=== PATIENT | female | born 1965 | race Caucasian/White ===

== ENCOUNTER → 2017-10-19 07:52 | Outpatient (CLI) | payer MEDICAID, SELFPAY ==
--- NOTE | 2017-10-19 08:14 | CT_ITS ---
STUDY: CT CHEST WITH CONTRAST REASON FOR EXAM: Female, 52 years old. The patient has a history of lung cancer. Prior chemotherapy and radiation therapy. RADIATION DOSAGE (If Supplied By Facility): CTDIvol = ( 8.24 ) mGy, DLP = ( 337.60 ) mGycm TECHNIQUE: Transaxial imaging was performed following intravenous administration of 100mL ml of Isovue 300 contrast material. Multiplanar coronal and sagittal images were reformatted. Individualized dose optimization techniques were used for this CT. COMPARISON: Comparison is made with prior study dated July 31, 2017. FINDINGS: There now is evidence of increased markings along the medial aspect of the left upper lobe as well as the superior segment of the right lower lobe with evidence of bronchiectasis and cystic changes. 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 The superior vena cava is patent. The previously seen multiple collaterals in the right anterior chest wall are not seen at this time. The left brachiocephalic vein is patent. The previously seen right pleural effusion as resolved. Stable appearance of the spiculated nodule in the right lung apex posteriorly. There is a 5 mm noncalcified nodule in the peripheral posterior aspect of the right upper lobe abutting the right minor fissure as seen on axial image #56 and coronal image #150. This was not well-seen on prior study. Small pericardial effusion. There are multiple small lymph nodes within the mediastinum, which are normal in size and morphology most compatible with reactive lymph hyperplasia. Normal hilar regions. Normal enhanced pulmonary arteries. Normal aorta arch and descending thoracic aorta. There are multi-level degenerative changes of the thoracic spine. There is a 3.1 cm x 2.4 cm well-defined hypodense nodule in the right adrenal gland. This is essentially unchanged. 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 The left brachiocephalic vein is patent. The previously seen venous collaterals in the anterior right chest are not seen at this time. Small pericardial effusion. Stable hypodense mass in the right adrenal gland. Electronically Signed: Stanley Zapata MD at 15:00 EST Tel [phone], Service support ,
[2017-10-19 08:33] LABS: Absolute Lymphocyte Count 1.67 X10^3/ul (0.83-4.51); Absolute Neutrophil Count 3.3 X10^3/uL (2.0-7.7); Basophil# 0.03 X10^3/uL; Basophil% 0.5 % (0-1); Eosinophil# 0.24 X10^3/uL; Eosinophils% 4.2 % (0-5); Hematocrit 42.4 % (37-47); Lymphocyte # 1.67 X10^3/ul (4.0); Lymphocyte % 29.2 % (19-41); Mean Corpuscular Hgb 31.9 pg (27.0-32.0); Mean Corpuscular Volume 96.6 fL (81-99); Mean Platelet Vol. 8.8 fl (6.2-12.0); Monocyte# 0.51 X10^3/uL; Monocyte% 8.9 % (0-10); Neutrophil # 3.25 X10^3/uL (2.7-7.7); Platelet Count 295 K/mm3 (150-450); RBC Distribution Width CV 14.3 % (11.6-14.6); RBC Distribution Width SD 49.3 fl (35.1-43.9); Red Blood Count 4.39 M/mm3 (4.2-5.4); White Blood Count 5.7 K/mm3 (4.4-11.0)
[2017-10-19 08:35] LABS: POSITIVE COUNT NO; POSITIVE DIFFERENTIAL NO; POSITIVE MORPHOLOGY NO
[2017-10-19 08:49] LABS: ALB/GLOB Ratio 0.8 RATIO (0.9-2.4); AST(SGOT) 31 U/L (15-37); Alanine Aminotransfer ALT/SGPT 46 U/L (13-56); Alkaline Phosphatase 68 U/L (45-117); Anion Gap 7 (5-15); BUN 12 mg/dL (7-18); BUN/Creat Ratio 20.5 RATIO (10-20); Calcium,Total 8.9 mg/dL (8.5-10.1); Chloride 109 mmol/L (98-107); Creatinine, Serum 0.58 mg/dL (0.55-1.02); EST Glomerular Filtration Rate 114 mL/min (>60); Est Glom Filt Rate - Afr Amer 138 mL/min (>60); Glucose 108 mg/dL (74-106); LDH 173 U/L (84-246); Potassium 3.9 mmol/L (3.5-5.1); Sodium Level 142 mmol/L (136-145)
== END ==
PROVIDERS: Family Provider Family Medicine Geriatric Medicine; PCP Family Medicine Geriatric Medicine; Visit Provider Internal Medicine Medical Oncology
DX: C34.11 Malignant neoplasm of upper lobe, right bronchus or lung (principal)
CPT/HCPCS: 36415; 71260; 80053; 83615; 85025; Q9967

== ENCOUNTER → 2017-12-16 11:21 | Outpatient (CLI) | payer MEDICAID, OTHER, SELFPAY ==
[2017-12-16 13:10] LABS: Absolute Lymphocyte Count 1.56 X10^3/ul (0.83-4.51); Basophil# 0.03 X10^3/uL; Basophil% 0.5 % (0-1); Eosinophil# 0.14 X10^3/uL; Eosinophils% 2.2 % (0-5); Hematocrit 43.4 % (37-47); Hemoglobin 14.5 g/dl (12.0-15.0); Lymphocyte # 1.56 X10^3/ul (4.0); Lymphocyte % 24.1 % (19-41); Mean Corp Hgb Conc 33.4 g/gl (32-36); Mean Corpuscular Hgb 32.4 pg (27.0-32.0); Mean Corpuscular Volume 96.9 fL (81-99); Mean Platelet Vol. 9.9 fl (6.2-12.0); Monocyte# 0.69 X10^3/uL; Monocyte% 10.7 % (0-10); Neutrophil # 4.04 X10^3/uL (2.7-7.7); Neutrophil % 62.3 % (47-70); Platelet Count 322 K/mm3 (150-450); RBC Distribution Width CV 13.8 % (11.6-14.6); RBC Distribution Width SD 47.6 fl (35.1-43.9); Red Blood Count 4.48 M/mm3 (4.2-5.4); White Blood Count 6.5 K/mm3 (4.4-11.0)
[2017-12-16 13:12] LABS: POSITIVE COUNT NO; POSITIVE DIFFERENTIAL NO; POSITIVE MORPHOLOGY NO
[2017-12-16 13:32] LABS: ALB/GLOB Ratio 0.9 RATIO (0.9-2.4); AST(SGOT) 24 U/L (15-37); Alanine Aminotransfer ALT/SGPT 34 U/L (13-56); Albumin, Serum 3.6 g/dL (3.2-5.0); Alkaline Phosphatase 68 U/L (45-117); Anion Gap 9 (5-15); BUN 16 mg/dL (7-18); BUN/Creat Ratio 23.2 RATIO (10-20); Calcium,Total 9.3 mg/dL (8.5-10.1); Chloride 107 mmol/L (98-107); Creatinine, Serum 0.69 mg/dL (0.55-1.02); EST Glomerular Filtration Rate 94 mL/min (>60); Est Glom Filt Rate - Afr Amer 114 mL/min (>60); Glucose 110 mg/dL (74-106); Potassium 3.9 mmol/L (3.5-5.1); Protein, Total 7.6 g/dL (6.4-8.2); Sodium Level 140 mmol/L (136-145); Thyroid Stim Hormone (TSH) 3.58 uIU/mL (0.358-3.74)
== END ==
PROVIDERS: Visit Provider Family Medicine Geriatric Medicine
DX: R53.83 Other fatigue (principal)
CPT/HCPCS: 36415; 80053; 84443; 85025

== ENCOUNTER → 2018-03-05 10:57 | Outpatient (CLI) | payer MEDICAID, OTHER, SELFPAY ==
[2018-03-05 12:25] LABS: Absolute Lymphocyte Count 0.89 X10^3/ul (0.83-4.51); Absolute Neutrophil Count 4.8 X10^3/uL (2.0-7.7); Basophil# 0.02 X10^3/uL; Basophil% 0.3 % (0-1); Eosinophil# 0.16 X10^3/uL; Eosinophils% 2.5 % (0-5); Hemoglobin 14.6 g/dl (12.0-15.0); Lymphocyte # 0.89 X10^3/ul (4.0); Mean Corpuscular Hgb 32.3 pg (27.0-32.0); Mean Corpuscular Volume 95.1 fL (81-99); Mean Platelet Vol. 9.7 fl (6.2-12.0); Monocyte# 0.51 X10^3/uL; Neutrophil # 4.75 X10^3/uL (2.7-7.7); Platelet Count 239 K/mm3 (150-450); RBC Distribution Width CV 13.1 % (11.6-14.6); RBC Distribution Width SD 44.3 fl (35.1-43.9); Red Blood Count 4.52 M/mm3 (4.2-5.4); White Blood Count 6.3 K/mm3 (4.4-11.0)
[2018-03-05 12:39] LABS: POSITIVE COUNT NO; POSITIVE DIFFERENTIAL NO; POSITIVE MORPHOLOGY NO
[2018-03-05 13:01] LABS: ALB/GLOB Ratio 0.8 RATIO (0.9-2.4); AST(SGOT) 20 U/L (15-37); Alanine Aminotransfer ALT/SGPT 28 U/L (13-56); Albumin, Serum 3.4 g/dL (3.2-5.0); Alkaline Phosphatase 61 U/L (45-117); Anion Gap 8 (5-15); BUN 14 mg/dL (7-18); BUN/Creat Ratio 20.6 RATIO (10-20); Calcium,Total 8.8 mg/dL (8.5-10.1); Chloride 108 mmol/L (98-107); Creatinine, Serum 0.68 mg/dL (0.55-1.02); EST Glomerular Filtration Rate 95 mL/min (>60); Est Glom Filt Rate - Afr Amer 115 mL/min (>60); Globulin 4.3 g/dL (2.2-4.2); Glucose 99 mg/dL (74-106); Potassium 3.9 mmol/L (3.5-5.1); Protein, Total 7.7 g/dL (6.4-8.2); Sodium Level 140 mmol/L (136-145)
[2018-03-07 10:16] LABS: Hep C Antibodies <0.1 s/co ratio (0.0-0.9)
== END ==
PROVIDERS: Visit Provider Family Medicine Geriatric Medicine
DX: R53.83 Other fatigue (principal); Z13.89 Encounter for screening for other disorder
CPT/HCPCS: 36415; 80053; 84443; 85025; 86803

== ENCOUNTER → 2018-03-20 09:32 | Outpatient (CLI) | payer MEDICAID, OTHER, SELFPAY ==
--- NOTE | 2018-03-20 09:37 | BI_ITS ---
MAMMOGRAPHY - BILATERAL SCREENING REASON FOR EXAM: Female, 53 years old. Routine annual screening examination. PERTINENT HISTORY: Non-contributory. TECHNIQUE: Digital bilateral breast mignon (3D mammographic acquisition) in the CC and MLO projections. 2-D mediolateral oblique (MLO) and craniocaudad (CC) views of both breasts were obtained. CAD: Full Field Digital Mammography with Computer Added Detection was performed. COMPARISON: Comparison is made with prior examination March 24, 2016. FINDINGS: Breast Composition: There are scattered areas of fibroglandular density. There are no dominant masses or suspicious calcifications. No other significant abnormalities are identified. There has been no significant change since the prior study. BI/SCREENING MAMM (CAD), BILAT IMPRESSION: Stable bilateral screening mammogram. Yearly follow-up mammogram recommended. (A) ASSESSMENT CATEGORY: BIRADS Category 1: Negative. A letter regarding these results will be sent to the patient by the facility within 30 days. Approximately 10% of breast cancers are not detected by mammography. A normal mammogram should not delay biopsy of a clinically suspicious abnormality. [id number] Electronically Signed: Stanley Zapata MD at 10:10 EDT Tel [phone], Service support ,
== END ==
PROVIDERS: Family Provider Family Medicine Geriatric Medicine; PCP Family Medicine Geriatric Medicine; Visit Provider Family Medicine Geriatric Medicine
DX: Z12.31 Encounter for screening mammogram for malignant neoplasm of breast (principal)
CPT/HCPCS: 77063; 77067

== ENCOUNTER → 2018-04-19 07:42 | Outpatient (CLI) | payer MEDICAID, OTHER, SELFPAY ==
[2018-04-17 12:12] LABS: Absolute Lymphocyte Count 1.08 X10^3/ul (0.83-4.51); Absolute Neutrophil Count 3.4 X10^3/uL (2.0-7.7); Basophil# 0.02 X10^3/uL; Basophil% 0.4 % (0-1); Eosinophil# 0.15 X10^3/uL; Eosinophils% 2.9 % (0-5); Hemoglobin 14.4 g/dl (12.0-15.0); Lymphocyte # 1.08 X10^3/ul (4.0); Mean Corp Hgb Conc 33.5 g/gl (32-36); Mean Corpuscular Hgb 31.8 pg (27.0-32.0); Mean Corpuscular Volume 94.9 fL (81-99); Mean Platelet Vol. 9.6 fl (6.2-12.0); Monocyte# 0.52 X10^3/uL; Monocyte% 10.1 % (0-10); Neutrophil # 3.36 X10^3/uL (2.7-7.7); Neutrophil % 65.4 % (47-70); Platelet Count 240 K/mm3 (150-450); RBC Distribution Width CV 13.3 % (11.6-14.6); RBC Distribution Width SD 44.9 fl (35.1-43.9); Red Blood Count 4.53 M/mm3 (4.2-5.4); White Blood Count 5.1 K/mm3 (4.4-11.0)
[2018-04-17 12:21] LABS: POSITIVE COUNT NO; POSITIVE DIFFERENTIAL NO; POSITIVE MORPHOLOGY NO
[2018-04-17 12:43] LABS: ALB/GLOB Ratio 0.8 RATIO (0.9-2.4); AST(SGOT) 23 U/L (15-37); Alanine Aminotransfer ALT/SGPT 31 U/L (13-56); Albumin, Serum 3.3 g/dL (3.2-5.0); Alkaline Phosphatase 58 U/L (45-117); Anion Gap 8 (5-15); BUN 16 mg/dL (7-18); BUN/Creat Ratio 24.5 RATIO (10-20); Calcium,Total 8.8 mg/dL (8.5-10.1); Chloride 107 mmol/L (98-107); Creatinine, Serum 0.65 mg/dL (0.55-1.02); EST Glomerular Filtration Rate 100 mL/min (>60); Est Glom Filt Rate - Afr Amer 121 mL/min (>60); Glucose 102 mg/dL (74-106); LDH 181 U/L (84-246); Protein, Total 7.3 g/dL (6.4-8.2); Sodium Level 142 mmol/L (136-145)
[2018-04-17 18:41] LABS: Xtra Tube EP Lab EXTRA TUBE
== END ==
PROVIDERS: Family Provider Family Medicine Geriatric Medicine; PCP Family Medicine Geriatric Medicine; Visit Provider Internal Medicine Medical Oncology
DX: Z85.118 Personal history of other malignant neoplasm of bronchus and lung (principal); Z92.3 Personal history of irradiation
CPT/HCPCS: 36415; 71260; 80053; 83615; 85025; Q9967

== ENCOUNTER → 2018-05-26 10:34 | Outpatient (CLI) | payer MEDICAID, OTHER, SELFPAY ==
[2018-05-26 12:37] LABS: Protein, Urine (Random) 47.5 mg/dL (<11.9); Protein:Creat Ratio 239 mg/g CRE (0-200)
[2018-05-26 12:38] LABS: Albumin, Serum 3.1 g/dL (3.2-5.0); BUN 13 mg/dL (7-18); BUN/Creat Ratio 19.6 RATIO (10-20); Calcium,Total 8.7 mg/dL (8.5-10.1); Chloride 107 mmol/L (98-107); Creatinine, Serum 0.66 mg/dL (0.55-1.02); EST Glomerular Filtration Rate 98 mL/min (>60); Est Glom Filt Rate - Afr Amer 119 mL/min (>60); Glucose 95 mg/dL (74-106); Phosphorus 2.9 mg/dL (2.5-4.9); Potassium 4.1 mmol/L (3.5-5.1); Sodium Level 141 mmol/L (136-145)
== END ==
PROVIDERS: Family Provider Family Medicine Geriatric Medicine; PCP Family Medicine Geriatric Medicine; Visit Provider Internal Medicine Nephrology
DX: R80.8 Other proteinuria (principal)
CPT/HCPCS: 36415; 80069; 82570; 84156

== ENCOUNTER → 2018-09-10 10:09 | Outpatient (CLI) | payer MEDICAID, OTHER, SELFPAY ==
[2018-09-10 13:12] LABS: Absolute Lymphocyte Count 1.11 X10^3/ul (0.83-4.51); Absolute Neutrophil Count 3.4 X10^3/uL (2.0-7.7); Basophil# 0.03 X10^3/uL; Basophil% 0.6 % (0-1); Eosinophils% 5.7 % (0-5); Hematocrit 41.8 % (37-47); Hemoglobin 13.8 g/dl (12.0-15.0); Lymphocyte # 1.11 X10^3/ul (4.0); Mean Corpuscular Hgb 31.4 pg (27.0-32.0); Mean Corpuscular Volume 95.2 fL (81-99); Mean Platelet Vol. 9.8 fl (6.2-12.0); Monocyte# 0.45 X10^3/uL; Monocyte% 8.5 % (0-10); Neutrophil # 3.38 X10^3/uL (2.7-7.7); Platelet Count 231 K/mm3 (150-450); RBC Distribution Width CV 13.1 % (11.6-14.6); RBC Distribution Width SD 45.5 fl (35.1-43.9); Red Blood Count 4.39 M/mm3 (4.2-5.4); White Blood Count 5.3 K/mm3 (4.4-11.0)
[2018-09-10 13:13] LABS: POSITIVE COUNT NO; POSITIVE DIFFERENTIAL NO; POSITIVE MORPHOLOGY NO
[2018-09-10 13:23] LABS: Albumin, Serum 3.4 g/dL (3.2-5.0); BUN 17 mg/dL (7-18); BUN/Creat Ratio 25.1 RATIO (10-20); Creatinine, Serum 0.68 mg/dL (0.55-1.02); EST Glomerular Filtration Rate 96 mL/min (>60); Est Glom Filt Rate - Afr Amer 116 mL/min (>60); Glucose 115 mg/dL (74-106); Protein, Total 7.4 g/dL (6.4-8.2)
[2018-09-10 13:24] LABS: ALB/GLOB Ratio 0.8 RATIO (0.9-2.4); AST(SGOT) 18 U/L (15-37); Alanine Aminotransfer ALT/SGPT 24 U/L (13-56); Alkaline Phosphatase 57 U/L (45-117); Anion Gap 9 (5-15); Calcium,Total 8.7 mg/dL (8.5-10.1); Chloride 108 mmol/L (98-107); Potassium 3.9 mmol/L (3.5-5.1); Sodium Level 140 mmol/L (136-145); Thyroid Stim Hormone (TSH) 3.68 uIU/mL (0.358-3.74); Vitamin D,25 Hydroxy 27.3 ng/mL (29.95-100.01)
--- OUTSIDE RECORDS SUMMARY | 2018-11-14 17:38 | XMS RPT_ITS ---
:1965 Author Organization OHIP Support Name Relationship Address Phone TODD, SHAYY Unavailable [address] + [place] [address] UE Unavailable Unavailable Unavailable TODD, SHAYY Unavailable [address] + [place] [address] UE Unavailable Unavailable Unavailable TODD, SHAYY Unavailable [address] + [place] [address] UE Unavailable Unavailable Unavailable TODD, SHAYY Unavailable [address] + [place] [address] UE Unavailable Unavailable Unavailable TODD, SAHYY Unavailable [address] + [place] [address] UE Unavailable Unavailable Unavailable TODD, SHAYY Unavailable [address] + [place] [address] UE Unavailable Unavailable Unavailable TODD, SHAYY Unavailable [address] + [place] [address] UE Unavailable Unavailable Unavailable TODD, SHAYY Unavailable [address] + [place] [address] UE Unavailable Unavailable Unavailable TODD, SHAYY Unavailable [address] + [place] [address] UE Unavailable Unavailable Unavailable TODD, SHAYY Unavailable [address] + [place] [address] UE Unavailable Unavailable Unavailable TODD, SHAYY Unavailable [address] + [place] [address] UE Unavailable Unavailable Unavailable Care Team Providers Name Role Phone Cesar Arevalo Chi Attending Unavailable Mickey, Cesar Chi Primary Care Unavailable Jared Mata Attending Unavailable Primay Care Physicia, No Primary Care Unavailable Primay Care Physicia, No Referring Unavailable Jared Mata Attending Unavailable Jared Mata Referring Unavailable Mickey, Cesar Chi Primary Care Unavailable Roseann Muhammad Attending Unavailable Mickey, Cesar Chi Primary Care Unavailable Esperanza, Jared Attending Unavailable Primay Care Physicia, No Primary Care Unavailable Jared Mata Consulting Unavailable Mickey, Cesar Chi Attending Unavailable Primay Care Physicia, No Primary Care Unavailable Mickey, Cesar Chi Attending Unavailable Primay Care Physicia, No Primary Care Unavailable Mickey, Cesar Chi Attending Unavailable Mickey, Cesar Chi Primary Care Unavailable Jared Mata Attending Unavailable Jared Mata Referring Unavailable Mickey, Cesar Chi Primary Care Unavailable Jared Mata Attending Unavailable Primay Care Physicia, No Primary Care Unavailable Jared Mata Consulting Unavailable Esperanza, Jared Referring Unavailable Roseann Muhammad Attending Unavailable Mickey, Cesar Chi Primary Care Unavailable PROBLEMS PROBLEMS DATE TYPE CONDITION / CODE ATTENDING STATUS SOURCE 04/21/2018 Unknown Z85.118 - Jared Mata Active [place] Personal history Community of other [facility] malignant Repository neoplasm of bronchus and lung / Z85.118(ICD-10) 10/19/2017 Unknown C34.11 - Jared Mata Malignant Community neoplasm of Hospital upper lobe, Repository right bronchus or lung / C34.11(ICD-10) PROCEDURES PROCEDURES No Procedure Records FoundRESULTS RESULTS CBC W/DIFF, AUTOMATED Collected: 09/10/2018 Status: F Source: [place] 10:15 AM [facility] REPOSITORY TYPE CODE TESTS RESULT OUT OF RANGE REFERENCE UNITS LAB L100.1000 4.4-11.0 K/mm3 Normal WBC 5.3 LAB L100.1200 4.2-5.4 M/mm3 Normal RBC 4.39 LAB L100.1300 12.0-15.0 g/dl Normal HGB 13.8 LAB L100.1400 37-47 % Normal HCT 41.8 LAB L100.1500 81-99 fL Normal MCV 95.2 LAB L100.1600 27.0-32.0 pg Normal MCH 31.4 LAB L100.1700 32-36 g/gl Normal MCHC 33.0 LAB L100.1810 11.6-14.6 % Normal RDW CV 13.1 LAB L100.1820 35.1-43.9 fl High RDW SD 45.5 LAB L100.1900 150-450 K/mm3 Normal PLT 231 LAB L100.2000 6.2-12.0 fl Normal MPV 9.8 LAB L100.2100 47-70 % Normal NEUT% 64.0 LAB L100.2200 19-41 % Normal LY% 21.0 LAB L100.2300 0-10 % Normal MONO% 8.5 LAB L100.2400 0-5 % High EO% 5.7 LAB L100.2500 0-1 % Normal BASO% 0.6 LAB L100.2550 0.0-0.9 % Normal IM GRAN % 0.200 Result Comment: IG% - Immature Granulocytes (promyelocytes, myelocytes and metamyelocytes) > 1% indicates that a LEFT SHIFT is Present. LAB L100.2620 2.0-7.7 X10 3/uL Normal Absolute Neut 3.4 LAB L100.2720 0.83-4.51 X10 3/ul Normal Absolute Lymph 1.11 Performed By: #### L100.0100 #### [facility] [address] [place], [address] COMPREHENSIVE METABOLIC Collected: 09/10/2018 Status: F Source: [facility] 10:15 AM [facility] REPOSITORY TYPE CODE TESTS RESULT OUT OF RANGE REFERENCE UNITS LAB L501.0100 74-106 mg/dL High GLU 115 Result Comment: Fasting Glucose result from 100 to 125 mg/dL suggests IMPAIRED HOMEOSTASIS per A.D.A. criteria. Please note revised GLUCOSE reference range effective 2017. LAB L501.1000 7-18 mg/dL Normal BUN 17 LAB L501.1100 0.55-1.02 mg/dL Normal CREAT,SERUM 0.68 Result Comment: The validity of the calculated GFR AND GFRAA in patients over 70 years has not been determined. Clinical correlation is essential. LAB L501.1110 >60 mL/min Normal EST GFR 96 Result Comment: Non- GFR Calc LAB L501.1115 >60 mL/min Normal EST GFR - AA 116 Result Comment: GFR Calc LAB L501.1300 10-20 RATIO High BUN/CRE 25.1 LAB L501.1500 6.4-8.2 g/dL T Normal PROT 7.4 LAB L501.1800 3.2-5.0 g/dL Normal ALB 3.4 LAB L501.1950 2.2-4.2 g/dL Normal GLOB 4.0 LAB L501.2000 0.9-2.4 RATIO Low A/G 0.8 LAB L501.2200 8.5-10.1 mg/dL CA Normal 8.7 LAB L501.4100 15-37 U/L Normal AST 18 Result Comment: Slight Hemolysis, Result may be falsely increased. LAB L501.4305 45-117 U/L Normal ALK P 57 LAB L501.4405 13-56 U/L Normal ALT 24 LAB L501.4600 0.20-1.00 mg/dL Normal T BILI 0.30 LAB L501.5300 136-145 mmol/L Normal NA 140 LAB L501.5600 3.5-5.1 mmol/L Normal K 3.9 Result Comment: Slight Hemolysis, Result may be falsely increased. LAB L501.5900 98-107 mmol/L High CL 108 LAB L501.6100 21.0-32.0 mmol/L Normal CO2 23.0 LAB L501.6200 5-15 Normal 9 GAP Performed By: #### L500.4050, L501.9520 #### [facility] [address] [facility] [place], [place], [address] THYROID STIM HORMONE Collected: 09/10/2018 Status: F Source: [place] ([facility]) 10:15 AM [facility] REPOSITORY TYPE CODE TESTS RESULT OUT OF RANGE REFERENCE UNITS LAB L501.9520 0.358-3.74 uIU/mL Normal TSH 3.68 Performed By: #### L500.4050, L501.9520 #### [facility] [address] [place], [address] VITAMIN D,25 HYDROXY Collected: 09/10/2018 Status: F Source: [place] 10:15 AM [facility] REPOSITORY TYPE CODE TESTS RESULT OUT OF REFERENCE UNITS RANGE LAB L506.1000 29.95-100.01 ng/mL Low Vitamin D 27.3 25-OH Result Comment: Vitamin D 25(OH) Status Range Deficiency <20 ng/mL (50nmol/L) Insuffciency 20 - 30 ng/mL (50 - 75 nmol/L) Sufficiency 30 - 100 ng/mL (75 - 250 nmol/L) Toxicity >100 ng/mL (>250 nmol/L) Performed By: #### L506.1000 #### [facility] [facility] [address] [place], [address] PROTEIN+CREATININE Collected: Status: F Source: [place] RATIO,URINE 05/26/2018 11:11 AM [facility] REPOSITORY TYPE CODE TESTS RESULT OUT OF RANGE REFERENCE UNITS LAB L501.1200 NO RANGE EST. mg/dL Normal UR CREAT 199.00 LAB L501.1930 <11.9 mg/dL High 47.5 PROTEIN,UR.R AN. LAB L501.1940 0-200 mg/g CRE High PROT:CRE 239 RATIO Performed By: #### L501.0900 #### [facility] [address] [place], [address] RENAL PROFILE Collected: 05/26/2018 Status: F Source: [place] 11:11 AM [facility] REPOSITORY TYPE CODE TESTS RESULT OUT OF RANGE REFERENCE UNITS LAB L501.0100 74-106 mg/dL Normal GLU 95 Result Comment: Please note revised GLUCOSE reference range effective 2017. LAB L501.1000 7-18 mg/dL Normal BUN 13 LAB L501.1100 0.55-1.02 mg/dL Normal CREAT,SERUM 0.66 Result Comment: The validity of the calculated GFR AND GFRAA in patients over 70 years has not been determined. Clinical correlation is essential. LAB L501.1110 >60 mL/min Normal EST GFR 98 Result Comment: Non- GFR Calc LAB L501.1115 >60 mL/min Normal EST GFR - AA 119 Result Comment: GFR Calc LAB L501.1300 10-20 RATIO Normal BUN/CRE 19.6 LAB L501.1800 3.2-5.0 g/dL Low ALB 3.1 LAB L501.2200 8.5-10.1 mg/dL CA Normal 8.7 LAB L501.2300 2.5-4.9 mg/dL Normal PHOS 2.9 LAB L501.5300 136-145 mmol/L NA Normal 141 LAB L501.5600 3.5-5.1 mmol/L K Normal 4.1 LAB L501.5900 98-107 mmol/L CL Normal 107 LAB L501.6100 21.0-32.0 mmol/L Normal CO2 28.0 Performed By: #### L500.3600 #### [facility] [address] [place], [address] ONCOLOGY VISIT REPORT Observed: 04/22/2018 Status: F Source: [place] 1:50 PM [facility] REPOSITORY [facility] [address] [place] [address] OFFICE VISIT Date of Service: 04/22/18 1342 MR#: [id number] Acct: [id number] Name: HAYDEE BROOKS Rep #: [id number] : 1965 From: Jared Mata MD Age/Sex: 53/F Location: OMD Status: Signed Subjective - Date of Service Date of Service:: 04/22/18 - Chief Complaint F/u for NSCLC. - History of Present Illness 53y.o.woman was diagnosed with R lung Non-small cell lung cancer, adenocarcinoma type, stage IIIB(T2 N3 M0) on 06/03/2016. She received combined chemotherapy and radiation therapy from 07/31/2016 to 09/22/2016. She received weekly Taxol/carboplatin during Radiation therapy. She then received 2 cycles of consolidation chemotherapy with Taxol/carboplatin every 21 days from 10/15/2016 to 11/05/2016. She was found to have nephrotic syndrome. CT chest on 12/10/2016 showed decrease in R mass from 2.4cm to 1.8cm. She had a PET/CT done 01/26/2017 showed decreased in SUV R lung nodule, mediastinal nodes and a R lower lobe activity below malignant potential. She is on observation, had a CT chest, comes in for follow up. - Past Medical/Social History Past Medical History Past Medical History: Anxiety,Clotting disorder,Hyperlipidemia Cancer: Lung cancer Other Cancer History: METASTATIC TO NECK LYMPH NODES Past Surgical History Other Surgical History: LUNG BX Family History Paternal Past Medical History: Unknown Maternal Past Medical History: Hypertension Social History Social History: No changes Smoking Status Current every day smoker Review of Systems Constitutional:: Denies: Fever, Sweats, Weight loss, Appetite change, Chills Cardiovascular:: Denies: Chest pain, Palpitations, Dyspnea on exertion, Orthopnea, PND, Shortness of breath Respiratory: Denies: Cough, Hemoptysis, Shortness of Breath, Wheezing Gastrointestinal:: Denies: Abdominal pain, Nausea, Vomiting, Diarrhea, Constipation, Hematochezia Genitourinary: Denies: Dysuria, Hematuria, 15, Flank pain Musculoskeletal:: Denies: Back pain, Myalgia, Arthralgia Skin: Denies: Rash, Skin Changes, Wounds Neurological:: Denies: Headache, Dizziness, Visual changes, Tinnitus, Hearing loss Psychiatric: Denies: Anxiety, Depression, Homicidal Ideations, Suicidal Ideations Vital Signs Height 5 ft 1 in Weight: 78.471 kg Weight in Pounds 173.0 lbs Pulse Ox 98 - Physical Exam General: Alert, Oriented x3, No apparent distress HEENT: Atraumatic, PERRLA, EOMI, Normocephalic Oropharynx:: Dry mucosa Neck:: Supple, Trachea midline. Negative for: JVD, bilateral Cardiac:: Regular rate, Regular rhythm, Normal S1, Normal S2. Negative for: Murmur Lungs: Clear to auscultation, Excusion symmetrical. Negative for: Rhonchi, Wheezes Abdomen:: Bowel sounds x 4, Soft, Non-tender, Non-distended. Negative for: Hepatosplenomegaly Extremities:: Negative for: Cyanosis, Edema Neurological: Neuro grossly intact Skin:: Negative for: Lesions, Rash, Petechiae, Ecchymosis Psychiatric:: Appropriate affect, Euthymic Lymphatics:: Negative for: Cervical lymphadenopathy, Supraclavicular lymphadenopathy, Axillary lymphadenopathy Laboratory Data: 04/17/2018 reviewed, Laboratory Tests WBC 5.1 Hgb 14.4 Hct 43.0 Plt Count 240 Creatinine 0.65 Total Bilirubin 0.40 AST 23 ALT 31 Alkaline Phosphatase 58 Diagnostic Data: 04/19/[address]/Chest WITH Contrast IMPRESSION: Essentially no change in findings when compared to October 19, 2017. Electronically Signed: Royce Ward DO at 16:53 EDT Assessment and Plan Non-Small Cell Lung Cancer, adenocarcinoma type stage IIIB(T2 N3 M0) S/P chemoradiation therapy and consolidation chemotherapy. No evidence of progressive disease. Residual fibrotic changes Right Lung-Radiation induced. Plan is to continue observation. RTC 6 months with cbc, cmp AND CT chest. Medications: Prescriptions This Visit Medication Instructions Recorded Lisinopril [Zestril] 2.5 mg PO DAILY 04/23/17 Paroxetine HCl [Paxil] 20 mg PO DAILY 04/23/17 Vitamin D2 PO QMONTH 04/23/17 Primary Care Provider: No Primary Care Phys Referring Provider: - Problem List (1) Non-small cell lung cancer (NSCLC) Status: Resolved (2) Radiation-induced pulmonary fibrosis Status: Chronic (3) History of lung cancer Status: Chronic Code Visit Office Visits / Consults: 23404 OV L4 Est 04/22/18 1350 <Electronically signed by Jared Mata MD> Date Jared Mata MD Cosigner Signature: Date (if applicable) CC: CHEST WITH CONTRAST Observed: 04/19/2018 Status: F Source: [place] 7:43 AM [facility] REPOSITORY [facility] Imaging Services [address] [place] [id number] Chest WITH Contrast MR#: [id number] Acct: [id number] Name: HAYDEE BROOKS Rep #: [id number] : 1965 F 53 From: Royce Ward DO PCP: Mickey CONRAD,Cesar [facility] Status: REG CLI Study: Chest WITH Contrast Date of Exam: 04/19/18 Exam# [id number] Ordering Dr: Jared Mata MD STUDY: CT CHEST WITHOUT CONTRAST REASON FOR EXAM: Female, 53 years old. Follow-up lung cancer. History of radiation and chemotherapy. RADIATION DOSAGE (If Supplied By Facility): CTDIvol = ( 8.69 ) mGy, DLP = ( 341.18 ) mGycm TECHNIQUE: Transaxial imaging was performed without the administration of intravenous contrast material. Multiplanar coronal and sagittal images were reformatted. Individualized dose optimization techniques were used for this CT. COMPARISON: CT of the chest, October 21, 2017. FINDINGS: The lungs are well expanded. There is stable linear scarring in the left upper lobe. There is a stable spiculated nodule in the posterior right upper lobe as well as increasing density about the upper hilum and right mediastinal margin thought to be secondary to prior radiation. This also extends along the medial aspect of the right lower lobe and just below the level of the hilum. This is unchanged. There is minimal pleural thickening in the posterior right lung apex. There is no new mass or infiltrate. There is a stable pleural-based density in the right lower lobe best seen on image 48. The heart is normal size. There is minimal pericardial thickening. There are calcifications of the coronary arteries. Normal mediastinum. There is soft tissue density in the hilum thought to be secondary to radiation therapy. This appears stable. Normal unenhanced pulmonary arteries. Normal aorta arch and descending thoracic aorta. There are multi-level degenerative changes of the thoracic spine. Again seen is a low-attenuation mass in the right adrenal gland consistent with adenoma. CT/Chest WITH Contrast IMPRESSION: Essentially no change in findings when compared to October 19, 2017. Electronically Signed: Royce Ward DO at 16:53 EDT Tel [phone], Service support , CC: Jared Mata MD; Cesar Arevalo MD Detector Car Operator: Signed CBC W/DIFF, AUTOMATED Collected: 04/17/2018 Status: F Source: [place] 10:41 AM [facility] REPOSITORY Order Comment: Reason for Laboratory Test . TYPE CODE TESTS RESULT OUT OF RANGE REFERENCE UNITS LAB L100.1000 4.4-11.0 K/mm3 Normal WBC 5.1 LAB L100.1200 4.2-5.4 M/mm3 Normal RBC 4.53 LAB L100.1300 12.0-15.0 g/dl Normal HGB 14.4 LAB L100.1400 37-47 % Normal HCT 43.0 LAB L100.1500 81-99 fL Normal MCV 94.9 LAB L100.1600 27.0-32.0 pg Normal MCH 31.8 LAB L100.1700 32-36 g/gl Normal MCHC 33.5 LAB L100.1810 11.6-14.6 % Normal RDW CV 13.3 LAB L100.1820 35.1-43.9 fl High RDW SD 44.9 LAB L100.1900 150-450 K/mm3 Normal PLT 240 LAB L100.2000 6.2-12.0 fl Normal MPV 9.6 LAB L100.2100 47-70 % Normal NEUT% 65.4 LAB L100.2200 19-41 % Normal LY% 21.0 LAB L100.2300 0-10 % High MONO% 10.1 LAB L100.2400 0-5 % Normal EO% 2.9 LAB L100.2500 0-1 % Normal BASO% 0.4 LAB L100.2550 0.0-0.9 % Normal IM GRAN % 0.200 Result Comment: IG% - Immature Granulocytes (promyelocytes, myelocytes and metamyelocytes) > 1% indicates that a LEFT SHIFT is Present. LAB L100.2620 2.0-7.7 X10 3/uL Normal Absolute Neut 3.4 LAB L100.2720 0.83-4.51 X10 3/ul Normal Absolute Lymph 1.08 Performed By: #### L100.0100, L500.4050, L504.2610 #### [facility] [address], [address] COMPREHENSIVE METABOLIC Collected: 04/17/2018 Status: F Source: [facility] 10:41 AM [facility] REPOSITORY Order Comment: Reason for Laboratory Test . Serial Specimen #1, #2 or #3? 1 TYPE CODE TESTS RESULT OUT OF RANGE REFERENCE UNITS LAB L501.0100 74-106 mg/dL Normal GLU 102 Result Comment: Fasting Glucose result from 100 to 125 mg/dL suggests IMPAIRED HOMEOSTASIS per A.D.A. criteria. Please note revised GLUCOSE reference range effective 2017. LAB L501.1000 7-18 mg/dL Normal BUN 16 LAB L501.1100 0.55-1.02 mg/dL Normal CREAT,SERUM 0.65 Result Comment: The validity of the calculated GFR AND GFRAA in patients over 70 years has not been determined. Clinical correlation is essential. LAB L501.1110 >60 mL/min Normal EST GFR 100 Result Comment: Non- GFR Calc LAB L501.1115 >60 mL/min Normal EST GFR - AA 121 Result Comment: GFR Calc LAB L501.1300 10-20 RATIO High BUN/CRE 24.5 LAB L501.1500 6.4-8.2 g/dL T Normal PROT 7.3 LAB L501.1800 3.2-5.0 g/dL Normal ALB 3.3 LAB L501.1950 2.2-4.2 g/dL Normal GLOB 4.0 LAB L501.2000 0.9-2.4 RATIO Low A/G 0.8 LAB L501.2200 8.5-10.1 mg/dL CA Normal 8.8 LAB L501.4100 15-37 U/L Normal AST 23 LAB L501.4305 45-117 U/L Normal ALK P 58 LAB L501.4405 13-56 U/L Normal ALT 31 LAB L501.4600 0.20-1.00 mg/dL T Normal BILI 0.40 LAB L501.5300 136-145 mmol/L NA Normal 142 LAB L501.5600 3.5-5.1 mmol/L K Normal 4.0 LAB L501.5900 98-107 mmol/L CL Normal 107 LAB L501.6100 21.0-32.0 mmol/L Normal CO2 27.0 LAB L501.6200 5-15 Normal GAP 8 Performed By: #### L100.0100, L500.4050, L504.2610 #### [facility] [address] [place], [place], [id number] LDH Collected: 04/17/2018 Status: F Source: [place] 10:41 AM [facility] REPOSITORY Order Comment: Reason for Laboratory Test . Serial Specimen #1, #2 or #3? 1 TYPE CODE TESTS RESULT OUT OF RANGE REFERENCE UNITS LAB L504.2610 84-246 U/L Normal LDH 181 Performed By: #### L100.0100, L500.4050, L504.2610 #### [facility] [address] [place], [address] SCREENING MAMM (CAD), Observed: 03/20/2018 Status: F Source: [place] [facility] 9:37 AM [facility] Imaging Services [address] [place] [address] SCREENING MAMM (CAD), BILAT MR#: [id number] Acct: [id number] Name: HAYDEE BROOKS Rep #: [id number] : 1965 F 53 From: Stanley Zapata MD PCP: Cesar Arevalo MD, Chi Status: REG CLI Study: SCREENING MAMM (CAD), BILAT Date of Exam: 03/20/18 Exam# [id number] Ordering Dr: Cesar Arevalo MD MAMMOGRAPHY - BILATERAL SCREENING REASON FOR EXAM: Female, 53 years old. Routine annual screening examination. PERTINENT HISTORY: Non-contributory. TECHNIQUE: Digital bilateral breast mignon (3D mammographic acquisition) in the CC and MLO projections. 2-D mediolateral oblique (MLO) and craniocaudad (CC) views of both breasts were obtained. CAD: Full Field Digital Mammography with Computer Added Detection was performed. COMPARISON: Comparison is made with prior examination March 24, 2016. FINDINGS: Breast Composition: There are scattered areas of fibroglandular density. There are no dominant masses or suspicious calcifications. No other significant abnormalities are identified. There has been no significant change since the prior study. BI/SCREENING MAMM (CAD), BILAT IMPRESSION: Stable bilateral screening mammogram. Yearly follow-up mammogram recommended. (A) ASSESSMENT CATEGORY: BIRADS Category 1: Negative. A letter regarding these results will be sent to the patient by the facility within 30 days. Approximately 10% of breast cancers are not detected by mammography. A normal mammogram should not delay biopsy of a clinically suspicious abnormality. [id number] Electronically Signed: Stanley Zapata MD at 10:10 EDT Tel [phone], Service support , CC: Cesar Arevalo MD Detector Car Operator: Signed CBC W/DIFF, AUTOMATED Collected: 03/05/2018 Status: F Source: [place] 10:58 AM [facility] REPOSITORY TYPE CODE TESTS RESULT OUT OF RANGE REFERENCE UNITS LAB L100.1000 4.4-11.0 K/mm3 Normal WBC 6.3 LAB L100.1200 4.2-5.4 M/mm3 Normal RBC 4.52 LAB L100.1300 12.0-15.0 g/dl Normal HGB 14.6 LAB L100.1400 37-47 % Normal HCT 43.0 LAB L100.1500 81-99 fL Normal MCV 95.1 LAB L100.1600 27.0-32.0 pg High MCH 32.3 LAB L100.1700 32-36 g/gl Normal MCHC 34.0 LAB L100.1810 11.6-14.6 % Normal RDW CV 13.1 LAB L100.1820 35.1-43.9 fl High RDW SD 44.3 LAB L100.1900 150-450 K/mm3 Normal PLT 239 LAB L100.2000 6.2-12.0 fl Normal MPV 9.7 LAB L100.2100 47-70 % High NEUT% 75.0 LAB L100.2200 19-41 % Low LY% 14.0 LAB L100.2300 0-10 % Normal MONO% 8.0 LAB L100.2400 0-5 % Normal EO% 2.5 LAB L100.2500 0-1 % Normal BASO% 0.3 LAB L100.2550 0.0-0.9 % Normal IM GRAN % 0.200 Result Comment: IG% - Immature Granulocytes (promyelocytes, myelocytes and metamyelocytes) > 1% indicates that a LEFT SHIFT is Present. LAB L100.2620 2.0-7.7 X10 3/uL Normal Absolute Neut 4.8 LAB L100.2720 0.83-4.51 X10 3/ul Normal Absolute Lymph 0.89 Performed By: #### L100.0100 #### [place] [facility] [address] [place], [address] COMPREHENSIVE METABOLIC Collected: 03/05/2018 Status: F Source: [place] 10:58 AM [facility] REPOSITORY TYPE CODE TESTS RESULT OUT OF RANGE REFERENCE UNITS LAB L501.0100 74-106 mg/dL Normal GLU 99 Result Comment: Please note revised GLUCOSE reference range effective 2017. LAB L501.1000 7-18 mg/dL Normal BUN 14 LAB L501.1100 0.55-1.02 mg/dL Normal CREAT,SERUM 0.68 Result Comment: The validity of the calculated GFR AND GFRAA in patients over 70 years has not been determined. Clinical correlation is essential. LAB L501.1110 >60 mL/min Normal EST GFR 95 Result Comment: Non- GFR Calc LAB L501.1115 >60 mL/min Normal EST GFR - AA 115 Result Comment: GFR Calc LAB L501.1300 10-20 RATIO High BUN/CRE 20.6 LAB L501.1500 6.4-8.2 g/dL T Normal PROT 7.7 LAB L501.1800 3.2-5.0 g/dL Normal ALB 3.4 LAB L501.1950 2.2-4.2 g/dL High GLOB 4.3 LAB L501.2000 0.9-2.4 RATIO Low A/G 0.8 LAB L501.2200 8.5-10.1 mg/dL CA Normal 8.8 LAB L501.4100 15-37 U/L Normal AST 20 Result Comment: Slight Hemolysis, Result may be falsely increased. LAB L501.4305 45-117 U/L Normal ALK P 61 LAB L501.4405 13-56 U/L Normal ALT 28 LAB L501.4600 0.20-1.00 mg/dL Normal T BILI 0.30 LAB L501.5300 136-145 mmol/L Normal NA 140 LAB L501.5600 3.5-5.1 mmol/L Normal K 3.9 Result Comment: Slight Hemolysis, Result may be falsely increased. LAB L501.5900 98-107 mmol/L High CL 108 LAB L501.6100 21.0-32.0 mmol/L Normal CO2 24.0 LAB L501.6200 5-15 Normal 8 GAP Performed By: #### L500.4050, L501.9520 #### [facility] [address] [place], [address] THYROID STIM HORMONE Collected: 03/05/2018 Status: F Source: [place] ([facility]) 10:58 AM [facility] REPOSITORY TYPE CODE TESTS RESULT OUT OF RANGE REFERENCE UNITS LAB L501.9520 0.358-3.74 uIU/mL Normal TSH 2.40 Performed By: #### L500.4050, L501.9520 #### [place] [facility] [address] [place], [address] HEPATITIS C ANTIBODIES Collected: 03/05/2018 Status: F Source: [place] 10:58 AM [facility] REPOSITORY TYPE CODE TESTS RESULT OUT OF RANGE REFERENCE UNITS LAB L3100.0650 0.0-0.9 s/co ratio Normal HEP C AB <0.1 Result Comment: Negative: < 0.8 Indeterminate: 0.8 - 0.9 Positive: > 0.9 The CDC recommends that a positive HCV antibody result be followed up with a HCV Nucleic Acid Amplification test ([id number]). Performed at: [address] [id number] Hat Liner: Tad Adam PhD, Phone: [phone] Performed By: #### L3100.0625 #### [facility] specific [facility] refer to report for address and phone number CBC W/DIFF, AUTOMATED Collected: 12/16/2017 Status: F Source: [place] 11:23 AM [facility] REPOSITORY TYPE CODE TESTS RESULT OUT OF RANGE REFERENCE UNITS LAB L100.1000 4.4-11.0 K/mm3 Normal WBC 6.5 LAB L100.1200 4.2-5.4 M/mm3 Normal RBC 4.48 LAB L100.1300 12.0-15.0 g/dl Normal HGB 14.5 LAB L100.1400 37-47 % Normal HCT 43.4 LAB L100.1500 81-99 fL Normal MCV 96.9 LAB L100.1600 27.0-32.0 pg High MCH 32.4 LAB L100.1700 32-36 g/gl Normal MCHC 33.4 LAB L100.1810 11.6-14.6 % Normal RDW CV 13.8 LAB L100.1820 35.1-43.9 fl High RDW SD 47.6 LAB L100.1900 150-450 K/mm3 Normal PLT 322 LAB L100.2000 6.2-12.0 fl Normal MPV 9.9 LAB L100.2100 47-70 % Normal NEUT% 62.3 LAB L100.2200 19-41 % Normal LY% 24.1 LAB L100.2300 0-10 % High MONO% 10.7 LAB L100.2400 0-5 % Normal EO% 2.2 LAB L100.2500 0-1 % Normal BASO% 0.5 LAB L100.2550 0.0-0.9 % Normal IM GRAN % 0.200 Result Comment: IG% - Immature Granulocytes (promyelocytes, myelocytes and metamyelocytes) > 1% indicates that a LEFT SHIFT is Present. LAB L100.2620 2.0-7.7 X10 3/uL Normal Absolute Neut 4.0 LAB L100.2720 0.83-4.51 X10 3/ul Normal Absolute Lymph 1.56 Performed By: #### L100.0100 #### [facility] [address] [place], [address] COMPREHENSIVE METABOLIC Collected: 12/16/2017 Status: F Source: [facility] 11:23 AM [facility] REPOSITORY TYPE CODE TESTS RESULT OUT OF RANGE REFERENCE UNITS LAB L501.0100 74-106 mg/dL High GLU 110 Result Comment: Fasting Glucose result from 100 to 125 mg/dL suggests IMPAIRED HOMEOSTASIS per A.D.A. criteria. Please note revised GLUCOSE reference range effective 2017. LAB L501.1000 7-18 mg/dL Normal BUN 16 LAB L501.1100 0.55-1.02 mg/dL Normal CREAT,SERUM 0.69 Result Comment: The validity of the calculated GFR AND GFRAA in patients over 70 years has not been determined. Clinical correlation is essential. LAB L501.1110 >60 mL/min Normal EST GFR 94 Result Comment: Non- GFR Calc LAB L501.1115 >60 mL/min Normal EST GFR - AA 114 Result Comment: GFR Calc LAB L501.1300 10-20 RATIO High BUN/CRE 23.2 LAB L501.1500 6.4-8.2 g/dL T Normal PROT 7.6 LAB L501.1800 3.2-5.0 g/dL Normal ALB 3.6 LAB L501.1950 2.2-4.2 g/dL Normal GLOB 4.0 LAB L501.2000 0.9-2.4 RATIO Normal A/G 0.9 LAB L501.2200 8.5-10.1 mg/dL CA Normal 9.3 LAB L501.4100 15-37 U/L Normal AST 24 LAB L501.4305 45-117 U/L Normal ALK P 68 LAB L501.4405 13-56 U/L Normal ALT 34 LAB L501.4600 0.20-1.00 mg/dL T Normal BILI 0.30 LAB L501.5300 136-145 mmol/L NA Normal 140 LAB L501.5600 3.5-5.1 mmol/L K Normal 3.9 LAB L501.5900 98-107 mmol/L CL Normal 107 LAB L501.6100 21.0-32.0 mmol/L Normal CO2 24.0 LAB L501.6200 5-15 Normal GAP 9 Performed By: #### L500.4050, L501.9520 #### [facility] [address] [place], [address] THYROID STIM HORMONE Collected: 12/16/2017 Status: F Source: [place] (TSH) 11:23 AM [facility] REPOSITORY TYPE CODE TESTS RESULT OUT OF RANGE REFERENCE UNITS LAB L501.9520 0.358-3.74 uIU/mL Normal TSH 3.58 Performed By: #### L500.4050, L501.9520 #### [facility] [address] [place], [address] CHEST WITH CONTRAST Observed: 10/19/2017 Status: F Source: [place] 8:14 AM [facility] REPOSITORY [facility] Imaging Services [address] [place] [address] Chest WITH Contrast MR#: [id number] Acct: [id number] Name: HAYDEE BROOKS Rep #: [id number] : 1965 F 52 From: Stanley Zapata MD PCP: Mickey CONRAD,Cesar Chi Status: REG CLI Study: Chest WITH Contrast Date of Exam: 10/19/17 Exam# [id number] Ordering Dr: Jared Mata MD STUDY: CT CHEST WITH CONTRAST REASON FOR EXAM: Female, 52 years old. The patient has a history of lung cancer. Prior chemotherapy and radiation therapy. RADIATION DOSAGE (If Supplied By Facility): CTDIvol = ( 8.24 ) mGy, DLP = ( 337.60 ) mGycm TECHNIQUE: Transaxial imaging was performed following intravenous administration of 100mL ml of Isovue 300 contrast material. Multiplanar coronal and sagittal images were reformatted. Individualized dose optimization techniques were used for this CT. COMPARISON: Comparison is made with prior study dated July 31, 2017. FINDINGS: There now is evidence of increased markings along the medial aspect of the left upper lobe as well as the superior segment of the right lower lobe with evidence of bronchiectasis and cystic changes. 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 The superior vena cava is patent. The previously seen multiple collaterals in the right anterior chest wall are not seen at this time. The left brachiocephalic vein is patent. The previously seen right pleural effusion as resolved. Stable appearance of the spiculated nodule in the right lung apex posteriorly. There is a 5 mm noncalcified nodule in the peripheral posterior aspect of the right upper lobe abutting the right minor fissure as seen on axial image #56 and coronal image #150. This was not well-seen on prior study. Small pericardial effusion. There are multiple small lymph nodes within the mediastinum, which are normal in size and morphology most compatible with reactive lymph hyperplasia. Normal hilar regions. Normal enhanced pulmonary arteries. Normal aorta arch and descending thoracic aorta. There are multi-level degenerative changes of the thoracic spine. There is a 3.1 cm x 2.4 cm well-defined hypodense nodule in the right adrenal gland. This is essentially unchanged. 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 The left brachiocephalic vein is patent. The previously seen venous collaterals in the anterior right chest are not seen at this time. Small pericardial effusion. Stable hypodense mass in the right adrenal gland. Electronically Signed: Stanley Zapata MD at 15:00 EST Tel [phone], Service support , CC: Jared Mata MD; Cesar Arevalo MD Detector Car Operator: Signed CBC W/DIFF, AUTOMATED Collected: 10/19/2017 Status: F Source: [place] 8:05 AM [facility] REPOSITORY TYPE CODE TESTS RESULT OUT OF RANGE REFERENCE UNITS LAB L100.1000 4.4-11.0 K/mm3 Normal WBC 5.7 LAB L100.1200 4.2-5.4 M/mm3 Normal RBC 4.39 LAB L100.1300 12.0-15.0 g/dl Normal HGB 14.0 LAB L100.1400 37-47 % Normal HCT 42.4 LAB L100.1500 81-99 fL Normal MCV 96.6 LAB L100.1600 27.0-32.0 pg Normal MCH 31.9 LAB L100.1700 32-36 g/gl Normal MCHC 33.0 LAB L100.1810 11.6-14.6 % Normal RDW CV 14.3 LAB L100.1820 35.1-43.9 fl High RDW SD 49.3 LAB L100.1900 150-450 K/mm3 Normal PLT 295 LAB L100.2000 6.2-12.0 fl Normal MPV 8.8 LAB L100.2100 47-70 % Normal NEUT% 57.0 LAB L100.2200 19-41 % Normal LY% 29.2 LAB L100.2300 0-10 % Normal MONO% 8.9 LAB L100.2400 0-5 % Normal EO% 4.2 LAB L100.2500 0-1 % Normal BASO% 0.5 LAB L100.2550 0.0-0.9 % Normal IM GRAN % 0.200 Result Comment: IG% - Immature Granulocytes (promyelocytes, myelocytes and metamyelocytes) > 1% indicates that a LEFT SHIFT is Present. LAB L100.2620 2.0-7.7 X10 3/uL Normal Absolute Neut 3.3 LAB L100.2720 0.83-4.51 X10 3/ul Normal Absolute Lymph 1.67 Performed By: #### L100.0100 #### [facility] [address] [place], [address] COMPREHENSIVE METABOLIC Collected: 10/19/2017 Status: F Source: [place] 8:02 AM [facility] REPOSITORY Order Comment: Reason for Laboratory Test OV Serial Specimen #1, #2 or #3? 1 TYPE CODE TESTS RESULT OUT OF RANGE REFERENCE UNITS LAB L501.0100 74-106 mg/dL High GLU 108 Result Comment: Fasting Glucose result from 100 to 125 mg/dL suggests IMPAIRED HOMEOSTASIS per A.D.A. criteria. Please note revised GLUCOSE reference range effective 2017. LAB L501.1000 7-18 mg/dL Normal BUN 12 LAB L501.1100 0.55-1.02 mg/dL Normal CREAT,SERUM 0.58 Result Comment: The validity of the calculated GFR AND GFRAA in patients over 70 years has not been determined. Clinical correlation is essential. LAB L501.1110 >60 mL/min Normal EST GFR 114 Result Comment: Non- GFR Calc LAB L501.1115 >60 mL/min Normal EST GFR - AA 138 Result Comment: GFR Calc LAB L501.1300 10-20 RATIO High BUN/CRE 20.5 LAB L501.1500 6.4-8.2 g/dL T Normal PROT 7.0 LAB L501.1800 3.2-5.0 g/dL Low ALB 3.0 LAB L501.1950 2.2-4.2 g/dL Normal GLOB 4.0 LAB L501.2000 0.9-2.4 RATIO Low A/G 0.8 LAB L501.2200 8.5-10.1 mg/dL CA Normal 8.9 LAB L501.4100 15-37 U/L Normal AST 31 LAB L501.4305 45-117 U/L Normal ALK P 68 LAB L501.4405 13-56 U/L Normal ALT 46 Result Comment: Please note revised ALT reference range effective 2017. LAB L501.4600 0.20-1.00 mg/dL Normal T BILI 0.30 LAB L501.5300 136-145 mmol/L Normal NA 142 LAB L501.5600 3.5-5.1 mmol/L Normal K 3.9 LAB L501.5900 98-107 mmol/L High CL 109 LAB L501.6100 21.0-32.0 mmol/L Normal CO2 26.0 LAB L501.6200 5-15 Normal GAP 7 Performed By: #### L500.4050, L504.2610 #### [facility] [address] [place], [address] LDH Collected: 10/19/2017 Status: F Source: [place] 8:02 AM [facility] REPOSITORY Order Comment: Reason for Laboratory Test OV Serial Specimen #1, #2 or #3? 1 TYPE CODE TESTS RESULT OUT OF RANGE REFERENCE UNITS LAB L504.2610 84-246 U/L Normal LDH 173 Performed By: #### L500.4050, L504.2610 #### [facility] [address] [place], [address] ALLERGIES ALLERGIES DATE TYPE / CODE NAME / CODE REACTION SEVERITY SOURCE 04/22/2018 Drug No Known Unknown [facility] Allergy/4160 Allergies/F00 Hospital 51189(SNOMED 5623435(RXNOR Repository CT) M) ENCOUNTERS ENCOUNTERS ADMIT/DISCHARGE ACCOUNT ADMITTING ENCOUNTER LOCATION SOURCE NUMBER CLASS 09/10/2018 [id number] Ambulatory [place] [address] [facility] ing:POLAB3 Repository 08/30/2018 [id number] Ambulatory [place] [facility] [facility] ing:LAB.FUTUR Repository E 05/26/2018 [id number] Ambulatory [place] [facility] [address] [facility] ing:POLAB3 Repository 04/22/2018 [id number] Ambulatory [place] [address] [facility] ing:OMD Repository 04/22/2018 [id number] Ambulatory BMSBuilding:B [place] 5 MS.CF.[facility] Repository 04/19/2018 [id number] Ambulatory [place] [facility] [address] [facility] ing:CT Repository 03/20/2018 [id number] Ambulatory [place] [address] [facility] ing:OPBI Repository 03/05/2018 [id number] Ambulatory [place] [facility] [address] [facility] ing:POLAB3 Repository 12/16/2017 [id number] Ambulatory [place] [facility] [address] [facility] ing:POLAB3 Repository 10/22/2017 [id number] Ambulatory BMSBuilding:B [place] 7 MS.WMO [facility] Repository 10/19/2017 [id number] Ambulatory [place] [facility] [address] [facility] ing:CT Repository PAYERS PAYERS ENCOUNTER GUARANTOR PAYER SUBSCRIBER SOURCE 09/10/2018 Haydee R Primary Haydee R [place] [id number] Insurance:CARESOURCEPo BrodeurDOB: [place] l[place] Number: [id number] [place] [id number] Repository [address]Kjc: (330) Date:2018-09-10[phone] () [phone]: [place] [address]SD: 09/10/2018 Secondary Haydee R [place] Insurance:CHEMO BrodeurDOB[facility] [id number] Hospital Number: Repository [id number] Date:2018-09-10 09/10/2018 Tertiary NOT GIVENUNK [place] Insurance:SELF PAY [facility] Number: Effective Repository Date:2018-09-10 08/30/2018 Haydee R Primary Haydee R [place] [id number] Insurance:CARESOURCEPo BrodeurDOB: [facility] [place] licy Number: [id number] [place], [place] [id number] Repository [address]Ydd: (330) Date:2018-06-03[phone] () [phone]: [place] [address]TJ: 08/30/2018 Secondary Haydee R [place] Insurance:CHEMO BrodeurDOB: [facility] [id number] Hospital Number: Repository [id number] Date:2018-06-03 08/30/2018 Tertiary NOT GIVENUNK [place] Insurance:SELF PAY [facility] Number: Effective Repository Date:2018-06-03 05/26/2018 Haydee R Primary Haydee R [place] [id number] Insurance:CARESOURCEPo BrodeurDOB: [facility] [place] licy Number: [id number] Orchard, [place] [id number] Repository [address]Fwo: (330) Date:2017-10-16[phone] () 97[address]Attn: [place] [address]UE: 05/26/2018 Secondary Haydee R [place] Insurance:CHEMO BrodeurDOB: Community ASSISTANCEPolicy [id number] Hospital Number: Repository [id number] Date:2017-10-16 05/26/2018 Tertiary NOT GIVENUNK [place] Insurance:SELF PAY [facility] Number: Effective Repository Date:2017-10-16 04/22/2018 Haydee R Primary Haydee R [place] [id number] Insurance:CARESOURCEPo BrodeurDOB: [facility] [place] l[place] Number: [id number] [place]chard, [place] [id number] Repository [address]Wyj: (330) Date:2016-11-11[phone] () [phone]: [place] [address]ZO: 04/22/2018 Secondary Haydee R [place] Insurance:CHEMO BrodeurDOB: Community ASSISTANCEPolicy [id number] Hospital Number: Repository [id number] Date:2016-11-11 04/22/2018 Tertiary NOT GIVENUNK [place] Insurance:SELF PAY [facility] Number: Effective Repository Date:2016-11-11 04/22/2018 Haydee R Primary Haydee R [place] [id number] Insurance:CARESOURCEPo BrodeurDOB: [facility] [place] Number: [id number] [place], [place] [id number] Repository [address]Txu: (330) Date:2016-11-11[phone] (HP) [phone]: [place] [address]OI: 04/22/2018 Secondary Haydee R [place] Insurance:CHEMO BrodeurDOB: [facility] [id number] Hospital Number: Repository [id number] Date:2016-11-11 04/22/2018 Tertiary NOT GIVENUNK [place] Insurance:SELF PAY [facility] Number: Effective Repository Date:2018-04-22 04/19/2018 Haydee R Primary Haydee R [place] [id number] Insurance:CARESOURCEPo BrodeurDOB: [facility] [place] Number: [id number] [place], [place] [id number] Repository [address]Rkx: (330) Date:2018-02-18[phone] () [phone]: [place] [address]HD: 04/19/2018 Secondary Haydee R [place] Insurance:CHEMO BrodeurDOB: [facility] [id number] Hospital Number: Repository [id number] Date:2018-02-18 04/19/2018 Tertiary NOT GIVENUNK [place] Insurance:SELF PAY [facility] Number: Effective Repository Date:2018-02-18 03/20/2018 Haydee R Primary Haydee R [place] [id number] Insurance:CARESOURCEPo BrodeurDOB: [facility] [place] Number: [id number] [place]chard, [place] [id number] Repository [address]Auv: (330) Date:2018-03-09[phone] (HP) [phone]: [place] [address]UZ: 03/20/2018 Secondary Haydee R [place] Insurance:CHEMO BrodeurDOB: [facility] [id number] Hospital Number: Repository [id number] Date:2018-03-09 03/20/2018 Tertiary NOT GIVENUNK [place] Insurance:SELF PAY [facility] Number: Effective Repository Date:2018-03-09 03/05/2018 Haydee R Primary Haydee R [place] [id number] Insurance:CARESOURCEPo BrodeurDOB: [facility] [place] Number: [id number] [place]chard, [place] [id number] Repository [address]Lnt: (330) Date:2018-03-05[phone] () [phone]: [place] [address]OD: 03/05/2018 Secondary Haydee R [place] Insurance:CHEMO BrodeurDOB: Community ASSISTANCEPolicy [id number] Hospital Number: Repository [id number] Date:2018-03-05 03/05/2018 Tertiary NOT GIVENUNK [place] Insurance:SELF PAY [facility] Number: Effective Repository Date:2018-03-05 12/16/2017 Haydee R Primary Haydee R [place] [id number] Insurance:CARESOURCEPo BrodeurDOB: [place] Number: [id number] Orchard, [place] [id number] Repository [address]Asq: (330) Date:2017-12-16[phone] () [phone]: [place] [address]VX: 12/16/2017 Secondary Haydee R [place] Insurance:CHEMO BrodeurDOB: Community ASSISTANCEPolicy [id number] Hospital Number: Repository [id number] Date:2017-12-16 12/16/2017 Tertiary NOT GIVENUNK [place] Insurance:SELF PAY [facility] Number: Effective Repository Date:2017-12-16 10/22/2017 Haydee R Primary Haydee R [place] [id number] Insurance:CARESOURCEPo BrodeurDOB: [facility] [place] Number: [id number] [place]chard, [place] [id number] Repository [address]Usa: (330) Date:2016-11-11 [phone] () [phone]: [place] [address]RX: 10/22/2017 Secondary NOT GIVENUNK [place] Insurance:SELF PA[facility] Effective Repository Date:2017-10-22 10/19/2017 Haydee R Primary Haydee R [place] [id number] Insurance:Shaye GrandaB: [facility] [place] Number: [id number] [place], [place] [id number] Repository [address]Ses: (330) Date:2017-04-23 [phone] () 359[address]ATTN: [place] [address]LF: 10/19/2017 Secondary NOT GIVENUNK [place] Insurance:SELF PAY [facility] Number: Effective Repository Date:2017-04-23
== END ==
PROVIDERS: Family Provider Family Medicine Geriatric Medicine; PCP Family Medicine Geriatric Medicine; Visit Provider Family Medicine Geriatric Medicine
DX: R53.83 Other fatigue (principal); E55.9 Vitamin D deficiency, unspecified
CPT/HCPCS: 36415; 80053; 82306; 84443; 85025

== ENCOUNTER → 2018-10-18 10:39 | Outpatient (CLI) | payer MEDICAID, SELFPAY ==
[2018-04-22 13:27] VITALS: BMI 32.6
[2018-10-18 11:39] LABS: Absolute Lymphocyte Count 1.34 X10^3/ul (0.83-4.51); Absolute Neutrophil Count 5.1 X10^3/uL (2.0-7.7); Basophil# 0.02 X10^3/uL; Basophil% 0.3 % (0-1); Eosinophil# 0.16 X10^3/uL; Eosinophils% 2.2 % (0-5); Hematocrit 42.9 % (37-47); Hemoglobin 14.4 g/dl (12.0-15.0); Lymphocyte # 1.34 X10^3/ul (4.0); Lymphocyte % 18.7 % (19-41); Mean Corp Hgb Conc 33.6 g/gl (32-36); Mean Corpuscular Volume 95.3 fL (81-99); Mean Platelet Vol. 9.4 fl (6.2-12.0); Monocyte# 0.54 X10^3/uL; Monocyte% 7.5 % (0-10); Neutrophil # 5.11 X10^3/uL (2.7-7.7); Neutrophil % 71.2 % (47-70); Platelet Count 260 K/mm3 (150-450); RBC Distribution Width SD 44.2 fl (35.1-43.9); White Blood Count 7.2 K/mm3 (4.4-11.0)
[2018-10-18 11:41] LABS: POSITIVE COUNT NO; POSITIVE DIFFERENTIAL NO; POSITIVE MORPHOLOGY NO
[2018-10-18 12:03] LABS: Albumin, Serum 3.4 g/dL (3.2-5.0); BUN 16 mg/dL (7-18); BUN/Creat Ratio 21.1 RATIO (10-20); Creatinine, Serum 0.76 mg/dL (0.55-1.02); EST Glomerular Filtration Rate 84 mL/min (>60); Est Glom Filt Rate - Afr Amer 102 mL/min (>60); Glucose 109 mg/dL (74-106); Protein, Total 7.4 g/dL (6.4-8.2)
[2018-10-18 12:04] LABS: ALB/GLOB Ratio 0.8 RATIO (0.9-2.4); AST(SGOT) 24 U/L (15-37); Alanine Aminotransfer ALT/SGPT 28 U/L (13-56); Alkaline Phosphatase 67 U/L (45-117); Anion Gap 9 (5-15); Calcium,Total 8.8 mg/dL (8.5-10.1); Chloride 108 mmol/L (98-107); Sodium Level 142 mmol/L (136-145)
== END ==
PROVIDERS: Family Provider Family Medicine Geriatric Medicine; PCP Family Medicine Geriatric Medicine; Referring Provider Internal Medicine Medical Oncology; Visit Provider Internal Medicine Medical Oncology
DX: C34.11 Malignant neoplasm of upper lobe, right bronchus or lung (principal); C77.0 Secondary and unspecified malignant neoplasm of lymph nodes of head, face and neck
CPT/HCPCS: 36415; 80053; 85025

== ENCOUNTER → 2018-10-20 07:53 | Outpatient (CLI) | payer MEDICAID, OTHER, SELFPAY ==
[2018-04-22 13:27] VITALS: BMI 32.6
--- NOTE | 2018-10-20 07:55 | CT_ITS ---
STUDY: CT ABDOMEN WITH CONTRAST REASON FOR EXAM: Female, 53 years old. Lung cancer follow-up. RADIATION DOSAGE (If Supplied By Facility): CTDIvol = ( 20.57 ) mGy, DLP = ( 660.11 ) mGycm TECHNIQUE: Transaxial images were obtained post I.V. administration of Barium 2 bottles Oral, and oral contrast. Sagittal and coronal images were reconstructed. Individualized dose optimization techniques were used for this CT. COMPARISON: None. FINDINGS: Chest findings are reported separately. Evaluation of the liver is limited as intravenous contrast was not administered. The noncontrast liver appears within normal limits. Normal gallbladder and extrahepatic biliary system. Normal spleen. Normal pancreas. There is a low-attenuation right adrenal mass measuring 3.1 x 2.4 cm. This most likely represents an adenoma is stable in size from prior CT thorax of 04/19/2018. The left adrenal is normal. Normal right kidney. Normal left kidney. Normal visualized stomach. Normal small intestine. Normal colon. The appendix is visualized and appears normal. There are calcified plaques of the abdominal aorta. Normal inferior vena cava. Normal retroperitoneum. There is a small fat-containing umbilical hernia. There are degenerative changes at the L5-S1 level. CT/Abdomen WITH ORAL Cont Only IMPRESSION: Noncontrast liver appears within normal limits. Low-attenuation right adrenal mass measuring 3.1 x 2.4 cm, stable from prior CT chest of 04/19/2018. This mostly represents a benign adenoma. Small fat-containing umbilical hernia. Degenerative changes of the spine at the L5-S1 level. Electronically Signed: Rasta Mayer MD at 19:19 EST , Service support ,
--- NOTE | 2018-10-20 07:55 | CT_ITS ---
STUDY: CT CHEST WITHOUT CONTRAST REASON FOR EXAM: Female, 53 years old. Lung cancer follow-up, status post radiation and chemotherapy. RADIATION DOSAGE (If Supplied By Facility): CTDIvol = ( 14.92 ) mGy, DLP = ( 469.47 ) mGycm TECHNIQUE: Transaxial imaging was performed without the administration of intravenous contrast material. Individualized dose optimization techniques were used for this CT. COMPARISON: Prior study of 04/19/2018 FINDINGS: There is minimal linear parenchymal scarring of the medial left upper lobe. There is scarring of the medial right upper lobe, right middle lobe, and right lower lobe compatible with radiation portal. This is stable in the interval. There is a spiculated nodule of the posterior right upper lobe apex measuring approximately 2.2 x 1.4 cm, also stable in the interval. There is a 6 mm pleural-based right lower lobe density. The heart size is within normal limits. There is no pericardial effusion. There is minimal pericardial thickening. Coronary arterial calcifications are present. There is a calcification of the superior anterior mediastinum. Increased soft tissue density is noted in the right hilus compatible with postradiation change. This is similar to the previous study. Normal unenhanced pulmonary arteries. There are calcified plaques of the aortic arch. There is diffuse endplate spondylosis of the visualized thoracolumbar spine. There is no evidence of osseous metastatic disease. Abdominal findings are reported separately. CT/Chest without Contrast IMPRESSION: 1. There is linear scarring of the medial left upper lobe, and scarring of the medial right upper lobe, right middle lobe, and right lower lobe compatible with radiation portal. 2. There is a spiculated nodule of the posterior right upper lobe apex measuring approximately 2.2 x 1.4 cm. 3. There is increased soft tissue density of the right hilus compatible with post radiation change. 4. There is a 6 mm pleural-based right lower lobe density. 5. There is no evidence of new or recurrent malignancy. Findings are stable in the interval. Electronically Signed: Rasta Mayer MD at 18:59 EST , Service support ,
== END ==
PROVIDERS: Family Provider Family Medicine Geriatric Medicine; PCP Family Medicine Geriatric Medicine; Referring Provider Internal Medicine Medical Oncology; Visit Provider Internal Medicine Medical Oncology
DX: C34.11 Malignant neoplasm of upper lobe, right bronchus or lung (principal); C77.0 Secondary and unspecified malignant neoplasm of lymph nodes of head, face and neck
CPT/HCPCS: 71250; 74150

== ENCOUNTER → 2019-03-14 11:07 | Outpatient (CLI) | payer MEDICARE, OTHER, SELFPAY ==
[2018-10-25 13:20] VITALS: BMI 36.1
[2019-03-14 12:29] LABS: Absolute Lymphocyte Count 1.14 X10^3/uL (0.83-4.51); Absolute Neutrophil Count 3.1 X10^3/uL (2.0-7.7); Basophil# 0.02 X10^3/uL; Basophil% 0.4 % (0-1); Eosinophil# 0.22 X10^3/uL; Eosinophils% 4.5 % (0-5); Hematocrit 41.5 % (37-47); Hemoglobin 13.7 g/dL (12.0-15.0); Lymphocyte # 1.14 X10^3/ul (4.0); Lymphocyte % 23.2 % (19-41); Mean Corpuscular Hgb 30.8 pg (27.0-32.0); Mean Corpuscular Volume 93.3 fL (81-99); Mean Platelet Vol. 9.4 fl (6.2-12.0); Monocyte# 0.43 X10^3/uL; Monocyte% 8.7 % (0-10); NRBC Flagged by Analyzer 0 % (0-5); Platelet Count 212 K/mm3 (150-450); RBC Distribution Width CV 12.6 % (11.6-14.6); RBC Distribution Width SD 43.2 fl (35.1-43.9); Red Blood Count 4.45 M/mm3 (4.2-5.4); White Blood Count 4.9 K/mm3 (4.4-11.0)
[2019-03-14 12:52] LABS: Vitamin D,25 Hydroxy 26.4 ng/mL (29.95-100.01)
[2019-03-14 13:24] LABS: ALB/GLOB Ratio 0.9 RATIO (0.9-2.4); AST(SGOT) 22 U/L (15-37); Alanine Aminotransfer ALT/SGPT 25 U/L (13-56); Albumin, Serum 3.5 g/dL (3.2-5.0); Alkaline Phosphatase 60 U/L (45-117); Anion Gap 10 (5-15); BUN 16 mg/dL (7-18); BUN/Creat Ratio 21.8 RATIO (10-20); Calcium,Total 8.8 mg/dL (8.5-10.1); Chloride 109 mmol/L (98-107); Creatinine, Serum 0.73 mg/dL (0.55-1.02); EST Glomerular Filtration Rate 87 mL/min (>60); Est Glom Filt Rate - Afr Amer 105 mL/min (>60); Globulin 3.9 g/dL (2.2-4.2); Glucose 108 mg/dL (74-106); Potassium 3.9 mmol/L (3.5-5.1); Protein, Total 7.4 g/dL (6.4-8.2); Sodium Level 141 mmol/L (136-145); Thyroid Stim Hormone (TSH) 3.41 uIU/mL (0.358-3.74)
== END ==
PROVIDERS: Family Provider Family Medicine Geriatric Medicine; PCP Family Medicine Geriatric Medicine; Visit Provider Family Medicine Geriatric Medicine
DX: R53.83 Other fatigue (principal); E55.9 Vitamin D deficiency, unspecified
CPT/HCPCS: 36415; 80053; 82306; 84443; 85025

== ENCOUNTER → 2019-04-26 10:59 | Outpatient (CLI) | payer MEDICARE, OTHER, SELFPAY ==
[2018-10-25 13:20] VITALS: BMI 36.1
[2019-04-26 11:48] LABS: Absolute Lymphocyte Count 1.17 X10^3/uL (0.83-4.51); Absolute Neutrophil Count 3.4 X10^3/uL (2.0-7.7); Basophil# 0.02 X10^3/uL; Basophil% 0.4 % (0-1); Eosinophil# 0.16 X10^3/uL; Eosinophils% 3.1 % (0-5); Hematocrit 39.7 % (37-47); Hemoglobin 13.1 g/dL (12.0-15.0); Lymphocyte # 1.17 X10^3/ul (4.0); Lymphocyte % 22.5 % (19-41); Mean Corpuscular Hgb 30.8 pg (27.0-32.0); Mean Corpuscular Volume 93.2 fL (81-99); Mean Platelet Vol. 9.1 fl (6.2-12.0); Monocyte# 0.48 X10^3/uL; Monocyte% 9.2 % (0-10); NRBC Flagged by Analyzer 0 % (0-5); Neutrophil # 3.35 X10^3/uL (2.7-7.7); Neutrophil % 64.6 % (47-70); Platelet Count 224 K/mm3 (150-450); RBC Distribution Width CV 13.2 % (11.6-14.6); RBC Distribution Width SD 44.9 fl (35.1-43.9); Red Blood Count 4.26 M/mm3 (4.2-5.4); White Blood Count 5.2 K/mm3 (4.4-11.0)
[2019-04-26 12:06] LABS: ALB/GLOB Ratio 0.8 RATIO (0.9-2.4); AST(SGOT) 17 U/L (15-37); Alanine Aminotransfer ALT/SGPT 18 U/L (13-56); Albumin, Serum 3.4 g/dL (3.2-5.0); Alkaline Phosphatase 61 U/L (45-117); Anion Gap 5 (5-15); BUN 16 mg/dL (7-18); BUN/Creat Ratio 21.3 RATIO (10-20); Calcium,Total 8.8 mg/dL (8.5-10.1); Chloride 111 mmol/L (98-107); Creatinine, Serum 0.75 mg/dL (0.55-1.02); EST Glomerular Filtration Rate 85 mL/min (>60); Est Glom Filt Rate - Afr Amer 102 mL/min (>60); Globulin 4.1 g/dL (2.2-4.2); Glucose 96 mg/dL (74-106); LDH 193 U/L (84-246); Potassium 3.8 mmol/L (3.5-5.1); Protein, Total 7.5 g/dL (6.4-8.2); Sodium Level 141 mmol/L (136-145)
== END ==
PROVIDERS: Family Provider Family Medicine Geriatric Medicine; PCP Family Medicine Geriatric Medicine; Referring Provider Internal Medicine Medical Oncology; Visit Provider Internal Medicine Medical Oncology
DX: Z85.118 Personal history of other malignant neoplasm of bronchus and lung (principal)
CPT/HCPCS: 36415; 80053; 83615; 85025

== ENCOUNTER → 2019-04-28 07:20 | Outpatient (CLI) | payer MEDICARE, SELFPAY ==
[2018-10-25 13:20] VITALS: BMI 36.1
--- NOTE | 2019-04-28 07:22 | CT_ITS ---
STUDY: CT CHEST WITH CONTRAST REASON FOR EXAM: Female, 54 years old. Lung cancer RADIATION DOSAGE (If Supplied By Facility): CTDIvol = ( 20.15 ) mGy, DLP = ( 1698.21 ) mGycm TECHNIQUE: Transaxial imaging was performed following intravenous administration of 100CC IV Isovue 300. Individualized dose optimization techniques were used for this CT. COMPARISON: 10/20/2018 FINDINGS: Stable stellate density in the right upper lobe measuring 1.4 x 1.3 cm on image 23 of series 6. This could represent scarring. Stable 8 mm pleural-based density in the right lower lobe on image 43 of series 6. Stable 3 mm nodule in the right lower lobe on image 50 of series 6. Stable pleural-based density in the right middle lobe measuring 5 mm on image 52 of series 6. Stable fibrotic changes in the right upper lung likely related to previous radiation therapy. There is no demonstrated pleural abnormality. Normal heart and pericardium. Normal mediastinum. Normal hilar regions. Normal enhanced pulmonary arteries. Normal aorta arch and descending thoracic aorta. Normal osseous structures. Stable 3.3 x 2.9 cm right adrenal adenoma. CT/Chest WITH Contrast IMPRESSION: Multiple stable nodules and densities in the right lung as described above. No new pulmonary nodules or masses are seen. No new mediastinal masses or adenopathy. Electronically Signed: Javier Amador MD at 17:07 EDT Tel , Service support ,
--- NOTE | 2019-04-28 07:22 | CT_ITS ---
STUDY: CT ABDOMEN AND PELVIS WITH CONTRAST REASON FOR EXAM: Female, 54 years old. Lung cancer RADIATION DOSAGE (If Supplied By Facility): CTDIvol = ( 20.15 ) mGy, DLP = ( 1698.21 ) mGycm TECHNIQUE: Transaxial images were obtained from the dome of the diaphragm to the symphysis pubis with oral contrast. 100CC IV/Oral Isovue 300 was administered. Sagittal and coronal images were reconstructed. Individualized dose optimization techniques were used for this CT. COMPARISON: 10/20/2018, 04/12/2017 FINDINGS: The visualized lung bases are unremarkable. The visualized portions of the heart are within normal limits. Normal liver. Normal gallbladder and extrahepatic biliary system. Normal spleen. Stable 4 mm cystic focus in the pancreatic tail on image 21 of series 3. Stable 3.4 x 2.8 cm right adrenal adenoma. Normal right kidney. Normal left kidney. Normal visualized stomach. Normal small intestine. Normal colon. The appendix is visualized and appears normal. Normal abdominal aorta. Normal inferior vena cava. Normal retroperitoneum. Normal urinary bladder. Umbilical fat hernia. Normal osseous structures. CT/Abdomen/Pelvis WITH Contrast IMPRESSION: No metastatic lesions are identified. Stable right adrenal adenoma. Stable 4 mm cystic focus in the pancreatic tail. Electronically Signed: Javier Amador MD at 17:15 EDT Tel , Service support ,
== END ==
PROVIDERS: Family Provider Family Medicine Geriatric Medicine; PCP Family Medicine Geriatric Medicine; Referring Provider Internal Medicine Medical Oncology; Visit Provider Internal Medicine Medical Oncology
DX: Z85.118 Personal history of other malignant neoplasm of bronchus and lung (principal)
CPT/HCPCS: 71260; 74177; Q9967

== ENCOUNTER → 2019-09-12 12:19 | Outpatient (CLI) | payer MEDICARE, SELFPAY ==
[2019-05-03 14:43] VITALS: BMI 37.8
[2019-09-12 14:08] LABS: Absolute Lymphocyte Count 1.85 X10^3/uL (0.83-4.51); Absolute Neutrophil Count 4.1 X10^3/uL (2.0-7.7); Basophil# 0.06 X10^3/uL; Basophil% 0.9 % (0-1); Eosinophil# 0.37 X10^3/uL; Eosinophils% 5.4 % (0-5); Hematocrit 44.9 % (37-47); Hemoglobin 14.2 g/dL (12.0-15.0); Lymphocyte # 1.85 X10^3/ul (4.0); Lymphocyte % 26.8 % (19-41); Mean Corp Hgb Conc 31.6 g/dL (32-36); Mean Corpuscular Hgb 29.5 pg (27.0-32.0); Mean Corpuscular Volume 93.3 fL (81-99); Mean Platelet Vol. 10.3 fl (6.2-12.0); Monocyte# 0.55 X10^3/uL; NRBC Flagged by Analyzer 0 % (0-5); Neutrophil # 4.07 X10^3/uL (2.7-7.7); Neutrophil % 58.8 % (47-70); Platelet Count 281 K/mm3 (150-450); RBC Distribution Width CV 13.3 % (11.6-14.6); RBC Distribution Width SD 45.6 fl (35.1-43.9); Red Blood Count 4.81 M/mm3 (4.2-5.4); White Blood Count 6.9 K/mm3 (4.4-11.0)
[2019-09-12 14:37] LABS: ALB/GLOB Ratio 0.9 RATIO (0.9-2.4); AST(SGOT) 17 U/L (15-37); Alanine Aminotransfer ALT/SGPT 26 U/L (13-56); Albumin, Serum 3.8 g/dL (3.2-5.0); Alkaline Phosphatase 59 U/L (45-117); Anion Gap 6 (5-15); BUN 17 mg/dL (7-18); BUN/Creat Ratio 20.5 RATIO (10-20); Calcium,Total 9.5 mg/dL (8.5-10.1); Chloride 108 mmol/L (98-107); Creatinine, Serum 0.83 mg/dL (0.55-1.02); EST Glomerular Filtration Rate 75 mL/min (>60); Est Glom Filt Rate - Afr Amer 91 mL/min (>60); Globulin 4.2 g/dL (2.2-4.2); Glucose 108 mg/dL (74-106); Potassium 4.2 mmol/L (3.5-5.1); Sodium Level 139 mmol/L (136-145); Thyroid Stim Hormone (TSH) 3.68 uIU/mL (0.358-3.74)
== END ==
PROVIDERS: Visit Provider Family Medicine Geriatric Medicine
DX: R53.83 Other fatigue (principal); E55.9 Vitamin D deficiency, unspecified
CPT/HCPCS: 36415; 80053; 82306; 84443; 85025

== ENCOUNTER → 2020-03-15 11:15 | Outpatient (CLI) | payer MEDICARE, SELFPAY ==
[2019-05-03 14:43] VITALS: BMI 37.8
[2020-03-15 12:33] LABS: Absolute Lymphocyte Count 1.44 X10^3/uL (0.83-4.51); Absolute Neutrophil Count 4.1 X10^3/uL (2.0-7.7); Basophil# 0.02 X10^3/uL; Basophil% 0.3 % (0-1); Eosinophil# 0.19 X10^3/uL; Hematocrit 41.4 % (37-47); Hemoglobin 13.4 g/dL (12.0-15.0); Lymphocyte # 1.44 X10^3/ul (4.0); Mean Corp Hgb Conc 32.4 g/dL (32-36); Mean Corpuscular Hgb 30.7 pg (27.0-32.0); Mean Corpuscular Volume 94.7 fL (81-99); Mean Platelet Vol. 10.2 fl (6.2-12.0); Monocyte# 0.51 X10^3/uL; Monocyte% 8.2 % (0-10); NRBC Flagged by Analyzer 0 % (0-5); Neutrophil # 4.08 X10^3/uL (2.7-7.7); Neutrophil % 65.3 % (47-70); Platelet Count 236 K/mm3 (150-450); RBC Distribution Width CV 13.1 % (11.6-14.6); RBC Distribution Width SD 45.6 fl (35.1-43.9); Red Blood Count 4.37 M/mm3 (4.2-5.4); White Blood Count 6.3 K/mm3 (4.4-11.0)
[2020-03-15 12:48] LABS: Vitamin D,25 Hydroxy 36.2 ng/mL
[2020-03-15 12:57] LABS: AST(SGOT) 23 U/L (15-37); Alanine Aminotransfer ALT/SGPT 28 U/L (13-56); Albumin, Serum 3.8 g/dL (3.2-5.0); Alkaline Phosphatase 62 U/L (45-117); Anion Gap 3 (5-15); BUN 17 mg/dL (7-18); BUN/Creat Ratio 21.4 RATIO (10-20); Chloride 108 mmol/L (98-107); EST Glomerular Filtration Rate 79 mL/min (>60); Est Glom Filt Rate - Afr Amer 96 mL/min (>60); Globulin 3.9 g/dL (2.2-4.2); Glucose 114 mg/dL (74-106); Potassium 4.1 mmol/L (3.5-5.1); Protein, Total 7.7 g/dL (6.4-8.2); Sodium Level 139 mmol/L (136-145)
== END ==
PROVIDERS: Visit Provider Family Medicine Geriatric Medicine
DX: R53.83 Other fatigue (principal); E55.9 Vitamin D deficiency, unspecified
CPT/HCPCS: 36415; 80053; 82306; 84443; 85025

== ENCOUNTER → 2020-05-01 07:41 | Outpatient (CLI) | payer MEDICARE, SELFPAY ==
[2019-05-03 14:43] VITALS: BMI 37.8
--- NOTE | 2020-05-01 07:43 | CT_ITS ---
STUDY: CT ABDOMEN AND PELVIS WITH CONTRAST REASON FOR EXAM: Female, 55 years old. 3 YR, LUNG CANCER FOLLOW UP RADIATION DOSAGE (If Supplied By Facility): CTDIvol = ( 18.34 ) mGy, DLP = ( 1719.82 ) mGycm TECHNIQUE: Transaxial images were obtained from the dome of the diaphragm to the symphysis pubis with oral contrast. Oral and amp;amp; IV Readi-CAT and amp;amp; 100mL Isovue-300 was administered. Sagittal and coronal images were reconstructed. Individualized dose optimization techniques were used for this CT. COMPARISON: Comparison is made with prior examination dated 04/28/2019. FINDINGS: The visualized lung bases are unremarkable. Minimal degree of pericardial thickening posteriorly. This is essentially unchanged. Normal liver. Normal gallbladder and extrahepatic biliary system. Normal spleen. Stable 4 mm cyst in the tail portion of the pancreas. Stable punctate calcification in the uncinate process of the pancreas. Stable 2.8 cm x 2.1 cm fat-containing nodule in the right adrenal gland. This most likely represents an adrenal adenoma. Normal right kidney. Normal left kidney. There is a small hiatal hernia. Normal small intestine. There are scattered colonic diverticula consistent with diverticulosis. The appendix is visualized and appears normal. There is scattered atherosclerotic calcification of the abdominal aorta, without a demonstrated aneurysm. Normal inferior vena cava. Normal retroperitoneum. Normal urinary bladder. Normal abdominal wall. Mild degree of disc space narrowing at the L5-S1 level. CT/Abdomen/Pelvis WITH Contrast IMPRESSION: Stable 2.8 cm x 2.1 cm fat-containing nodule in the right adrenal gland suggestive of a adrenal adenoma. Stable 4 mm cyst in the tail portion the pancreas as well as punctate calcification in the uncinate process of the pancreas. Electronically Signed: Stanley Zapata, at 8:55 EDT , Service support ,
--- NOTE | 2020-05-01 07:43 | CT_ITS ---
STUDY: CT CHEST WITH CONTRAST REASON FOR EXAM: Female, 55 years old. MONITORING LUNG CA-3YR FOLLOW UP RADIATION DOSAGE (If Supplied By Facility): CTDIvol = ( 18.34 ) mGy, DLP = ( 1719.82 ) mGycm TECHNIQUE: Transaxial imaging was performed following intravenous administration of Oral and amp; IV Readi-CAT and amp; 100mL Isovue-300. Multiplanar coronal and sagittal images were reformatted. Individualized dose optimization techniques were used for this CT. COMPARISON: Comparison is made with prior study dated 04/28/2019. FINDINGS: Stable small benign-appearing axillary lymph nodes. There is evidence of bronchiectasis and scarring in the medial aspect of the right upper lobe. 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 There is a 2.4 cm x 0.8 cm pleural-based soft tissue density in the posteromedial aspect of the right upper lobe. This as increased in size as compared to prior study. There is also evidence of a 6.7 mm total based nodule in the lateral posterior aspect of the right upper lobe as seen on axial image #40. Stable scarring and bronchiectasis in the superior segment of the right lower lobe just inferior to the adrian. Stable 3 mm noncalcified nodule in the lateral aspect of the right middle lobe as seen on axial image #47. The previously seen nodule in the anterior aspect of the right middle lobe has increased slightly in size. It presently measures 5.5 mm. This is at the slice #54. There is no demonstrated pleural abnormality. There are calcifications of the coronary arteries. Minimal thickening of the posterior aspect of the artery. Normal mediastinum. Normal hilar regions. Normal enhanced pulmonary arteries. Normal aorta arch and descending thoracic aorta. There are multi-level degenerative changes of the thoracic spine. There is no demonstrated abnormality of the visualized upper abdomen. CT/Chest WITH Contrast IMPRESSION: Stable post radiation fibrosis in the right upper lobe as well as in the comparison of the right lower lobe. Increase in size of the pleural-based nodule seen on axial image #40 as well as in the lateral aspect of the right middle lobe. Electronically Signed: Stanley Zapata, at 9:00 EDT , Service support ,
[2020-05-01 08:06] LABS: CREATININE FINGERSTICK 0.8 mg/dL (0.55-1.02)
== END ==
PROVIDERS: PCP Family Medicine Geriatric Medicine; Referring Provider Internal Medicine Medical Oncology; Visit Provider Internal Medicine Medical Oncology
DX: C34.91 Malignant neoplasm of unspecified part of right bronchus or lung (principal); C77.0 Secondary and unspecified malignant neoplasm of lymph nodes of head, face and neck; Z85.118 Personal history of other malignant neoplasm of bronchus and lung
CPT/HCPCS: 71260; 74177; Q9967

== ENCOUNTER → 2020-09-13 09:50 | Outpatient (CLI) | payer MEDICARE, SELFPAY ==
[2019-05-03 14:43] VITALS: BMI 37.8
[2020-09-13 12:12] LABS: Absolute Lymphocyte Count 1.59 X10^3/uL (0.83-4.51); Absolute Neutrophil Count 3.7 X10^3/uL (2.0-7.7); Basophil# 0.04 X10^3/uL; Basophil% 0.7 % (0-1); Eosinophil# 0.21 X10^3/uL; Eosinophils% 3.5 % (0-5); Hematocrit 41.1 % (37-47); Hemoglobin 13.3 g/dL (12.0-15.0); Lymphocyte # 1.59 X10^3/ul (4.0); Lymphocyte % 26.2 % (19-41); Mean Corp Hgb Conc 32.4 g/dL (32-36); Mean Corpuscular Hgb 30.1 pg (27.0-32.0); Mean Platelet Vol. 9.9 fl (6.2-12.0); Monocyte# 0.55 X10^3/uL; Monocyte% 9.1 % (0-10); NRBC Flagged by Analyzer 0 % (0-5); Neutrophil # 3.67 X10^3/uL (2.7-7.7); Neutrophil % 60.3 % (47-70); Platelet Count 227 K/mm3 (150-450); RBC Distribution Width CV 12.9 % (11.6-14.6); RBC Distribution Width SD 44.2 fl (35.1-43.9); Red Blood Count 4.42 M/mm3 (4.2-5.4); White Blood Count 6.1 K/mm3 (4.4-11.0)
[2020-09-13 12:26] LABS: Vitamin D,25 Hydroxy 14.1 ng/mL
[2020-09-13 12:35] LABS: ALB/GLOB Ratio 0.9 RATIO (0.9-2.4); AST(SGOT) 20 U/L (15-37); Alanine Aminotransfer ALT/SGPT 25 U/L (13-56); Albumin, Serum 3.5 g/dL (3.2-5.0); Alkaline Phosphatase 66 U/L (45-117); Anion Gap 6 (5-15); BUN 17 mg/dL (7-18); BUN/Creat Ratio 21.5 RATIO (10-20); Calcium,Total 8.8 mg/dL (8.5-10.1); Chloride 109 mmol/L (98-107); Creatinine, Serum 0.79 mg/dL (0.55-1.02); EST Glomerular Filtration Rate 79 mL/min (>60); Est Glom Filt Rate - Afr Amer 96 mL/min (>60); Glucose 93 mg/dL (74-106); Protein, Total 7.5 g/dL (6.4-8.2); Sodium Level 139 mmol/L (136-145); Thyroid Stim Hormone (TSH) 4.79 uIU/mL (0.358-3.74)
== END ==
PROVIDERS: PCP Family Medicine Geriatric Medicine; Visit Provider Family Medicine Geriatric Medicine
DX: E55.9 Vitamin D deficiency, unspecified (principal); R53.83 Other fatigue
CPT/HCPCS: 36415; 80053; 82306; 84443; 85025

== ENCOUNTER → 2020-10-29 07:58 | Outpatient (CLI) | payer MEDICARE, SELFPAY ==
[2019-05-03 14:43] VITALS: BMI 37.8
--- NOTE | 2020-10-29 08:12 | CT_ITS ---
HISTORY: MONITORING LUNG CANCER TECHNIQUE: Helically acquired images were obtained of the chest following the intravenous administration of 100 ML of Isovue 300 Iodinated contrast. as per pulmonary angiogram protocol with 2D MIP reconstructions. A radiation dose optimization technique was used for this scan. COMPARISON: [address] scans of the chest since October 19, 2017. The 2 most recent studies are May 01, 2020, and April 28, 2019. FINDINGS: # of images incl. paperwork: 463 Fibrotic airspace disease within the medial aspect of the right upper lobe as well as the medial aspect of the apical portions of the right lower lobe. There is minimal fibrosis along the medial most aspect of the left upper lobe abutting the hilum. Right hilar airspace disease is present surrounding the right main bronchus, the bronchus intermedius, and the bronchus to the right upper lobe as well as some bronchiole dilatation and evidence for chronic bronchitis to the right hilar bronchi and bronchioles. The degree of consolidation and bronchial dilatation and airspace disease within the right paratracheal region and atypically medially within the apical portions of the right lower lobe are very similar to those from April 2020. Some wall pleural parenchymal thickening peripherally within the right lower lobe, series 1004, image 43 is the same and so series 2 image 40 of May 01, 2020,, series 2 image 43 April 28 2019, and series 2 image 56 on June 18, 2018 study. The severity of the disease within the right paratracheal region and the apical portions of the medial aspect of the right lower lobe, series 1004, image 31, is very similar to that of series 2 image 27 and May 01, 2020, but more severe than April 28, 2019 study, series 2 image 48, and more severe than on October 19, 2017, series 2 image 58. Some interlobular septal thickening is mild at both lung bases. No effusions. Within the thoracic spinebony alignment is normal. Vertebral body height is normal. Facets are well aligned. No rib lesions are perceived. Heart is not enlarged. Thoracic aorta is normal. No aneurysms, stenoses, dissections, nor occlusions. Additional mediastinal, subcarinal adenopathy is present as addition to the hilar lymphoid tissue. This tissue is similar to that of May 01, 2020 study, and more defined but perhaps smaller than the May 19, 2018 study. No pulmonary emboli. Within the right adrenal gland there is a 3.0 x 2.4 cm nodule. This nodule has a density of 66 Hounsfield units. Adenopathy is present at the diaphragmatic hiatus. Just anterior to the esophagus there are 3 lymph nodes. The largest measures 19 mm. There is some heterogeneity to the liver. Within the lateral segment of the left hepatic lobe, series 1002, image 82, there are 2 hypodense lesions. The more posterior and lateral of these measures 3 mm. The right adrenal nodule was present on the prior study of October 19, 2017. I measure it on the October 19, 2017 study 3 x 2.2 cm, not a significant change accounting for differences in slice acquisition and curser positioning. The tiny areas within the lateral segment left hepatic lobe are more prominent than on the previous studies. The lymph nodes at the diaphragmatic hiatus are smaller on today's study than May 01, 2020. CT/Chest WITH Contrast IMPRESSION: No pulmonary embolism, aortic aneurysm, or aortic dissection. Fibrotic lung disease within the right perihilar region involving the right upper lobe in the apical medial portions of the right lower lobe with minimal extension into the right middle lobe. Right hilar adenopathy, subcarinal adenopathy, diaphragmatic hiatus adenopathy, and a right adrenal nodule. Disc disease all consistent with malignancy. The severity of the lung disease is similar to that of May 01, 2020, but greater than that of October 19, 2017 and may represent pulmonary fibrosis related to radiation therapy of lung malignancy. The mediastinal and diaphragmatic hiatus lymphadenopathy I believe on today's study is smaller than May 01, 2020. The right adrenal nodule, likely representing metastatic disease, is similar on the previous studies dating back to October 19, 2017 without increase in size. More peripheral pleural parenchymal nodule within the right lower lobe is the same as the appearance on previous studies. Within the lateral segment of the left hepatic lobe, series 1002 image 82 there are 2 hypodense areas abutting one another within the lateral segment left hepatic lobe. These are more prominent than on any of the previous studies, and may represent growing metastatic disease. Continued follow-up is warranted. Individualized dose optimization techniques were used for this CT. at 2120 Reported and signed by: Jeramie Rosario MD Electronically Signed: Jeramie Rosario MD at 21:19 EST Tel , Service support ,
[2020-10-29 08:14] LABS: Absolute Lymphocyte Count 1.57 X10^3/uL (0.83-4.51); Absolute Neutrophil Count 4.1 X10^3/uL (2.0-7.7); Basophil# 0.05 X10^3/uL; Basophil% 0.8 % (0-1); Eosinophils% 4.6 % (0-5); Hematocrit 42.2 % (37-47); Hemoglobin 13.8 g/dL (12.0-15.0); Lymphocyte # 1.57 X10^3/ul (4.0); Lymphocyte % 23.8 % (19-41); Mean Corp Hgb Conc 32.7 g/dL (32-36); Mean Corpuscular Hgb 30.6 pg (27.0-32.0); Mean Corpuscular Volume 93.6 fL (81-99); Mean Platelet Vol. 8.8 fl (6.2-12.0); Monocyte# 0.53 X10^3/uL; NRBC Flagged by Analyzer 0 % (0-5); Neutrophil # 4.13 X10^3/uL (2.7-7.7); Neutrophil % 62.6 % (47-70); Platelet Count 208 K/mm3 (150-450); RBC Distribution Width CV 13.3 % (11.6-14.6); RBC Distribution Width SD 45.5 fl (35.1-43.9); Red Blood Count 4.51 M/mm3 (4.2-5.4); White Blood Count 6.6 K/mm3 (4.4-11.0)
[2020-10-29 08:47] LABS: ALB/GLOB Ratio 0.9 RATIO (0.9-2.4); AST(SGOT) 18 U/L (15-37); Alanine Aminotransfer ALT/SGPT 28 U/L (13-56); Albumin, Serum 3.7 g/dL (3.2-5.0); Alkaline Phosphatase 65 U/L (45-117); Anion Gap 6 (5-15); BUN 13 mg/dL (7-18); BUN/Creat Ratio 16.6 RATIO (10-20); Calcium,Total 9.1 mg/dL (8.5-10.1); Chloride 110 mmol/L (98-107); Creatinine, Serum 0.78 mg/dL (0.55-1.02); EST Glomerular Filtration Rate 80 mL/min (>60); Est Glom Filt Rate - Afr Amer 97 mL/min (>60); Globulin 3.9 g/dL (2.2-4.2); Glucose 120 mg/dL (74-106); LDH 232 U/L (84-246); Potassium 3.9 mmol/L (3.5-5.1); Protein, Total 7.6 g/dL (6.4-8.2); Sodium Level 141 mmol/L (136-145); Thyroid Stim Hormone (TSH) 3.52 uIU/mL (0.358-3.74)
== END ==
PROVIDERS: PCP Family Medicine Geriatric Medicine; Referring Provider Internal Medicine Medical Oncology; Visit Provider Internal Medicine Medical Oncology
DX: C34.91 Malignant neoplasm of unspecified part of right bronchus or lung (principal); C77.0 Secondary and unspecified malignant neoplasm of lymph nodes of head, face and neck; E03.9 Hypothyroidism, unspecified
CPT/HCPCS: 36415; 71260; 80053; 83615; 84443; 85025; Q9967; A4216

== ENCOUNTER → 2021-03-18 09:22 | Outpatient (CLI) | payer MEDICARE, SELFPAY ==
[2020-11-22 14:08] VITALS: BMI 39.7
[2021-03-18 12:42] LABS: Absolute Lymphocyte Count 1.32 X10^3/uL (0.83-4.51); Absolute Neutrophil Count 4.1 X10^3/uL (2.0-7.7); Basophil# 0.04 X10^3/uL; Basophil% 0.6 % (0-1); Eosinophil# 0.18 X10^3/uL; Eosinophils% 2.9 % (0-5); Hemoglobin 13.4 g/dL (12.0-15.0); Lymphocyte # 1.32 X10^3/ul (0.83-4.51); Lymphocyte % 21.3 % (19-41); Mean Corp Hgb Conc 32.7 g/dL (32-36); Mean Corpuscular Hgb 30.4 pg (27.0-32.0); Mean Platelet Vol. 10.2 fl (6.2-12.0); Monocyte# 0.52 X10^3/uL; Monocyte% 8.4 % (0-10); NRBC Flagged by Analyzer 0 % (0-5); Neutrophil # 4.12 X10^3/uL (2.7-7.7); Neutrophil % 66.5 % (47-70); Platelet Count 239 K/mm3 (150-450); RBC Distribution Width CV 13.2 % (11.6-14.6); RBC Distribution Width SD 45.2 fl (35.1-43.9); Red Blood Count 4.41 M/mm3 (4.2-5.4); White Blood Count 6.2 K/mm3 (4.4-11.0)
[2021-03-18 12:49] LABS: Vitamin D,25 Hydroxy 22.5 ng/mL
[2021-03-18 13:14] LABS: ALB/GLOB Ratio 0.9 RATIO (0.9-2.4); AST(SGOT) 25 U/L (15-37); Alanine Aminotransfer ALT/SGPT 33 U/L (13-56); Albumin, Serum 3.6 g/dL (3.2-5.0); Alkaline Phosphatase 65 U/L (45-117); Anion Gap 8 (5-15); BUN 13 mg/dL (7-18); BUN/Creat Ratio 18.6 RATIO (10-20); Calcium,Total 8.7 mg/dL (8.5-10.1); Chloride 109 mmol/L (98-107); EST Glomerular Filtration Rate 92 mL/min (>60); Est Glom Filt Rate - Afr Amer 111 mL/min (>60); Globulin 3.9 g/dL (2.2-4.2); Glucose 112 mg/dL (74-106); Potassium 3.7 mmol/L (3.5-5.1); Protein, Total 7.5 g/dL (6.4-8.2); Sodium Level 139 mmol/L (136-145); Thyroid Stim Hormone (TSH) 2.65 uIU/mL (0.358-3.74)
== END ==
PROVIDERS: PCP Family Medicine Geriatric Medicine; Visit Provider Family Medicine Geriatric Medicine
DX: R53.83 Other fatigue (principal); E55.9 Vitamin D deficiency, unspecified
CPT/HCPCS: 36415; 80053; 82306; 84443; 85025

== ENCOUNTER → 2021-04-18 10:43 | Outpatient (CLI) | payer MEDICARE, SELFPAY ==
[2020-11-22 14:08] VITALS: BMI 39.7
--- NOTE | 2021-04-18 10:45 | BI_ITS ---
MAMMOGRAPHY - BILATERAL SCREENING REASON FOR EXAM: Female, 56 years old. Routine annual screening examination. PERTINENT HISTORY: Non-contributory. TECHNIQUE: Digital bilateral breast ruapl (3D mammographic acquisition) in the CC and MLO projections. 2-D mediolateral oblique (MLO) and craniocaudad (CC) views of both breasts were obtained. CAD: Full Field Digital Mammography with Computer Added Detection was performed. COMPARISON: Comparison is made with prior study of 03/20/2018. FINDINGS: Breast Composition: There are scattered areas of fibroglandular density. There are no dominant masses or suspicious calcifications. No other significant abnormalities are identified. There has been no significant change since the prior study. BI/SCRN MAMM (CAD)W/RUPAL BILAT IMPRESSION: Stable bilateral screening mammogram. Yearly follow-up mammogram recommended. (A) ASSESSMENT CATEGORY: BIRADS Category 1: Negative. A letter regarding these results will be sent to the patient by the facility within 30 days. Approximately 10% of breast cancers are not detected by mammography. A normal mammogram should not delay biopsy of a clinically suspicious abnormality. [id number] Electronically Signed: Stanley Zapata MD at 11:57 EDT , Service support ,
== END ==
PROVIDERS: PCP Family Medicine Geriatric Medicine; Referring Provider Family Medicine Geriatric Medicine; Visit Provider Family Medicine Geriatric Medicine
DX: Z12.31 Encounter for screening mammogram for malignant neoplasm of breast (principal)
CPT/HCPCS: 77063; 77067

== ENCOUNTER → 2021-05-24 11:25 | Outpatient (CLI) | payer MEDICARE, SELFPAY ==
--- NOTE | 2021-05-24 12:31 | CT_ITS ---
STUDY: CT ABDOMEN AND PELVIS WITH CONTRAST REASON FOR EXAM: Female, 56 years old. ABD PAIN RADIATION DOSAGE (If Supplied By Facility): CTDIvol = ( 12.02 ) mGy, DLP = ( 1048.18 ) mGycm TECHNIQUE: Transaxial images were obtained from the dome of the diaphragm to the symphysis pubis with oral contrast. Oral and amp; IV REDICAT and amp; 100ML ISOVUE 370 was administered. Sagittal and coronal images were reconstructed. Individualized dose optimization techniques were used for this CT. COMPARISON: Comparison is made with prior study dated 05/01/2020. FINDINGS: Small left pleural effusion. Minimal anterior pericardial thickening. Normal liver. Normal gallbladder and extrahepatic biliary system. Normal spleen. Normal pancreas. There is a 2.6 cm right 2.2 cm solid nodule in the right adrenal gland. Normal right kidney. Normal left kidney. Normal visualized stomach. Normal small intestine. There are scattered colonic diverticula consistent with diverticulosis. The appendix is visualized and appears normal. There is diffuse atherosclerotic calcification of the abdominal aorta, without a demonstrated aneurysm. Normal inferior vena cava. Normal retroperitoneum. Normal urinary bladder. Normal abdominal wall. There are degenerative changes of the visualized lumbar spine. CT/Abdomen/Pelvis WITH Contrast IMPRESSION: 2.6 cm x 2.2 cm nodule in the right adrenal gland. This is unchanged. Electronically Signed: Stanley Zapata MD at 15:27 EDT , Service support ,
--- NOTE | 2021-05-24 12:31 | CT_ITS ---
STUDY: CTA CHEST REASON FOR EXAM: Female, 56 years old. PULMONARY EMBOLISM. History of lung cancer treated with radiation and chemotherapy. Shortness of breath. RADIATION DOSAGE (If Supplied By Facility): CTDIvol = ( 12.02 ) mGy, DLP = ( 1048.18 ) mGycm TECHNIQUE: The examination was performed with the intravenous administration of Oral and amp; IV REDICAT and amp; 100ML ISOVUE 370. Post-processing of the angiographic images was performed, with multiplanar reformation and 3D reconstruction. Individualized dose optimization techniques were used for this CT. COMPARISON: Comparison is made with prior examination dated 10/29/2020. FINDINGS: Normal enhancement of the main pulmonary artery and right and left pulmonary arteries. Normal enhancement of the bilateral peripheral pulmonary arteries. There is no demonstrated pulmonary embolism. Normal thoracic aorta and visualized great vessels. There is no demonstrated aortic dissection. There are calcifications of the coronary arteries. Minimal pericardial thickening. Normal visualized trachea and bronchi. Mild loss in the left upper lobe. There now is evidence of a left hilar mass surrounding the left pulmonary artery measuring 3.5 cm x 2.3 cm. There is evidence of consolidation in the medial aspect of the left upper lobe suggestive of a left hilar mass with postobstructive pneumonitis. There is evidence of enlargement of the mediastinal lymph nodes as compared to prior study. 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 There is also evidence of a wedge-shaped density in the anterior aspect of the left lower lobe measuring 2.4 cm. This abuts the pleural surface. This is new as compared to prior study. There is a 1.1 cm peripheral based nodule in the posterior aspect of the right upper lobe as seen on axial image #107. Small left pleural effusion. Normal pleura. Normal chest wall structures. There are degenerative changes of thoracic spine. There is a 3.4 cm x 2.4 cm hypodense solid nodule in the right adrenal gland. CT/CTA Chest W/WO Contrast IMPRESSION: New left hilar mass with the findings suggestive of postobstructive pneumonitis and volume loss in the left upper lobe. Prominence enlargement of the mediastinal lymph nodes. 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 Noncalcified nodule in the peripheral lateral aspect of the right upper lobe. Electronically Signed: Stanley Zapata MD at 15:25 EDT , Service support ,
[2021-05-24 12:47] LABS: Hematocrit 39.2 % (37-47); Hemoglobin 13.2 g/dL (12.0-15.0); Mean Corp Hgb Conc 33.7 g/dL (32-36); Mean Corpuscular Hgb 29.8 pg (27.0-32.0); Mean Corpuscular Volume 88.5 fL (81-99); Mean Platelet Vol. 10.9 fl (6.2-12.0); POSITIVE COUNT YES; POSITIVE MORPHOLOGY YES; Platelet Count 128 K/mm3 (150-450); RBC Distribution Width SD 42.1 fl (35.1-43.9); Red Blood Count 4.43 M/mm3 (4.2-5.4); White Blood Count 10.6 K/mm3 (4.4-11.0)
[2021-05-24 12:56] LABS: Differential Indicated MANUAL DIFF
[2021-05-24 13:01] LABS: ALB/GLOB Ratio 0.6 RATIO (0.9-2.4); AST(SGOT) 93 U/L (15-37); Alanine Aminotransfer ALT/SGPT 44 U/L (13-56); Albumin, Serum 2.9 g/dL (3.2-5.0); Alkaline Phosphatase 123 U/L (45-117); Anion Gap 9 (5-15); BUN 16 mg/dL (7-18); BUN/Creat Ratio 21.2 RATIO (10-20); Calcium,Total 9.8 mg/dL (8.5-10.1); Chloride 99 mmol/L (98-107); Creatinine, Serum 0.75 mg/dL (0.55-1.02); EST Glomerular Filtration Rate 84 mL/min (>60); Est Glom Filt Rate - Afr Amer 101 mL/min (>60); Globulin 4.7 g/dL (2.2-4.2); Glucose 118 mg/dL (74-106); Potassium 3.7 mmol/L (3.5-5.1); Protein, Total 7.6 g/dL (6.4-8.2); Sodium Level 134 mmol/L (136-145)
[2021-05-24 13:17] LABS: Eosinophil 1 % (0-5); Lymphocyte 16 % (19-41); Metamyelocyte 1 % (0-1); Monocyte 5 % (0-10); Neutrophil-Band 3 % (0-5); Neutrophil-Segmented 74 % (47-70); Total Cells Counted 100 (MANUAL DIFF)
[2021-05-24 13:18] LABS: Platelet Estimate ADEQUATE (ADEQ); Red Cell Morphology NORM C+C NORMAL (NORM C&C)
[2021-05-24 13:19] LABS: Absolute Lymphocyte Count 1.69 X10^3/uL (0.83-4.51); Absolute Neutrophil Count 8.2 X10^3/uL (2.0-7.7); Lymphocyte # 1.69 X10^3/ul (0.83-4.51); Neutrophil # 8.16 X10^3/uL (2.7-7.7)
[2021-05-27 14:42] LABS: Pathologist Review Reviewed
== END ==
PROVIDERS: PCP Family Medicine Geriatric Medicine; Referring Provider Family Medicine Geriatric Medicine; Visit Provider Family Medicine Geriatric Medicine
DX: R10.9 Unspecified abdominal pain (principal); N39.0 Urinary tract infection, site not specified
CPT/HCPCS: 36415; 71275; 74177; 80053; 85025; 87086; 87088; Q9967

== ENCOUNTER 2021-06-05 09:46 | Inpatient (IN) | payer MEDICARE, SELFPAY ==
[2021-06-05] VITALS (17 sets, daily range): BP systolic 118–183; BP diastolic 62–95; PULSE 111–125; RESP 17–28; TEMP 36.4–36.8; O2SAT 86–93; BMI 39.4; BMI 38.2
--- NOTE | 2021-06-05 10:10 | EKG12_ITS ---
Test Reason : SOB Blood Pressure : / mmHG Vent. Rate : 121 BPM Atrial Rate : 121 BPM P-R Int : 130 ms QRS Dur : 084 ms QT Int : 328 ms P-R-T Axes : 040 -02 033 degrees QTc Int : 465 ms Sinus tachycardia Left atrial enlargement Borderline ECG When compared with ECG of 26-FEB-2017 11:56, No significant change was found Confirmed by KAYLAN CONRAD, KAMERON ([id number]), development editor TONI HARRISON ([id number]) on 06/12/2021 10:03:27 AM Referred By: Confirmed By:KAMERON KIMBROUGH MD
--- NOTE | 2021-06-05 10:12 | EX.ED.VIS.UR ---
HPI HPI - URI History of Present Illness Chief Complaint: Shortness of Breath Informant: patient and family Onset/Context/Timing Onset: Days Context: Gradual Onset Timing: Continuous Current Severity: Mild Maximum Severity: Mild Associated Symptoms Associated Symptoms: Positive for Nasal Congestion, Myalgias, Shortness of Breath and Nonproductive cough Narrative Narrative: 56-year-old female smoker history of a lung CA treated with radiation chemotherapy no resection. For the last week plus she had URI symptoms. Her primary care physician Dr. Arevalo is been treating her with Augmentin for last 7 days. She is already on Eliquis for prior PE and DVT. She denies any fevers. She denies any nausea, vomiting or diarrhea. States that she is not getting any better. She is feeling more short of breath. Her pulse ox today was 86% on room air. Prior similar symptoms: Yes Recent Illness/Hospitalization: No ROS ROS ED ROS Narrative Cough. Body aches. Shortness of breath. Review of Systems ROS Unobtainable: Denies due to encephalopathy Constitutional Constitutional ED: Denies fever(s) Eyes Eyes: Denies change in vision ENT ENT ED: Denies ear pain or sore throat Cardiovascular Cardiovascular: Denies chest pain Respiratory/Chest Respiratory/Chest: Reports cough and dyspnea Gastrointestinal Gastrointestinal: Denies abdominal pain, nausea or vomiting Genitourinary Genitourinary ED: Denies dysuria Musculoskeletal Musculoskeletal: Reports myalgias Integumentary Denies rash Neurologic Neurologic: Denies headache(s) Psychiatric Psychiatric: Denies depression Endocrine Endocrinology: Denies polyuria Hematologic/Lymphatic Hematologic/Lymphatic: Denies easy bruising Allergic/Immunologic Allergic/Immunologic ED: Denies urticaria PFSH PFS Medical History Anxiety Clotting disorder Hyperlipidemia 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 Thyroid disease Home Medications paroxetine HCl 40 mg PO DAILY 04/23/17 [History Last Taken Unknown] apixaban [Eliquis] 5 mg PO BID #74 tab 07/31/17 [Rx Last Taken Unknown] atorvastatin 40 mg PO DAILY 05/03/20 [History Last Taken Unknown] levothyroxine 25 mcg PO DAILY 10/31/20 [History Last Taken Unknown] Allergy/AdvReac Type Severity Reaction Status Date / Time No Known Allergies Allergy Verified 06/05/21 09:52 Family History Mother Hypertension Surgical History History of lung biopsy Social History Smoking Status: Current every day smoker tobacco type: cigarettes EXAM Physical Exam Narrative Exam Narrative: Middle-aged female vital signs stable except her pulse is 86% on room air she is always hypoxic. Her pulse is 125. She does not look septic or toxic. HEENT exam unremarkable. Moist extremities. Neck nontender no JVD. Lungs inspiratory and expiratory wheezing throughout both sides. Heart tachycardic no murmur. Abdomen soft nontender. Moving all 4 extremities. Calves are nontender without edema or cords. Neurologically she is awake alert with no focal motor deficits. Const Vital Signs: 06/05/21 09:47 06/05/21 09:49 06/05/21 09:50 Temperature 97.6 F L 97.6 F L Temperature Source Oral Oral Pulse Rate 125 H 125 H Respiratory Rate 20 H 20 H Respiratory Effort Short of Breath Respiratory Depth Deep Respiratory Pattern Hyperpnea Blood Pressure 164/78 H 164/78 H Blood Pressure Mean 106 106 Pulse Ox 86 93 Oxygen Delivery Method Room Air Nasal Cannula Nasal Cannula Oxygen Flow Rate (L/min) 4 4 06/05/21 10:45 06/05/21 12:17 06/05/21 12:18 Temperature 97.7 F L Temperature Source Temporal Pulse Rate 122 H 121 H 121 H Respiratory Rate 24 H 17 17 Respiratory Effort Respiratory Depth Respiratory Pattern Blood Pressure 174/70 H 174/70 H Blood Pressure Mean 104 104 Pulse Ox 93 93 Oxygen Delivery Method Nasal Cannula Nasal Cannula Oxygen Flow Rate (L/min) 4 4 06/05/21 13:27 06/05/21 14:29 06/05/21 15:17 Temperature 97.7 F L 98.1 F 98.2 F Temperature Source Temporal Temporal Temporal Pulse Rate 120 H 118 H 112 H Respiratory Rate 19 H 25 H 18 Respiratory Effort Respiratory Depth Respiratory Pattern Blood Pressure 183/83 H 161/79 H 127/76 H Blood Pressure Mean 116 106 93 Pulse Ox 93 93 93 Oxygen Delivery Method Nasal Cannula Nasal Cannula Nasal Cannula Oxygen Flow Rate (L/min) 4 4 3 Positive well nourished and well developed; Negative for cachectic or contractures General Appearance ED: well developed; Negative for cachectic, contractures, cyanotic or diaphoretic Nutritional Appearance: Negative for cachectic HEENT Reports moist mucous membranes normocephalic and atraumatic; Negative for scalp tenderness Face and Sinus: Negative for sinus tenderness Eyes PERRL and EOMs intact bilaterally Neck no lymphadenopathy, supple, no meningeal signs and No no JVD Resp normal respiratory effort and No clear to auscultation bilaterally Auscultation: wheezes; Negative for rales or rhonchi Cardio S1 normal heart sound, S2 normal heart sound and no murmurs Rate: tachycardic Rhythm: regular rhythm GI non-tender, non-distended and no masses Inspection: Negative for abdominal distention Auscultation: normoactive bowel sounds Palpation: soft; Negative for tender or guarding Back/Spine no CVA tenderness Extremity normal to inspection Neuro oriented x3 Sensorium / Orientation: alert, oriented to person, oriented to place and oriented to time; Negative for orientation impaired, lethargic or stuporous Motor Exam: strength 5/5 throughout Psych mental status grossly normal Skin Lesions: no lesions Rashes: no rashes MDM MDM MDM Narrative Medical decision making narrative: 56-year-old female hypoxic work-up as possible pneumonia versus Covid versus other etiologies. She is already on Eliquis for prior blood clots. Repeat exam is unchanged. She is hypoxic without oxygen her sat is 86% on room air. She will be admitted. I am starting her on IV Rocephin and Zithromax. I am also sending a PCR Covid test because the first rapid was negative. She had a CTA of the chest done last week. Lab Data Attestation: I reviewed the patient's lab results. Lab results narrative: CBC shows a white count 9. Hemoglobin 11.2. Platelet count is low at 61. Electrolytes show potassium 3.3. Gap of 8. Normal creatinine. Glucose 111. Rapid Covid antigen is negative I did send a PCR. Labs: Laboratory Results - last 24 hr 06/05/21 06/05/21 10:23 10:23 WBC 9.0 RBC 3.84 L Hgb 11.2 L Hct 33.2 L MCV 86.5 MCH 29.2 MCHC 33.7 RDW Std Deviation 41.2 RDW Coeff of Heladio 13.2 Plt Count 61 L MPV 10.3 Neut % (Auto) Not Reportable Absolute Neuts (auto) 6.2 Absolute Lymphs (auto) 1.62 Total Counted 100 Neutrophils % (Manual) 63 Band Neutrophils % 6 H Lymphocytes % (Manual) 18 L Monocytes % (Manual) 4 Metamyelocytes % 5 H Myelocytes % 4 H Nucleated RBCs/100 WBC 2 Diff Path Review May foll Platelet Estimate MKD DEC RBC Morphology NORM C+C Sodium 138 Potassium 3.3 L Chloride 103 Carbon Dioxide 27.0 Anion Gap 8 BUN 19 H Creatinine 0.66 Estim Creat Clear Calc 70.11 Est GFR (MDRD) Af Amer 119 Est GFR (MDRD) Non-Af 98 BUN/Creatinine Ratio 28.9 H Glucose 111 H Calcium 9.6 Radiography Diagnostic Testing: Clinical Impression(s) from Imaging Studies Chest X-Ray 06/05/21 12:07 IMPRESSION: Multi lobar pneumonia which is more pronounced on the left. Electronically Signed: Tyler Polanco MD at 12:55 EDT Tel , Service support , Chest x-ray portable one view interpreted by myself the radiologist. It is very hazy in both bases consistent with possible bilateral lower lobe pneumonia. She had a CTA done last week which appeared to have possibly a postobstructive pneumonia in the left and chronic changes on the right. I do not think that needs to be repeated at this time.. Rhythm Strip Rhythm Strip: Sinus Tach Discharge Plan Triage Chief Complaint: Shortness of Breath ED Provider: Nolan Breaux Dx/Rx/DC Orders Clinical Impression: Pneumonia, History of lung cancer, Hypoxia Prescriptions: No Action paroxetine HCl 20 MG tablet 40 mg PO DAILY RF: 0 atorvastatin 40 MG tablet 40 mg PO DAILY RF: 0 levothyroxine 25 MCG tablet 25 mcg PO DAILY RF: 0 Eliquis 5 MG tablet 5 mg PO BID Qty: 74 RF: 0 Primary Care Provider: Cesar Arevalo Chi Referrals: Cesar Arevalo Chi, MD [Primary Care Provider] - Disposition Disposition: Acute Care [facility]
[2021-06-05] MEDS: MethylPREDNISolone 125 MG/2 ML Vial IV (10:35)
[2021-06-05 10:37] LABS: Hematocrit 33.2 % (37-47); Hemoglobin 11.2 g/dL (12.0-15.0); Mean Corp Hgb Conc 33.7 g/dL (32-36); Mean Corpuscular Hgb 29.2 pg (27.0-32.0); Mean Corpuscular Volume 86.5 fL (81-99); Mean Platelet Vol. 10.3 fl (6.2-12.0); POSITIVE COUNT YES; POSITIVE MORPHOLOGY YES; Platelet Count 61 K/mm3 (150-450); RBC Distribution Width CV 13.2 % (11.6-14.6); RBC Distribution Width SD 41.2 fl (35.1-43.9); Red Blood Count 3.84 M/mm3 (4.2-5.4)
[2021-06-05 10:41] LABS: Differential Indicated MANUAL DIFF
[2021-06-05] MEDS: Ipratropium/Albuterol Sulfate 3 ML AMPUL.NEB INHALATION (10:43)
[2021-06-05 10:52] LABS: Anion Gap 8 (5-15); BUN 19 mg/dL (7-18); BUN/Creat Ratio 28.9 RATIO (10-20); Calcium,Total 9.6 mg/dL (8.5-10.1); Chloride 103 mmol/L (98-107); Creatinine, Serum 0.66 mg/dL (0.55-1.02); EST Glomerular Filtration Rate 98 mL/min (>60); Est Glom Filt Rate - Afr Amer 119 mL/min (>60); Estimated Creatinine Clearance 70.11 ml/min; Glucose 111 mg/dL (74-106); Potassium 3.3 mmol/L (3.5-5.1); Sodium Level 138 mmol/L (136-145)
[2021-06-05 11:58] LABS: Lymphocyte 18 % (19-41); Metamyelocyte 5 % (0-1); Monocyte 4 % (0-10); Myelocyte 4 % (0-0); Neutrophil-Band 6 % (0-5); Neutrophil-Segmented 63 % (47-70); Nucleated Red Bld Cells,Manual 2 % (0-5); Total Cells Counted 100 (MANUAL DIFF)
[2021-06-05 11:59] LABS: Platelet Estimate MKD DEC (ADEQ); Red Cell Morphology NORM C+C NORMAL (NORM C&C)
[2021-06-05 12:00] LABS: Absolute Lymphocyte Count 1.62 X10^3/uL (0.83-4.51); Absolute Neutrophil Count 6.2 X10^3/uL (2.0-7.7)
--- NOTE | 2021-06-05 12:07 | RAD_ITS ---
STUDY: X-RAY CHEST REASON FOR EXAM: Female, 56 years old. Cough TECHNIQUE: Frontal view of the chest COMPARISON: CT chest dated 05/24/22 FINDINGS: There are multifocal airspace opacities in both lungs, left greater than right. This is consistent with multilobar pneumonia. There are no pleural effusions. There is no pneumothorax. The heart is normal in size. The visualized osseous structures are within normal limits. RAD/Chest 1 View (Portable) IMPRESSION: Multi lobar pneumonia which is more pronounced on the left. Electronically Signed: Tyler Polanco MD at 12:55 EDT Tel , Service support ,
--- NOTE | 2021-06-05 16:09 | NURSING ---
MED SURG JOCRYSTALERI PNEUMONIA, HYPOXIA, LUNG CA, FAILED OUTPATIENT [place]
[2021-06-05] MEDS: Ceftriaxone 1 GM/50 ML BAG IV (16:17)
--- NOTE | 2021-06-05 16:23 | CT_ITS ---
EXAM: CT ANGIOGRAPHY CHEST WITHOUT AND WITH INTRAVENOUS CONTRAST CLINICAL INDICATION: dyspnea SOB, LUNG CANCER W/METS, PLEURAL EFFUSION TECHNIQUE: Helically acquired angiography images were obtained of the chest without and with intravenous contrast. This CT exam was performed using one or more of the following dose reduction techniques: automated exposure control, adjustment of the mA and/or kV according to patient size, and/or use of iterative reconstruction technique. This report was created using [employer] report generation technology. MIP reconstructed images were created and reviewed. CONTRAST: IV 100mL [id number]-370 COMPARISON: 05.24.21 FINDINGS: PULMONARY ARTERIES: No demonstrated pulmonary embolism or arterial dissection. AORTA: Unremarkable. Normal in caliber. No evidence of dissection. GREAT VESSELS OF AORTIC ARCH: Unremarkable. Normal in caliber. No evidence of dissection. LUNGS AND PLEURAL SPACES: There is bilateral pneumonia. This is worse. There are bilateral pleural effusions. This is worse. There is a 7.5 mm right lower lobe nodule. SE:2 IM: 145. This is stable since the prior study. HEART: Unremarkable. Heart size is normal. No pericardial effusion. No signs of right heart strain, ratio of right ventricle to left ventricle measures less than 1. MEDIASTINUM: Mediastinal adenopathy. Esophagus is unremarkable. No hiatal hernia. THYROID: Unremarkable. No thyroid lesions. BONES/JOINTS: Diffuse lytic lesions throughout the right and left scapula. There are destructive changes of the inferior right left scapula concerning for metastatic foci. There are degenerative findings of the thoracic spine. ADRENALS: Stable right adrenal mass. CT/CTA Chest W/WO Contrast IMPRESSION: 1. No demonstrated pulmonary embolism or arterial dissection. 2. There is bilateral pneumonia. This is worse. This may relate to worsening of the patient''s known pulmonary malignancy. 3. There are bilateral pleural effusions. This is worse. 4. Diffuse lytic lesions throughout the right and left scapula. There are destructive changes of the inferior right left scapula concerning for metastatic foci. Electronically Signed: Zhen Fields MD at 17:12 EDT , Service support ,
--- NOTE | 2021-06-05 16:23 | HP.PCM.HOS_ITS ---
[facility] - General General Date of Admission: 06/05/21 Date of Service: 06/05/21 Chief Complaint: shortness of breath HPI Narrative UNA BROOKS, is a 56 F who presents with an illness that began roughly around the or 22 May. She underwent a CAT scan of her chest shows some hazy infiltrates and patient was treated empirically with Augmentin. Patient has continued to get worse and has been more short of breath over the past couple days. She presented to the emergency room had chest x-ray showed bilateral infiltrates. Her rapid Covid PCR was negative. Patient received methylprednisolone, ceftriaxone and azithromycin in the emergency room. Patient was hypoxic at 86% on room air and was placed on oxygen at 4 L and she has been staying around 93%. Patient is not home O2 dependent. Patient has been vaccinated for COVID-19 back in February. She denies any close contacts with COVID- 19. FOR[facility]LY [facility] Medical History (Updated 06/05/21 @ 16:[address] 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 Judson Bueno DO) Mother Hypertension Surgical History History of lung biopsy Social History (Updated 06/05/21 @ 16:[address] Judson Bueno DO) Smoking Status: Former smoker ISRA Hdez Is coughing. She feels like she is coughing up phlegm but nothing is been productive as of yet. Denies chest pain or palpitations. Denies any new change to her weight nor any lower extremity edema. No change to smell or taste. All review of systems were negative except as mentioned above in the history of present illness and the other review of systems. Vital Signs Vital Signs Vital Signs: 06/05/21 09:47 06/05/21 09:49 06/05/21 09:50 Temperature 36.4 C L 36.4 C L Temperature Source Oral Oral Pulse Rate 125 H 125 H Respiratory Rate 20 H 20 H Respiratory Effort Short of Breath Respiratory Depth Deep Respiratory Pattern Hyperpnea Blood Pressure 164/78 H 164/78 H Blood Pressure Mean 106 106 Pulse Ox 86 93 Oxygen Delivery Method Room Air Nasal Cannula Nasal Cannula Oxygen Flow Rate (L/min) 4 4 06/05/21 10:45 06/05/21 12:17 06/05/21 12:18 Temperature 36.5 C L Temperature Source Temporal Pulse Rate 122 H 121 H 121 H Respiratory Rate 24 H 17 17 Respiratory Effort Respiratory Depth Respiratory Pattern Blood Pressure 174/70 H 174/70 H Blood Pressure Mean 104 104 Pulse Ox 93 93 Oxygen Delivery Method Nasal Cannula Nasal Cannula Oxygen Flow Rate (L/min) 4 4 06/05/21 13:27 06/05/21 14:29 06/05/21 15:17 Temperature 36.5 C L 36.7 C 36.8 C Temperature Source Temporal Temporal Temporal Pulse Rate 120 H 118 H 112 H Respiratory Rate 19 H 25 H 18 Respiratory Effort Respiratory Depth Respiratory Pattern Blood Pressure 183/83 H 161/79 H 127/76 H Blood Pressure Mean 116 106 93 Pulse Ox 93 93 93 Oxygen Delivery Method Nasal Cannula Nasal Cannula Nasal Cannula Oxygen Flow Rate (L/min) 4 4 3 06/05/21 16:17 Temperature 36.7 C Temperature Source Temporal Pulse Rate 115 H Respiratory Rate 27 H Respiratory Effort Respiratory Depth Respiratory Pattern Blood Pressure 118/95 H Blood Pressure Mean 102 Pulse Ox 93 Oxygen Delivery Method Nasal Cannula Oxygen Flow Rate (L/min) 4 Weight Weight: 94.7 kg Body Mass Index (BMI) 39.4 Physical Exam Const alert, no apparent distress and average body habitus General Appearance: cooperative HEENT normocephalic and head/scalp atraumatic Eyes PERRL Neck no lymphadenopathy and no JVD Resp Resp Narrative: Fine crackles in the bases bilaterally. Cardio regular rate, regular rhythm, S1 normal heart sound and S2 normal heart sound GI normal to inspection, nondistended, normoactive bowel sounds, soft to palpation, non-tender and non-distended Extremity Extremity Narrative: Trace lower extremity edema Skin no rashes or lesions noted and no wounds Neuro Sensorium / Orientation: awake and alert Psych affect normal Results Lab / Micro Data Attestation: I reviewed the patient's lab results. Result Diagrams: 06/05/21 10:23 06/05/21 10:23 Labs: Laboratory Results - last 24 hr 06/05/21 10:23: WBC 9.0, RBC 3.84 L, Hgb 11.2 L, Hct 33.2 L, MCV 86.5, MCH 29.2, MCHC 33.7, RDW Std Deviation 41.2, RDW Coeff of Heladio 13.2, Plt Count 61 L, MPV 10.3, Neut % (Auto) Not Reportable, Absolute Neuts (auto) 6.2, Absolute Lymphs (auto) 1.62, Total Counted 100, Neutrophils % (Manual) 63, Band Neutrophils % 6 H, Lymphocytes % (Manual) 18 L, Monocytes % (Manual) 4, Metamyelocytes % 5 H, Myelocytes % 4 H, Nucleated RBCs/100 WBC 2, Diff Path Review December, Platelet Estimate MKD DEC, RBC Morphology NORM C+C 06/05/21 10:23: Sodium 138, Potassium 3.3 L, Chloride 103, Carbon Dioxide 27.0, Anion Gap 8, BUN 19 H, Creatinine 0.66, Estim Creat Clear Calc 70.11, Est GFR (MDRD) Af Amer 119, Est GFR (MDRD) Non-Af 98, BUN/Creatinine Ratio 28.9 H, Glucose 111 H, Calcium 9.6 Micro: Microbiology 06/05/21 10:36 Nasal Secretion SARS-CoV-2 Antigen (Rapid) - Final Rhythm Strip Rhythm Strip: Sinus Tach EKG Initial EKG: Attestation: I personally reviewed and interpreted this EKG as follows: Prior EKG tracings: available for review EKG Rhythm Intrepretation: Sinus Rhythm and Sinus Tachycardia Radiology Impression Chest X-Ray 06/05/21 12:07 IMPRESSION: Multi lobar pneumonia which is more pronounced on the left. Electronically Signed: Tyler Polanco MD at 12:55 EDT Tel , Service support , Assessment & Plan Assessment/Plan (1) Acute respiratory failure with hypoxia: (2) Pneumonia: QUALIFIERS: Pneumonia type: due to Pneumococcus Laterality: bilateral Lung location: lower lobe of lung Qualified Code(s): J13 - Pneumonia due to Streptococcus pneumoniae PLAN: 1. Acute hypoxic respiratory failure * Secondary to pneumonia but also, by the patient's history of lung cancer and possible some underlying radiation pneumonitis * Currently doing well on 4 L * Wean as able * Patient may need amatory pulse ox prior to discharge * Pulmonary toilet 2. Suspected pneumococcal pneumonia * Check sputum culture, blood cultures, urinary antigens for strep and Legionella * Continue with antibiotics with ceftriaxone and azithromycin * Other possibilities could include COVID-19 pneumonia. Patient has been previously vaccinated but she did not have any improvement with the Augmentin that she was on previously. The rapid was negative in the emergency room. The PCR has been ordered and is currently pending. * I am going to check a CTA of her chest. 3. Lung cancer * History of non-small cell lung cancer. It was in the right part of her lung. * She has undergone chemotherapy as well as radiation therapy * She follows with Dr. Mata and is currently being observed for recurrence. 4. History of VTE * Patient already on apixaban and will continue 5. VTE prophylaxis: Not indicated as patient is already anticoagulated 6. CODE STATUS: Addressed with patient. Patient wished to be full code. Charges/Coding Visit Charges Inpatient E&M: 95450 Init Hosp L3
[2021-06-05] MEDS: Albuterol 2.5 MG/3 ML VIAL.NEB. INHALATION ×2 (20:20→23:58)
[2021-06-05] MEDS: APIXABAN 5 MG TABLET PO (21:43)
[2021-06-05] MEDS: Atorvastatin Calcium 40 MG Tablet PO (21:43)
[2021-06-05] MEDS: Ipratropium 0.5 MG/2.5 ML SOLUTION INHALATION (23:58)
[2021-06-06] VITALS (17 sets, daily range): BP systolic 120–166; BP diastolic 59–89; PULSE 94–123; RESP 20–29; TEMP 36.5–37.3; O2SAT 90–94
[2021-06-06] MEDS: Albuterol 2.5 MG/3 ML VIAL.NEB. INHALATION ×5 (01:10→14:15)
--- NOTE | 2021-06-06 02:59 | PCS.PANDOC ---
PANDEMIC DOCUMENTATION INITIATED: Date: 04/08/2021 Time: 190 Emergency documentation initiated 06/05/21 @ 1900
[2021-06-06] MEDS: Ipratropium 0.5 MG/2.5 ML SOLUTION INHALATION ×4 (03:55→18:37)
[2021-06-06] MEDS: Levothyroxine 25 MCG TABLET PO (06:03)
[2021-06-06 07:48] LABS: Hematocrit 31.7 % (37-47); Hemoglobin 10.2 g/dL (12.0-15.0); Mean Corp Hgb Conc 32.2 g/dL (32-36); Mean Corpuscular Hgb 29.1 pg (27.0-32.0); Mean Corpuscular Volume 90.3 fL (81-99); Mean Platelet Vol. 10.6 fl (6.2-12.0); POSITIVE COUNT YES; POSITIVE MORPHOLOGY YES; Platelet Count 54 K/mm3 (150-450); RBC Distribution Width CV 13.5 % (11.6-14.6); RBC Distribution Width SD 43.9 fl (35.1-43.9); Red Blood Count 3.51 M/mm3 (4.2-5.4); White Blood Count 8.9 K/mm3 (4.4-11.0)
[2021-06-06 07:51] LABS: Differential Indicated MANUAL DIFF
[2021-06-06 08:22] LABS: Hypochromasia 1+; Lymphocyte 18 % (19-41); Metamyelocyte 2 % (0-1); Monocyte 1 % (0-10); Neutrophil-Band 5 % (0-5); Neutrophil-Segmented 74 % (47-70); Nucleated Red Bld Cells,Manual 2 % (0-5); Platelet Estimate MKD DEC (ADEQ); Polychromasia RARE; Total Cells Counted 100 (MANUAL DIFF)
[2021-06-06 08:30] LABS: Neutrophil # 7.03 X10^3/uL (2.7-7.7)
--- NOTE | 2021-06-06 08:41 | PCS.PANDOC ---
PANDEMIC DOCUMENTATION INITIATED: Date: 04/08/2021 Time: 190
[2021-06-06] MEDS: APIXABAN 5 MG TABLET PO ×2 (09:23→20:13)
[2021-06-06] MEDS: Paroxetine 20 MG Tablet 40 MG PO (09:23)
[2021-06-06] MEDS: guaiFENesin 10 ML UDC (200MG/10ML) 20 ML PO (09:33)
[2021-06-06 09:56] LABS: BNP,B-Type NATRIURETIC PEPTIDE 71.5 pg/mL (0-100)
--- NOTE | 2021-06-06 12:05 | CASEMGMT ---
JULIA NIEVES Assessment: Face to Face with pt for initial transition planning/care coordination assessment. RN LIZBETH introduced self and role at [facility], pt voices understanding and consents to assessment. Pt is A/O x4 and answers all questions appropriately at this time. Pt sitting up in bed with O2 on in no distress. Care providers, pharmacy, and demographics verified/updated. Admitting Dx: PNA PCP:Mickey Specialists:[facility] Preferred Pharmacy: [facility] [place] Insurance: [facility] Prescription Benefit: yes LW/HPOA: Pt denies having a LW/DPOA and denies need for info regarding AD. LNOK: Jaye Spaulding, mother Living Arrangements: Pt lives with mother and son in a two story house with 3-4 steps to enter, then a sidewalk and another 3-4 steps. Pt reports being I in ADL's and denies concerns at home. Transportation: Pt drives self and denies concerns with transportation. DME/HHC/SNF: Pt denies having any DME in the home, hx of HHC or SNF stays. Pt states no concerns with going home at time of dc. Pt states no further concerns/needs. CM to follow. Advised pt to ask CM if any further question/concerns/needs arise, voices understanding. Pt Goal: Home Plan: Home, will follow for O2 needs.
--- NOTE | 2021-06-06 12:46 | PN.HOSP_ITS ---
Subjective Subjective Patient seen and examined at bedside. She reports mild shortness of breath that persists. Minimal cough. No fevers, chills, sweats. Discussed care plan with patient, patient agreeable. Objective Data Objective Data Vital Signs: Vital Signs Temp Pulse Resp BP Pulse Ox 98.5 F 112 H 26 H 120/59 L 93 06/06/21 09:27 06/06/21 11:07 06/06/21 11:07 06/06/21 09:27 06/06/21 09:27 Oxygen Flow Rate (L/min) 11 Oxygen Delivery Method Nasal Cannula Weight: 91.7 kg Body Mass Index (BMI) 38.2 Intake & Output: Intake and Output for Last 24 Hours 06/04/21 06/05/21 06/06/21 23:59 23:59 23:59 Intake Total 305 / 455 555 / 555 Output Total 350 / 350 Balance 305 / 455 205 / 205 Lab / Micro Data Result Diagrams: 06/06/21 06:55 06/05/21 10:23 Labs: Laboratory Results - last 24 hr 06/05/21 16:02: COVID-19 (SAROJ) Not Detected 06/06/21 06:55: WBC 8.9, RBC 3.51 L, Hgb 10.2 L, Hct 31.7 L, MCV 90.3, MCH 29.1, MCHC 32.2, RDW Std Deviation 43.9, RDW Coeff of Heladio 13.5, Plt Count 54 L, MPV 10.6, Neut % (Auto) Not Reportable, Absolute Neuts (auto) 7.0, Absolute Lymphs (auto) 1.60, Total Counted 100, Neutrophils % (Manual) 74 H, Band Neutrophils % 5, Lymphocytes % (Manual) 18 L, Monocytes % (Manual) 1, Metamyelocytes % 2 H, Nucleated RBCs/100 WBC 2, Diff Path Review May foll, Platelet Estimate MKD DEC, Polychromasia RARE, Hypochromasia 1+ 06/06/21 06:55: B-Natriuretic Peptide 71.5 Micro: Microbiology 06/06/21 03:15 Urine Catheter - Catheter Legionella Antigen - Final 06/06/21 03:15 Urine Catheter - Catheter Streptococcus pneumoniae Antigen (M - Final 06/05/21 16:02 Mucosa - Nasopharyngeal Respiratory Panel (PCR) - Final 06/05/21 10:36 Nasal Secretion SARS-CoV-2 Antigen (Rapid) - Final Radiography Diagnostic Testing: Radiology Impression Chest X-Ray 06/05/21 12:07 IMPRESSION: Multi lobar pneumonia which is more pronounced on the left. Electronically Signed: Tyler Polanco MD at 12:55 EDT Tel , Service support , Chest CTA 06/05/21 16:23 IMPRESSION: 1. No demonstrated pulmonary embolism or arterial dissection. 2. There is bilateral pneumonia. This is worse. This may relate to worsening of the patient''s known pulmonary malignancy. 3. There are bilateral pleural effusions. This is worse. 4. Diffuse lytic lesions throughout the right and left scapula. There are destructive changes of the inferior right left scapula concerning for metastatic foci. Electronically Signed: Zhen Fields MD at 17:12 EDT , Service support , Rhythm Strip Rhythm Strip: Sinus Tach Physical Exam Const alert and average body habitus Neck no lymphadenopathy and no JVD Resp Effort and Inspection: tachypneic Auscultation: crackles, rales, rhonchi and diminished lung sounds GI soft to palpation, non-tender and non-distended Skin no wounds Neuro Sensorium / Orientation: awake and alert Psych affect normal Assessment & Plan Assessment/Plan (1) Acute respiratory failure with hypoxia: (2) Pneumonia: QUALIFIERS: Pneumonia type: due to Pneumococcus Laterality: bilateral Lung location: lower lobe of lung Qualified Code(s): J13 - Pneumonia due to Streptococcus pneumoniae PLAN: 1. Acute hypoxic respiratory failure * Secondary to pneumonia but also, by the patient's history of lung cancer and possible some underlying radiation pneumonitis * Currently doing well on 4 L, has since increased to 11 L * BNP negative, patient does not appear volume overloaded we will hold off on Lasix at this time * Wean as able * Pulmonary toilet 2. Suspected pneumococcal pneumonia * Check sputum culture, blood cultures, urinary antigens for strep and Legionella * Continue with antibiotics with ceftriaxone and azithromycin * Will start Solu-Medrol IV 40 every 8 hour * Consult pulmonology for further evaluation and recommendations * Other possibilities could include COVID-19 pneumonia. Patient has been previously vaccinated but she did not have any improvement with the Augmentin that she was on previously. The rapid was negative in the emergency room. The PCR has been ordered and is currently pending. * CTA negative for PE. Shows findings consistent of diffuse pneumonia. With worsening pleural effusions compared to prior studies 3. Lung cancer * History of non-small cell lung cancer. It was in the right part of her lung. * She has undergone chemotherapy as well as radiation therapy * CTA shows lytic lesions in scapula bilaterally. Patient was to follow-up with oncology soon. Will place on consult. 4. History of VTE * Patient already on apixaban and will continue 5. VTE prophylaxis: Not indicated as patient is already anticoagulated 6. CODE STATUS: Addressed with patient. Patient wished to be full code. Charges/Coding Visit Charges Inpatient E&M: 69056 Subs Hosp L3
--- NOTE | 2021-06-06 14:47 | CON.PCM.CC_ITS ---
Assessment & Plan Assessment/Plan (1) Non-small cell lung cancer (NSCLC): QUALIFIERS: Laterality: right Qualified Code(s): C34.91 - Malignant neoplasm of unspecified part of right bronchus or lung (2) Pneumonia: QUALIFIERS: Pneumonia type: due to Pneumococcus Laterality: bilateral Lung location: lower lobe of lung Qualified Code(s): J13 - Pneumonia due to Streptococcus pneumoniae (3) Acute respiratory failure with hypoxia: PLAN: RECOMMENDATIONS: 1. Await results of sputum culture 2. Initiate vest therapy 3. Chest x-ray in a.m. 4. Discontinue Covid precautions 5. Potential bronchoscopy if not responsive to conservative measures IMPRESSIONS: 1. Acute hypoxic respiratory failure secondary to suspected postobstructive pneumonia Agree with the use of bronchodilators and Solu-Medrol. However, patient likely has an element of endobronchial obstruction leading to left upper lobe. Serial CT scans show progressive collapse of the left upper lobe. Will initiate patient on vest therapy in addition to Acapella and incentive spirometer. If patient fails to respond, bronchoscopy may be necessary for evaluation. COVID- 19 is unlikely given negative PCR, previous immunization and lack of other prodromal symptoms. Doubt pulmonary embolism given chronic anticoagulation. Ideally, bronchoscopy would be completed as an outpatient if patient responds to conservative measures. 2. History of radiation pneumonitis/history of nephrotic syndrome/obesity/hypercholesterolemia/hypothyroidism Complicates care, management, recovery and prognosis. Okay to continue with baseline medications from my perspective. Continue to monitor renal function. HPI Consult Data Date of Consult: 06/06/21 HPI Narrative HPI Narrative: UNA BROOKS is a 56 F, with past medical history listed below, who presents to [facility] 06[facility]05[facility]2021 secondary to nasal congestion, myalgias, cough and shortness of breath. Patient was treated with Augmentin for 7 days prior to presentation. Patient is on Eliquis secondary to a prior PE and DVT and reports compliance. Patient had not reported any fevers, nausea, vomiting or diarrhea. Patient felt that she was not improving and her pulse ox was noted to be 86% on room air. In the ER, patient was afebrile, but tachycardic at 125 bpm, tachypneic at 24 breaths/min and hypertensive. Patient required 4 L nasal cannula to maintain saturations. Laboratory work-up showed a white blood cell count of 9, hemoglobin of 11.2 and platelet count of 61. Patient did have a low potassium of 3.3, but kidney function was within normal limits. A chest x-ray showed multilobar pneumonia that was more pronounced on the left. Patient did have a recent CTA showing a postobstructive pneumonia on the left. Given patient's symptomatology, she was initiated on antibiotics and admitted to the floor for further evaluation. Patient has had significant increase in oxygen demands, so she was admitted to the floor and Covid precautions pending PCR. Patient states that she has not seen a client services associate previously. Patient states that she was diagnosed by a CT-guided biopsy. Patient is unaware of any previous bronchoscopy. Patient states that she has not received any chemo recently, but has had chemo/radiation in the past. Patient denies any chest pain and states that her cough has been relatively mild. Patient has not had any hemoptysis. Review of systems otherwise negative from a constitutional, HEENT, respiratory, cardiovascular, GI, genitourinary, musculoskeletal, skin, neurologic, psychiatric and hematologic system unless stated above. 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 Judson Bueno DO) Mother Hypertension Surgical History History of lung biopsy Social History (Updated 06/05/21 @ 16:[address] Judson Bueno DO) Smoking Status: Former smoker ROS ROS Narrative See HPI Physical Exam Const alert, no apparent distress and average body habitus General Appearance: cooperative HEENT normocephalic and head/scalp atraumatic Eyes PERRL Neck no lymphadenopathy and no JVD Resp Auscultation: rales bilateral Percussion: dullness Upper: left Cardio regular rate, regular rhythm, S1 normal heart sound and S2 normal heart sound GI normal to inspection, nondistended, normoactive bowel sounds, soft to palpation, non-tender and non-distended Extremity Extremity Narrative: Trace lower extremity edema Skin no rashes or lesions noted and no wounds Neuro Sensorium / Orientation: awake and alert Psych affect normal Lab / Micro Data Result Diagrams: 06/06/21 06:55 06/05/21 10:23 Labs: Laboratory Results - last 24 hr 06/05/21 16:02: COVID-19 (SAROJ) Not Detected 06/06/21 06:55: WBC 8.9, RBC 3.51 L, Hgb 10.2 L, Hct 31.7 L, MCV 90.3, MCH 29.1, MCHC 32.2, RDW Std Deviation 43.9, RDW Coeff of Heladio 13.5, Plt Count 54 L, MPV 10.6, Neut % (Auto) Not Reportable, Absolute Neuts (auto) 7.0, Absolute Lymphs (auto) 1.60, Total Counted 100, Neutrophils % (Manual) 74 H, Band Neutrophils % 5, Lymphocytes % (Manual) 18 L, Monocytes % (Manual) 1, Metamyelocytes % 2 H, Nucleated RBCs/100 WBC 2, Diff Path Review May foll, Platelet Estimate MKD DEC, Polychromasia RARE, Hypochromasia 1+ 06/06/21 06:55: B-Natriuretic Peptide 71.5 Micro: Microbiology 06/06/21 03:15 Urine Catheter - Catheter Legionella Antigen - Final 06/06/21 03:15 Urine Catheter - Catheter Streptococcus pneumoniae Antigen (M - Final 06/05/21 16:02 Mucosa - Nasopharyngeal Respiratory Panel (PCR) - Final 06/05/21 10:36 Nasal Secretion SARS-CoV-2 Antigen (Rapid) - Final Rhythm Strip Rhythm Strip: Sinus Tach Radiology Impression Chest CTA 06/05/21 16:23 IMPRESSION: 1. No demonstrated pulmonary embolism or arterial dissection. 2. There is bilateral pneumonia. This is worse. This may relate to worsening of the patient''s known pulmonary malignancy. 3. There are bilateral pleural effusions. This is worse. 4. Diffuse lytic lesions throughout the right and left scapula. There are destructive changes of the inferior right left scapula concerning for metastatic foci. Electronically Signed: Zhen Fields MD at 17:12 EDT , Service support , Charges/Coding Visit Charges Inpatient E&M: 98789 Init Hosp L3
--- NOTE | 2021-06-06 15:29 | ONC.CONSULT ---
Assessment & Plan Assessment/Plan (1) Non-small cell lung cancer (NSCLC): Status: Chronic Code(s): C34.90 - Malignant neoplasm of unspecified part of unspecified bronchus or lung Qualifiers: Laterality: right Qualified Code(s): C34.91 - Malignant neoplasm of unspecified part of right bronchus or lung Plan: 56-year-old female smoker status post combined modality therapy (chemoradiation) for non-small cell lung cancer of the right lung stage IIIB July 2016 through October 2016. Following treatment she was in complete remission and went on surveillance. Her last imaging was in October 2020 with PET/CT and her last outpatient follow-up was in November [address] Mata she was still in remission. Patient hospitalized May 2021 with dyspnea, working diagnosis bilateral pneumonia with pleural effusions. Incidental finding of lytic lesions on both scapulae metastatic disease likely from her lung cancer. Discharge (2) Lytic bone lesions on xray: Status: Acute Code(s): M89.9 - Disorder of bone, unspecified Plan: Recommend restaging of her lung cancer with concern for recurrent metastatic disease with PET/CT. This can be scheduled as an outpatient following recovery from what appears to be pneumonia and discharge. Guided by PET/CT findings pathologic confirmation of recurrent cancer by biopsy. Impression and recommendations as above outlined discussed with patient. Follow-up with Dr. Mata as outpatient. Main Tao MD [employer], [facility] [place] Divisions of Medical Oncology & Hematology Department of Internal Medicine [place] [id number] This note was generated using a voice recognition system software. Although it was reviewed by the author prior to finalization, it may still contain incorrect words, spelling, and punctuation that were not noted when reviewing prior to saving. If a clinically significant typo or inaccurately typed phrase is noted, please notify the author. HPI Consult Data Date of Service:: 06/07/21 PCP / Referring Provider: Dr. Cesar Arevalo MD Attending: Dr. Alcides Stovall DO Chief Complaint Chief Complaint: Dyspnea History of Present Illness History of Present Illness: 56-year-old female smoker admitted with dyspnea, bilateral pneumonia and pleural effusions. Incidentally noted to have lytic bone lesions on chest CT. Her past medical history is notable for right non-small cell lung cancer, adenocarcinoma stage IIIB (T2, N3, M0) status post combined modality therapy (concomitant chemoradiation therapy with weekly carboplatin Taxol) followed by consolidation chemotherapy with carboplatin Taxol. Treatment dates were July 2016 through October 2016. Following treatment she was in complete remission and went on surveillance. Her last outpatient follow-up was in November [address] Mata. Stable right adrenal nodule was noted on serial CT felt to be an adenoma. Advanced Directives Power of Wall Scraper: No Living Will: No PFSH Medical History (Updated 06/07/21 @ 10:[address] 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 Judson Bueno DO) Mother Hypertension Surgical History History of lung biopsy Social History (Updated 06/05/21 @ 16:[address] Judson Bueno DO) Smoking Status: Former smoker ROS Constitutional Constitutional: Reports fatigue; Denies fever(s), night sweats or weight loss ENT HEENT: Denies dysphagia, hoarseness, neck mass or sore throat Cardiovascular Cardiovascular: Reports dyspnea; Denies chest pain, edema or palpitations Respiratory/Chest Respiratory/Chest: Reports cough, dyspnea and wheezing; Denies hemoptysis, pain on inspiration or breast mass Gastrointestinal Gastrointestinal: Denies abdominal pain, change in bowel habits, hematochezia, melena, nausea or vomiting Genitourinary Genitourinary: Denies dysuria or hematuria Musculoskeletal Musculoskeletal: Reports joint pain and other Details: Shoulders pain ; Denies back pain Integumentary Integumentary: Denies changing lesions or rash Neurologic Neurologic: Denies abnormal speech, focal weakness or tingling Psychiatric Psychiatric: Denies anxiety or depression Endocrine Endocrinology: Denies cold intolerance or heat intolerance Hematologic/Lymphatic Hematologic/Lymphatic: Denies easy bleeding, easy bruising or lymphadenopathy Physical Exam Narrative ECOG 2, on oxygen Const alert, oriented x3 and no apparent distress General Appearance: cooperative HEENT normocephalic and moist oral mucous membranes Eyes no scleral icterus Neck no lymphadenopathy and no JVD General: Negative for lymphadenopathy Lymph Lymphatic: no lymphadenopathy noted Resp Effort and Inspection: symmetric chest movement and tachypneic Auscultation: wheezes throughout and diminished lung sounds bilateral and diffuse Cardio regular rate, regular rhythm and no murmurs GI soft to palpation, non-tender and no masses Palpation: Negative for hepatomegaly or splenomegaly Bladder / Kidney Exam: no CVA tenderness Extremity no clubbing, cyanosis or edema Skin no rashes or lesions noted Neuro CN's II-XII intact bilaterally, moves all extremities and no focal motor deficits Psych mental status grossly normal Vital Signs Temperature 98.5 F 06/06/21 09:27 Temperature Source Oral 06/06/21 09:27 Pulse Rate 118 H 06/06/21 15:04 Respiratory Rate 29 H 06/06/21 15:04 Respiratory Effort Labored 06/06/21 08:00 Respiratory Depth Shallow 06/06/21 08:00 Respiratory Pattern Tachypnea 06/06/21 15:04 Blood Pressure 120/59 L 06/06/21 09:27 Blood Pressure Mean 79 06/06/21 09:27 Blood Pressure Source Monitor 06/06/21 09:27 Blood Pressure Position Semi-Fowlers 06/06/21 09:27 Blood Pressure Location Right Arm 06/06/21 09:27 Pulse Ox 93 06/06/21 09:27 Oxygen Delivery Method Nasal Cannula 06/06/21 09:27 Oxygen Flow Rate (L/min) 11 06/06/21 09:27 Laboratory Results - last 24 hr 06/05/21 16:02: COVID-19 (SAROJ) Not Detected 06/06/21 06:55: WBC 8.9, RBC 3.51 L, Hgb 10.2 L, Hct 31.7 L, MCV 90.3, MCH 29.1, MCHC 32.2, RDW Std Deviation 43.9, RDW Coeff of Heladio 13.5, Plt Count 54 L, MPV 10.6, Neut % (Auto) Not Reportable, Absolute Neuts (auto) 7.0, Absolute Lymphs (auto) 1.60, Total Counted 100, Neutrophils % (Manual) 74 H, Band Neutrophils % 5, Lymphocytes % (Manual) 18 L, Monocytes % (Manual) 1, Metamyelocytes % 2 H, Nucleated RBCs/100 WBC 2, Diff Path Review May foll, Platelet Estimate MKD DEC, Polychromasia RARE, Hypochromasia 1+ 06/06/21 06:55: B-Natriuretic Peptide 71.5 Microbiology 06/06/21 03:15 Urine Catheter - Catheter Legionella Antigen - Final 06/06/21 03:15 Urine Catheter - Catheter Streptococcus pneumoniae Antigen (M - Final 06/05/21 16:02 Mucosa - Nasopharyngeal Respiratory Panel (PCR) - Final Diagnostic Data Chest X-Ray 06/05/21 12:07 IMPRESSION: Multi lobar pneumonia which is more pronounced on the left. Electronically Signed: Tyler Polanco MD at 12:55 EDT Tel , Service support , Chest CTA 06/05/21 16:23 IMPRESSION: 1. No demonstrated pulmonary embolism or arterial dissection. 2. There is bilateral pneumonia. This is worse. This may relate to worsening of the patient''s known pulmonary malignancy. 3. There are bilateral pleural effusions. This is worse. 4. Diffuse lytic lesions throughout the right and left scapula. There are destructive changes of the inferior right left scapula concerning for metastatic foci. Electronically Signed: Zhen Fields MD at 17:12 EDT , Service support , I personally reviewed patient's CTA images and concur with the report findings
--- NOTE | 2021-06-06 16:18 | CHAPLAIN ---
Type of Pastoral Visit ___ Initial Visit ___ Follow-up Visit ___ On-call Visit ___ General Patient Visit ___ Spiritual Assessment ___ Family Conference ___ Bereavement ___ Rapid Response ___ Code Blue _x__ Other (describe below) Pastoral Care Referral From ___ Patient ___ Family ___ Nurse ___ Physician ___ Bisque Placer ___ Mail Order Sorter ___ Other (describe below) Sacrament/Intervention ___ Active listening ___ Anointing ___ Buddhism ___ Bereavement ___ Communion ___ Mita exploration ___ ___ Life review ___ Prayer ___ Reconciliation ___ Sacrament of Sick ___ Supportive presence ___ Wedding ___ Other (describe below) Pastoral Comments phone call made into isolation room; phone not answered
[2021-06-06] MEDS: Atorvastatin Calcium 40 MG Tablet PO (20:13)
[2021-06-06] MEDS: guaiFENesin 1,200 MG Tablet 1200 MG PO (20:13)
[2021-06-07] VITALS (20 sets, daily range): BP systolic 119–171; BP diastolic 53–75; PULSE 114–123; RESP 20–28; TEMP 36.6–37.3; O2SAT 90–95
[2021-06-07] MEDS: Albuterol 2.5 MG/3 ML VIAL.NEB. INHALATION (00:35)
[2021-06-07] MEDS: Levothyroxine 25 MCG TABLET PO (05:04)
--- NOTE | 2021-06-07 05:55 | RAD_ITS ---
STUDY: X-RAY CHEST REASON FOR EXAM: Female, 56 years old. Left upper lobe collapse TECHNIQUE: AP and lateral views of the chest. COMPARISON: Comparison is made with prior study dated 06/05/2021. FINDINGS: EKG electrodes are seen. Stable bilateral pulmonary infiltrates worse in the left hemithorax. Prominent soft tissue density seen in the medial aspect of the left upper lobe suggestive of partial left upper lobe collapse. Normal size heart. Normal mediastinum and adrian. Normal visualized pulmonary arteries. Normal visualized aortic arch and descending thoracic aorta. Normal visualized thoracic spine. Normal visualized ribs, clavicles, and shoulders. There is no demonstrated abnormality of the visualized soft tissue structures of the upper abdomen. RAD/Chest PA and Lateral IMPRESSION: Stable bilateral pulmonary infiltrates. Worse in the left hemithorax. Findings suggestive of a partial left upper lobe collapse. Electronically Signed: Stanley Zapata MD at 12:28 EDT , Service support ,
[2021-06-07 06:36] LABS: Hematocrit 30.7 % (37-47); Hemoglobin 10.2 g/dL (12.0-15.0); Mean Corp Hgb Conc 33.2 g/dL (32-36); Mean Corpuscular Hgb 29.4 pg (27.0-32.0); Mean Corpuscular Volume 88.5 fL (81-99); Mean Platelet Vol. 11.1 fl (6.2-12.0); POSITIVE COUNT YES; POSITIVE MORPHOLOGY YES; Platelet Count 52 K/mm3 (150-450); RBC Distribution Width CV 13.3 % (11.6-14.6); RBC Distribution Width SD 42.9 fl (35.1-43.9); Red Blood Count 3.47 M/mm3 (4.2-5.4); White Blood Count 8.5 K/mm3 (4.4-11.0)
[2021-06-07 06:40] LABS: Differential Indicated MANUAL DIFF
[2021-06-07] MEDS: Ipratropium 0.5 MG/2.5 ML SOLUTION INHALATION ×4 (06:55→19:01)
[2021-06-07 06:59] LABS: Anion Gap 6 (5-15); BUN 27 mg/dL (7-18); BUN/Creat Ratio 49.4 RATIO (10-20); Calcium,Total 9.6 mg/dL (8.5-10.1); Chloride 104 mmol/L (98-107); Creatinine, Serum 0.55 mg/dL (0.55-1.02); EST Glomerular Filtration Rate 121 mL/min (>60); Est Glom Filt Rate - Afr Amer 147 mL/min (>60); Estimated Creatinine Clearance 84.13 ml/min; Glucose 125 mg/dL (74-106); Potassium 3.7 mmol/L (3.5-5.1); Sodium Level 138 mmol/L (136-145)
--- NOTE | 2021-06-07 07:02 | CPS ---
pt refusing chest vest. She agreed to do PEP with me though.
[2021-06-07 07:16] LABS: Total Cells Counted 100 (MANUAL DIFF)
[2021-06-07 07:19] LABS: Basophil 1 % (0-1); Lymphocyte 16 % (19-41); Metamyelocyte 3 % (0-1); Monocyte 1 % (0-10); Myelocyte 1 % (0-0); Neutrophil-Band 12 % (0-5); Neutrophil-Segmented 66 % (47-70)
[2021-06-07 07:20] LABS: Absolute Neutrophil Count 6.7 X10^3/uL (2.0-7.7); Neutrophil # 6.65 X10^3/uL (2.7-7.7); Platelet Estimate MKD DEC (ADEQ); Red Cell Morphology NORM C+C NORMAL (NORM C&C)
[2021-06-07 07:21] LABS: Absolute Lymphocyte Count 1.36 X10^3/uL (0.83-4.51); Lymphocyte # 1.36 X10^3/ul (0.83-4.51)
[2021-06-07] MEDS: Furosemide 40 MG/4 ML Vial IV (08:25)
--- NOTE | 2021-06-07 08:48 | PN.CC_ITS ---
Assessment & Plan Assessment/Plan (1) Non-small cell lung cancer (NSCLC): QUALIFIERS: Laterality: right Qualified Code(s): C34.91 - Malignant neoplasm of unspecified part of right bronchus or lung (2) Pneumonia: QUALIFIERS: Laterality: bilateral Lung location: lower lobe of lung Pneumonia type: due to Pneumococcus Qualified Code(s): J13 - Pneumonia due to Streptococcus pneumoniae (3) Acute respiratory failure with hypoxia: PLAN: RECOMMENDATIONS: 1. Continue vest therapy 2. Diuretic challenge 3. Potential need to transfer to ICU for intubation to facilitate bronchoscopy 4. Wean oxygen as tolerated 5. Continue empiric antibiotics IMPRESSIONS: 1. Acute hypoxic respiratory failure secondary to suspected postobstructive pneumonia Agree with the use of bronchodilators and Solu-Medrol. However, patient likely has an element of endobronchial obstruction leading to left upper lobe. Serial CT scans show progressive collapse of the left upper lobe. Chest x-ray this morning shows progression and findings. Unclear if patient is having an element of pulmonary edema secondary to diastolic dysfunction. Patient will be given Lasix. If patient does not respond to Lasix, bronchoscopy would be indicated. Given the amount of oxygen that she is requiring, will likely need to transfer to the intensive care unit, intubate and then proceed with the procedure. Patient okay to have clears right now. If some improvement in oxygenation after diuretics, could potentially attempt anesthesia. 2. History of radiation pneumonitis/history of nephrotic syndrome/obesity/hypercholesterolemia/hypothyroidism Complicates care, management, recovery and prognosis. Okay to continue with baseline medications from my perspective. Continue to monitor renal function. Addendum 3:23 PM: Met with patient at approximately 1 PM to check on her status. Patient had had no improvement following vest therapy and diuretics. Discussed with the patient about the possibility of elective intubation to facilitate bronchoscopy. After review of patient status and the risks, she has elected to proceed with conservative measures for now. If intubated, patient would want a bronchoscopy, but she was not willing to electively proceed forward. Did discuss using conservative measures such as Acapella, vest and positioning to help with r ecruitment. At approximately 3 PM, I was contacted by the nurse that the patient had reconsidered following a discussion with the hospitalist. She would be willing to be intubated if necessary, but as an aside she had just finished a full lunch including a cheeseburger. Nursing was informed that this would increase the risk of an elective process and we would continue with conservative measures for now. No transfer to the intensive care unit at this time. Patient does remain a full code and can be intubated if necessary. Subjective Subjective Patient was significant decompensation over the last 24 hours. Patient is now requiring Airvo at high FiO2 to maintain saturations. Patient is reporting very little sputum production with the vest. Patient subjectively feels more short of breath today than yesterday. Objective Data Objective Data Vital Signs: Vital Signs Temp Pulse Resp BP Pulse Ox 36.8 C 119 H 28 H 171/70 H 91 06/07/21 08:05 06/07/21 08:05 06/07/21 08:05 06/07/21 08:05 06/07/21 08:05 Oxygen Flow Rate (L/min) 60 Oxygen Delivery Method Airvo Weight: 91.7 kg Body Mass Index (BMI) 38.2 Intake & Output: Intake and Output for Last 24 Hours 06/05/21 06/06/21 06/07/21 23:59 23:59 23:59 Intake Total 305 / 455 1005 / 1005 150 / 150 Output Total 350 / 350 300 / 300 Balance 305 / 455 655 / 655 -150 / -150 Lab / Micro Data Result Diagrams: 06/07/21 06:00 06/07/21 06:00 Labs: Laboratory Results - last 24 hr 06/06/21 06:55: B-Natriuretic Peptide 71.5 06/07/21 06:00: WBC 8.5, RBC 3.47 L, Hgb 10.2 L, Hct 30.7 L, MCV 88.5, MCH 29.4, MCHC 33.2, RDW Std Deviation 42.9, RDW Coeff of Heladio 13.3, Plt Count 52 L, MPV 11.1, Neut % (Auto) Not Reportable, Absolute Neuts (auto) 6.7, Absolute Lymphs (auto) 1.36, Total Counted 100, Neutrophils % (Manual) 66, Band Neutrophils % 12 H, Lymphocytes % (Manual) 16 L, Monocytes % (Manual) 1, Basophils % (Manual) 1, Metamyelocytes % 3 H, Myelocytes % 1 H, Diff Path Review May foll, Platelet Estimate MKD DEC, RBC Morphology NORM C+C 06/07/21 06:00: Sodium 138, Potassium 3.7, Chloride 104, Carbon Dioxide 28.0, Anion Gap 6, BUN 27 H, Creatinine 0.55, Estim Creat Clear Calc 84.13, Est GFR (MDRD) Af Amer 147, Est GFR (MDRD) Non-Af 121, BUN/Creatinine Ratio 49.4 H, Glucose 125 H, Calcium 9.6 Micro: Microbiology 06/06/21 03:15 Urine Catheter - Catheter Legionella Antigen - Final 06/06/21 03:15 Urine Catheter - Catheter Streptococcus pneumoniae Antigen (M - Final 06/05/21 16:02 Mucosa - Nasopharyngeal Respiratory Panel (PCR) - Final 06/05/21 10:36 Nasal Secretion SARS-CoV-2 Antigen (Rapid) - Final Rhythm Strip Rhythm Strip: Sinus Tach Physical Exam Const alert, no apparent distress and average body habitus General Appearance: cooperative HEENT normocephalic and head/scalp atraumatic Eyes PERRL Neck no lymphadenopathy and no JVD Resp Auscultation: rales bilateral, rhonchi and wheezes Percussion: dullness Upper: left Cardio regular rate, regular rhythm, S1 normal heart sound and S2 normal heart sound GI normal to inspection, nondistended, normoactive bowel sounds, soft to palpation, non-tender and non-distended Extremity Extremity Narrative: Trace lower extremity edema Skin no rashes or lesions noted and no wounds Neuro Sensorium / Orientation: awake and alert Psych affect normal Charges/Coding Visit Charges Inpatient E&M: 01978 Subs Hosp L3
[2021-06-07] MEDS: 0.9% Saline Lock 10 ML Syringe IV ×3 (09:18→14:06)
[2021-06-07 09:36] LABS: Pathologist Review Reviewed
[2021-06-07 09:50] LABS: Pathologist Review Reviewed
--- NOTE | 2021-06-07 09:56 | PN.HOSP_ITS ---
Subjective Subjective Patient seen and examined at bedside. She reports minimal cough. No chest pain. Discussed with nursing. Oxygen requirements have significantly increased through this admission, patient is now on Airvo. Objective Data Objective Data Vital Signs: Vital Signs Temp Pulse Resp BP Pulse Ox 98.3 F 119 H 28 H 171/70 H 91 06/07/21 08:05 06/07/21 08:05 06/07/21 08:05 06/07/21 08:05 06/07/21 08:05 Oxygen Flow Rate (L/min) 60 Oxygen Delivery Method Airvo Weight: 91.7 kg Body Mass Index (BMI) 38.2 Intake & Output: Intake and Output for Last 24 Hours 06/05/21 06/06/21 06/07/21 23:59 23:59 23:59 Intake Total 305 / 455 1005 / 1005 150 / 150 Output Total 350 / 350 300 / 300 Balance 305 / 455 655 / 655 -150 / -150 Lab / Micro Data Result Diagrams: 06/07/21 06:00 06/07/21 06:00 Labs: Laboratory Results - last 24 hr 06/05/21 10:23: Diff Path Review Reviewed 06/06/21 06:55: Diff Path Review Reviewed 06/06/21 06:55: B-Natriuretic Peptide 71.5 06/07/21 06:00: WBC 8.5, RBC 3.47 L, Hgb 10.2 L, Hct 30.7 L, MCV 88.5, MCH 29.4, MCHC 33.2, RDW Std Deviation 42.9, RDW Coeff of Heladio 13.3, Plt Count 52 L, MPV 11.1, Neut % (Auto) Not Reportable, Absolute Neuts (auto) 6.7, Absolute Lymphs (auto) 1.36, Total Counted 100, Neutrophils % (Manual) 66, Band Neutrophils % 12 H, Lymphocytes % (Manual) 16 L, Monocytes % (Manual) 1, Basophils % (Manual) 1, Metamyelocytes % 3 H, Myelocytes % 1 H, Diff Path Review May foll, Platelet Estimate MKD DEC, RBC Morphology NORM C+C 06/07/21 06:00: Sodium 138, Potassium 3.7, Chloride 104, Carbon Dioxide 28.0, Anion Gap 6, BUN 27 H, Creatinine 0.55, Estim Creat Clear Calc 84.13, Est GFR (MDRD) Af Amer 147, Est GFR (MDRD) Non-Af 121, BUN/Creatinine Ratio 49.4 H, Glucose 125 H, Calcium 9.6 Micro: Microbiology 06/06/21 03:15 Urine Catheter - Catheter Legionella Antigen - Final 06/06/21 03:15 Urine Catheter - Catheter Streptococcus pneumoniae Antigen (M - Final 06/05/21 16:02 Mucosa - Nasopharyngeal Respiratory Panel (PCR) - Final 06/05/21 10:36 Nasal Secretion SARS-CoV-2 Antigen (Rapid) - Final Rhythm Strip Rhythm Strip: Sinus Tach Physical Exam Const alert and average body habitus HEENT normocephalic, head/scalp atraumatic and oropharynx normal Neck no lymphadenopathy and no JVD Resp Effort and Inspection: tachypneic Auscultation: crackles, rales, rhonchi and diminished lung sounds GI soft to palpation, non-tender and non-distended Extremity normal to inspection Peripheral Pulses: Yes pulses 2+ throughout Skin no wounds Neuro Sensorium / Orientation: awake and alert Psych affect normal Assessment & Plan Assessment/Plan (1) Acute respiratory failure with hypoxia: (2) Pneumonia: QUALIFIERS: Laterality: bilateral Lung location: lower lobe of lung Pneumonia type: due to Pneumococcus Qualified Code(s): J13 - Pneumonia due to Streptococcus pneumoniae PLAN: 06/07/2021: Chest x-ray this morning shows worsening, patient is now on Airvo, patient started on Lasix trial by pulmonology, if no improvement, possible bronchoscopy by pulmonology. 1. Acute hypoxic respiratory failure * Secondary to pneumonia, but also by the patient's history of lung cancer and possible some underlying radiation pneumonitis * initially on 4L in the ED, has since increased to airvo, suspected endobronchial obstruction leading to left upper lobe collapse * BNP negative * Trial of Lasix * Solu-Medrol IV 40mg every 8 hour * Wean as able * Pulmonary toilet * Consult pulmonology for further evaluation and recommendations, considering possible bronchoscopy 2. Suspected pneumococcal pneumonia * Check sputum culture, blood cultures, urinary antigens for strep and Legionella * Continue with antibiotics with ceftriaxone and azithromycin * CTA negative for PE. Shows findings consistent of diffuse pneumonia. With worsening pleural effusions compared to prior studies 3. Lung cancer * History of non-small cell lung cancer. It was in the right part of her lung. * She has undergone chemotherapy as well as radiation therapy * CTA shows lytic lesions in scapula bilaterally. Patient was to follow-up with oncology outpatient earlier this week * Heme/onc on consult, recommended patient follow up outpatient 4. History of VTE * Patient already on apixaban and will continue 5. VTE prophylaxis: Not indicated as patient is already anticoagulated 6. CODE STATUS: Addressed with patient. Patient wished to be full code. Charges/Coding Visit Charges Inpatient E&M: 46884 Subs Hosp L3
[2021-06-07] MEDS: guaiFENesin 1,200 MG Tablet 1200 MG PO ×2 (11:20→22:36)
[2021-06-07] MEDS: Paroxetine 20 MG Tablet 40 MG PO (11:20)
[2021-06-07] MEDS: APIXABAN 5 MG TABLET PO ×2 (13:26→22:36)
[2021-06-07] MEDS: Acetaminophen 325 MG Tablet 650 MG PO (14:13)
[2021-06-07] MEDS: Atorvastatin Calcium 40 MG Tablet PO (22:36)
[2021-06-08] VITALS (20 sets, daily range): BP systolic 98–159; BP diastolic 53–79; PULSE 105–121; RESP 18–24; TEMP 36.6–37; O2SAT 91–95
[2021-06-08] MEDS: Levothyroxine 25 MCG TABLET PO (04:43)
[2021-06-08] MEDS: Ipratropium 0.5 MG/2.5 ML SOLUTION INHALATION ×4 (06:57→19:27)
[2021-06-08 07:52] LABS: Hemoglobin 9.8 g/dL (12.0-15.0); Mean Corp Hgb Conc 32.7 g/dL (32-36); Mean Corpuscular Hgb 28.9 pg (27.0-32.0); Mean Corpuscular Volume 88.5 fL (81-99); POSITIVE COUNT YES; POSITIVE MORPHOLOGY YES; Platelet Count 50 K/mm3 (150-450); RBC Distribution Width CV 13.2 % (11.6-14.6); RBC Distribution Width SD 42.7 fl (35.1-43.9); Red Blood Count 3.39 M/mm3 (4.2-5.4); White Blood Count 10.2 K/mm3 (4.4-11.0)
[2021-06-08 07:57] LABS: Differential Indicated MANUAL DIFF
--- NOTE | 2021-06-08 08:01 | PCM.PN.INT ---
Assessment & Plan Assessment/Plan (1) Non-small cell lung cancer (NSCLC): QUALIFIERS: Laterality: right Qualified Code(s): C34.91 - Malignant neoplasm of unspecified part of right bronchus or lung (2) Pneumonia: QUALIFIERS: Pneumonia type: due to Pneumococcus Laterality: bilateral Lung location: lower lobe of lung Qualified Code(s): J13 - Pneumonia due to Streptococcus pneumoniae (3) Acute respiratory failure with hypoxia: PLAN: RECOMMENDATIONS: 1. Continue vest therapy 2. Diuretic challenge as labs allow 3. Could consider transition to PCU given respiratory status 4. Wean oxygen as tolerated 5. Continue empiric antibiotics 6. Obtain ABG for decreased mental status IMPRESSIONS: 1. Acute hypoxic respiratory failure secondary to suspected postobstructive pneumonia Agree with the use of bronchodilators and Solu-Medrol. However, patient likely has an element of endobronchial obstruction leading to left upper lobe. Serial CT scans show progressive collapse of the left upper lobe. Chest x-ray this morning shows progression and findings. Unclear if patient is having an element of pulmonary edema secondary to diastolic dysfunction. Discussions on 06/07/2021 about possible elective intubation for bronchoscopy, but patient refused. Respiratory status is relatively unchanged. Patient has not had any fever or leukocytosis, so we will continue on current antibiotics. Patient remains at high risk for intubation, so would obtain an ABG with decreased mental status. Patient is not showing signs of respiratory muscle fatigue at this time, but that is a concern if status does not improve in the next 24 to 48 hours. 2. History of radiation pneumonitis/history of nephrotic syndrome/obesity/hypercholesterolemia/hypothyroidism Complicates care, management, recovery and prognosis. Okay to continue with baseline medications from my perspective. Continue to monitor renal function. Subjective Subjective Patient did okay overnight. Patient's morning blood pressure was a little on the lower side, but respiratory status has remained stable. Patient does report shortness of breath with minimal exertion. Patient is reporting little production with coughing. Objective Data Objective Data Vital Signs: Vital Signs Temp Pulse Resp BP Pulse Ox 36.6 C 105 H 18 98/77 93 06/08/21 04:43 06/08/21 04:43 06/08/21 04:43 06/08/21 04:43 06/08/21 04:43 Oxygen Flow Rate (L/min) 60 Oxygen Delivery Method Airvo Weight: 91.7 kg Body Mass Index (BMI) 38.2 Intake & Output: Intake and Output for Last 24 Hours 06/06/21 06/07/21 06/08/21 23:59 23:59 23:59 Intake Total 1005 / 1005 738.75 / 738.75 Output Total 350 / 350 1850 / 1950 450 / 450 Balance 655 / 655 -1111.25 / -1211.25 -450 / -450 Lab / Micro Data Result Diagrams: 06/08/21 06:41 06/07/21 06:00 Labs: Laboratory Results - last 24 hr 06/05/21 10:23: Diff Path Review Reviewed 06/06/21 06:55: Diff Path Review Reviewed 06/08/21 06:41: WBC 10.2, RBC 3.39 L, Hgb 9.8 L, Hct 30.0 L, MCV 88.5, MCH 28.9, MCHC 32.7, RDW Std Deviation 42.7, RDW Coeff of Heladio 13.2, Plt Count 50 L*, MPV 11.0, Neut % (Auto) Not Reportable Micro: Microbiology 06/06/21 03:15 Urine Catheter - Catheter Legionella Antigen - Final 06/06/21 03:15 Urine Catheter - Catheter Streptococcus pneumoniae Antigen (M - Final 06/05/21 16:02 Mucosa - Nasopharyngeal Respiratory Panel (PCR) - Final 06/05/21 10:36 Nasal Secretion SARS-CoV-2 Antigen (Rapid) - Final Radiography Diagnostic Testing: Radiology Impression Chest X-Ray 06/07/21 05:55 IMPRESSION: Stable bilateral pulmonary infiltrates. Worse in the left hemithorax. Findings suggestive of a partial left upper lobe collapse. Electronically Signed: Stanley Zapata MD at 12:28 EDT , Service support , Rhythm Strip Rhythm Strip: Sinus Tach Physical Exam Const alert, oriented x3 and average body habitus Constitutional Narrative: Mild conversational dyspnea General Appearance: cooperative HEENT normocephalic and head/scalp atraumatic Eyes PERRL Neck no lymphadenopathy and no JVD Resp Auscultation: rales bilateral, rhonchi and wheezes Percussion: dullness Upper: left Cardio regular rate, regular rhythm, S1 normal heart sound and S2 normal heart sound GI normal to inspection, nondistended, normoactive bowel sounds, soft to palpation, non-tender and non-distended Extremity Extremity Narrative: Trace lower extremity edema Skin no rashes or lesions noted and no wounds Neuro Sensorium / Orientation: awake and alert Psych affect normal Charges/Coding Visit Charges Inpatient E&M: 07488 Subs Hosp L3
[2021-06-08 08:23] LABS: Lymphocyte 25 % (19-41); Metamyelocyte 3 % (0-1); Myelocyte 1 % (0-0); Neutrophil-Band 13 % (0-5); Neutrophil-Segmented 58 % (47-70); Nucleated Red Bld Cells,Manual 1 % (0-5); Total Cells Counted 100 (MANUAL DIFF)
[2021-06-08 08:24] LABS: Platelet Estimate MKD DEC (ADEQ); Red Cell Morphology NORM C+C NORMAL (NORM C&C)
[2021-06-08 08:25] LABS: Absolute Lymphocyte Count 2.55 X10^3/uL (0.83-4.51); Absolute Neutrophil Count 7.2 X10^3/uL (2.0-7.7); Lymphocyte # 2.55 X10^3/ul (0.83-4.51); Neutrophil # 7.24 X10^3/uL (2.7-7.7)
[2021-06-08 08:26] LABS: Anion Gap 9 (5-15); BUN 38 mg/dL (7-18); BUN/Creat Ratio 76.8 RATIO (10-20); Calcium,Total 9.1 mg/dL (8.5-10.1); Chloride 102 mmol/L (98-107); EST Glomerular Filtration Rate 136 mL/min (>60); Est Glom Filt Rate - Afr Amer 165 mL/min (>60); Estimated Creatinine Clearance 92.55 ml/min; Glucose 118 mg/dL (74-106); Potassium 4.1 mmol/L (3.5-5.1); Sodium Level 140 mmol/L (136-145)
[2021-06-08] MEDS: Paroxetine 20 MG Tablet 40 MG PO (09:35)
[2021-06-08] MEDS: 0.9% Saline Lock 10 ML Syringe IV ×3 (09:35→18:05)
[2021-06-08] MEDS: guaiFENesin 1,200 MG Tablet 1200 MG PO ×2 (09:35→22:23)
[2021-06-08] MEDS: APIXABAN 5 MG TABLET PO ×2 (09:35→22:23)
[2021-06-08] MEDS: Furosemide 40 MG/4 ML Vial IV ×2 (11:48→18:05)
[2021-06-08] MEDS: Acetaminophen 325 MG Tablet 650 MG PO (16:23)
--- NOTE | 2021-06-08 17:45 | PCM.PN.HOSP ---
Subjective Subjective Patient was seen and examined today, she does not complain of any shortness of breath at rest. I talked with Sonido Guy concerning her medical care, the plan is for her to undergo bronchoscopy next week. Patient will need to be intubated for this to take place. Objective Data Objective Data Vital Signs: Vital Signs Temp Pulse Resp BP Pulse Ox 98.6 F 118 H 24 H 113/53 L 93 06/08/21 16:19 06/08/21 16:19 06/08/21 16:19 06/08/21 16:19 06/08/21 16:19 Oxygen Flow Rate (L/min) 60 Oxygen Delivery Method Airvo Weight: 91.7 kg Body Mass Index (BMI) 38.2 Intake & Output: Intake and Output for Last 24 Hours 06/06/21 06/07/21 06/08/21 23:59 23:59 23:59 Intake Total 1005 / 1005 738.75 / 738.75 430.5 / 430.5 Output Total 350 / 350 1850 / 1950 750 / 750 Balance 655 / 655 -1111.25 / -1211.25 -319.5 / -319.5 Lab / Micro Data Result Diagrams: 06/08/21 06:41 06/08/21 06:41 Labs: Laboratory Results - last 24 hr 06/08/21 06:41: WBC 10.2, RBC 3.39 L, Hgb 9.8 L, Hct 30.0 L, MCV 88.5, MCH 28.9, MCHC 32.7, RDW Std Deviation 42.7, RDW Coeff of Heladio 13.2, Plt Count 50 L*, MPV 11.0, Neut % (Auto) Not Reportable, Absolute Neuts (auto) 7.2, Absolute Lymphs (auto) 2.55, Total Counted 100, Neutrophils % (Manual) 58, Band Neutrophils % 13 H, Lymphocytes % (Manual) 25, Metamyelocytes % 3 H, Myelocytes % 1 H, Nucleated RBCs/100 WBC 1, Diff Path Review May , Platelet Estimate MKD DEC, RBC Morphology NORM C+C 06/08/21 06:41: Sodium 140, Potassium 4.1, Chloride 102, Carbon Dioxide 29.0, Anion Gap 9, BUN 38 H, Creatinine 0.50 L, Estim Creat Clear Calc 92.55, Est GFR (MDRD) Af Amer 165, Est GFR (MDRD) Non-Af 136, BUN/Creatinine Ratio 76.8 H, Glucose 118 H, Calcium 9.1 Micro: Microbiology 06/05/21 18:34 Blood Culture (Wb) - Anticubital Right Blood Culture - Preliminary No growth in 48 hours. 06/05/21 18:34 Blood Culture (Wb) - Anticubital Right Blood Culture - Preliminary No growth in 48 hours. 06/06/21 03:15 Urine Catheter - Catheter Legionella Antigen - Final 06/06/21 03:15 Urine Catheter - Catheter Streptococcus pneumoniae Antigen (M - Final 06/05/21 16:02 Mucosa - Nasopharyngeal Respiratory Panel (PCR) - Final 06/05/21 10:36 Nasal Secretion SARS-CoV-2 Antigen (Rapid) - Final Rhythm Strip Rhythm Strip: Sinus Tach Physical Exam Const alert, oriented x3 and no apparent distress Constitutional Narrative: Patient appears older than her stated age General Appearance: cooperative, well kempt and well developed Orientation / Consciousness: awake, oriented to person, oriented to place and oriented to time HEENT normocephalic, head/scalp atraumatic and moist oral mucous membranes Head and Scalp: normocephalic Eyes PERRL, EOMs intact bilaterally and conjunctivae normal Neck nuchal rigidity, supple, no JVD, thyroid normal and no carotid bruits General: trachea midline Resp normal respiratory effort Resp Narrative: Breath sounds are distant bilaterally Auscultation: Negative for rales, rhonchi or wheezes Cardio regular rate, regular rhythm, S1 normal heart sound, S2 normal heart sound, no murmurs, no rub and no gallops GI normal to inspection, nondistended, normoactive bowel sounds, soft to palpation, non-tender and non-distended Extremity normal to inspection and no clubbing, cyanosis or edema Skin no rashes or lesions noted and no wounds General Skin Exam: no breakdown Neuro oriented x3, CN's II-XII intact bilaterally, no focal motor deficits and no sensory deficits noted Sensorium / Orientation: awake and alert Speech: speech normal Psych thought process normal and affect normal Assessment & Plan Assessment/Plan (1) Acute respiratory failure with hypoxia: PLAN: 1. Acute hypoxic respiratory failure-patient is being seen by pulmonary medicine, continue to monitor oxygen saturation #2 suspected pneumococcal pneumonia from postobstructive pneumonia-patient is on antibiotics #3 history of non-small cell lung cancer #4 collapse of the left upper lobe-possibly secondary to obstruction from neoplasm-patient will need bronchoscopy next week probably after being intubated. Charges/Coding Visit Charges Inpatient E&M: 18342 Subs Hosp L2
[2021-06-08] MEDS: HYDROcodone Bitartrate/Apap 5/325 Tablet PO (18:03)
[2021-06-08] MEDS: Atorvastatin Calcium 40 MG Tablet PO (22:23)
[2021-06-09] VITALS (16 sets, daily range): BP systolic 136–158; BP diastolic 53–88; PULSE 95–119; RESP 18–22; TEMP 36.6–36.9; O2SAT 92–97
[2021-06-09] MEDS: Levothyroxine 25 MCG TABLET PO (05:27)
[2021-06-09] MEDS: Ipratropium 0.5 MG/2.5 ML SOLUTION INHALATION ×3 (07:06→18:58)
--- NOTE | 2021-06-09 08:03 | PCM.PN.INT ---
Assessment & Plan Assessment/Plan (1) Non-small cell lung cancer (NSCLC): QUALIFIERS: Laterality: right Qualified Code(s): C34.91 - Malignant neoplasm of unspecified part of right bronchus or lung (2) Pneumonia: QUALIFIERS: Pneumonia type: due to Pneumococcus Laterality: bilateral Lung location: lower lobe of lung Qualified Code(s): J13 - Pneumonia due to Streptococcus pneumoniae (3) Acute respiratory failure with hypoxia: PLAN: RECOMMENDATIONS: 1. Continue vest therapy and mucolytic. Avoid cough suppressants 2. Diuretic challenge as labs allow 3. Continue conservative therapy with possibility for outpatient bronchoscopy 4. Wean oxygen as tolerated. Walking oximetry prior to discharge 5. Increase activity as tolerated IMPRESSIONS: 1. Acute hypoxic respiratory failure secondary to suspected postobstructive pneumonia Agree with the use of bronchodilators and Solu-Medrol. However, patient likely has an element of endobronchial obstruction leading to left upper lobe. Serial CT scans show progressive collapse of the left upper lobe. Chest x-ray this morning shows progression and findings. Unclear if patient is having an element of pulmonary edema secondary to diastolic dysfunction. Discussions on 06/07/2021 about possible elective intubation for bronchoscopy, but patient refused. Patient appears to be improving at this point. Would avoid any cough suppressants as pulmonary toileting will be vital mid. Anticipate 7 to 10 days of antibiotics. Would prefer to do bronchoscopy as an outpatient once patient is more clinically stable. Cannot exclude the need for discharge on supplemental oxygen. 2. History of radiation pneumonitis/history of nephrotic syndrome/obesity/hypercholesterolemia/hypothyroidism Complicates care, management, recovery and prognosis. Okay to continue with baseline medications from my perspective. Continue to monitor renal function. Subjective Subjective Patient reports significant improvement in overall condition. Patient was on Airvo throughout the evening, but was able to be transitioned to nasal cannula this morning. Patient states she is having a productive cough, but is not really expectorating much sputum. Objective Data Objective Data Vital Signs: Vital Signs Temp Pulse Resp BP Pulse Ox 36.9 C 108 H 18 136/53 H 92 06/09/21 02:19 06/09/21 04:10 06/09/21 02:19 06/09/21 02:19 06/09/21 02:31 Oxygen Flow Rate (L/min) 60 Oxygen Delivery Method Airvo Weight: 91.7 kg Body Mass Index (BMI) 38.2 Intake & Output: Intake and Output for Last 24 Hours 06/07/21 06/08/21 06/09/21 23:59 23:59 23:59 Intake Total 738.75 / 738.75 968.25 / 968.25 200 / 200 Output Total 1850 / 1950 1250 / 1250 600 / 600 Balance -1111.25 / -1211.25 -281.75 / -281.75 -400 / -400 Lab / Micro Data Result Diagrams: 06/08/21 06:41 06/08/21 06:41 Labs: Laboratory Results - last 24 hr 06/08/21 06:41: Absolute Neuts (auto) 7.2, Absolute Lymphs (auto) 2.55, Total Counted 100, Neutrophils % (Manual) 58, Band Neutrophils % 13 H, Lymphocytes % (Manual) 25, Metamyelocytes % 3 H, Myelocytes % 1 H, Nucleated RBCs/100 WBC 1, Diff Path Review December, Platelet Estimate MKD DEC, RBC Morphology NORM C+C 06/08/21 06:41: Sodium 140, Potassium 4.1, Chloride 102, Carbon Dioxide 29.0, Anion Gap 9, BUN 38 H, Creatinine 0.50 L, Estim Creat Clear Calc 92.55, Est GFR (MDRD) Af Amer 165, Est GFR (MDRD) Non-Af 136, BUN/Creatinine Ratio 76.8 H, Glucose 118 H, Calcium 9.1 Micro: Microbiology 06/05/21 18:34 Blood Culture (Wb) - Anticubital Right Blood Culture - Preliminary No growth in 48 hours. 06/05/21 18:34 Blood Culture (Wb) - Anticubital Right Blood Culture - Preliminary No growth in 48 hours. 06/06/21 03:15 Urine Catheter - Catheter Legionella Antigen - Final 06/06/21 03:15 Urine Catheter - Catheter Streptococcus pneumoniae Antigen (M - Final 06/05/21 16:02 Mucosa - Nasopharyngeal Respiratory Panel (PCR) - Final 06/05/21 10:36 Nasal Secretion SARS-CoV-2 Antigen (Rapid) - Final Rhythm Strip Rhythm Strip: Sinus Tach Physical Exam Const alert, oriented x3 and average body habitus Constitutional Narrative: Mild conversational dyspnea General Appearance: cooperative HEENT normocephalic and head/scalp atraumatic Eyes PERRL Neck no lymphadenopathy and no JVD Chest inspection of chest normal Chest: symmetrical chest wall rise; Negative for crepitus Resp Resp Narrative: Improved air exchange compared to previous Auscultation: rhonchi; Negative for rales or wheezes Percussion: dullness Upper: left Cardio regular rate, regular rhythm, S1 normal heart sound and S2 normal heart sound GI normal to inspection, nondistended, normoactive bowel sounds, soft to palpation, non-tender and non-distended Extremity Extremity Narrative: Trace lower extremity edema Skin no rashes or lesions noted and no wounds Neuro Sensorium / Orientation: awake and alert Psych affect normal Charges/Coding Visit Charges Inpatient E&M: 04740 Subs Hosp L3
[2021-06-09 08:35] LABS: Anion Gap 8 (5-15); BUN 44 mg/dL (7-18); BUN/Creat Ratio 72.8 RATIO (10-20); Calcium,Total 9.6 mg/dL (8.5-10.1); Chloride 99 mmol/L (98-107); EST Glomerular Filtration Rate 108 mL/min (>60); Est Glom Filt Rate - Afr Amer 131 mL/min (>60); Estimated Creatinine Clearance 77.12 ml/min; Glucose 119 mg/dL (74-106); Potassium 3.9 mmol/L (3.5-5.1); Sodium Level 139 mmol/L (136-145)
[2021-06-09] MEDS: Acetaminophen 325 MG Tablet 650 MG PO (11:49)
[2021-06-09] MEDS: guaiFENesin 1,200 MG Tablet 1200 MG PO ×2 (11:49→20:46)
[2021-06-09] MEDS: Paroxetine 20 MG Tablet 40 MG PO (11:49)
[2021-06-09] MEDS: APIXABAN 5 MG TABLET PO ×2 (11:50→20:46)
[2021-06-09] MEDS: HYDROcodone Bitartrate/Apap 5/325 Tablet PO (13:33)
--- NOTE | 2021-06-09 15:09 | PN.HOSP_ITS ---
Subjective Subjective Patient was seen and examined today, she is currently on oxygen via nasal cannula at 8 L. I talked with pulmonary medicine briefly about her care, they stated that if the patient could be discharged home on supplemental oxygen, she could have bronchoscopy as an outpatient. Patient complains of bilateral hip pain, etiology is unknown at this time, patient does have evidence of abnormality in her scapulas indicating possible bone spread from suspected recurrent non-small cell cancer. Objective Data Objective Data Vital Signs: Vital Signs Temp Pulse Resp BP Pulse Ox 97.8 F 117 H 20 H 150/80 H 92 06/09/21 08:13 06/09/21 10:44 06/09/21 10:44 06/09/21 08:13 06/09/21 08:15 Oxygen Flow Rate (L/min) 8 Oxygen Delivery Method Nasal Cannula Weight: 91.7 kg Body Mass Index (BMI) 38.2 Intake & Output: Intake and Output for Last 24 Hours 06/07/21 06/08/21 06/09/21 23:59 23:59 23:59 Intake Total 738.75 / 738.75 968.25 / 968.25 200 / 200 Output Total 1850 / 1950 1250 / 1250 600 / 600 Balance -1111.25 / -1211.25 -281.75 / -281.75 -400 / -400 Lab / Micro Data Result Diagrams: 06/08/21 06:41 06/09/21 07:58 Labs: Laboratory Results - last 24 hr 06/09/21 07:58: Sodium 139, Potassium 3.9, Chloride 99, Carbon Dioxide 32.0, Anion Gap 8, BUN 44 H, Creatinine 0.60, Estim Creat Clear Calc 77.12, Est GFR (MDRD) Af Amer 131, Est GFR (MDRD) Non-Af 108, BUN/Creatinine Ratio 72.8 H, Glucose 119 H, Calcium 9.6 Micro: Microbiology 06/05/21 18:34 Blood Culture (Wb) - Anticubital Right Blood Culture - Preliminary No growth in 48 hours. 06/05/21 18:34 Blood Culture (Wb) - Anticubital Right Blood Culture - Preliminary No growth in 48 hours. 06/06/21 03:15 Urine Catheter - Catheter Legionella Antigen - Final 06/06/21 03:15 Urine Catheter - Catheter Streptococcus pneumoniae Antigen (M - Final 06/05/21 16:02 Mucosa - Nasopharyngeal Respiratory Panel (PCR) - Final 06/05/21 10:36 Nasal Secretion SARS-CoV-2 Antigen (Rapid) - Final Rhythm Strip Rhythm Strip: Sinus Tach Physical Exam Narrative alert, oriented x3 and no apparent distress Constitutional Narrative: Patient appears older than her stated age General Appearance: cooperative, well kempt and well developed Orientation / Consciousness: awake, oriented to person, oriented to place and oriented to time HEENT normocephalic, head/scalp atraumatic and moist oral mucous membranes Head and Scalp: normocephalic Eyes PERRL, EOMs intact bilaterally and conjunctivae normal Neck nuchal rigidity, supple, no JVD, thyroid normal and no carotid bruits General: trachea midline Resp normal respiratory effort Resp Narrative: Breath sounds are distant bilaterally Auscultation: Negative for rales, rhonchi or wheezes Cardio regular rate, regular rhythm, S1 normal heart sound, S2 normal heart sound, no murmurs, no rub and no gallops GI normal to inspection, nondistended, normoactive bowel sounds, soft to palpation, non-tender and non-distended Extremity normal to inspection and no clubbing, cyanosis or edema Skin no rashes or lesions noted and no wounds General Skin Exam: no breakdown Neuro oriented x3, CN's II-XII intact bilaterally, no focal motor deficits and no sensory deficits noted Sensorium / Orientation: awake and alert Speech: speech normal Psych thought process normal and affect normal Assessment & Plan Assessment/Plan (1) Lytic bone lesions on xray: (2) Acute respiratory failure with hypoxia: PLAN: 1. Acute hypoxic respiratory failure-patient is being seen by pulmonary medicine, continue to monitor oxygen saturation #2 suspected pneumococcal pneumonia from postobstructive pneumonia-patient is on antibiotics #3 history of non-small cell lung cancer-evidence of lytic lesions to both scap clarisa, oncology is active with the patient #4 collapse of the left upper lobe-possibly secondary to obstruction from neoplasm-patient will need bronchoscopy either as an outpatient or during this admission, pulmonary medicine is participating in her care Charges/Coding Visit Charges Inpatient E&M: 54378 Subs Hosp L2
[2021-06-09] MEDS: Albuterol 2.5 MG/3 ML VIAL.NEB. INHALATION (18:58)
[2021-06-09] MEDS: Atorvastatin Calcium 40 MG Tablet PO (20:45)
[2021-06-10] VITALS (24 sets, daily range): BP systolic 127–164; BP diastolic 73–95; PULSE 112–132; RESP 18–20; TEMP 36.5–36.7; O2SAT 84–100
[2021-06-10] MEDS: Levothyroxine 25 MCG TABLET PO (05:07)
[2021-06-10] MEDS: Ipratropium 0.5 MG/2.5 ML SOLUTION INHALATION ×4 (06:51→19:24)
--- NOTE | 2021-06-10 08:46 | NURSING ---
Dr. Joya in with pt and this nurse at this time. Asking for pt to amb in [place] without oxygen to see if she needs it at home. Pt painful. This nurse will medicate for pain and then ambulate in an hr from medicaiton adminstration.
[2021-06-10] MEDS: HYDROcodone Bitartrate/Apap 5/325 Tablet PO ×2 (08:52→15:36)
[2021-06-10] MEDS: guaiFENesin 1,200 MG Tablet 1200 MG PO ×2 (08:56→22:35)
[2021-06-10] MEDS: Paroxetine 20 MG Tablet 40 MG PO (08:57)
[2021-06-10] MEDS: APIXABAN 5 MG TABLET PO ×2 (09:01→22:35)
[2021-06-10] MEDS: 0.9% Saline Lock 10 ML Syringe IV ×5 (09:11→22:46)
[2021-06-10 09:24] LABS: Pathologist Review Reviewed
--- NOTE | 2021-06-10 11:21 | DS.PCM_ITS ---
Providers Date of Admission: 06/05/21 Primary Care Physician: Dr. Cesar Arevalo MD Consultations 06/06/21 07:52 Consult: Photographer Assistant / Pulmonary Medicine Routine Consulting Provider: Pulmonary Medicine mary Funez Reason for Consult: BL pleural effusion, in setting of worsening lung cancer and PNA EMERGENT Consult: No Notified: Yes Date Notified: 06/06/21 Time Notified: 08:36 Method of Notification: text via cortext 06/06/21 12:44 Consult: Oncology/Hematology Routine Consulting Provider: Jared Wade Reason for Consult: history of metastatic lung cancer, lytic lesion seen on scapula EMERGENT Consult: No Notified: Yes Date Notified: 06/06/21 Time Notified: 14:52 Method of Notification: paged via offset duplicating machine operator Reason For Visit: PNEUMONIA Diagnosis Discharge Diagnosis (1) Lytic bone lesions on xray: Status: Acute Code(s): M89.9 - Disorder of bone, unspecified (2) Acute respiratory failure with hypoxia: Status: Acute Code(s): J96.01 - Acute respiratory failure with hypoxia Medications at Discharge Home Medications paroxetine HCl 40 mg PO DAILY 04/23/17 Eliquis 5 mg PO BID #74 tab 07/31/17 atorvastatin 40 mg PO DAILY 05/03/20 levothyroxine 25 mcg PO DAILY 10/31/20 cefdinir 300 mg PO BID #10 cap 06/10/21 Hospital Course Summary of Care Provided Minutes Spent on Discharge: 50 Hospital Course: Patient is a 56-year-old lady with history of previous non- small cell lung CA involving the right bronchus for which she underwent treatment in July 2016 to October 2016 apparently remained in remission. Presented to the emergency department with increasing shortness of breath. Imaging studies demonstrated collapse of the left upper lobe possibly related to an obstruction. She was also found to have lytic lesions of both scapula begin (thought to be metastatic disease from her lung CA) 1. Acute hypoxic respiratory failure ?Secondary to suspected postobstructive pneumonia? Pneumococcal pneumonia. Patient was managed with azithromycin as well as Rocephin. Patient was discharged home with cefdinir. She was assessed for home oxygen prior to discharge which she did qualify 2. Collapse of the left upper lobe ?This was thought to be secondary to obstruction from a neoplasm patient was seen by pulmonary medicine offered bronchoscopy in the hospital patient declined. An arrangement was made for patient to follow-up with pulmonary medicine as outpatient for bronchoscopy 3. Thrombocytopenia ?Patient was seen by heme-onc with plans for patient to follow-up with oncology within a week for repeat labs 3. History of non-small cell lung CA -involving the right bronchus for which she underwent treatment in July 2016 to October 2016 apparently remained in remission. . Imaging studies demonstrated collapse of the left upper lobe possibly related to an obstruction. She was also found to have lytic lesions of both scapula begin (thought to be metastatic disease from her lung CA) patient was seen in consultation by oncology patient will follow up as outpatient 4. 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 Dyslipidemia -Patient is on statin therapy, continued at home dose 7. Depression ?Patient is on Paxil Physical Exam Narrative GENERAL: cooperative HEENT: Atraumatic; EYES; Anicteric, Normal Conjunctiva NECK; supple, normal thyroid, RESPIRATORY: Diminished to auscultation CARDIOVASCULAR: Regular S1 S2, GI: soft, normoactive bowel sounds, : No Renal angle tenderness; EXTREMITIES: No edema, no clubbing, MUSCULOSKELETAL: no muscle waisting NEURO: Awake; no lateralizing signs. SKIN: No Rash PSYCH; Flat affect Weight / BMI Weight Weight: 91.7 kg Body Mass Index (BMI) 38.2 ABG / Lab / Microbiology Data Result Diagrams: 06/10/21 11:56 06/10/21 11:56 Laboratory: Laboratory Results - last 24 hr 06/07/21 06:00: Diff Path Review Reviewed Microbiology: Microbiology 06/05/21 18:34 Blood Culture (Wb) - Anticubital Right Blood Culture - Preliminary No growth in 48 hours. 06/05/21 18:34 Blood Culture (Wb) - Anticubital Right Blood Culture - Preliminary No growth in 48 hours. 06/06/21 03:15 Urine Catheter - Catheter Legionella Antigen - Final 06/06/21 03:15 Urine Catheter - Catheter Streptococcus pneumoniae Antigen (M - Final 06/05/21 16:02 Mucosa - Nasopharyngeal Respiratory Panel (PCR) - Final 06/05/21 10:36 Nasal Secretion SARS-CoV-2 Antigen (Rapid) - Final D/C Instructions Discharge Diet: No restrictions Discharge Activity: Return to Normal Activity Call your doctor if you observe: Fever of 101 or Higher, Shortness of breath, Fainting spells and Chest pain Meaningful Use Info Meaningful Use Diagnoses (Choose all that apply): None applicable Discharge Plan Admission Admit Date/Time: 06/05/21 16:18 Attending Provider: Lawson Joya Primary Care Provider: Cesar Arevalo Chi Consulting Providers: Sonido Guy ; Stephen Dennis ; Emi Michele NP ; Jared Wade Instructions Patient Instructions: Pneumonia Discharge Orders/Prescriptions Prescriptions: New cefdinir 300 mg capsule 300 mg PO BID Qty: 10 RF: 0 Continued paroxetine HCl 20 MG tablet 40 mg PO DAILY RF: 0 atorvastatin 40 MG tablet 40 mg PO DAILY RF: 0 levothyroxine 25 MCG tablet 25 mcg PO DAILY RF: 0 Eliquis 5 MG tablet 5 mg PO BID Qty: 74 RF: 0 Referrals / Follow Up: Sonido Guy MD [STAFF PHYSICIAN] - In 1 Week (To be scheduled for outpatient bronchoscopy) Main Tao MD [STAFF PHYSICIAN] - In 1 Week (Thrombocytopenia and and NSCLC follow-up APPOINTMENT MADE WITH DR. WADE. Thursday @ 1:00 PM) Cesar Arevalo Chi, MD [Primary Care Provider] - Within 1 Week (Thursday @ 0940 AM.) Disposition Disposition (needs filled in before D/C Order can be placed): Home, Self Care Charges/Coding Visit Charges Inpatient E&M: 70971 Disch Hosp
--- NOTE | 2021-06-10 12:05 | CASEMGMT ---
Addendum entered by Keturah Arroyo 06/10/21 15:22: Pt dc cancelled. TC to transportation to cancel hospital van pickup. Addendum entered by Keturah Arroyo 06/10/21 15:04: TC to [facility], spoke with Roman. Made aware that pt will be leaving at 4p and is in need of the FWW. She states that it will be brought over shortly. Addendum entered by Keturah Arroyo 06/10/21 13:51: TC to volunteer services, pt van can take pt home at 4pm but no later. Notified pt nurse of this as well as pt. Addendum entered by Keturah Arroyo 06/10/21 13:22: JULIA NIEVES back into pt room per nurse request. Pt states she wants to have a small O2 tank for when she drives. Made her aware that this is on the order and that [facility] will come out to evaluate her for it. It does take some time. Pt states she does not have a ride home. She states her son does not drive and her mother is elderly. Made her aware that this RN LIZBETH could look into the hospital van to take her home, she is agreeable and aware that they are not able to help her get in the house. She states if it is after 4p, her son will be home to help her. Awaiting for final confirmation of dc, then will call for hospital van. Original Note: JULIA NIEVES in to pt room. Pt lying in bed. Discussed how pt did with therapy today and offered to have HHC therapy and nursing for her. Pt qualifies for home O2. Pt states she does not feel that she needs a nurse in the home. She also states that she was independent prior to the hospitalization and she feels that she will be ok to gain her strength back at home without therapy. She states she did not do well today with therapy because she had just been medicated with pain meds prior. She is aware that should she get home and not regain her strength as anticipated, she can notify her PCP to see about HHC being ordered. She verbalizes understanding. Provided pt with a list of local in network DME companies for her O2 and her FWW. She chose [employer]. Discussed the need for her to call [facility] as soon as she gets home or right as she is leaving the hospital to get her O2 concentrator set up. She does not have someone at home to set up prior to her being dc'd. TC to Liz at [facility] to make aware of O2, tank will be taken from stock and the FWW. She is aware. Walker to be delivered.
[2021-06-10 12:18] LABS: Hematocrit 32.5 % (37-47); Hemoglobin 10.7 g/dL (12.0-15.0); Mean Corp Hgb Conc 32.9 g/dL (32-36); Mean Corpuscular Hgb 29.4 pg (27.0-32.0); Mean Corpuscular Volume 89.3 fL (81-99); Mean Platelet Vol. 11.3 fl (6.2-12.0); POSITIVE COUNT YES; POSITIVE MORPHOLOGY YES; Platelet Count 42 K/mm3 (150-450); RBC Distribution Width SD 42.2 fl (35.1-43.9); Red Blood Count 3.64 M/mm3 (4.2-5.4)
[2021-06-10 12:20] LABS: Differential Indicated MANUAL DIFF
[2021-06-10 12:44] LABS: Anion Gap 7 (5-15); BUN 48 mg/dL (7-18); BUN/Creat Ratio 63.2 RATIO (10-20); Calcium,Total 9.2 mg/dL (8.5-10.1); Chloride 99 mmol/L (98-107); Creatinine, Serum 0.76 mg/dL (0.55-1.02); EST Glomerular Filtration Rate 83 mL/min (>60); Est Glom Filt Rate - Afr Amer 100 mL/min (>60); Estimated Creatinine Clearance 60.89 ml/min; Glucose 260 mg/dL (74-106); Potassium 3.7 mmol/L (3.5-5.1); Sodium Level 136 mmol/L (136-145)
[2021-06-10 12:55] LABS: Lymphocyte 19 % (19-41); Metamyelocyte 2 % (0-1); Monocyte 4 % (0-10); Neutrophil-Band 8 % (0-5); Neutrophil-Segmented 67 % (47-70); Platelet Estimate MKD DEC (ADEQ); Red Cell Morphology NORM C+C NORMAL (NORM C&C); Total Cells Counted 100 (MANUAL DIFF)
[2021-06-10 12:57] LABS: Absolute Lymphocyte Count 2.28 X10^3/uL (0.83-4.51)
--- NOTE | 2021-06-10 15:14 | PN.HOSP_ITS ---
Subjective Subjective Patient is a 56-year-old lady with history of previous non-small cell lung CA involving the right bronchus for which she underwent treatment in July 2016 to October 2016 apparently remained in remission. Presented to the emergency department with increasing shortness of breath. Imaging studies demonstrated collapse of the left upper lobe possibly related to an obstruction. She was also found to have lytic lesions of both scapula begin (thought to be metastatic disease from her lung CA) Objective Data Objective Data Vital Signs: Vital Signs Temp Pulse Resp BP Pulse Ox 97.7 F L 121 H 20 H 153/82 H 88 06/10/21 09:15 06/10/21 11:25 06/10/21 11:25 06/10/21 09:15 06/10/21 11:39 Oxygen Flow Rate (L/min) [ 6 AMBULATING with Oxygen #3] Oxygen Flow Rate (L/min) [ 4 AMBULATING with Oxygen #2] Oxygen Flow Rate (L/min) [ 3 AMBULATING with Oxygen #1] Oxygen Flow Rate (L/min) [At 3 REST with Oxygen] Oxygen Flow Rate (L/min) 3 Oxygen Delivery Method Room Air Weight: 91.7 kg Body Mass Index (BMI) 38.2 Intake & Output: Intake and Output for Last 24 Hours 06/08/21 06/09/21 06/10/21 23:59 23:59 23:59 Intake Total 968.25 / 968.25 505 / 705 706.75 / 706.75 Output Total 1250 / 1250 600 / 600 500 / 500 Balance -281.75 / -281.75 -95 / 105 206.75 / 206.75 Lab / Micro Data Result Diagrams: 06/10/21 11:56 06/10/21 11:56 Labs: Laboratory Results - last 24 hr 06/07/21 06:00: Diff Path Review Reviewed 06/10/21 11:56: WBC 12.0 H, RBC 3.64 L, Hgb 10.7 L, Hct 32.5 L, MCV 89.3, MCH 29.4, MCHC 32.9, RDW Std Deviation 42.2, RDW Coeff of Heladio 13.0, Plt Count 42 L*, MPV 11.3, Neut % (Auto) Not Reportable, Absolute Neuts (auto) 9.0 H, Absolute Lymphs (auto) 2.28, Total Counted 100, Neutrophils % (Manual) 67, Band Neutrophils % 8 H, Lymphocytes % (Manual) 19, Monocytes % (Manual) 4, Metamyelocytes % 2 H, Platelet Estimate MKD DEC, RBC Morphology NORM C+C 06/10/21 11:56: Sodium 136, Potassium 3.7, Chloride 99, Carbon Dioxide 30.0, Anion Gap 7, BUN 48 H, Creatinine 0.76, Estim Creat Clear Calc 60.89, Est GFR (MDRD) Af Amer 100, Est GFR (MDRD) Non-Af 83, BUN/Creatinine Ratio 63.2 H, Glucose 260 H, Calcium 9.2 Micro: Microbiology 06/05/21 18:34 Blood Culture (Wb) - Anticubital Right Blood Culture - Preliminary No growth in 48 hours. 06/05/21 18:34 Blood Culture (Wb) - Anticubital Right Blood Culture - Preliminary No growth in 48 hours. 06/06/21 03:15 Urine Catheter - Catheter Legionella Antigen - Final 06/06/21 03:15 Urine Catheter - Catheter Streptococcus pneumoniae Antigen (M - Final 06/05/21 16:02 Mucosa - Nasopharyngeal Respiratory Panel (PCR) - Final 06/05/21 10:36 Nasal Secretion SARS-CoV-2 Antigen (Rapid) - Final Rhythm Strip Rhythm Strip: Sinus Tach Physical Exam Narrative GENERAL: cooperative HEENT: Atraumatic; EYES; Anicteric, Normal Conjunctiva NECK; supple, normal thyroid, RESPIRATORY: Diminished to auscultation CARDIOVASCULAR: Regular S1 S2, tachycardic GI: soft, normoactive bowel sounds, : No Renal angle tenderness; EXTREMITIES: No edema, no clubbing, MUSCULOSKELETAL: no muscle waisting NEURO: Awake; no lateralizing signs. SKIN: No Rash PSYCH; Flat affect Assessment & Plan Assessment/Plan (1) Lytic bone lesions on xray: (2) Acute respiratory failure with hypoxia: PLAN: Patient is a 56-year-old lady with history of previous non-small cell lung CA involving the right bronchus for which she underwent treatment in July 2016 to October 2016 apparently remained in remission. Presented to the emergency department with increasing shortness of breath. Imaging studies demonstrated collapse of the left upper lobe possibly related to an obstruction. She was also found to have lytic lesions of both scapula begin (thought to be metastatic disease from her lung CA) 1. Acute hypoxic respiratory failure ?Secondary to suspected postobstructive pneumonia? Pneumococcal pneumonia. Patient was managed with azithromycin as well as Rocephin. Patient was disch arged home with cefdinir. She was assessed for home oxygen prior to discharge which she did qualify. Plan of to discharge patient kept on hold after she was found to be tachycardic with heart rate as high as 115 2. Collapse of the left upper lobe ?This was thought to be secondary to obstruction from a neoplasm patient was seen by pulmonary medicine offered bronchoscopy in the hospital patient declined. An arrangement was made for patient to follow-up with pulmonary medicine as outpatient for bronchoscopy 3. Thrombocytopenia ?Patient was seen by heme-onc with plans for patient to follow-up with oncology within a week for repeat labs 3. History of non-small cell lung CA -involving the right bronchus for which she underwent treatment in July 2016 to October 2016 apparently remained in remission. . Imaging studies demonstrated collapse of the left upper lobe possibly related to an obstruction. She was also found to have lytic lesions of both scapula begin (thought to be metastatic disease from her lung CA) patient was seen in consultation by oncology patient will follow up as outpatient 4. 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 Dyslipidemia -Patient is on statin therapy, continued at home dose 7. Depression ?Patient is on Paxil 8. Sinus tachycardia ?Possibly related to patient underlying lung condition currently being monitored continuously on telemetry. Underwent CTA of the chest on 06/05/2021 which was negative for PE 9. Hyperglycemia ?Patient noted known diabetic ordered hemoglobin A1c 10. Elevated blood pressure ?Patient is not a known hypertensive however blood pressure remains markedly elevated started on hydralazine as needed Charges/Coding Visit Charges Inpatient E&M: [address] [facility] Hosp L3
--- NOTE | 2021-06-10 15:42 | NURSING ---
This nurse took discharge vitals and bp and HR elevated. Dr. hirsch made aware via cortext and cancelled discharge. Apresoline ordered prn for SBP more then 160. this nurse gave norco for pain. Will recheck vitals in one -two hrs if still over 160 systolic, then will give apresoline.
[2021-06-10 15:44] LABS: Pathologist Review Reviewed
--- NOTE | 2021-06-10 15:48 | ECHOD_ITS ---
Reason For Study: CHF Procedure This was a 2D Doppler, Color Flow transthoracic echocardiogram. Exam performed in department. Left Ventricle Normal LV size. Left ventricular systolic function is normal. The estimated ejection fraction is 65 %. Stage 1 diastolic dysfunction. No regional wall motion abnormalities noted. Right Ventricle Normal RV size. Normal systolic function. Atria Normal left atrium. Normal right atrium. Mitral Valve Normal mitral valve. Tricuspid Valve Normal tricuspid valve. Mild tricuspid valve insufficiency. Pulmonary artery systolic pressure is 30 mmHg. Aortic Valve Normal aortic valve. Mild (1+) aortic valve insufficiency. Pulmonic Valve Normal pulmonic valve. Great Vessels Normal aortic root. The pulmonary artery is normal size. Normal inferior vena cava. Pericardium/Pleural No pericardial effusion. MMode/2D Measurements & Calculations LVIDd: 2.8 cm IVSd: 0.94 cm Ao root diam: 3.0 cm LVIDs: 1.6 cm LVPWd: 0.87 cm RVDd: 3.1 cm FS: 42.2 % LAV(MOD-bp): 22.8 ml LVAd ap4: 18.3 cm2 SV(MOD-sp4): 22.7 ml LAV(MOD-bp) Indexed: 12.0 ml/m2 LVLd ap4: 7.6 cm LAV(MOD-sp2): 25.1 ml EDV(MOD-sp4): 36.1 ml LAV(MOD-sp4): 18.9 ml EDV(sp4-el): 37.3 ml LVAs ap4: 10.0 cm2 LVLs ap4: 6.3 cm ESV(MOD-sp4): 13.4 ml ESV(sp4-el): 13.7 ml EF(MOD-sp4): 62.8 % EF(sp4-el): 63.3 % SV(sp4-el): 23.6 ml LA A4 area: 9.7 cm2 LA dimension(2D): 2.5 cm RA A4 area: 8.7 cm2 Doppler Measurements & Calculations MV E max nam: 80.1 cm/sec Lat Peak E' Nam: 8.9 cm/sec Med Peak E' Nam: 5.5 cm/sec MV A max nam: 100.5 cm/sec E/E' lat: 9.0 E/E' med: 14.6 MV E/A: 0.80 Ao V2 max: 182.9 cm/sec AI max nam: 450.1 cm/sec LV V1 max: 106.9 cm/sec Ao max P.4 mmHg AI max P.1 mmHg LV V1 max P.6 mmHg AI dec slope: 273.0 cm/sec2 AI P1/2t: 483.0 msec PA V2 max: 69.8 cm/sec TR max nam: 254.3 cm/sec TR max P.9 mmHg ECHO/Echo Complete Interpretation Summary Normal LV size. Left ventricular systolic function is normal. The estimated ejection fraction is 65 %. Stage 1 diastolic dysfunction. Mild tricuspid valve insufficiency. Structurally normal valves. Ordering Physician: Lawson Joya Referring Physician: Cesar Arevalo Chi Performed By: Carlene Pugh RDCS
[2021-06-10 16:08] LABS: Hemoglobin A1c 6.6 % (3.8-5.6)
[2021-06-10 16:25] LABS: BNP,B-Type NATRIURETIC PEPTIDE 43.6 pg/mL (0-100)
[2021-06-10] MEDS: Furosemide 40 MG/4 ML Vial IV ×2 (16:29→22:36)
[2021-06-10] MEDS: hydrALAZINE 20 MG/ML Vial 10 MG IV (18:39)
[2021-06-10] MEDS: Albuterol 2.5 MG/3 ML VIAL.NEB. INHALATION (19:24)
[2021-06-10] MEDS: Atorvastatin Calcium 40 MG Tablet PO (22:35)
[2021-06-11] VITALS (14 sets, daily range): BP systolic 125–159; BP diastolic 58–92; PULSE 102–128; RESP 18–22; TEMP 36.1–36.6; O2SAT 92–95
[2021-06-11 05:41] LABS: Hematocrit 32.3 % (37-47); Hemoglobin 10.6 g/dL (12.0-15.0); Mean Corp Hgb Conc 32.8 g/dL (32-36); Mean Corpuscular Hgb 29.4 pg (27.0-32.0); Mean Corpuscular Volume 89.5 fL (81-99); Mean Platelet Vol. 13.4 fl (6.2-12.0); POSITIVE COUNT YES; POSITIVE MORPHOLOGY YES; Platelet Count 34 K/mm3 (150-450); RBC Distribution Width CV 12.9 % (11.6-14.6); RBC Distribution Width SD 42.4 fl (35.1-43.9); Red Blood Count 3.61 M/mm3 (4.2-5.4); White Blood Count 10.9 K/mm3 (4.4-11.0)
[2021-06-11] MEDS: 0.9% Saline Lock 10 ML Syringe IV (05:55)
[2021-06-11] MEDS: Furosemide 40 MG/4 ML Vial IV ×2 (05:56→13:54)
[2021-06-11] MEDS: Levothyroxine 25 MCG TABLET PO (05:56)
[2021-06-11 05:57] LABS: Differential Indicated MANUAL DIFF
[2021-06-11 05:58] LABS: Anion Gap 9 (5-15); BUN 46 mg/dL (7-18); BUN/Creat Ratio 69.4 RATIO (10-20); Calcium,Total 9.3 mg/dL (8.5-10.1); Chloride 97 mmol/L (98-107); Creatinine, Serum 0.66 mg/dL (0.55-1.02); EST Glomerular Filtration Rate 97 mL/min (>60); Est Glom Filt Rate - Afr Amer 118 mL/min (>60); Estimated Creatinine Clearance 70.11 ml/min; Glucose 130 mg/dL (74-106); Magnesium 2.3 mg/dL (1.6-2.6); Potassium 4.6 mmol/L (3.5-5.1); Sodium Level 138 mmol/L (136-145)
[2021-06-11 06:09] LABS: Absolute Neutrophil Count 7.1 X10^3/uL (2.0-7.7)
[2021-06-11 06:10] LABS: Absolute Lymphocyte Count 2.84 X10^3/uL (0.83-4.51); Eosinophil 1 % (0-5); Lymphocyte 26 % (19-41); Monocyte 4 % (0-10); Myelocyte 2 % (0-0); Neutrophil-Band 6 % (0-5); Neutrophil-Segmented 59 % (47-70); Promyelocyte 2 % (0-0)
[2021-06-11 06:11] LABS: Platelet Estimate MKD DEC (ADEQ); Red Cell Morphology NORM C+C NORMAL (NORM C&C)
--- NOTE | 2021-06-11 07:30 | PN.CC_ITS ---
Assessment & Plan Assessment/Plan (1) Non-small cell lung cancer (NSCLC): QUALIFIERS: Laterality: right Qualified Code(s): C34.91 - Malignant neoplasm of unspecified part of right bronchus or lung (2) Pneumonia: QUALIFIERS: Laterality: bilateral Lung location: lower lobe of lung Pneumonia type: due to Pneumococcus Qualified Code(s): J13 - Pneumonia due to Streptococcus pneumoniae (3) Acute respiratory failure with hypoxia: PLAN: RECOMMENDATIONS: 1. Continue vest therapy and mucolytic. Avoid cough suppressants. 2. Continue attempts at diuresis as tolerated by hemodynamics and renal function. 3. Continue conservative therapy with possibility for outpatient bronchoscopy. 4. Wean oxygen as tolerated. Walking oximetry prior to discharge. 5. Increase activity as tolerated. 6. The patient can follow-up with pulmonary medicine clinic after discharge. 7. Will sign off. Please call with any additional questions. IMPRESSIONS: 1. Acute hypoxic respiratory failure secondary to suspected postobstructive pneumonia Agree with the use of bronchodilators and Solu-Medrol. However, patient likely has an element of endobronchial obstruction leading to left upper lobe collapse. Serial CT scans show progressive collapse of the left upper lobe. Unclear if patient is having an element of pulmonary edema secondary to diastolic dysfunction as well. Discussions on 06/07/2021 about possible elective in tubation for bronchoscopy, but patient refused. However, the patient appears to be improving at this point. Plan to continue antimicrobials for 7 to 10 days. Outpatient bronchoscopy can be considered after discharge. The patient can follow-up in the pulmonary medicine clinic accordingly. 2. History of radiation pneumonitis/history of nephrotic syndrome/obesity/hypercholesterolemia/hypothyroidism Complicates care, management, recovery and prognosis. Okay to continue with baseline medications from my perspective. Continue to monitor renal function. This note was generated with [employer] dictation software. It may contain incorrect words, spelling, and punctuation that were not noted in checking the note before signing. Subjective Subjective The patient was seen and examined at the bedside this morning. Events from the last 24 hours have been reviewed. The patient is currently afebrile, hemodynamically stable and maintaining appropriate oxygen saturations on 4 L/min via nasal cannula. The patient is currently documented to be overall net -1.5 L for the hospitalization. Platelet count is low this morning at 34,000. Objective Data Objective Data The patient's most recent lab work, culture data and imaging studies have all been personally reviewed. Vital Signs: Vital Signs Temp Pulse Resp BP Pulse Ox 97.0 F L 125 H 18 140/92 H 95 06/11/21 06:08 06/11/21 07:25 06/11/21 06:08 06/11/21 06:08 06/11/21 06:08 Oxygen Flow Rate (L/min) [ 6 AMBULATING with Oxygen #3] Oxygen Flow Rate (L/min) [ 4 AMBULATING with Oxygen #2] Oxygen Flow Rate (L/min) [ 3 AMBULATING with Oxygen #1] Oxygen Flow Rate (L/min) [At 3 REST with Oxygen] Oxygen Flow Rate (L/min) 4 Oxygen Delivery Method Nasal Cannula Weight: 91.7 kg Body Mass Index (BMI) 38.2 Intake & Output: Intake and Output for Last 24 Hours 06/09/21 06/10/21 06/11/21 23:59 23:59 23:59 Intake Total 505 / 705 1030.50 / 1030.50 Output Total 600 / 600 1100 / 1100 950 / 950 Balance -95 / 105 -69.50 / -69.50 -950 / -950 Lab / Micro Data Result Diagrams: 06/11/21 04:56 06/11/21 04:56 Labs: Laboratory Results - last 24 hr 06/07/21 06:00: Diff Path Review Reviewed 06/08/21 06:41: Diff Path Review Reviewed 06/10/21 11:56: WBC 12.0 H, RBC 3.64 L, Hgb 10.7 L, Hct 32.5 L, MCV 89.3, MCH 29.4, MCHC 32.9, RDW Std Deviation 42.2, RDW Coeff of Heladio 13.0, Plt Count 42 L*, MPV 11.3, Neut % (Auto) Not Reportable, Absolute Neuts (auto) 9.0 H, Absolute Lymphs (auto) 2.28, Total Counted 100, Neutrophils % (Manual) 67, Band Neutrophils % 8 H, Lymphocytes % (Manual) 19, Monocytes % (Manual) 4, Metamyelocytes % 2 H, Diff Path Review May foll, Platelet Estimate MKD DEC, RBC Morphology NORM C+C 06/10/21 11:56: Sodium 136, Potassium 3.7, Chloride 99, Carbon Dioxide 30.0, Anion Gap 7, BUN 48 H, Creatinine 0.76, Estim Creat Clear Calc 60.89, Est GFR (MDRD) Af Amer 100, Est GFR (MDRD) Non-Af 83, BUN/Creatinine Ratio 63.2 H, Glucose 260 H, Calcium 9.2 06/10/21 11:56: Hemoglobin A1c 6.6 H 06/10/21 11:56: B-Natriuretic Peptide 43.6 06/11/21 04:56: WBC 10.9, RBC 3.61 L, Hgb 10.6 L, Hct 32.3 L, MCV 89.5, MCH 29.4, MCHC 32.8, RDW Std Deviation 42.4, RDW Coeff of Heladio 12.9, Plt Count 34 L*, MPV 13.4 H, Neut % (Auto) Not Reportable, Absolute Neuts (auto) 7.1, Absolute Lymphs (auto) 2.84, Neutrophils % (Manual) 59, Band Neutrophils % 6 H, Lymphocytes % (Manual) 26, Monocytes % (Manual) 4, Eosinophils % (Manual) 1, Myelocytes % 2 H, Promyelocytes % 2 H, Diff Path Review May foll, Platelet Estimate MKD DEC, RBC Morphology NORM C+C 06/11/21 04:56: Sodium 138, Potassium 4.6, Chloride 97 L, Carbon Dioxide 32.0, Anion Gap 9, BUN 46 H, Creatinine 0.66, Estim Creat Clear Calc 70.11, Est GFR (MDRD) Af Amer 118, Est GFR (MDRD) Non-Af 97, BUN/Creatinine Ratio 69.4 H, Glucose 130 H, Calcium 9.3, Magnesium 2.3 Micro: Microbiology 06/05/21 18:34 Blood Culture (Wb) - Anticubital Right Blood Culture - Final No growth in 5 days. 06/05/21 18:34 Blood Culture (Wb) - Anticubital Right Blood Culture - Final No growth in 5 days. 06/06/21 03:15 Urine Catheter - Catheter Legionella Antigen - Final 06/06/21 03:15 Urine Catheter - Catheter Streptococcus pneumoniae Antigen (M - Final 06/05/21 16:02 Mucosa - Nasopharyngeal Respiratory Panel (PCR) - Final 06/05/21 10:36 Nasal Secretion SARS-CoV-2 Antigen (Rapid) - Final Rhythm Strip Rhythm Strip: Sinus Tach Physical Exam Const alert and oriented x3 General Appearance: cooperative Nutritional Appearance: obese HEENT normocephalic and head/scalp atraumatic Eyes PERRL, EOMs intact bilaterally and conjunctivae normal Neck no lymphadenopathy and no JVD Chest inspection of chest normal Chest: symmetrical chest wall rise; Negative for crepitus Resp Auscultation: rhonchi and diminished lung sounds; Negative for rales or wheezes Cardio S1 normal heart sound and S2 normal heart sound Rate: tachycardic GI normal to inspection, nondistended, normoactive bowel sounds, soft to palpation, non-tender and non-distended Extremity no clubbing, cyanosis or edema Skin no rashes or lesions noted and no wounds Neuro no focal motor deficits Sensorium / Orientation: awake and alert Psych cooperative and affect normal Charges/Coding Visit Charges Inpatient E&M: 05177 Subs Hosp L2
[2021-06-11] MEDS: Paroxetine 20 MG Tablet 40 MG PO (07:53)
[2021-06-11] MEDS: guaiFENesin 1,200 MG Tablet 1200 MG PO (07:53)
[2021-06-11] MEDS: Metoprolol Tartrate 25 MG Tablet 12.5 MG PO (08:40)
--- NOTE | 2021-06-11 10:02 | RAD_ITS ---
STUDY: X-RAY CHEST REASON FOR EXAM: Female, 56 years old. Dyspnea TECHNIQUE: Single AP portable view of the chest. COMPARISON: Comparison is made with prior study dated 06/05/2021. FINDINGS: EKG electrodes are seen. Persistent bilateral pulmonary infiltrates although there is been mild degree of improvement as compared to prior study. Stable scarring and bronchiectasis in the medial aspect of the right upper lobe. Normal size heart. Normal mediastinum and adrian. Normal visualized pulmonary arteries. Normal visualized aortic arch and descending thoracic aorta. Normal visualized thoracic spine. Normal visualized ribs, clavicles, and shoulders. There is no demonstrated abnormality of the visualized soft tissue structures of the upper abdomen. RAD/Chest 1 View (Portable) IMPRESSION: Persistent bilateral pulmonary infiltrates although there has been a [id number] degree of improvement as compared to prior study. Electronically Signed: Stanley Zapata MD at 14:06 EDT , Service support ,
--- NOTE | 2021-06-11 10:03 | PCM.PN.HOSP ---
Subjective Subjective Plan to discharge patient the day prior was placed on hold. She did receive Lasix. Ordered echo and chest x-ray as well. Her platelet count continues to drop. Case discussed with Dr. Purcell with oncology plan is for patient to follow-up with heme-onc with repeat labs. She still remains quite tachycardic. Ordered repeat TSH levels Objective Data Objective Data Vital Signs: Vital Signs Temp Pulse Resp BP Pulse Ox 97.9 F 128 H 22 H 135/70 H 94 06/11/21 07:45 06/11/21 08:51 06/11/21 08:51 06/11/21 08:40 06/11/21 08:51 Oxygen Flow Rate (L/min) [ 6 AMBULATING with Oxygen #3] Oxygen Flow Rate (L/min) [ 4 AMBULATING with Oxygen #2] Oxygen Flow Rate (L/min) [ 3 AMBULATING with Oxygen #1] Oxygen Flow Rate (L/min) [At 3 REST with Oxygen] Oxygen Flow Rate (L/min) 4 Oxygen Delivery Method Nasal Cannula Weight: 91.7 kg Body Mass Index (BMI) 38.2 Intake & Output: Intake and Output for Last 24 Hours 06/09/21 06/10/21 06/11/21 23:59 23:59 23:59 Intake Total 505 / 705 1030.50 / 1030.50 305 / 305 Output Total 600 / 600 1100 / 1100 950 / 950 Balance -95 / 105 -69.50 / -69.50 -645 / -645 Lab / Micro Data Result Diagrams: 06/11/21 04:56 06/11/21 04:56 Labs: Laboratory Results - last 24 hr 06/08/21 06:41: Diff Path Review Reviewed 06/10/21 11:56: WBC 12.0 H, RBC 3.64 L, Hgb 10.7 L, Hct 32.5 L, MCV 89.3, MCH 29.4, MCHC 32.9, RDW Std Deviation 42.2, RDW Coeff of Heladio 13.0, Plt Count 42 L*, MPV 11.3, Neut % (Auto) Not Reportable, Absolute Neuts (auto) 9.0 H, Absolute Lymphs (auto) 2.28, Total Counted 100, Neutrophils % (Manual) 67, Band Neutrophils % 8 H, Lymphocytes % (Manual) 19, Monocytes % (Manual) 4, Metamyelocytes % 2 H, Diff Path Review May nora, Platelet Estimate MKD DEC, RBC Morphology NORM C+C 06/10/21 11:56: Sodium 136, Potassium 3.7, Chloride 99, Carbon Dioxide 30.0, Anion Gap 7, BUN 48 H, Creatinine 0.76, Estim Creat Clear Calc 60.89, Est GFR (MDRD) Af Amer 100, Est GFR (MDRD) Non-Af 83, BUN/Creatinine Ratio 63.2 H, Glucose 260 H, Calcium 9.2 06/10/21 11:56: Hemoglobin A1c 6.6 H 06/10/21 11:56: B-Natriuretic Peptide 43.6 06/11/21 04:56: WBC 10.9, RBC 3.61 L, Hgb 10.6 L, Hct 32.3 L, MCV 89.5, MCH 29.4, MCHC 32.8, RDW Std Deviation 42.4, RDW Coeff of Heladio 12.9, Plt Count 34 L*, MPV 13.4 H, Neut % (Auto) Not Reportable, Absolute Neuts (auto) 7.1, Absolute Lymphs (auto) 2.84, Neutrophils % (Manual) 59, Band Neutrophils % 6 H, Lymphocytes % (Manual) 26, Monocytes % (Manual) 4, Eosinophils % (Manual) 1, Myelocytes % 2 H, Promyelocytes % 2 H, Diff Path Review May nora, Platelet Estimate MKD DEC, RBC Morphology NORM C+C 06/11/21 04:56: Sodium 138, Potassium 4.6, Chloride 97 L, Carbon Dioxide 32.0, Anion Gap 9, BUN 46 H, Creatinine 0.66, Estim Creat Clear Calc 70.11, Est GFR (MDRD) Af Amer 118, Est GFR (MDRD) Non-Af 97, BUN/Creatinine Ratio 69.4 H, Glucose 130 H, Calcium 9.3, Magnesium 2.3 Micro: Microbiology 06/05/21 18:34 Blood Culture (Wb) - Anticubital Right Blood Culture - Final No growth in 5 days. 06/05/21 18:34 Blood Culture (Wb) - Anticubital Right Blood Culture - Final No growth in 5 days. 06/06/21 03:15 Urine Catheter - Catheter Legionella Antigen - Final 06/06/21 03:15 Urine Catheter - Catheter Streptococcus pneumoniae Antigen (M - Final 06/05/21 16:02 Mucosa - Nasopharyngeal Respiratory Panel (PCR) - Final 06/05/21 10:36 Nasal Secretion SARS-CoV-2 Antigen (Rapid) - Final Rhythm Strip Rhythm Strip: Sinus Tach Physical Exam Narrative GENERAL: cooperative HEENT: Atraumatic; EYES; Anicteric, Normal Conjunctiva NECK; supple, normal thyroid, RESPIRATORY: Diminished to auscultation CARDIOVASCULAR: Regular S1 S2, tachycardic GI: soft, normoactive bowel sounds, : No Renal angle tenderness; EXTREMITIES: No edema, no clubbing, MUSCULOSKELETAL: no muscle waisting NEURO: Awake; no lateralizing signs. SKIN: No Rash PSYCH; Flat affect Assessment & Plan Assessment/Plan (1) Lytic bone lesions on xray: (2) Acute respiratory failure with hypoxia: PLAN: Patient is a 56-year-old lady with history of previous non-small cell lung CA involving the right bronchus for which she underwent treatment in July 2016 to October 2016 apparently remained in remission. Presented to the emergency department with increasing shortness of breath. Imaging studies demonstrated collapse of the left upper lobe possibly related to an obstruction. She was also found to have lytic lesions of both scapula begin (thought to be metastatic disease from her lung CA) 1. Acute hypoxic respiratory failure ?Secondary to suspected postobstructive pneumonia? Pneumococcal pneumonia. Patient was managed with azithromycin as well as Rocephin. Patient was discharged home with cefdinir. She was assessed for home oxygen prior to discharge which she did qualify. Plan of to discharge patient kept on hold after she was found to be tachycardic with heart rate as high as 115 ?06/11/2021; patient did receive Lasix the day prior for possible superimposed fluid overload. Repeat chest x-ray ordered and an echo as well. With patient still remaining tachycardic ordered repeat checks x-ray as well as TSH 2. Collapse of the left upper lobe ?This was thought to be secondary to obstruction from a neoplasm patient was seen by pulmonary medicine offered bronchoscopy in the hospital patient declined. An arrangement was made for patient to follow-up with pulmonary medicine as outpatient for bronchoscopy 3. Thrombocytopenia ?Patient was seen by heme-onc with plans for patient to follow-up with oncology within a week for repeat labs -06/11/2021. Patient platelet count continues to drop down to 34. Was 128 on 06/03/2021. Case was discussed with heme-onc. Patient Eliquis discontinued to decrease her risk of bleeding. Plans for patient to follow-up with heme-onc following discharge for repeat labs 3. History of non-small cell lung CA -involving the right bronchus for which she underwent treatment in July 2016 to October 2016 apparently remained in remission. . Imaging studies demonstrated collapse of the left upper lobe possibly related to an obstruction. She was also found to have lytic lesions of both scapula begin (thought to be metastatic disease from her lung CA) patient was seen in consultation by oncology patient will follow up as outpatient 4. Hypothyroidism - Patient is on levothyroxine home dose continued 5. 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 Dyslipidemia -Patient is on statin therapy, continued at home dose 7. Depression ?Patient is on Paxil 8. Sinus tachycardia ?Possibly related to patient underlying lung condition currently being monitored continuously on telemetry. Underwent CTA of the chest on 06/05/2021 which was negative for PE -06/11/2021. Patient heart rate continues to climb. Repeat chest x-ray and TSH ordered 9. Hyperglycemia ?Patient noted known diabetic ordered hemoglobin A1c 10. Elevated blood pressure ?Patient is not a known hypertensive however blood pressure remains markedly elevated started on hydralazine as needed -06/11/2021. Beta-blockers added to patient's therapy Charges/Coding Visit Charges Inpatient E&M: 78243 [facility] H[facility] L3
[2021-06-11] MEDS: Albuterol 2.5 MG/3 ML VIAL.NEB. INHALATION (11:10)
[2021-06-11] MEDS: Ipratropium 0.5 MG/2.5 ML SOLUTION INHALATION (11:10)
[2021-06-11 11:42] LABS: Thyroid Stim Hormone (TSH) 1.69 uIU/mL (0.358-3.74)
[2021-06-11 13:49] LABS: Pathologist Review Reviewed
[2021-06-11 13:52] LABS: Pathologist Review Reviewed
--- NOTE | 2021-06-12 15:50 | CASEMGMT ---
JULIA CM Discharge Follow Up Phone Call: LACE: 12 Strata:3 Call Date: 06/12/21 Discharge Date: 06/11/21 Time of Call:1550 Duration:<1 min Admitting Dx:PNA JULIA NIEVES attempted to complete follow up phone call after recent hospitalization. Received unidentified answering machine, no message left.
== END 2021-06-11 15:25 | disposition home or self-care (01) | DRG 193 ==
LOC: ED 15:58 → MS3 16:49
PROVIDERS: Internal Medicine; Internal Medicine Critical Care Medicine; Emergency Provider Emergency Medicine; PCP Family Medicine Geriatric Medicine; Visit Provider Internal Medicine
DX: J13 Pneumonia due to Streptococcus pneumoniae (principal); I50.31 Acute diastolic (congestive) heart failure; J96.01 Acute respiratory failure with hypoxia; C34.91 Malignant neoplasm of unspecified part of right bronchus or lung; C77.0 Secondary and unspecified malignant neoplasm of lymph nodes of head, face and neck; D68.9 Coagulation defect, unspecified; J98.19 Other pulmonary collapse; E78.5 Hyperlipidemia, unspecified; E89.0 Postprocedural hypothyroidism; F17.210 Nicotine dependence, cigarettes, uncomplicated; E66.9 Obesity, unspecified; J70.0 Acute pulmonary manifestations due to radiation; Y84.2 Radiological procedure and radiotherapy as the cause of abnormal reaction of the patient, or of later complication, without mention of misadventure at the time of the procedure; D69.6 Thrombocytopenia, unspecified; F32.A Depression, unspecified; M89.9 Disorder of bone, unspecified; R73.9 Hyperglycemia, unspecified; Z79.890 Hormone replacement therapy; Z79.899 Other long term (current) drug therapy; Z79.01 Long term (current) use of anticoagulants; Z92.3 Personal history of irradiation; Z86.711 Personal history of pulmonary embolism; Z86.718 Personal history of other venous thrombosis and embolism; Z68.39 Body mass index [BMI] 39.0-39.9, adult; Z87.441 Personal history of nephrotic syndrome
CPT/HCPCS: 36415; 71045; 71046; 71275; 80048; 83036; 83735; 83880; 84443; 85025; 87040; 87426; 87449; 87633; 87635; 93005; 93306; 94003; 94640; 94660; 94667; 94668; 97162; 97166; 97535; 99251; 99285; 99406; J7050; Q9967; U0005; A4216; G0463; J0696; J1940; U0003

== ENCOUNTER 2021-06-20 10:47 | Inpatient (IN) | payer MEDICARE, SELFPAY ==
[2021-06-20] VITALS (31 sets, daily range): BP systolic 91–131; BP diastolic 55–77; PULSE 90–126; RESP 8–30; TEMP 36.1–37.4; O2SAT 88–98; BMI 35.2; BMI 35.1
--- NOTE | 2021-06-20 11:04 | CM.ED ---
Addendum entered by Rita Bae 06/20/21 12:13: ANDRA met with patient and her daughter. Patient was asked about her plan and patient's daughter voiced that they spoke to patient's PCP and he wants patient admitted to TCU. Patient verbalized she wants to go to TCU. SW provided patient with brochure on TCU. SW asked if patient and family have any questions or concerns and none were voiced. SW remains available if needs arise. Rita LYON Original Note: ANDRA Note SW received email from Key Barrera at [facility]. She indicated that the plan is for patient to come to the ED for SNF placement. ANDRA called Aurea in TCU. Aurea said that DR. Arevalo's office has updated her about patient. Patient has [facility] insurance so patient will need OT/PT evaluation and precertification. Patient is on list for TCU. ANDRA updated event promoter Raul and cloth beamer Sana about patient coming to the ED. ANDRA sent email to Aurea DUMONT, Nneka Crews and Key Barrera at [facility] that patient is currently in the ED. Plan: SNF placement. Patient has [facility] insurance and thus needs precertification prior to SNF placement. Per Aurea patient is on list for TCU placement. Rita LYON
--- NOTE | 2021-06-20 11:08 | RAD_ITS ---
STUDY: X-RAY CHEST REASON FOR EXAM: Female, 56 years old. Dyspnea TECHNIQUE: Single AP portable view of the chest. COMPARISON: 06/11/2021 FINDINGS: Increase in alveolar opacities in both lungs consistent with worsening bilateral pneumonia, pulmonary edema, or RDS. There is no demonstrated pleural abnormality. Normal size heart. Normal mediastinum and adrian. Normal visualized pulmonary arteries. Normal visualized aortic arch and descending thoracic aorta. Normal visualized thoracic spine. Normal visualized ribs, clavicles, and shoulders. There is no demonstrated abnormality of the visualized soft tissue structures of the upper abdomen. RAD/Chest 1 View (Portable) IMPRESSION: Worsening bilateral pneumonia, pulmonary edema, or ARDS. Electronically Signed: Og Connell MD at 11:44 EDT Tel , Service support ,
--- NOTE | 2021-06-20 11:08 | EKG12_ITS ---
Test Reason : SOB Blood Pressure : / mmHG Vent. Rate : 112 BPM Atrial Rate : 112 BPM P-R Int : 126 ms QRS Dur : 082 ms QT Int : 334 ms P-R-T Axes : 036 022 051 degrees QTc Int : 455 ms Sinus tachycardia Left atrial enlargement Nonspecific ST and T wave abnormality Abnormal ECG Confirmed by LASHA CONRAD, SAMY ([id number]), manager editorial TONI HARRISON ([id number]) on 06/21/2021 1:47:16 PM Referred By: YUVAL Confirmed By:SAMY COLBY MD
--- NOTE | 2021-06-20 11:11 | EDS_ITS ---
HPI History of Present Illness Chief Complaint: Shortness of Breath Informant: patient and family Onset/Context/Timing Onset: Weeks (2) Context: gradual Timing: Continuous Quality: Positive for Dyspnea on exertion and Orthopnea Worsened by: Exertion and Lying flat Relieved by: Oxygen Associated Symptoms cough; Negative for fever, sore throat or chills Chest Pain: Positive for None Narrative Narrative: Patient presents with shortness of breath that has been getting worse over the past 2 weeks. Daughter states that the breathing has gotten worse over the past week. Patient is on antibiotics for pneumonia. Patient has a history of non-small cell lung cancer which has been causing her pneumonia. Patient states her breathing is worse with any exertion and with laying flat. Patient states her oxygen seems to help. Patient admits to a cough but denies any sputum production. Patient denies any fevers or chills. Patient denies any chest pain. PE Risk Factors: Positive for Cancer 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 Thyroid disease VTE (venous thromboembolism) Home Medications paroxetine HCl 40 mg PO DAILY 04/23/17 [History Last Taken Unknown] atorvastatin 40 mg PO DAILY 05/03/20 [History Last Taken Unknown] levothyroxine 25 mcg PO DAILY 10/31/20 [History Last Taken Unknown] furosemide [Lasix] 40 mg PO DAILY #60 tab 06/11/21 [Rx Last Taken Unknown] metoprolol tartrate 12.5 mg PO BID #120 tab 06/11/21 [Rx Last Taken Unknown] cefdinir 300 mg PO BID 06/20/21 [History Last Taken Unknown] Allergy/AdvReac Type Severity Reaction Status Date / Time No Known Allergies Allergy Verified 06/20/21 10:58 Family History Mother Hypertension Surgical History History of lung biopsy Social History Smoking Status: Former smoker ROS ROS ED Constitutional Constitutional ED: Denies chills or fever(s) Eyes Eyes: Denies blurry vision or change in vision ENT ENT ED: Denies rhinorrhea or sore throat Cardiovascular Cardiovascular: Denies chest pain or palpitations Respiratory/Chest Respiratory/Chest: Reports cough and dyspnea Gastrointestinal Gastrointestinal: Denies nausea or vomiting Genitourinary Genitourinary ED: Denies dysuria or hematuria Musculoskeletal Musculoskeletal: Denies back pain or neck pain Integumentary Denies abscess or rash Neurologic Neurologic: Denies headache(s) or weakness Allergic/Immunologic Allergic/Immunologic ED: Denies mouth swelling or urticaria EXAM Physical Exam Const Vital Signs: 06/20/21 10:51 06/20/21 10:56 06/20/21 11:03 Temperature 99.3 F H 99.3 F H Temperature Source Oral Oral Pulse Rate 117 H 118 H Respiratory Rate 24 H 29 H Respiratory Effort Short of Breath Labored Accessory Muscle Use Respiratory Depth Normal Respiratory Pattern Tachypnea Blood Pressure 130/55 H 130/55 H Blood Pressure Mean 80 80 Pulse Ox 89 94 Oxygen Delivery Method Nasal Cannula Nasal Cannula Nasal Cannula Oxygen Flow Rate (L/min) 4 5 5 Fraction of Inspired Oxygen (FIO2) 06/20/21 11:23 06/20/21 11:33 06/20/21 12:17 Temperature 97.7 F L Temperature Source Oral Pulse Rate 115 H 111 H Respiratory Rate 30 H 26 H Respiratory Effort Respiratory Depth Respiratory Pattern Tachypnea Blood Pressure 92/68 Blood Pressure Mean 76 Pulse Ox 95 88 Oxygen Delivery Method Nasal Cannula Nasal Cannula Oxygen Flow Rate (L/min) 5 6 Fraction of Inspired Oxygen (FIO2) 06/20/21 12:30 06/20/21 13:10 06/20/21 14:00 Temperature 97.7 F L 97 F L Temperature Source Oral Temporal Pulse Rate 114 H 110 H Respiratory Rate 27 H 16 22 H Respiratory Effort Respiratory Depth Respiratory Pattern Tachypnea Blood Pressure 119/72 131/67 H Blood Pressure Mean 87 88 Pulse Ox 95 98 98 Oxygen Delivery Method Bi-pap Bi-pap Oxygen Flow Rate (L/min) Fraction of Inspired Oxygen (FIO2) 50 50 Positive well nourished and well developed General Appearance ED: well developed HEENT Reports moist mucous membranes Neck supple and no JVD Resp normal respiratory effort Auscultation: rhonchi throughout Cardio regular rhythm and no murmurs Rate: tachycardic GI normal to inspection, nondistended, normoactive bowel sounds and non-tender Palpation: soft Extremity normal to inspection General Extremety ED: Yes edema; Negative for tenderness General Extremity: edema Neuro oriented x3, CN's II-XII intact bilaterally and no sensory deficits noted Sensorium / Orientation: alert Motor Exam: strength 5/5 throughout Psych mental status grossly normal Skin no rashes or lesions noted MDM MDM MDM Narrative Medical decision making narrative: CBC shows a white blood cell count of 4.1. Hemoglobin was 7.8 and hematocrit was 23.2. Platelets were 17. There were 9 bands. Comprehensive metabolic profile showed a potassium of 3.2 and a BUN of 39. BNP was slightly elevated at 165.8. Portable chest x-ray was obtained. There is 1 view. On my interpretation, there are worsening bilateral infiltrates. Bony thorax is normal. Radiologist also interpreted the x-ray and agrees. Patient was started on Zosyn and Levaquin. Case was discussed with the hospitalist. He will admit the patient to ICU. Patient understood and was agreeable with the plan. All questions were answered. Lab Data Attestation: I reviewed the patient's lab results. Labs: Laboratory Results - last 24 hr 06/20/21 06/20/21 06/20/21 11:21 11:21 11:21 WBC 4.1 L Corrected WBC Not Reportable RBC 2.71 L Hgb 7.8 L Hct 23.2 L MCV 85.6 MCH 28.8 MCHC 33.6 RDW Std Deviation 40.6 RDW Coeff of Heladio 13.2 Plt Count 17 L* MPV 11.3 Neut % (Auto) Not Reportable Absolute Neuts (auto) 2.6 Absolute Lymphs (auto) 0.98 Total Counted 100 Neutrophils % (Manual) 55 Band Neutrophils % 9 H Lymphocytes % (Manual) 24 Monocytes % (Manual) 8 Eosinophils % (Manual) 1 Myelocytes % 3 H Nucleated RBCs/100 WBC 6 H Diff Path Review May foll Platelet Estimate MKD DEC RBC Morphology NORM C+C Sodium 138 Potassium 3.2 L Chloride 95 L Carbon Dioxide 32.0 Anion Gap 11 BUN 39 H Creatinine 0.60 Estim Creat Clear Calc 77.12 Est GFR (MDRD) Af Amer 132 Est GFR (MDRD) Non-Af 109 BUN/Creatinine Ratio 64.9 H Glucose 119 H Calcium 9.6 Total Bilirubin 0.70 AST 59 H ALT 29 Alkaline Phosphatase 149 H Troponin I High Sens 20 B-Natriuretic Peptide 165.8 H Total Protein 6.5 Albumin 2.2 L Globulin 4.3 H Albumin/Globulin Ratio 0.5 L Urine Color Urine Clarity Urine pH Ur Specific [place] Urine Protein Urine Glucose (UA) Urine Ketones Urine Occult Blood Urine Nitrite Urine Bilirubin Urine Urobilinogen Ur Leukocyte Esterase Urine RBC Urine WBC Ur Squamous Epith Cells Urine Bacteria Urine Mucus 06/20/21 12:55 WBC Corrected WBC RBC Hgb Hct MCV MCH MCHC RDW Std Deviation RDW Coeff of Heladio Plt Count MPV Neut % (Auto) Absolute Neuts (auto) Absolute Lymphs (auto) Total Counted Neutrophils % (Manual) Band Neutrophils % Lymphocytes % (Manual) Monocytes % (Manual) Eosinophils % (Manual) Myelocytes % Nucleated RBCs/100 WBC Diff Path Review Platelet Estimate RBC Morphology Sodium Potassium Chloride Carbon Dioxide Anion Gap BUN Creatinine Estim Creat Clear Calc Est GFR (MDRD) Af Amer Est GFR (MDRD) Non-Af BUN/Creatinine Ratio Glucose Calcium Total Bilirubin AST ALT Alkaline Phosphatase Troponin I High Sens B-Natriuretic Peptide Total Protein Albumin Globulin Albumin/Globulin Ratio Urine Color Yellow Urine Clarity Clear Urine pH 5.0 Ur Specific [place] 1.025 Urine Protein 15 H Urine Glucose (UA) Normal Urine Ketones 5 H Urine Occult Blood 10 H Urine Nitrite Negative Urine Bilirubin Negative Urine Urobilinogen Normal Ur Leukocyte Esterase Negative Urine RBC 0-5 SEEN Urine WBC 0 SEEN Ur Squamous Epith Cells 0-5 SEEN Urine Bacteria RARE Urine Mucus 0 SEEN Radiography Chest X-Ray - ED: 1 View, Read by ED Physician, Read by Radiologist, Right Infiltrate and Left Infiltrate Diagnostic Testing: Clinical Impression(s) from Imaging Studies Chest X-Ray 06/20/21 11:08 IMPRESSION: Worsening bilateral pneumonia, pulmonary edema, or ARDS. Electronically Signed: Og Connell MD at 11:44 EDT Tel , Service support , Treatment and Re-Evaluation Vital Sign Attestation:: Vital signs were reviewed prior to admission. Patient is still tachycardic at 120. Oxygen saturation is improving. Blood pressure is normal. Patient still has a tachypnea of 28. Discharge Plan Dx/Rx/DC Orders Clinical Impression: Acute respiratory failure with hypoxia, Pneumonia Disposition Disposition: Acute Care Hospital [facility] Discharge Date/Time: 06/20/21 14:52
[2021-06-20] MEDS: Ipratropium/Albuterol Sulfate 3 ML AMPUL.NEB INHALATION ×2 (11:23→19:28)
[2021-06-20 11:30] LABS: Hematocrit 23.2 % (37-47); Hemoglobin 7.8 g/dL (12.0-15.0); Mean Corp Hgb Conc 33.6 g/dL (32-36); Mean Corpuscular Hgb 28.8 pg (27.0-32.0); Mean Corpuscular Volume 85.6 fL (81-99); Mean Platelet Vol. 11.3 fl (6.2-12.0); POSITIVE COUNT YES; POSITIVE MORPHOLOGY YES; RBC Distribution Width CV 13.2 % (11.6-14.6); RBC Distribution Width SD 40.6 fl (35.1-43.9); Red Blood Count 2.71 M/mm3 (4.2-5.4)
[2021-06-20 11:40] LABS: Differential Indicated MANUAL DIFF; Platelet Count 17 K/mm3 (150-450)
[2021-06-20 11:51] LABS: ALB/GLOB Ratio 0.5 RATIO (0.9-2.4); AST(SGOT) 59 U/L (15-37); Alanine Aminotransfer ALT/SGPT 29 U/L (13-56); Albumin, Serum 2.2 g/dL (3.2-5.0); Alkaline Phosphatase 149 U/L (45-117); Anion Gap 11 (5-15); BUN 39 mg/dL (7-18); BUN/Creat Ratio 64.9 RATIO (10-20); Calcium,Total 9.6 mg/dL (8.5-10.1); Chloride 95 mmol/L (98-107); EST Glomerular Filtration Rate 109 mL/min (>60); Est Glom Filt Rate - Afr Amer 132 mL/min (>60); Estimated Creatinine Clearance 77.12 ml/min; Globulin 4.3 g/dL (2.2-4.2); Glucose 119 mg/dL (74-106); Potassium 3.2 mmol/L (3.5-5.1); Protein, Total 6.5 g/dL (6.4-8.2); Sodium Level 138 mmol/L (136-145); Troponin-I HS 20 pg/mL (3.0-54.0)
[2021-06-20 12:00] LABS: Eosinophil 1 % (0-5); Lymphocyte 24 % (19-41); Monocyte 8 % (0-10); Myelocyte 3 % (0-0); Neutrophil-Band 9 % (0-5); Neutrophil-Segmented 55 % (47-70); Nucleated Red Bld Cells,Manual 6 % (0-5); Total Cells Counted 100 (MANUAL DIFF)
[2021-06-20 12:01] LABS: Platelet Estimate MKD DEC (ADEQ); Red Cell Morphology NORM C+C NORMAL (NORM C&C); White Blood Count 4.1 K/mm3 (4.4-11.0)
[2021-06-20 12:02] LABS: Absolute Lymphocyte Count 0.98 X10^3/uL (0.83-4.51); Absolute Neutrophil Count 2.6 X10^3/uL (2.0-7.7)
--- NOTE | 2021-06-20 12:25 | ED.RN ---
pt satting 88% on 6l NC. work of breathing increased from breathing tx, but pt reports continued sob. dr. scott informed. bipap ordered.
[2021-06-20] MEDS: Piperacil/Tazobactam 3.375 GM Q8 PREMIX IV ×2 (12:39→21:35)
[2021-06-20 12:59] LABS: BNP,B-Type NATRIURETIC PEPTIDE 165.8 pg/mL (0-100)
[2021-06-20 13:00] LABS: Mucous, Urine 0 SEEN /hpf (<or=2+); White Blood Cells 0 SEEN /hpf (0-5)
[2021-06-20 13:01] LABS: Color, Urine Yellow (Yellow); Glucose, Dipstick Normal (Normal); Ketone-Dipstick 5 mg/dl (Negative); Leukocyte Esterase-Dipstick Negative /ul (Negative); Nitrite-Dipstick Negative (Negative); Occult Blood-Urine 10 /ul (Negative); Protein-Dipstick 15 mg/dl (Negative); Specific Gravity, Urine 1.025 (1.002-1.030); Urine Bilirubin Dipstick Negative (Negative); Urine Clarity Clear (Clear); Urine Urobilinogen Normal (Normal)
[2021-06-20 13:11] LABS: Bacteria RARE /hpf (None Seen); Red Blood Cells-Urine 0-5 SEEN /hpf (0-5); Squamous Epithelial Cells - UA 0-5 SEEN /hpf (5-10)
[2021-06-20] MEDS: levoFLOXacin IV 750 MG/150 ML BAG 100 MG IV (13:24)
--- NOTE | 2021-06-20 13:46 | PCM.HP.STD ---
HPI - General General Date of Admission: 06/20/21 HPI Narrative UNA BROOKS, is a 56 F who presents To the ED for worsening shortness of breath. Of note she was just admitted for a long hospital course and was discharged on 06/11/2021 for which she was treated for obstructive pneumonia secondary to neoplasm with a history of non-small cell lung cancer. Patient reports worsening respiratory status since discharge roughly a week and a half ago. While in the ED vitals showed tachycardia and hypoxia while patient was on 6 L supplemental O2. Patient was subsequently placed on BiPAP with improvement in oxygenation. Initial labs showed thrombocytopenia with platelet Count of 17. This has worsened since discharge at which point platelet counts were 34. BUN elevated at 64. AST 59 AL T 29 alk phos 149. BNP 165. Patient started on broad-spectrum antibiotics and admitted for acute hypoxic respiratory failure secondary to worsening obstructive pneumonia in setting of non-small cell lung cancer. CODE STATUS: DNAR-CCA, ok with intubation. -discussed at bedside with patient in the ED, patient does wish to be DNAR-CCA, however she is ok with intubation should she require it going forward. 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 Thyroid disease VTE (venous thromboembolism) Home Medications paroxetine HCl 40 mg PO DAILY 04/23/17 [History Last Taken Unknown] atorvastatin 40 mg PO DAILY 05/03/20 [History Last Taken Unknown] levothyroxine 25 mcg PO DAILY 10/31/20 [History Last Taken Unknown] furosemide [Lasix] 40 mg PO DAILY #60 tab 06/11/21 [Rx Last Taken Unknown] metoprolol tartrate 12.5 mg PO BID #120 tab 06/11/21 [Rx Last Taken Unknown] cefdinir 300 mg PO BID 06/20/21 [History Last Taken Unknown] Allergy/AdvReac Type Severity Reaction Status Date / Time No Known Allergies Allergy Verified 06/20/21 10:58 Family History (Updated 06/05/21 @ 16:[address] Judson Bueno DO) Mother Hypertension Surgical History History of lung biopsy Social History Smoking Status: Former smoker ROS Constitutional Constitutional: Denies fever(s), headache(s) or weakness ENT HEENT: Denies abnormal hearing, dizziness, dysphagia or tinnitus Cardiovascular Cardiovascular: Denies chest pain, chest pain with activity, diaphoresis, dizziness, dyspnea, edema, fatigue, flutter in chest, orthopnea, pedal edema or syncope Respiratory/Chest Respiratory/Chest: Denies wheezing Gastrointestinal Gastrointestinal: Denies abdominal pain, diarrhea, heartburn, melena, nausea or vomiting Genitourinary Genitourinary: Denies abdominal discomfort, dysuria or flank pain Musculoskeletal Musculoskeletal: Denies arthralgias, difficulty walking, myalgias, numbness or tingling Neurologic Neurologic: Denies abnormal movements, confusion, dizziness, focal weakness, syncope, tremor(s) or weakness Psychiatric Psychiatric: Denies anxiety, confusion or depression Vital Signs Vital Signs Vital Signs: 06/20/21 10:51 06/20/21 10:56 06/20/21 11:03 Temperature 99.3 F H 99.3 F H Temperature Source Oral Oral Pulse Rate 117 H 118 H Respiratory Rate 24 H 29 H Respiratory Effort Short of Breath Labored Accessory Muscle Use Respiratory Depth Normal Respiratory Pattern Tachypnea Blood Pressure 130/55 H 130/55 H Blood Pressure Mean 80 80 Pulse Ox 89 94 Oxygen Delivery Method Nasal Cannula Nasal Cannula Nasal Cannula Oxygen Flow Rate (L/min) 4 5 5 Fraction of Inspired Oxygen (FIO2) 06/20/21 11:23 06/20/21 11:33 06/20/21 12:17 Temperature 97.7 F L Temperature Source Oral Pulse Rate 115 H 111 H Respiratory Rate 30 H 26 H Respiratory Effort Respiratory Depth Respiratory Pattern Tachypnea Blood Pressure 92/68 Blood Pressure Mean 76 Pulse Ox 95 88 Oxygen Delivery Method Nasal Cannula Nasal Cannula Oxygen Flow Rate (L/min) 5 6 Fraction of Inspired Oxygen (FIO2) 06/20/21 13:10 Temperature 97.7 F L Temperature Source Oral Pulse Rate 114 H Respiratory Rate 16 Respiratory Effort Respiratory Depth Respiratory Pattern Blood Pressure 119/72 Blood Pressure Mean 87 Pulse Ox 98 Oxygen Delivery Method Bi-pap Oxygen Flow Rate (L/min) Fraction of Inspired Oxygen (FIO2) 50 Weight Weight: 84.6 kg Body Mass Index (BMI) 35.2 Physical Exam Const oriented x3 and no apparent distress General Appearance: cooperative, comfortable, well kempt and well developed Orientation / Consciousness: awake, oriented to person, oriented to place and oriented to time Exam Limitations: no limitations Nutritional Appearance: obese HEENT normocephalic, head/scalp atraumatic, hearing grossly normal bilaterally and oropharynx normal Eyes PERRL and EOMs intact bilaterally Neck General: normal visual inspection and trachea midline Lymph Lymphatic: no lymphadenopathy noted Chest inspection of chest normal and palpation of chest normal Resp normal air movement Resp Narrative: diminshed breath sounds BL Auscultation: clear to auscultation bilaterally, crackles and rales Cardio regular rhythm, S1 normal heart sound, S2 normal heart sound, no murmurs, no rub and no gallops Cardio Narrative: sinus tachycardia GI normal to inspection, nondistended, normoactive bowel sounds Extremity normal to inspection, normal capillary refill and no pedal edema Peripheral Pulses: Yes pulses 2+ throughout Skin no rashes or lesions noted General Skin Exam: no breakdown Neuro oriented x3, CN's II-XII intact bilaterally and moves all extremities Psych mental status grossly normal Results Lab / Micro Data Result Diagrams: 06/20/21 11:21 06/20/21 11:21 Labs: Laboratory Results - last 24 hr 06/20/21 11:21: WBC 4.1 L, Corrected WBC Not Reportable, RBC 2.71 L, Hgb 7.8 L, Hct 23.2 L, MCV 85.6, MCH 28.8, MCHC 33.6, RDW Std Deviation 40.6, RDW Coeff of Heladio 13.2, Plt Count 17 L*, MPV 11.3, Neut % (Auto) Not Reportable, Absolute Neuts (auto) 2.6, Absolute Lymphs (auto) 0.98, Total Counted 100, Neutrophils % (Manual) 55, Band Neutrophils % 9 H, Lymphocytes % (Manual) 24, Monocytes % (Manual) 8, Eosinophils % (Manual) 1, Myelocytes % 3 H, Nucleated RBCs/100 WBC 6 H, Diff Path Review May nora, Platelet Estimate MKD DEC, RBC Morphology NORM C+C 06/20/21 11:21: Sodium 138, Potassium 3.2 L, Chloride 95 L, Carbon Dioxide 32.0, Anion Gap 11, BUN 39 H, Creatinine 0.60, Estim Creat Clear Calc 77.12, Est GFR (MDRD) Af Amer 132, Est GFR (MDRD) Non-Af 109, BUN/Creatinine Ratio 64.9 H, Glucose 119 H, Calcium 9.6, Total Bilirubin 0.70, AST 59 H, ALT 29, Alkaline Phosphatase 149 H, Troponin I High Sens 20, Total Protein 6.5, Albumin 2.2 L, Globulin 4.3 H, Albumin/Globulin Ratio 0.5 L 06/20/21 11:21: B-Natriuretic Peptide 165.8 H 06/20/21 12:55: Urine Color Yellow, Urine Clarity Clear, Urine pH 5.0, Ur Specific [place] 1.025, Urine Protein 15 H, Urine Glucose (UA) Normal, Urine Ketones 5 H, Urine Occult Blood 10 H, Urine Nitrite Negative, Urine Bilirubin Negative, Urine Urobilinogen Normal, Ur Leukocyte Esterase Negative, Urine RBC 0-5 SEEN, Urine WBC 0 SEEN, Ur Squamous Epith Cells 0-5 SEEN, Urine Bacteria RARE, Urine Mucus 0 SEEN Micro: Microbiology 06/20/21 11:15 Nasal Secretion SARS-CoV-2 Antigen (Rapid) - Final Radiology Impression Chest X-Ray 06/20/21 11:08 IMPRESSION: Worsening bilateral pneumonia, pulmonary edema, or ARDS. Electronically Signed: Og Connell MD at 11:44 EDT Tel , Service support , Assessment & Plan Assessment/Plan (1) Lytic bone lesions on xray: (2) Non-small cell lung cancer (NSCLC): QUALIFIERS: Laterality: right Qualified Code(s): C34.91 - Malignant neoplasm of unspecified part of right bronchus or lung (3) Radiation-induced pulmonary fibrosis: (4) History of lung cancer: (5) Pneumonia: QUALIFIERS: Laterality: bilateral Lung location: lower lobe of lung Pneumonia type: due to Pneumococcus Qualified Code(s): J13 - Pneumonia due to Streptococcus pneumoniae (6) Hypoxia: (7) Acute respiratory failure with hypoxia: PLAN: #Acute respiratory failure with hypoxia #obstructive PNA #History of non-small cell lung CA -POA -vanc, zosyn, azithromycin broad coverage given recent hospitalization, de-escalate as indicated with improvement in patient's status -BiPAP continued -Duonebs -can consider initiation of steroids should she not show interval improvement -pulm/cc on consult #Thrombocytopenia -platelets of 17 on current admission -transfuse 1 unit platelets now -Heme/onc placed on consult #Hypothyroidism - Patient is on levothyroxine home dose continued #HFpEF -resumed on home lasix -bnp of 165 -current respiratory failure likely not due to heart failure or volume overload #History of VTE ?historically on eliquis ?patient Eliquis held in view of her significant thrombocytopenia #Dyslipidemia -Patient is on statin therapy, continued at home dose #Depression ?Patient is on Paxil #Sinus tachycardia ?Possibly related to patient underlying lung condition currently being monitored continuously on telemetry. Underwent CTA of the chest on 06/05/2021 which was negative for PE Charges/Coding Visit Charges Inpatient E&M: 62999 Init Hosp L3
--- NOTE | 2021-06-20 15:36 | CON.PCM.CC_ITS ---
Assessment & Plan Assessment/Plan (1) Acute respiratory failure with hypoxia: (2) Radiation-induced pulmonary fibrosis: (3) Pneumonia: QUALIFIERS: Laterality: bilateral Lung location: lower lobe of lung Pneumonia type: due to Pneumococcus Qualified Code(s): J13 - Pneumonia due to Streptococcus pneumoniae (4) Non-small cell lung cancer (NSCLC): QUALIFIERS: Laterality: right Qualified Code(s): C34.91 - Malignant neoplasm of unspecified part of right bronchus or lung PLAN: RECOMMENDATIONS: 1. Initiate conservative measures such as continue vest therapy and mucolytic. Avoid cough suppressants. 2. Continue attempts at diuresis as tolerated by hemodynamics and renal function. 3. If intubated, likely proceed with bronchoscopy 4. BiPAP breaks as tolerated during the day, continue BiPAP with sleep 5. Increase activity as tolerated. 6. Obtain panculture. Agree with empiric antibiotics. Add Solu-Medrol IMPRESSIONS: 1. Acute hypoxic respiratory failure secondary to suspected postobstructive pneumonia Patient with readmission less than 1 month after initial presentation. Clinical suspicion for similar type of etiology including postobstructive pneumonia. Patient had responded to conservative measures previously. Will attempt using BiPAP, vest and mucolytic therapy. Patient will also be placed on empiric antibiotics following a reyes culture. We will also add Solu-Medrol. If patient were to be intubated, likely proceed with bronchoscopy for airway clearance and potential biopsy. Wean oxygen as tolerated. Monitor in the intensive care unit overnight. 2. History of radiation pneumonitis/history of nephrotic syndrome/obesity/hypercholesterolemia/hypothyroidism Complicates care, management, recovery and prognosis. Okay to continue with baseline medications from my perspective. Continue to monitor renal function. HPI Consult Data Date of Consult: 06/20/21 HPI Narrative HPI Narrative: UNA BROOKS is a 56 F, with past medical history listed below and well-known to me from a previous hospitalization, who presented to [facility] with worsening shortness of breath over the last 2 weeks. Patient reportedly had been sent home from the hospital on antibiotics for p neumonia. Patient has a history of a non-small cell lung cancer in the past, but had recurrence earlier this month noted on CT scan of the chest. Patient was being treated for a postobstructive pneumonia with plans to complete a bronchoscopy as an outpatient when she was more stable. Patient reportedly had difficulty lying flat and thought oxygen was helpful. Patient did have a cough, but reported little sputum production. Patient did not have any fevers, chills or chest pain. In the ER, patient was noted to have a temperature of 99.3 ?F, tachycardic at 118 bpm and tachypneic at 29 breaths/min. Patient did require 5 L nasal cannula to maintain saturations. Laboratory work-up was significant for a white blood cell count of 4.1, platelets of 17, potassium of 3.2 and an elevated BNP at 165. Patient's UA was relatively unremarkable for infection. Chest x-ray showed worsening bilateral pneumonia. The patient was initiated on Levaquin, Zosyn and placed on BiPAP therapy. Patient was admitted to the intensive care unit for further evaluation. Patient was evaluated in the intensive care unit shortly after arrival. Patient states she felt much improved following initiation of BiPAP therapy. Patient denied any chest pain, but states that she did not feel right since I left the hospital. Patient did admit that she was not using her Acapella frequently. Patient has not been able to be evaluated by bronchoscopy in the interim. No other history had changed since my last evaluation of the patient. Review of systems otherwise negative from a constitutional, HEENT, respiratory, cardiovascular, GI, genitourinary, musculoskeletal, skin, neurologic, psychiatric and hematologic system unless stated above. 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 Thyroid disease VTE (venous thromboembolism) Home Medications paroxetine HCl 40 mg PO DAILY 04/23/17 [History Last Taken Unknown] atorvastatin 40 mg PO DAILY 05/03/20 [History Last Taken Unknown] levothyroxine 25 mcg PO DAILY 10/31/20 [History Last Taken Unknown] furosemide [Lasix] 40 mg PO DAILY #60 tab 06/11/21 [Rx Last Taken Unknown] metoprolol tartrate 12.5 mg PO BID #120 tab 06/11/21 [Rx Last Taken Unknown] cefdinir 300 mg PO BID 06/20/21 [History Last Taken Unknown] Allergy/AdvReac Type Severity Reaction Status Date / Time No Known Allergies Allergy Verified 06/20/21 10:58 Family History Mother Hypertension Surgical History History of lung biopsy Social History Smoking Status: Former smoker ROS ROS Narrative See HPI Physical Exam Const alert and oriented x3 General Appearance: cooperative Nutritional Appearance: obese HEENT normocephalic and head/scalp atraumatic Eyes PERRL, EOMs intact bilaterally and conjunctivae normal Neck no lymphadenopathy and no JVD Chest inspection of chest normal Chest: symmetrical chest wall rise; Negative for crepitus Resp Resp Narrative: Significantly diminished on the left Auscultation: rhonchi throughout (Left greater than right) and diminished lung sounds; Negative for rales or wheezes Cardio S1 normal heart sound and S2 normal heart sound Rate: tachycardic GI normal to inspection, nondistended, normoactive bowel sounds, soft to palpation, non-tender and non-distended Extremity no clubbing, cyanosis or edema Skin Skin Narrative: Large ecchymotic area on left arm General Skin Exam: ecchymosis Neuro no focal motor deficits Sensorium / Orientation: awake and alert Psych cooperative and affect normal Lab / Micro Data Result Diagrams: 06/20/21 11:21 06/20/21 11:21 Labs: Laboratory Results - last 24 hr 06/20/21 11:21: WBC 4.1 L, Corrected WBC Not Reportable, RBC 2.71 L, Hgb 7.8 L, Hct 23.2 L, MCV 85.6, MCH 28.8, MCHC 33.6, RDW Std Deviation 40.6, RDW Coeff of Heladio 13.2, Plt Count 17 L*, MPV 11.3, Neut % (Auto) Not Reportable, Absolute Neuts (auto) 2.6, Absolute Lymphs (auto) 0.98, Total Counted 100, Neutrophils % (Manual) 55, Band Neutrophils % 9 H, Lymphocytes % (Manual) 24, Monocytes % (Manual) 8, Eosinophils % (Manual) 1, Myelocytes % 3 H, Nucleated RBCs/100 WBC 6 H, Diff Path Review May foll, Platelet Estimate MKD DEC, RBC Morphology NORM C+C 06/20/21 11:21: Sodium 138, Potassium 3.2 L, Chloride 95 L, Carbon Dioxide 32.0, Anion Gap 11, BUN 39 H, Creatinine 0.60, Estim Creat Clear Calc 77.12, Est GFR (MDRD) Af Amer 132, Est GFR (MDRD) Non-Af 109, BUN/Creatinine Ratio 64.9 H, Glucose 119 H, Calcium 9.6, Total Bilirubin 0.70, AST 59 H, ALT 29, Alkaline Phosphatase 149 H, Troponin I High Sens 20, Total Protein 6.5, Albumin 2.2 L, Globulin 4.3 H, Albumin/Globulin Ratio 0.5 L 06/20/21 11:21: B-Natriuretic Peptide 165.8 H 06/20/21 12:55: Urine Color Yellow, Urine Clarity Clear, Urine pH 5.0, Ur Specific [place] 1.025, Urine Protein 15 H, Urine Glucose (UA) Normal, Urine Ketones 5 H, Urine Occult Blood 10 H, Urine Nitrite Negative, Urine Bilirubin Negative, Urine Urobilinogen Normal, Ur Leukocyte Esterase Negative, Urine RBC 0-5 SEEN, Urine WBC 0 SEEN, Ur Squamous Epith Cells 0-5 SEEN, Urine Bacteria RARE, Urine Mucus 0 SEEN Micro: Microbiology 06/20/21 11:15 Nasal Secretion SARS-CoV-2 Antigen (Rapid) - Final Radiology Impression Chest X-Ray 06/20/21 11:08 IMPRESSION: Worsening bilateral pneumonia, pulmonary edema, or ARDS. Electronically Signed: Og Connell MD at 11:44 EDT Tel , Service support , Charges/Coding Visit Charges Inpatient E&M: 05674 Init Hosp L3
[2021-06-20 16:31] LABS: RET-HE 33.1 pg (30-35); Reticulocyte Count 1.37 % (0.5-1.5)
[2021-06-20 16:36] LABS: Platelet Count 11 K/mm3 (150-450)
[2021-06-20] MEDS: guaiFENesin 1,200 MG Tablet 1200 MG PO ×2 (16:36→21:27)
[2021-06-20 17:01] LABS: Ferritin 3745 ng/mL (8-252); Iron 227 ug/dL (50-170); Iron Binding Capacity,Total 278 ug/dL (250-450); LDH 1032 U/L (84-246); PERCENT IRON SATURATION 81.7 % (15.0-55.0)
[2021-06-20 17:07] LABS: Vitamin B12 628 pg/mL (211-911)
--- NOTE | 2021-06-20 17:07 | CON.PCM.ON_ITS ---
Assessment & Plan Assessment/Plan (1) Pancytopenia: Status: Acute Code(s): D61.818 - Other pancytopenia Plan: Pancytopenia is acute developed in the month of May 2021 in the context of acute respiratory illness with pneumonia and very likely represent multiple factors includin. Bone marrow suppression from an acute infection probably viral/atypical pneumonia (note leukopenia, lymphopenia with preserved neutrophil count). 2. Severe thrombocytopenia may be an adverse drug reaction, suspect cephalosporin and macrolide antibiotics (onset was during the earlier admission in May 2021 while on these antimicrobials). Advise adjusting antimicrobial use to avoid these 2 groups and if possible penicillins due to potential cross- reactivity with cephalosporins. Defer to primary service for decision regarding antimicrobials. 3. Her anemia is acute worsening during the current admission, evaluation shows no evidence to suggest hemolysis so far, haptoglobin is pending. Her iron profile is consistent with acute phase reaction but does not suggest concomitant iron deficiency. Chronic blood loss is unlikely, and acute blood loss is not evident from history but need to be watched for. 4. It is conceivable from the recent findings of bone lesions on CTA that she may have bone and bone marrow metastases that may contribute to her pancytopenia but the acuteness of onset of pancytopenia and the rapid progression favors a more acute cause as the main etiology. 5. Treatment of her acute pancytopenia therefore would be directed to her acute pneumonia primarily. Support with packed red blood cell transfusion to maintain hemoglobin at or above 8 g per DL and lieu of her acute and chronic lung disease. Advise reserving prophylactic platelet transfusions (in absence of bleeding other than cutaneous bruising and/or minor gum or nose bleed) for platelet count less than 10,000 to avoid rapid development of alloimmunization. She would need platelet transfusions prior to an invasive procedure. No specific recommendations for leukopenia with preserved neutrophil count. 6. Follow CBC with differential daily in the upcoming few days. Impression and plan was discussed with . (2) Lytic bone lesions on xray: Status: Acute Code(s): M89.9 - Disorder of bone, unspecified Plan: Further work-up with bone scan or preferably PET scan can be deferred until stabilization, enough recovery from pneumonia and can be scheduled as outpatient with Dr. Mata. (3) Acute respiratory failure with hypoxia: Status: Acute Code(s): J96.01 - Acute respiratory failure with hypoxia (4) Pneumonia: Status: Acute Code(s): J18.9 - Pneumonia, unspecified organism Qualifiers: Laterality: bilateral Lung location: lower lobe of lung Pneumonia ty pe: due to Pneumococcus Qualified Code(s): J13 - Pneumonia due to Streptococcus pneumoniae Plan: Defer to primary service (5) Non-small cell lung cancer (NSCLC): Status: Chronic Code(s): C34.90 - Malignant neoplasm of unspecified part of unspecified bronchus or lung Qualifiers: Laterality: right Qualified Code(s): C34.91 - Malignant neoplasm of unspecified part of right bronchus or lung Plan: Reassessment with outpatient PET/CT after discharge and sufficient recovery from pneumonia. HPI Consult Data Date of Service:: 06/21/21 PCP / Referring Provider: Dr. Cesar Arevalo MD Attending: Dr. Alcides Stovall DO Chief Complaint Chief Complaint: Dyspnea History of Present Illness History of Present Illness: 56-year-old female smoker readmitted with increasing dyspnea, and worsening bilateral pneumonia following recent hospitalization June 05-2020 with a bilateral pneumonia and noted to have a worsening pancytopenia. 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 Treatment dates were July 2016 through October 2016. Following treatment she was in complete remission and went on surveillance. Her last outpatient follow-up was in November [address] Mata. She has a stable right adrenal nodule was noted on serial CT felt to be an adenoma. In her last admission of June 05-2020 she was incidentally noted on the CTA to have bony abnormalities involving both scapulae suspicious for bony metastatic disease. Recommendation was made for outpatient further work-up with PET/CT/bone scan to further evaluate after recovery from pneumonia. She has not had the studies yet. 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 Thyroid disease VTE (venous thromboembolism) Home Medications paroxetine HCl 40 mg PO DAILY 04/23/17 [History Last Taken Unknown] atorvastatin 40 mg PO DAILY 05/03/20 [History Last Taken Unknown] levothyroxine 25 mcg PO DAILY 10/31/20 [History Last Taken Unknown] furosemide [Lasix] 40 mg PO DAILY #60 tab 06/11/21 [Rx Last Taken Unknown] metoprolol tartrate 12.5 mg PO BID #120 tab 06/11/21 [Rx Last Taken Unknown] cefdinir 300 mg PO BID 06/20/21 [History Last Taken Unknown] Allergy/AdvReac Type Severity Reaction Status Date / Time No Known Allergies Allergy Verified 06/20/21 10:58 Family History Mother Hypertension Surgical History History of lung biopsy Social History Smoking Status: Former smoker ROS Constitutional Constitutional: Reports fatigue and poor appetite; Denies fever(s), night sweats, weight gain or weight loss ENT HEENT: Denies dysphagia or sore throat Cardiovascular Cardiovascular: Reports dyspnea, dyspnea at rest and dyspnea on exertion; Denies chest pain, edema or palpitations Respiratory/Chest Respiratory/Chest: Reports cough, dyspnea, dyspnea on exertion and wheezing; Denies chest tightness, hemoptysis or pain on inspiration Gastrointestinal Gastrointestinal: Reports anorexia; Denies abdominal pain, change in bowel habits, hematochezia, melena, nausea or vomiting Genitourinary Genitourinary: Denies dysuria or hematuria Musculoskeletal Musculoskeletal: Reports other Details: No bony pains ; Denies back pain or joint pain Integumentary Integumentary: Reports unusual bruising; Denies rash Neurologic Neurologic: Denies abnormal speech, focal weakness or numbness Psychiatric Psychiatric: Denies anxiety Endocrine Endocrinology: Denies flushing Hematologic/Lymphatic Hematologic/Lymphatic: Reports easy bruising; Denies easy bleeding or lymphadenopathy Physical Exam Narrative ECOG 2-3 Const alert and oriented x3 General Appearance: cooperative and appears older than stated age HEENT normocephalic Eyes conjunctivae normal and no scleral icterus Neck no lymphadenopathy and no JVD General: Negative for JVD Lymph Lymphatic: no lymphadenopathy noted Resp Effort and Inspection: tachypneic Auscultation: rales and diminished lung sounds bilateral and diffuse Cardio regular rate, regular rhythm and no JVD GI soft to palpation, non-tender and no masses Palpation: Negative for hepatomegaly or splenomegaly Bladder / Kidney Exam: no CVA tenderness Extremity no clubbing, cyanosis or edema Extremity Narrative: Indurated nonpitting bilateral lower extremities edema Skin General Skin Exam: ecchymosis Neuro CN's II-XII intact bilaterally, moves all extremities and no focal motor deficits Motor Exam: general weakness Psych mental status grossly normal Vital Signs Temperature 97.2 F L 06/20/21 15:00 Temperature Source Temporal 06/20/21 15:00 Pulse Rate 122 H 06/20/21 16:30 Respiratory Rate 24 H 06/20/21 16:30 Respiratory Effort 06/20/21 16:00 Respiratory Depth Normal 06/20/21 16:00 Respiratory Pattern Tachypnea 06/20/21 16:30 Blood Pressure 115/62 06/20/21 16:00 Blood Pressure Mean 79 06/20/21 16:00 Blood Pressure Source Monitor 06/20/21 16:00 Blood Pressure Position Semi-Fowlers 06/20/21 16:00 Blood Pressure Location Left Arm 06/20/21 16:00 Pulse Ox 93 06/20/21 16:30 Oxygen Delivery Method Bi-pap 06/20/21 16:00 Oxygen Flow Rate (L/min) 6 06/20/21 12:17 Fraction of Inspired Oxygen (FIO2) 45 06/20/21 16:30 Laboratory Results - last 24 hr 06/20/21 11:21: WBC 4.1 L, Corrected WBC Not Reportable, RBC 2.71 L, Hgb 7.8 L, Hct 23.2 L, MCV 85.6, MCH 28.8, MCHC 33.6, RDW Std Deviation 40.6, RDW Coeff of Heladio 13.2, Plt Count 17 L*, MPV 11.3, Neut % (Auto) Not Reportable, Absolute Neuts (auto) 2.6, Absolute Lymphs (auto) 0.98, Total Counted 100, Neutrophils % (Manual) 55, Band Neutrophils % 9 H, Lymphocytes % (Manual) 24, Monocytes % (Manual) 8, Eosinophils % (Manual) 1, Myelocytes % 3 H, Nucleated RBCs/100 WBC 6 H, Diff Path Review December foll, Platelet Estimate MKD DEC, RBC Morphology NORM C+C 06/20/21 11:21: Sodium 138, Potassium 3.2 L, Chloride 95 L, Carbon Dioxide 32.0, Anion Gap 11, BUN 39 H, Creatinine 0.60, Estim Creat Clear Calc 77.12, Est GFR (MDRD) Af Amer 132, Est GFR (MDRD) Non-Af 109, BUN/Creatinine Ratio 64.9 H, Glucose 119 H, Calcium 9.6, Total Bilirubin 0.70, AST 59 H, ALT 29, Alkaline Phosphatase 149 H, Troponin I High Sens 20, Total Protein 6.5, Albumin 2.2 L, Globulin 4.3 H, Albumin/Globulin Ratio 0.5 L 06/20/21 11:21: B-Natriuretic Peptide 165.8 H 06/20/21 11:21: Iron 227 H, TIBC 278, Iron Saturation 81.7 H, Ferritin 3745 H, Lactate Dehydrogenase 1032 H 06/20/21 12:55: Urine Color Yellow, Urine Clarity Clear, Urine pH 5.0, Ur Specific [place] 1.025, Urine Protein 15 H, Urine Glucose (UA) Normal, Urine Ketones 5 H, Urine Occult Blood 10 H, Urine Nitrite Negative, Urine Bilirubin Negative, Urine Urobilinogen Normal, Ur Leukocyte Esterase Negative, Urine RBC 0-5 SEEN, Urine WBC 0 SEEN, Ur Squamous Epith Cells 0-5 SEEN, Urine Bacteria RARE, Urine Mucus 0 SEEN 06/20/21 15:45: Blood Type A POSITIVE, Antibody Screen NEGATIVE 06/20/21 15:57: Direct Antiglob Test NEG w/POLYSPECIFIC 06/20/21 16:15: Retic Count 1.37, Immature Retic Fraction 17.80 H, Retic Hgb Equivalent 33.1 Laboratory Tests 03/18/21 05/24/21 06/05/21 09:23 11:28 10:23 WBC 10.6 9.0 Hgb 13.2 11.2 L Plt Count 239 128 L 61 L Absolute Neuts (auto) 8.2 H 6.2 Absolute Lymphs (auto) 1.69 1.62 Iron TIBC Iron Saturation Ferritin Total Bilirubin Lactate Dehydrogenase Vitamin B12 Direct Antiglob Test 06/06/21 06/07/21 06/08/21 06:55 06:00 06:41 WBC 8.9 8.5 10.2 Hgb 10.2 L 10.2 L 9.8 L Plt Count 54 L 52 L 50 L* Absolute Neuts (auto) 7.0 6.7 7.2 Absolute Lymphs (auto) 1.60 1.36 2.55 Iron TIBC Iron Saturation Ferritin Total Bilirubin Lactate Dehydrogenase Vitamin B12 Direct Antiglob Test 06/10/21 06/11/21 06/20/21 11:56 04:56 11:21 WBC 12.0 H 10.9 4.1 L Hgb 10.7 L 10.6 L 7.8 L Plt Count 42 L* 34 L* 17 L* Absolute Neuts (auto) 9.0 H 7.1 2.6 Absolute Lymphs (auto) 2.28 2.84 0.98 Iron TIBC Iron Saturation Ferritin Total Bilirubin Lactate Dehydrogenase Vitamin B12 Direct Antiglob Test 06/20/21 06/20/21 06/20/21 11:21 11:21 15:57 WBC Hgb Plt Count Absolute Neuts (auto) Absolute Lymphs (auto) Iron 227 H TIBC 278 Iron Saturation 81.7 H Ferritin 3745 H Total Bilirubin 0.70 Lactate Dehydrogenase 1032 H Vitamin B12 Direct Antiglob Test NEG w/POLYSPECIFIC 06/20/21 06/21/21 06/21/21 16:15 04:05 04:05 WBC 3.8 L Hgb 6.6 L Plt Count 62 L Absolute Neuts (auto) 2.8 Absolute Lymphs (auto) 0.73 L Iron TIBC Iron Saturation Ferritin Total Bilirubin 0.60 Lactate Dehydrogenase Vitamin B12 628 Direct Antiglob Test I personally reviewed patient's peripheral blood smear, the myeloid elements show a left shift with infrequent myelocytes and metamyelocytes but no blasts. The erythroid elements are predominantly normocytic normochromic no schistocytes or nucleated red blood cells. The platelets are markedly decreased in number. Microbiology 06/20/21 11:15 Nasal Secretion SARS-CoV-2 Antigen (Rapid) - Final Diagnostic Data Chest X-Ray 06/20/21 11:08 IMPRESSION: Worsening bilateral pneumonia, pulmonary edema, or ARDS. Electronically Signed: Og Connell MD at 11:44 EDT Tel , Service support ,
[2021-06-20] MEDS: Potassium Chloride Oral Tablet 20 MEQ 40 MEQ PO (19:55)
--- NOTE | 2021-06-20 20:50 | PCM.RX.CS ---
Consult Pharmacy has been consulted to manage selected antiobiotic: Vancomycin Type of Consult: New start Suspected Infection: Pneumonia Labs: Sodium 138 mmol/L (136-145) 06/20/21 11:21 Potassium 3.2 mmol/L (3.5-5.1) L 06/20/21 11:21 Chloride 95 mmol/L (98-107) L 06/20/21 11:21 Carbon Dioxide 32.0 mmol/L (21.0-32.0) 06/20/21 11:21 Anion Gap 11 (5-15) 06/20/21 11:21 BUN 39 mg/dL (7-18) H 06/20/21 11:21 Creatinine 0.60 mg/dL (0.55-1.02) 06/20/21 11:21 Est GFR (MDRD) Af Amer 132 mL/min (>60) 06/20/21 11:21 Est GFR (MDRD) Non-Af 109 mL/min (>60) 06/20/21 11:21 BUN/Creatinine Ratio 64.9 RATIO (10-20) H 06/20/21 11:21 Glucose 119 mg/dL (74-106) H 06/20/21 11:21 Microbiology: Microbiology 06/20/21 11:15 Nasal Secretion SARS-CoV-2 Antigen (Rapid) - Final Goal Trough: 15-20 mcg/mL Pharmacy Plan for Drug Dosing: NEW START IV VANCOMYCIN Consulting Physician: Wilman Indication: Pneumonia Goal Trough: 15-20 SrCr: 0.60 CrCl: 77 mls/min Comments: pt received a 1250mg x1 dose on 06/20/21 at 1724 Vancomcyin Dose: based on pts weight and renal function, recommend an intial dose of 1250mg q12h starting 06/21/21 at 0500. trough before the 4th total dose Pending Level: 06/22/21 at 0430 Pharmacy Service will continue to monitor and adjust dosing as required. Follow-Up Labs: Trough Vancomycin - 06/22/21 at 0430
[2021-06-20] MEDS: Metoprolol Tartrate 25 MG Tablet 12.5 MG PO (21:27)
[2021-06-20] MEDS: Atorvastatin Calcium 40 MG Tablet PO (21:27)
[2021-06-20] MEDS: Furosemide 40 MG/4 ML Vial IV (22:10)
[2021-06-20] MEDS: 0.9% Saline Lock 10 ML Syringe IV (22:10)
[2021-06-21] VITALS (37 sets, daily range): BP systolic 102–150; BP diastolic 56–98; PULSE 89–114; RESP 12–90; TEMP 36–37.2; O2SAT 91–97
[2021-06-21 04:15] LABS: Hematocrit 19.7 % (37-47); Hemoglobin 6.6 g/dL (12.0-15.0); Mean Corp Hgb Conc 33.5 g/dL (32-36); Mean Corpuscular Hgb 28.4 pg (27.0-32.0); Mean Corpuscular Volume 84.9 fL (81-99); Mean Platelet Vol. 8.8 fl (6.2-12.0); POSITIVE COUNT YES; POSITIVE MORPHOLOGY YES; Platelet Count 62 K/mm3 (150-450); RBC Distribution Width CV 13.2 % (11.6-14.6); RBC Distribution Width SD 40.3 fl (35.1-43.9); Red Blood Count 2.32 M/mm3 (4.2-5.4); White Blood Count 3.8 K/mm3 (4.4-11.0)
[2021-06-21 04:23] LABS: Differential Indicated MANUAL DIFF
[2021-06-21 04:34] LABS: ALB/GLOB Ratio 0.5 RATIO (0.9-2.4); AST(SGOT) 46 U/L (15-37); Alanine Aminotransfer ALT/SGPT 23 U/L (13-56); Alkaline Phosphatase 128 U/L (45-117); Anion Gap 8 (5-15); BUN 39 mg/dL (7-18); BUN/Creat Ratio 54.8 RATIO (10-20); Chloride 96 mmol/L (98-107); Creatinine, Serum 0.71 mg/dL (0.55-1.02); EST Glomerular Filtration Rate 90 mL/min (>60); Est Glom Filt Rate - Afr Amer 108 mL/min (>60); Estimated Creatinine Clearance 65.17 ml/min; Globulin 3.9 g/dL (2.2-4.2); Glucose 157 mg/dL (74-106); Magnesium 1.8 mg/dL (1.6-2.6); Potassium 2.8 mmol/L (3.5-5.1); Protein, Total 5.9 g/dL (6.4-8.2); Sodium Level 137 mmol/L (136-145); Total Cells Counted 100 (MANUAL DIFF)
[2021-06-21 04:38] LABS: Atypical Lymphocyte 1+ %; Lymphocyte 19 % (19-41); Metamyelocyte 3 % (0-1); Monocyte 3 % (0-10); Myelocyte 2 % (0-0); Neutrophil-Band 9 % (0-5); Neutrophil-Segmented 64 % (47-70)
[2021-06-21 04:39] LABS: Platelet Estimate MKD DEC (ADEQ)
[2021-06-21 04:41] LABS: Absolute Neutrophil Count 2.8 X10^3/uL (2.0-7.7); Hypochromasia 1+; Neutrophil # 2.79 X10^3/uL (2.7-7.7)
[2021-06-21 04:42] LABS: Absolute Lymphocyte Count 0.73 X10^3/uL (0.83-4.51); Lymphocyte # 0.73 X10^3/ul (0.83-4.51)
[2021-06-21] MEDS: Levothyroxine 25 MCG TABLET PO (06:18)
[2021-06-21] MEDS: Potassium Chloride 10mEq/100mL 10 MEQ/100 ML IV.SOLN. 100 MEQ IV BOLUS ×4 (06:18→12:58)
[2021-06-21] MEDS: Piperacil/Tazobactam 3.375 GM Q8 PREMIX IV ×3 (06:18→20:58)
--- NOTE | 2021-06-21 07:49 | PN.CC_ITS ---
Assessment & Plan Assessment/Plan (1) Acute respiratory failure with hypoxia: (2) Radiation-induced pulmonary fibrosis: (3) Pneumonia: QUALIFIERS: Pneumonia type: due to Pneumococcus Laterality: bilateral Lung location: lower lobe of lung Qualified Code(s): J13 - Pneumonia due to Streptococcus pneumoniae (4) Non-small cell lung cancer (NSCLC): QUALIFIERS: Laterality: right Qualified Code(s): C34.91 - Malignant neoplasm of unspecified part of right bronchus or lung PLAN: RECOMMENDATIONS: 1. Initiate conservative measures such as continue vest therapy and mucolytic. Avoid cough suppressants. 2. Continue attempts at diuresis as tolerated by hemodynamics and renal function. 3. If intubated, likely proceed with bronchoscopy for definitive diagnosis given recurrent hospitalizations 4. BiPAP breaks as tolerated during the day, continue BiPAP with sleep 5. Increase activity as tolerated. 6. Await panculture. Agree with empiric antibiotics. Continue Solu-Medrol 7. Transfuse packed red blood cells IMPRESSIONS: 1. Acute hypoxic respiratory failure secondary to suspected postobstructive pneumonia Patient with readmission less than 1 month after initial presentation. Clinical suspicion for similar type of etiology including postobstructive pneumonia. Patient had responded to conservative measures previously. Will attempt using BiPAP, vest and mucolytic therapy. Patient will also be placed on empiric antibiotics awaiting a reyes culture. We will also continue Solu-Medrol. If patient were to be intubated, likely proceed with bronchoscopy for airway clearance and potential biopsy. Wean oxygen as tolerated. Continue to monitor in the intensive care unit overnight. 2. History of radiation pneumonitis/history of nephrotic syndrome/obesity/hypercholesterolemia/hypothyroidism Complicates care, management, recovery and prognosis. Okay to continue with baseline medications from my perspective. Continue to monitor renal function. Subjective Subjective Patient did okay overnight. Patient was actually on Airvo for much of the time, however patient struggled following a bowel movement this morning and has been on BiPAP ever since. Patient has had a moist cough, but very little production is been reported. Objective Data Objective Data Vital Signs: Vital Signs Temp Pulse Resp BP Pulse Ox 37.1 C 100 24 H 121/80 H 93 06/21/21 04:00 06/21/21 07:00 06/21/21 07:00 06/21/21 07:00 06/21/21 07:00 Oxygen Flow Rate (L/min) 40 Oxygen Delivery Method Bi-pap Weight: 84.1 kg Body Mass Index (BMI) 35.1 Intake & Output: Intake and Output for Last 24 Hours 06/19/21 06/20/21 06/21/21 23:59 23:59 23:59 Intake Total 1180 / 1180 425 / 425 Output Total 550 / 550 400 / 400 Balance 630 / 630 25 / 25 Lab / Micro Data Result Diagrams: 06/21/21 04:05 06/21/21 04:05 Labs: Laboratory Results - last 24 hr 06/20/21 11:21: WBC 4.1 L, Corrected WBC Not Reportable, RBC 2.71 L, Hgb 7.8 L, Hct 23.2 L, MCV 85.6, MCH 28.8, MCHC 33.6, RDW Std Deviation 40.6, RDW Coeff of Heladio 13.2, Plt Count 17 L*, MPV 11.3, Neut % (Auto) Not Reportable, Absolute Neuts (auto) 2.6, Absolute Lymphs (auto) 0.98, Total Counted 100, Neutrophils % (Manual) 55, Band Neutrophils % 9 H, Lymphocytes % (Manual) 24, Monocytes % (M anual) 8, Eosinophils % (Manual) 1, Myelocytes % 3 H, Nucleated RBCs/100 WBC 6 H , Diff Path Review December, Platelet Estimate MKD DEC, RBC Morphology NORM C+C 06/20/21 11:21: Sodium 138, Potassium 3.2 L, Chloride 95 L, Carbon Dioxide 32.0, Anion Gap 11, BUN 39 H, Creatinine 0.60, Estim Creat Clear Calc 77.12, Est GFR (MDRD) Af Amer 132, Est GFR (MDRD) Non-Af 109, BUN/Creatinine Ratio 64.9 H, Glucose 119 H, Calcium 9.6, Total Bilirubin 0.70, AST 59 H, ALT 29, Alkaline Phosphatase 149 H, Troponin I High Sens 20, Total Protein 6.5, Albumin 2.2 L, Globulin 4.3 H, Albumin/Globulin Ratio 0.5 L 06/20/21 11:21: B-Natriuretic Peptide 165.8 H 06/20/21 11:21: Iron 227 H, TIBC 278, Iron Saturation 81.7 H, Ferritin 3745 H, Lactate Dehydrogenase 1032 H 06/20/21 12:55: Urine Color Yellow, Urine Clarity Clear, Urine pH 5.0, Ur Specific [place] 1.025, Urine Protein 15 H, Urine Glucose (UA) Normal, Urine Ketones 5 H, Urine Occult Blood 10 H, Urine Nitrite Negative, Urine Bilirubin Negative, Urine Urobilinogen Normal, Ur Leukocyte Esterase Negative, Urine RBC 0-5 SEEN, Urine WBC 0 SEEN, Ur Squamous Epith Cells 0-5 SEEN, Urine Bacteria RARE, Urine Mucus 0 SEEN 06/20/21 15:45: Blood Type A POSITIVE, Antibody Screen NEGATIVE 06/20/21 15:45: Crossmatch See Detail 06/20/21 15:57: Direct Antiglob Test NEG w/POLYSPECIFIC 06/20/21 16:15: Retic Count 1.37, Immature Retic Fraction 17.80 H, Retic Hgb Equivalent 33.1 06/20/21 16:15: Vitamin B12 628 06/21/21 04:05: WBC 3.8 L, RBC 2.32 L, Hgb 6.6 L, Hct 19.7 L, MCV 84.9, MCH 28.4, MCHC 33.5, RDW Std Deviation 40.3, RDW Coeff of Heladio 13.2, Plt Count 62 L, MPV 8.8, Neut % (Auto) Not Reportable, Absolute Neuts (auto) 2.8, Absolute Lymphs (auto) 0.73 L, Total Counted 100, Neutrophils % (Manual) 64, Band Neutrophils % 9 H, Lymphocytes % (Manual) 19, Monocytes % (Manual) 3, Metamyelocytes % 3 H, Myelocytes % 2 H, Diff Path Review May foll, Atypical Lymphocytes 1+, Platelet Estimate MKD DEC, Hypochromasia 1+ 06/21/21 04:05: Sodium 137, Potassium 2.8 L, Chloride 96 L, Carbon Dioxide 33.0 H, Anion Gap 8, BUN 39 H, Creatinine 0.71, Estim Creat Clear Calc 65.17, Est GFR (MDRD) Af Amer 108, Est GFR (MDRD) Non-Af 90, BUN/Creatinine Ratio 54.8 H, Glucose 157 H, Calcium 9.0, Magnesium 1.8, Total Bilirubin 0.60, AST 46 H, ALT 23, Alkaline Phosphatase 128 H, Total Protein 5.9 L, Albumin 2.0 L, Globulin 3.9, Albumin/Globulin Ratio 0.5 L Micro: Microbiology 06/20/21 11:15 Nasal Secretion SARS-CoV-2 Antigen (Rapid) - Final Radiography Diagnostic Testing: Radiology Impression Chest X-Ray 06/20/21 11:08 IMPRESSION: Worsening bilateral pneumonia, pulmonary edema, or ARDS. Electronically Signed: Og Connell MD at 11:44 EDT Tel , Service support , Physical Exam Const alert and oriented x3 General Appearance: cooperative and on BiPAP Nutritional Appearance: obese HEENT normocephalic and head/scalp atraumatic Eyes PERRL, EOMs intact bilaterally and conjunctivae normal Neck no lymphadenopathy and no JVD Chest inspection of chest normal Chest: symmetrical chest wall rise; Negative for crepitus Resp Resp Narrative: Significantly diminished on the left Auscultation: rhonchi throughout (Left greater than right) and diminished lung sounds; Negative for rales or wheezes Cardio S1 normal heart sound and S2 normal heart sound Rate: tachycardic GI normal to inspection, nondistended, normoactive bowel sounds, soft to palpation, non-tender and non-distended Extremity no clubbing, cyanosis or edema Skin Skin Narrative: Large ecchymotic area on left arm General Skin Exam: ecchymosis Neuro no focal motor deficits Sensorium / Orientation: awake and alert Psych cooperative and affect normal Charges/Coding Visit Charges Inpatient E&M: 21672 Subs Hosp L3
[2021-06-21] MEDS: Ipratropium/Albuterol Sulfate 3 ML AMPUL.NEB INHALATION ×3 (08:02→19:25)
--- NOTE | 2021-06-21 08:43 | NURSING ---
[id number]-plater printed circuit board panels called at this time for PICC placement [id number]- ETA for PICC [phone]
[2021-06-21] MEDS: Paroxetine 20 MG Tablet 40 MG PO (09:41)
[2021-06-21] MEDS: guaiFENesin 1,200 MG Tablet 1200 MG PO ×2 (09:41→20:47)
[2021-06-21] MEDS: Furosemide 40 MG Tablet PO (09:41)
[2021-06-21] MEDS: Metoprolol Tartrate 25 MG Tablet 12.5 MG PO ×2 (09:41→20:49)
[2021-06-21] MEDS: Potassium Chloride Oral Tablet 20 MEQ 40 MEQ PO ×2 (09:42→16:57)
[2021-06-21] MEDS: Furosemide 40 MG/4 ML Vial IV (10:30)
--- NOTE | 2021-06-21 12:17 | CASEMGMT ---
Social Work Phone call to [facility] in TCU. TCU does have beds available and are able to accept pt. Pt will need precert prior to discharge. SW attended ICU rounds. Pt updated in rounds that TCU is able to accept pt once she is medically ready and precert has been obtained. Pt expresses agreement with this discharge plan. DONOVAN Phillips
[2021-06-21 13:11] LABS: Pathologist Review Reviewed
[2021-06-21 13:12] LABS: Pathologist Review Reviewed
--- NOTE | 2021-06-21 14:24 | CASEMGMT ---
RN CM chart: Patient was admitted 06/05-06/11/21 for pneumonia. 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 Patient returned 06/20/21 for SOB, weakness, and requesting to go to TCU. PCP had started referral for TCU. Patient was requiring Bipap at admission. Patient is currently on Bipap/Airvo at this time. Patient to go to TCU when precert obtained.
--- NOTE | 2021-06-21 18:06 | PN.HOSP_ITS ---
Subjective Subjective No issues overnight, she went between air Vo and BiPAP. Objective Data Objective Data Vital Signs: Vital Signs Temp Pulse Resp BP Pulse Ox 98.9 F 112 H 30 H 116/92 H 97 06/21/21 16:00 06/21/21 17:00 06/21/21 17:00 06/21/21 17:00 06/21/21 17:00 Oxygen Flow Rate (L/min) 40 Oxygen Delivery Method Airvo Weight: 185 lb 6.54 oz Body Mass Index (BMI) 35.1 Intake & Output: Intake and Output for Last 24 Hours 06/20/21 06/21/21 06/22/21 03:59 03:59 03:59 Intake Total 1230 / 1230 1960 / 1960 Output Total 550 / 550 1910 / 1910 Balance 680 / 680 50 / 50 Lab / Micro Data Result Diagrams: 06/22/21 04:40 06/22/21 04:40 Labs: Laboratory Results - last 24 hr 06/20/21 11:21: Diff Path Review Reviewed 06/20/21 15:45: Crossmatch See Detail 06/21/21 04:05: WBC 3.8 L, RBC 2.32 L, Hgb 6.6 L, Hct 19.7 L, MCV 84.9, MCH 28.4, MCHC 33.5, RDW Std Deviation 40.3, RDW Coeff of Heladio 13.2, Plt Count 62 L, MPV 8.8, Neut % (Auto) Not Reportable, Absolute Neuts (auto) 2.8, Absolute Lymphs (auto) 0.73 L, Total Counted 100, Neutrophils % (Manual) 64, Band Neutrophils % 9 H, Lymphocytes % (Manual) 19, Monocytes % (Manual) 3, Metamyelocytes % 3 H, Myelocytes % 2 H, Diff Path Review Reviewed, Atypical Lymphocytes 1+, Platelet Estimate MKD DEC, Hypochromasia 1+ 06/21/21 04:05: Sodium 137, Potassium 2.8 L, Chloride 96 L, Carbon Dioxide 33.0 H, Anion Gap 8, BUN 39 H, Creatinine 0.71, Estim Creat Clear Calc 65.17, Est GFR (MDRD) Af Amer 108, Est GFR (MDRD) Non-Af 90, BUN/Creatinine Ratio 54.8 H, Glucose 157 H, Calcium 9.0, Magnesium 1.8, Total Bilirubin 0.60, AST 46 H, ALT 23, Alkaline Phosphatase 128 H, Total Protein 5.9 L, Albumin 2.0 L, Globulin 3.9, Albumin/Globulin Ratio 0.5 L Micro: Microbiology 06/20/21 12:55 Urine Catheter - Vincent Urine Culture - Preliminary Gram positive aba 06/20/21 11:15 Nasal Secretion SARS-CoV-2 Antigen (Rapid) - Final Physical Exam Const alert, oriented x3 and no apparent distress General Appearance: cooperative HEENT normocephalic and moist oral mucous membranes Eyes PERRL, EOMs intact bilaterally and conjunctivae normal Neck supple and no JVD Resp normal respiratory effort, no retractions and no use of accessory muscles Auscultation: rhonchi and diminished lung sounds; Negative for crackles, rales or wheezes Cardio regular rate, regular rhythm, S1 normal heart sound, S2 normal heart sound and no murmurs GI soft to palpation, non-tender and non-distended; Negative for hepatosplenomegaly Extremity no clubbing, cyanosis or edema Skin Skin Narrative: Large bruise on her upper right arm Neuro no focal motor deficits and no sensory deficits noted Psych affect normal Appearance: appropriate Assessment & Plan Assessment/Plan (1) Lytic bone lesions on xray: (2) Non-small cell lung cancer (NSCLC): QUALIFIERS: Laterality: right Qualified Code(s): C34.91 - Malignant neoplasm of unspecified part of right bronchus or lung (3) Radiation-induced pulmonary fibrosis: (4) History of lung cancer: (5) Pneumonia: QUALIFIERS: Pneumonia type: due to Pneumococcus Laterality: bilateral Lung location: lower lobe of lung Qualified Code(s): J13 - Pneumonia due to Streptococcus pneumoniae (6) Hypoxia: (7) Acute respiratory failure with hypoxia: PLAN: 1. Acute respiratory failure with hypoxia. Obstructive pneumonia with a history of non-small cell lung cancer/thrombocytopenia -vanc, zosyn, azithromycin broad coverage given recent hospitalization, de- escalate as indicated with improvement in patient's status -BiPAP continued -Duonebs -Continue with steroids -pulm/cc on consult -We will continue to monitor her platelets, she is thrombocytopenic. Heme-onc 2. Chronic diastolic CHF/HTN/HLD -Blood pressures are stable -Continue with her home Lasix 3. Hypothyroidism -Stable - Patient is on levothyroxine home dose continued 4. 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 Depression -Stable ?Patient is on Paxil DVT: SCDs Charges/Coding Visit Charges Inpatient E&M: 93842 Subs Hosp L2
--- NOTE | 2021-06-21 18:23 | NURSING ---
Patient became short of breath and sats dropped to high 80's when transferring from chair to bed and providing incontinence care, placed on bipap and FiO2 increased to 55% to maintain sats at above 90, once care complete able to decrease FiO2 to 50%, patient tolerated fair.
[2021-06-21] MEDS: Atorvastatin Calcium 40 MG Tablet PO (20:45)
[2021-06-22] VITALS (40 sets, daily range): BP systolic 107–178; BP diastolic 62–94; PULSE 92–131; RESP 12–33; TEMP 36.2–37.7; O2SAT 87–95
[2021-06-22 05:04] LABS: Hematocrit 27.3 % (37-47); Hemoglobin 9.6 g/dL (12.0-15.0); Mean Corp Hgb Conc 35.2 g/dL (32-36); Mean Corpuscular Hgb 29.7 pg (27.0-32.0); Mean Corpuscular Volume 84.5 fL (81-99); Mean Platelet Vol. 8.9 fl (6.2-12.0); POSITIVE COUNT YES; POSITIVE MORPHOLOGY YES; RBC Distribution Width CV 13.9 % (11.6-14.6); RBC Distribution Width SD 42.5 fl (35.1-43.9); Red Blood Count 3.23 M/mm3 (4.2-5.4); White Blood Count 5.8 K/mm3 (4.4-11.0)
[2021-06-22 05:08] LABS: Platelet Count 41 K/mm3 (150-450)
[2021-06-22 05:09] LABS: Differential Indicated MANUAL DIFF
[2021-06-22 05:20] LABS: Anion Gap 6 (5-15); BUN 47 mg/dL (7-18); BUN/Creat Ratio 48.5 RATIO (10-20); Calcium,Total 9.4 mg/dL (8.5-10.1); Chloride 103 mmol/L (98-107); Creatinine, Serum 0.97 mg/dL (0.55-1.02); EST Glomerular Filtration Rate 63 mL/min (>60); Est Glom Filt Rate - Afr Amer 76 mL/min (>60); Glucose 144 mg/dL (74-106); Potassium 3.6 mmol/L (3.5-5.1); Sodium Level 143 mmol/L (136-145)
[2021-06-22 05:21] LABS: Vancomycin, Trough Level 27.7 ug/mL (5.0-15.0)
--- NOTE | 2021-06-22 05:28 | PCM.RX.CS ---
Consult Pharmacy has been consulted to manage selected antiobiotic: Vancomycin Type of Consult: Follow-up Suspected Infection: Pneumonia Prior Doses of Antibiotics Received/Current Regimen: Medications Discontinued Medications Vancomycin HCl 1,250 mg/ (Sodium Chloride) 275 mls @ 167 mls/hr IV Q12H KAYLYN Last Admin: 06/22/21 04:50 Dose: 167 mls/hr Labs: Sodium 143 mmol/L (136-145) 06/22/21 04:40 Potassium 3.6 mmol/L (3.5-5.1) 06/22/21 04:40 Chloride 103 mmol/L (98-107) 06/22/21 04:40 Carbon Dioxide 34.0 mmol/L (21.0-32.0) H 06/22/21 04:40 Anion Gap 6 (5-15) 06/22/21 04:40 BUN 47 mg/dL (7-18) H 06/22/21 04:40 Creatinine 0.97 mg/dL (0.55-1.02) 06/22/21 04:40 Est GFR (MDRD) Af Amer 76 mL/min (>60) 06/22/21 04:40 Est GFR (MDRD) Non-Af 63 mL/min (>60) 06/22/21 04:40 BUN/Creatinine Ratio 48.5 RATIO (10-20) H 06/22/21 04:40 Glucose 144 mg/dL (74-106) H 06/22/21 04:40 Vancomycin Trough 27.7 ug/mL (5.0-15.0) H 06/22/21 04:40 Microbiology: Microbiology 06/20/21 12:55 Urine Catheter - Vincent Urine Culture - Preliminary Gram positive aba 06/20/21 11:15 Nasal Secretion SARS-CoV-2 Antigen (Rapid) - Final Weight used for dosin kg Estimated Creatinine Clearance: 48 Goal Trough: 15-20 mcg/mL Pharmacy Plan for Drug Dosing: Vancomycin trough level of 27.7 was high, probably owing to decrease in renal function. Current order- and current bag hanging- was stopped. A random level will be drawn in 12 hours, and further dosing determined from that result. Pharmacy Service will continue to monitor and adjust dosing as required. Follow-Up Labs: Trough Vancomycin - random Labs to be done on [date and time ordered]: 06/22/21 @1700
[2021-06-22 05:35] LABS: Neutrophil-Band 6 % (0-5); Neutrophil-Segmented 67 % (47-70); Total Cells Counted 100 (MANUAL DIFF)
[2021-06-22 05:36] LABS: Lymphocyte 17 % (19-41); Metamyelocyte 3 % (0-1); Monocyte 3 % (0-10); Myelocyte 3 % (0-0); Nucleated Red Bld Cells,Manual 3 % (0-5); Platelet Estimate MKD DEC (ADEQ); Promyelocyte 1 % (0-0); Red Cell Morphology NORM C+C NORMAL (NORM C&C)
[2021-06-22 05:37] LABS: Absolute Lymphocyte Count 0.98 X10^3/uL (0.83-4.51); Absolute Neutrophil Count 4.2 X10^3/uL (2.0-7.7); Lymphocyte # 0.98 X10^3/ul (0.83-4.51); Neutrophil # 4.21 X10^3/uL (2.7-7.7)
[2021-06-22] MEDS: Levothyroxine 25 MCG TABLET PO (06:23)
[2021-06-22] MEDS: Ipratropium/Albuterol Sulfate 3 ML AMPUL.NEB INHALATION ×4 (06:57→19:23)
--- NOTE | 2021-06-22 07:06 | PCM.PN.INT ---
Assessment & Plan Assessment/Plan (1) Acute respiratory failure with hypoxia: (2) Radiation-induced pulmonary fibrosis: (3) Pneumonia: QUALIFIERS: Laterality: bilateral Lung location: lower lobe of lung Pneumonia type: due to Pneumococcus Qualified Code(s): J13 - Pneumonia due to Streptococcus pneumoniae (4) Non-small cell lung cancer (NSCLC): QUALIFIERS: Laterality: right Qualified Code(s): C34.91 - Malignant neoplasm of unspecified part of right bronchus or lung PLAN: RECOMMENDATIONS: 1. Transition patient back to BiPAP, given increased work of breathing noted this morning. 2. Wean FiO2 to maintain oxygen saturations at or above 90%. 3. Send sputum and urine for culture. 4. Discontinue azithromycin and Zosyn. Transition to meropenem. 5. Obtain repeat CT chest with contrast today. 6. Continue to monitor blood counts daily. Transfuse as necessary. IMPRESSIONS: 1. Acute hypoxic respiratory failure secondary to suspected postobstructive pneumonia The patient was recently admitted to the hospital under similar circumstances and treated for postobstructive pneumonia. She does not appear to be improving greatly from a respiratory perspective with conservative measures, including BiPAP and antimicrobials. Given her tenuous clinical status and findings noted on prior CT imaging, I am going to obtain a repeat CT with contrast today. I would recommend a more aggressive approach to the patient's care given her need for repeat hospitalization. At this time, depending on the results of her repeat CT, she may require intubation so that I can facilitate bronchoscopy and potential biopsy/BAL on Thursday. The patient's blood counts will need to be optimized prior to considering this procedure, should endobronchial biopsies be warranted. The patient is in agreement with this plan. For now, the patient will be continued on bronchodilators and steroids as ordered. Anticipate intubation in the next 24 to 48 hours. 2. Anemia/thrombocytopenia The patient has already been transfused blood products. Platelet count today is below 50,000. We will continue to monitor CBC daily. Transfuse for hemoglobin less than 7 g/dL. If bronchoscopy is indicated, platelet count will need to be above 50,000 so that I can perform endobronchial biopsies, if needed. 3. History of radiation pneumonitis/history of nephrotic syndrome/obesity/hypercholesterolemia/hypothyroidism Complicates care, management, recovery and prognosis. Okay to continue with baseline medications from my perspective. Continue to monitor renal function. TIME: 32 minutes of critical care time, independent of procedures, was spent addressing the patient's acute hypoxemic respiratory failure secondary to suspected postobstructive pneumonia, anemia, thrombocytopenia, review of all data and collaboration with the care team. Subjective Subjective The patient was seen and examined at the bedside this morning. Events from the last 24 hours have been reviewed. The patient is currently afebrile, hemodynamically stable and maintaining appropriate oxygen saturations on BiPAP with an FiO2 requirement of 50%. The patient is currently documented to be overall net +1 L for the hospitalization. The patient remains on antimicrobials, scheduled Lasix, scheduled bronchodilators and IV steroids. Hemoglobin is stable this morning at 9.6 g/dL. Platelet count is low at 41,000. Creatinine is stable. Objective Data Objective Data The patient's most recent lab work, culture data and imaging studies have all been personally reviewed. Surface echocardiogram dated June 11 demonstrated stage I diastolic dysfunction with an ejection fraction of 65%. Pulmonary artery systolic pressure was estimated to be 30 mmHg. Rapid coronavirus antigen testing was negative. Blood cultures are pending. Vital Signs: Vital Signs Temp Pulse Resp BP Pulse Ox 98.9 F 105 H 26 H 141/78 H 93 06/22/21 04:00 06/22/21 07:00 06/22/21 07:00 06/22/21 07:00 06/22/21 07:00 Oxygen Flow Rate (L/min) 40 Oxygen Delivery Method Bi-pap Weight: 85.1 kg Body Mass Index (BMI) 35.1 Intake & Output: Intake and Output for Last 24 Hours 06/20/21 06/21/21 06/22/21 23:59 23:59 23:59 Intake Total 1180 / 1180 2335 / 2335 194.73 / 194.73 Output Total 550 / 550 1910 / 1910 200 / 200 Balance 630 / 630 425 / 425 -5.27 / -5.27 Lab / Micro Data Attestation: I reviewed the patient's lab results. Result Diagrams: 06/22/21 04:40 06/22/21 04:40 Labs: Laboratory Results - last 24 hr 06/20/21 11:21: Diff Path Review Reviewed 06/20/21 15:45: Crossmatch See Detail 06/21/21 04:05: Diff Path Review Reviewed 06/22/21 04:40: Vancomycin Trough 27.7 H 06/22/21 04:40: WBC 5.8, RBC 3.23 L, Hgb 9.6 L, Hct 27.3 L, MCV 84.5, MCH 29.7, MCHC 35.2 D, RDW Std Deviation 42.5, RDW Coeff of Heladio 13.9, Plt Count 41 L*, MPV 8.9, Neut % (Auto) Not Reportable, Absolute Neuts (auto) 4.2, Absolute Lymphs (auto) 0.98, Total Counted 100, Neutrophils % (Manual) 67, Band Neutrophils % 6 H, Lymphocytes % (Manual) 17 L, Monocytes % (Manual) 3, Metamyelocytes % 3 H, Myelocytes % 3 H, Promyelocytes % 1 H, Nucleated RBCs/100 WBC 3, Diff Path Review December, Platelet Estimate MKD DEC, RBC Morphology NORM C+C 06/22/21 04:40: Sodium 143, Potassium 3.6, Chloride 103, Carbon Dioxide 34.0 H, Anion Gap 6, BUN 47 H, Creatinine 0.97, Estim Creat Clear Calc 47.70, Est GFR (MDRD) Af Amer 76, Est GFR (MDRD) Non-Af 63, BUN/Creatinine Ratio 48.5 H, Glucose 144 H, Calcium 9.4 Micro: Microbiology 06/20/21 12:55 Urine Catheter - Vincent Urine Culture - Preliminary Gram positive aba 06/20/21 11:15 Nasal Secretion SARS-CoV-2 Antigen (Rapid) - Final Physical Exam Const alert Constitutional Narrative: Currently sitting upright in bed with heated high flow cannula in place. General Appearance: cooperative and in distress HEENT normocephalic and head/scalp atraumatic Eyes PERRL and EOMs intact bilaterally Neck supple General: trachea midline Chest inspection of chest normal Resp Effort and Inspection: tachypneic and labored Auscultation: rhonchi Cardio S1 normal heart sound and S2 normal heart sound Rate: tachycardic GI normal to inspection, nondistended, normoactive bowel sounds Extremity no clubbing, cyanosis or edema Skin no rashes or lesions noted Neuro moves all extremities and no focal motor deficits Psych cooperative and affect normal Charges/Coding Procedures Hospitalists Procedures: [id number] Critial Care 1st Hr
[2021-06-22] MEDS: Piperacil/Tazobactam 3.375 GM Q8 PREMIX IV (07:22)
[2021-06-22 07:42] LABS: Haptoglobin 167 mg/dL (33-346)
[2021-06-22] MEDS: Furosemide 40 MG Tablet PO (07:49)
[2021-06-22] MEDS: Metoprolol Tartrate 25 MG Tablet 12.5 MG PO ×2 (07:50→21:35)
[2021-06-22] MEDS: Paroxetine 20 MG Tablet 40 MG PO (07:50)
[2021-06-22] MEDS: guaiFENesin 1,200 MG Tablet 1200 MG PO ×2 (07:50→21:35)
--- NOTE | 2021-06-22 08:15 | CT_ITS ---
STUDY: CT CHEST WITH CONTRAST REASON FOR EXAM: Female, 56 years old. Respiratory Failure RADIATION DOSAGE (If Supplied By Facility): CTDIvol = ( 15.54 ) mGy, DLP = ( 562.33 ) mGycm TECHNIQUE: Transaxial imaging was performed following intravenous administration of IV 100mL Isovue-370. Individualized dose optimization techniques were used for this CT. COMPARISON: 06/05/2021 FINDINGS: No change in the complete consolidation of the left upper lobe and the majority of the right middle lobe possibly from bilateral hilar masses and/or lymphadenopathy. Mass expands into the posterior aspect of the hilum the right lung. Also no change in the small nodule peripherally the right lower lobe. Also no change in the bilateral groundglass opacities consistent with subsegmental atelectasis or pneumonitis. No change in moderate left pleural effusion and small right pleural effusion. Normal heart and pericardium. No change in mediastinal lymphadenopathy. Normal enhanced pulmonary arteries. Normal aorta arch and descending thoracic aorta. Normal osseous structures. No change in right adrenal gland mass worrisome for metastasis. CT/Chest WITH Contrast IMPRESSION: No significant change from 06/05/2021. Electronically Signed: Og Connell MD at 9:41 EDT Tel , Service support ,
--- NOTE | 2021-06-22 08:51 | PN.HOSP_ITS ---
Subjective Subjective No issues overnight. She is currently on FiO2 of 50% with the BiPAP. Objective Data Objective Data Vital Signs: Vital Signs Temp Pulse Resp BP Pulse Ox 98.9 F 113 H 26 H 141/78 H 93 06/22/21 04:00 06/22/21 07:50 06/22/21 07:00 06/22/21 07:00 06/22/21 07:00 Oxygen Flow Rate (L/min) 40 Oxygen Delivery Method Bi-pap Weight: 187 lb 9.814 oz Body Mass Index (BMI) 35.1 Intake & Output: Intake and Output for Last 24 Hours 06/21/21 06/22/21 06/23/21 03:59 03:59 03:59 Intake Total 1230 / 1230 2285 / 2285 194.73 / 194.73 Output Total 550 / 550 1910 / 1910 200 / 200 Balance 680 / 680 375 / 375 -5.27 / -5.27 Lab / Micro Data Result Diagrams: 06/22/21 04:40 06/22/21 04:40 Labs: Laboratory Results - last 24 hr 06/20/21 11:21: Diff Path Review Reviewed 06/20/21 15:45: Crossmatch See Detail 06/20/21 16:15: Haptoglobin 167 06/21/21 04:05: Diff Path Review Reviewed 06/22/21 04:40: Vancomycin Trough 27.7 H 06/22/21 04:40: WBC 5.8, RBC 3.23 L, Hgb 9.6 L, Hct 27.3 L, MCV 84.5, MCH 29.7, MCHC 35.2 D, RDW Std Deviation 42.5, RDW Coeff of Heladio 13.9, Plt Count 41 L*, MPV 8.9, Neut % (Auto) Not Reportable, Absolute Neuts (auto) 4.2, Absolute Lymphs (auto) 0.98, Total Counted 100, Neutrophils % (Manual) 67, Band Neutrophils % 6 H, Lymphocytes % (Manual) 17 L, Monocytes % (Manual) 3, Metamy elocytes % 3 H, Myelocytes % 3 H, Promyelocytes % 1 H, Nucleated RBCs/100 WBC 3, Diff Path Review May foll, Platelet Estimate MKD DEC, RBC Morphology NORM C+C 06/22/21 04:40: Sodium 143, Potassium 3.6, Chloride 103, Carbon Dioxide 34.0 H, Anion Gap 6, BUN 47 H, Creatinine 0.97, Estim Creat Clear Calc 47.70, Est GFR (MDRD) Af Amer 76, Est GFR (MDRD) Non-Af 63, BUN/Creatinine Ratio 48.5 H, Glucose 144 H, Calcium 9.4 Micro: Microbiology 06/20/21 12:55 Urine Catheter - Vincent Urine Culture - Preliminary Gram positive aba 06/20/21 11:15 Nasal Secretion SARS-CoV-2 Antigen (Rapid) - Final Physical Exam Const alert, oriented x3 and no apparent distress General Appearance: cooperative HEENT normocephalic and moist oral mucous membranes Eyes PERRL, EOMs intact bilaterally and conjunctivae normal Neck supple and no JVD Resp normal respiratory effort, no retractions and no use of accessory muscles Auscultation: rhonchi and diminished lung sounds; Negative for crackles, rales or wheezes Cardio regular rate, regular rhythm, S1 normal heart sound, S2 normal heart sound and no murmurs GI soft to palpation, non-tender and non-distended; Negative for hepatosplenomegaly Extremity no clubbing, cyanosis or edema Skin Skin Narrative: Large bruise on her upper right arm Neuro no focal motor deficits and no sensory deficits noted Psych affect normal Appearance: appropriate Assessment & Plan Assessment/Plan (1) Lytic bone lesions on xray: (2) Non-small cell lung cancer (NSCLC): QUALIFIERS: Laterality: right Qualified Code(s): C34.91 - Malignant neoplasm of unspecified part of right bronchus or lung (3) Radiation-induced pulmonary fibrosis: (4) History of lung cancer: (5) Pneumonia: QUALIFIERS: Pneumonia type: due to Pneumococcus Laterality: bilateral Lung location: lower lobe of lung Qualified Code(s): J13 - Pneumonia due to Streptococcus pneumoniae (6) Hypoxia: (7) Acute respiratory failure with hypoxia: PLAN: 1. Acute respiratory failure with hypoxia. Obstructive pneumonia with a history of non-small cell lung cancer/thrombocytopenia -Transition to meropenem per ICU, sputum and urine cultures are pending -Plan will be for eventual intubation and bronchoscopy with lavage -BiPAP continued -Duonebs -Continue with steroids -pulm/cc on consult -We will continue to monitor her platelets, she is thrombocytopenic. Heme-onc 2. Chronic diastolic CHF/HTN/HLD -Blood pressures are stable -Continue with her home Lasix 3. Hypothyroidism -Stable - Patient is on levothyroxine home dose continued 4. 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 Depression -Stable ?Patient is on Paxil DVT: SCDs Charges/Coding Visit Charges Inpatient E&M: 19803 Subs Hosp L2
[2021-06-22] MEDS: 0.9% Saline Lock 10 ML Syringe IV ×2 (13:39→18:24)
[2021-06-22 19:07] LABS: Vancomycin, Random Level 19.3 ug/mL (0.0-15.0)
--- NOTE | 2021-06-22 20:01 | PCM.RX.CS ---
Consult Pharmacy has been consulted to manage selected antiobiotic: Vancomycin Type of Consult: Follow-up Suspected Infection: Pneumonia Prior Doses of Antibiotics Received/Current Regimen: Medications Discontinued Medications Vancomycin HCl 1,250 mg/ (Sodium Chloride) 275 mls @ 167 mls/hr IV Q12H KAYLYN Last Admin: 06/22/21 05:42 Dose: Infused Labs: Sodium 143 mmol/L (136-145) 06/22/21 04:40 Potassium 3.6 mmol/L (3.5-5.1) 06/22/21 04:40 Chloride 103 mmol/L (98-107) 06/22/21 04:40 Carbon Dioxide 34.0 mmol/L (21.0-32.0) H 06/22/21 04:40 Anion Gap 6 (5-15) 06/22/21 04:40 BUN 47 mg/dL (7-18) H 06/22/21 04:40 Creatinine 0.97 mg/dL (0.55-1.02) 06/22/21 04:40 Est GFR (MDRD) Af Amer 76 mL/min (>60) 06/22/21 04:40 Est GFR (MDRD) Non-Af 63 mL/min (>60) 06/22/21 04:40 BUN/Creatinine Ratio 48.5 RATIO (10-20) H 06/22/21 04:40 Glucose 144 mg/dL (74-106) H 06/22/21 04:40 Vancomycin Trough 27.7 ug/mL (5.0-15.0) H 06/22/21 04:40 Random Vancomycin 19.3 ug/mL (0.0-15.0) H 06/22/21 18:25 Microbiology: Microbiology 06/20/21 11:21 Blood Culture (Wb) - Other Blood Culture - Preliminary No growth in 48 hours. 06/20/21 11:12 Blood Culture (Wb) - Anticubital Left Blood Culture - Preliminary No growth in 48 hours. 06/20/21 12:55 Urine Catheter - Vincent Urine Culture - Preliminary Gram positive aba 06/20/21 11:15 Nasal Secretion SARS-CoV-2 Antigen (Rapid) - Final Weight used for dosin.1 kg Estimated Creatinine Clearance: 48 Goal Trough: 15-20 mcg/mL Pharmacy Plan for Drug Dosing: Random vancomycin level drawn at 1825 fell below the 20mg/dL threshold so infusions were restarted at 500mg q12h. A trough level will be drawn prior to 4th dose of new regimen. Pharmacy Service will continue to monitor and adjust dosing as required. Follow-Up Labs: Trough Vancomycin Labs to be done on [date and time ordered]: 06/24/21 @3839
[2021-06-22] MEDS: Vancomycin IV 500 MG/100 ML BAG 100 MG IV (20:19)
[2021-06-22] MEDS: Atorvastatin Calcium 40 MG Tablet PO (21:35)
[2021-06-23] VITALS (49 sets, daily range): BP systolic 75–148; BP diastolic 55–86; PULSE 94–137; RESP 12–33; TEMP 37.7–38.7; O2SAT 90–98
[2021-06-23] MEDS: Ipratropium/Albuterol Sulfate 3 ML AMPUL.NEB INHALATION ×5 (03:35→19:14)
[2021-06-23] MEDS: Levothyroxine 25 MCG TABLET PO (05:05)
[2021-06-23 05:17] LABS: Hematocrit 29.2 % (37-47); Hemoglobin 9.6 g/dL (12.0-15.0); Mean Corp Hgb Conc 32.9 g/dL (32-36); Mean Corpuscular Hgb 28.7 pg (27.0-32.0); Mean Corpuscular Volume 87.2 fL (81-99); Mean Platelet Vol. 10.4 fl (6.2-12.0); POSITIVE COUNT YES; POSITIVE MORPHOLOGY YES; Platelet Count 26 K/mm3 (150-450); RBC Distribution Width CV 13.9 % (11.6-14.6); RBC Distribution Width SD 44.2 fl (35.1-43.9); Red Blood Count 3.35 M/mm3 (4.2-5.4); White Blood Count 5.1 K/mm3 (4.4-11.0)
[2021-06-23 05:26] LABS: Differential Indicated MANUAL DIFF
[2021-06-23 05:34] LABS: Anion Gap 9 (5-15); BUN 51 mg/dL (7-18); BUN/Creat Ratio 51.8 RATIO (10-20); Calcium,Total 9.6 mg/dL (8.5-10.1); Chloride 104 mmol/L (98-107); Creatinine, Serum 0.98 mg/dL (0.55-1.02); EST Glomerular Filtration Rate 62 mL/min (>60); Est Glom Filt Rate - Afr Amer 74 mL/min (>60); Estimated Creatinine Clearance 47.22 ml/min; Glucose 175 mg/dL (74-106); Sodium Level 147 mmol/L (136-145)
[2021-06-23 05:40] LABS: Absolute Neutrophil Count 3.2 X10^3/uL (2.0-7.7)
[2021-06-23 05:41] LABS: Absolute Lymphocyte Count 1.43 X10^3/uL (0.83-4.51); Blast 1 % (0-0); Eosinophil 1 % (0-5); Lymphocyte 28 % (19-41); Metamyelocyte 1 % (0-1); Monocyte 3 % (0-10); Myelocyte 2 % (0-0); Neutrophil-Band 12 % (0-5); Neutrophil-Segmented 51 % (47-70); Nucleated Red Bld Cells,Manual 1 % (0-5); Platelet Estimate MKD DEC (ADEQ); Promyelocyte 1 % (0-0)
[2021-06-23 05:42] LABS: Red Cell Morphology NORM C+C NORMAL (NORM C&C)
--- NOTE | 2021-06-23 05:45 | PCM.PN.INT ---
Assessment & Plan Assessment/Plan (1) Acute respiratory failure with hypoxia: (2) Radiation-induced pulmonary fibrosis: (3) Pneumonia: QUALIFIERS: Laterality: bilateral Lung location: lower lobe of lung Pneumonia type: due to Pneumococcus Qualified Code(s): J13 - Pneumonia due to Streptococcus pneumoniae (4) Non-small cell lung cancer (NSCLC): QUALIFIERS: Laterality: right Qualified Code(s): C34.91 - Malignant neoplasm of unspecified part of right bronchus or lung PLAN: RECOMMENDATIONS: 1. Proceed with intubation. 2. Check PT/PTT/INR, D-dimer and fibrinogen levels. 3. Obtain ABG 1 hour post intubation. 4. Obtain sputum and send for culture. 5. Will coordinate with endoscopy to perform bronchoscopy tomorrow. 6. Continue empiric antimicrobials. 7. Transfuse additional platelets today, should biopsy be required tomorrow with bronchoscopy. 8. Potassium repletion as ordered. 9. Start appropriate GI prophylaxis. IMPRESSIONS: 1. Acute hypoxic respiratory failure secondary to suspected postobstructive pneumonia The patient was recently admitted to the hospital under similar circumstances and treated for postobstructive pneumonia. Although conservative measures in the form of noninvasive positive pressure ventilatory support were initially employed, the patient continued to decompensate from a respiratory perspective. Given her tenuous clinical status and findings noted on prior CT imaging, I would recommend a more aggressive approach to the patient's care given her need for repeat hospitalization. At this time, in light of her clinical decompensation, will proceed with intubation. Tomorrow, we will coordinate with endoscopy for airway evaluation via bronchoscopy and potential biopsies/BAL. Arterial blood gas will be obtained this morning 1 hour post intubation. For now, the patient will be continued on scheduled bronchodilators as ordered. Continue empiric antimicrobials as well. 2. Anemia/thrombocytopenia The patient has already been transfused blood products. Platelet count today is below 50,000. We will continue to monitor CBC daily. Transfuse for hemoglobin less than 7 g/dL. Given consideration for bronchoscopy tomorrow the potential need for endobronchial biopsies, will transfuse additional platelets today. 3. History of radiation pneumonitis/history of nephrotic syndrome/obesity/hypercholesterolemia/hypothyroidism Complicates care, management, recovery and prognosis. Okay to continue with baseline medications from my perspective. Continue to monitor renal function. TIME: 40 minutes of critical care time, independent of procedures, was spent addressing the patient's acute hypoxemic respiratory failure secondary to suspected postobstructive pneumonia, anemia, thrombocytopenia, review of all data and collaboration with the care team. Subjective Subjective The patient was seen and examined at the bedside this morning. Events from the last 24 hours have been reviewed. The patient has had further decline from a respiratory perspective over the last 24 hours with increased work of breathing and increased oxygen demand. The patient is now requiring continuous BiPAP support with an FiO2 requirement of 90%. The patient is currently documented to be overall net +300 mL for the hospital admission. She did have periods of significant bradycardia this morning noted by nursing staff. Hemoglobin is stable at 9.6 g/dL. However, platelet count is down to 26,000. She does have a significant left shift with 12% bands noted on differential. Chemistry profile was notable for a sodium of 147, potassium of 3.0, bicarbonate of 34 and BUN of 51. The patient remains on meropenem and vancomycin. Intubation Indication: Worsening Respiratory Failure Consent was obtained from: Patient The patient was placed in the appropriate sniffing position. Preoxygenated sedation via BiPAP was provided for a minimum of 3 minutes. The patient had continuous cardiac as well as pulse oximetry monitoring during the procedure. Procedure sedation was provided by the administration of 4 mg of Versed and 20 mg of etomidate. Direct laryngoscopy was then performed using a number 3 MAC blade, which revealed a grade 1 view. A 7.5 mm endotracheal tube was visualized advancing between the cords to the level of 23 cm at the lip. The stylette was then removed and discarded. Tube placement was confirmed by fogging in the tube along with equal and bilateral breath sounds. Colorimetric change was visualized on the CO2 meter. The cuff was then inflated and the tube secured using a commercially available device. A good pulse oximetry waveform was seen on the monitor throughout the procedure. A portable chest x-ray has been ordered to confirm appropriate placement. The patient tolerated the procedure well. Objective Data Objective Data The patient's most recent lab work, culture data and imaging studies have all been personally reviewed. Surface echocardiogram dated June 11 demonstrated stage I diastolic dysfunction with an ejection fraction of 65%. Pulmonary artery systolic pressure was estimated to be 30 mmHg. Rapid coronavirus antigen testing was negative. Blood cultures are pending. Vital Signs: Vital Signs Temp Pulse Resp BP Pulse Ox 100.1 F H 119 H 26 H 148/83 H 95 06/23/21 05:00 06/23/21 05:00 06/23/21 05:00 06/23/21 05:00 06/23/21 05:00 Oxygen Flow Rate (L/min) 40 Oxygen Delivery Method Bi-pap Weight: 85.1 kg Body Mass Index (BMI) 35.1 Intake & Output: Intake and Output for Last 24 Hours 06/21/21 06/22/21 06/23/21 23:59 23:59 23:59 Intake Total 2335 / 2335 824.73 / 924.73 430.75 / 430.75 Output Total 1910 / 1910 1500 / 1700 200 / 200 Balance 425 / 425 -675.27 / -775.27 230.75 / 230.75 Medical Nutrition Assessment Dietitian: Malnutrition Criteria Met Start: 06/22/21 15:30 Freq: Status: Active Protocol: Document 06/22/21 15:30 AG (Rec: 06/22/21 15:30 AG [id number]) Nutrition Malnutrition Evidence of Malnutrition Exists Yes Malnutrition (severe): Acute Illness/Injury Evidenced By Suboptimal Energy Intake ( Severe),Weight Loss (Severe) Intake Problem Inadequate Oral Intake Etiology related to respiratory failure requiring bipap, decreased appetite w/ recent hospitalization for PNA Signs/Symptoms as evidenced by estimated PO intake meeting <75% of estimated nutritional needs >2 weeks Status Active Problem Clinical Problem Acute Disease or Injury Related Malnutrition Etiology severe, acute malnutrition r/t inadequate energy intake w/ increased nutrient needs d/t PNA, resp failure Signs/Symptoms as evidenced by estimated PO intake meeting < 75% of estimated nutritional needs > 2 weeks, unintentional wt loss of 14.6#/7.2% < 1 month Status Active Problem Recommendation Dietitian Recommendations/Changes Regular diet when medically appropriate given acute malnutrition; will continue ensure w/ meals and medpass until adequate PO intake is established. Lab / Micro Data Result Diagrams: 06/23/21 05:00 06/23/21 05:00 Labs: Laboratory Results - last 24 hr 06/20/21 16:15: Haptoglobin 167 06/22/21 18:25: Random Vancomycin 19.3 H 06/23/21 05:00: WBC 5.1, RBC 3.35 L, Hgb 9.6 L, Hct 29.2 L, MCV 87.2, MCH 28.7, MCHC 32.9 D, RDW Std Deviation 44.2 H, RDW Coeff of Heladio 13.9, Plt Count 26 L*, MPV 10.4, Neut % (Auto) Not Reportable, Absolute Neuts (auto) 3.2, Absolute Lymphs (auto) 1.43, Neutrophils % (Manual) 51, Band Neutrophils % 12 H, Lymphocytes % (Manual) 28, Monocytes % (Manual) 3, Eosinophils % (Manual) 1, Metamyelocytes % 1, Myelocytes % 2 H, Promyelocytes % 1 H, Blast Cells % 1 H*, Nucleated RBCs/100 WBC 1, Diff Path Review December, Platelet Estimate MKD DEC, RBC Morphology NORM C+C 06/23/21 05:00: Sodium 147 H, Potassium 3.0 L, Chloride 104, Carbon Dioxide 34.0 H, Anion Gap 9, BUN 51 H, Creatinine 0.98, Estim Creat Clear Calc 47.22, Est GFR (MDRD) Af Amer 74, Est GFR (MDRD) Non-Af 62, BUN/Creatinine Ratio 51.8 H, Glucose 175 H, Calcium 9.6 Micro: Microbiology 06/20/21 11:21 Blood Culture (Wb) - Other Blood Culture - Preliminary No growth in 48 hours. 06/20/21 11:12 Blood Culture (Wb) - Anticubital Left Blood Culture - Preliminary No growth in 48 hours. 06/20/21 12:55 Urine Catheter - Vincent Urine Culture - Preliminary Gram positive aba 06/20/21 11:15 Nasal Secretion SARS-CoV-2 Antigen (Rapid) - Final Radiography Diagnostic Testing: Radiology Impression Chest CT 06/22/21 08:15 IMPRESSION: No significant change from 06/05/2021. Electronically Signed: Og Connell MD at 9:41 EDT Tel , Service support , Physical Exam Const alert General Appearance: in distress, ill appearing and on BiPAP HEENT normocephalic and head/scalp atraumatic Eyes PERRL and EOMs intact bilaterally Neck supple General: trachea midline Chest inspection of chest normal Resp Effort and Inspection: tachypneic and labored Auscultation: rhonchi Cardio S1 normal heart sound and S2 normal heart sound Rate: tachycardic GI normal to inspection, nondistended, normoactive bowel sounds Extremity no clubbing, cyanosis or edema Skin no rashes or lesions noted Neuro moves all extremities and no focal motor deficits Psych Mood & Affect: flat affect Charges/Coding Procedures Hospitalists Procedures: 23421 Critial Care 1st Hr
--- NOTE | 2021-06-23 06:21 | NURSING ---
Addendum entered by Kd Rothman 06/23/21 06:24: Pt then returned back to 90% FiO2, maintaining O2 sats 96-98% at this time. Original Note: 0600: Pt's bipap tubing disconnected, quickly kal'd down from 120's to 40 and desat to 56% - this RN reconnected tubing, placed pt on 100% FiO2 and pt quickly recovered back to mid-90's O2 sat. Dr Dennis aware of same.
[2021-06-23] MEDS: Potassium Chloride 10mEq/100mL 10 MEQ/100 ML IV.SOLN. 100 MEQ IV BOLUS ×4 (06:59→11:28)
[2021-06-23 07:34] LABS: D-Dimer Quantitative (DVT/PE) 14.13 FEU/ug/m (0.27-0.49)
[2021-06-23 07:38] LABS: International Normalized Ratio 1.3; Partial Thromboplast Time 20.9 Seconds (24.1-36.2); Prothrombin Time (Protime)PT. 15.6 SECONDS (11.7-14.9)
[2021-06-23 07:39] LABS: Fibrinogen 642 mg/dl (203-444)
[2021-06-23] MEDS: Midazolam 2 MG/2 ML Syringe 4 MG IV (07:54)
[2021-06-23] MEDS: Etomidate 20 MG/10 ML Vial IV (07:55)
[2021-06-23] MEDS: Propofol 10MG/Ml 1,000 MG/100 ML Bottle 5.2 MG CONT INF (07:56)
--- NOTE | 2021-06-23 08:10 | RAD_ITS ---
STUDY: X-RAY - ABDOMEN/PELVIS REASON FOR EXAM: Female, 56 years old. OG PLACEMENT TECHNIQUE: Single AP view of the abdomen / pelvis. COMPARISON: None. FINDINGS: Nasogastric tube with the tip in the midline likely in the antrum the stomach. There is an unremarkable bowel gas pattern. The visualized liver, spleen and kidneys are grossly normal in size and morphology. Normal soft tissue structures. Normal visualized osseous structures. RAD/Abdomen Single View (Portable) IMPRESSION: Nasogastric tube with the tip likely in the antrum the stomach. No bowel obstruction. Electronically Signed: Og Connell MD at 8:56 EDT Tel , Service support ,
--- NOTE | 2021-06-23 08:10 | RAD_ITS ---
STUDY: X-RAY CHEST REASON FOR EXAM: Female, 56 years old. et tube placement TECHNIQUE: Single AP portable view of the chest. COMPARISON: 06/20/2021 FINDINGS: Interval placement of endotracheal tube with the tip at the lonnie. Interval placement of nasogastric tube with the tip below the diaphragm. Interval placement of a left upper extremity PICC with tip the catheter overlying the junction of the right atrium and spur vena cava. No change in alveolar opacities throughout both lungs consistent with bilateral pneumonia, pulmonary edema, or ARDS. There is no demonstrated pleural abnormality. Normal size heart. Normal mediastinum and adrian. Normal visualized pulmonary arteries. Normal visualized aortic arch and descending thoracic aorta. Normal visualized thoracic spine. Normal visualized ribs, clavicles, and shoulders. There is no demonstrated abnormality of the visualized soft tissue structures of the upper abdomen. RAD/Chest 1 View (Portable) IMPRESSION: 1. Interval placement of endotracheal tube with the tip at the lonnie. This should be retracted. 2. Interval placement of nasogastric tube with the tip below the diaphragm. 3. Interval placement of left upper extent a PICC with tip the catheter overlying the junction of the right atrium and spur vena cava. 4. No change in bilateral pneumonia. Electronically Signed: Og Connell MD at 8:54 EDT Tel , Service support ,
--- NOTE | 2021-06-23 08:51 | VDLE_ITS ---
Reason For Study: Elevated D-dimer RIGHT LEFT GSV is normal. GSV is normal. CFV is compressible, spontaneous, phasic, CFV is compressible, spontaneous, phasic, competent and demonstrates normal competent, and demonstrates normal augmentation. augmentation. FV is compressible, spontaneous, phasic, FV is compressible, spontaneous, phasic, competent and demonstrates normal competent and demonstrates normal augmentation. augmentation. POP V is compressible, spontaneous, phasic, POP V is compressible, spontaneous, phasic, competent and demonstrates normal competent and demonstrates normal augmentation. augmentation. T/P Trunk is compressible. T/P Trunk is compressible. PTV is compressible. LT PerV is compressible. RT PerV is compressible. Acute deep vein thrombosis is noted in the Procedure left posterior tibial vein. This is a venous duplex using B-mode, color Acute deep vein thrombosis is noted in the flow and spectral Doppler. left soleus vein. Exam performed portable in ICU/CCU. A preliminary report was called and/or faxed to [facility] [employer]. VL/Venous Duplex US - Boris Extrem Interpretation Summary There is no evidence of right lower extremity deep vein thrombosis. Acute deep venous thrombosis left posterior tibial and soleus veins. Patent and compressible bilateral great saphenous vein. Ordering Physician: Stephen Dennis Referring Physician: Cesar Arevalo Chi Performed By: Joycelyn Klein RVT
--- NOTE | 2021-06-23 09:16 | PCM.PN.HOSP ---
Subjective Subjective Overnight she had increasing FiO2 requirements and is now on BiPAP with 90% FiO2. Platelets have continued to trend downward and is currently 26,000. In discussion with medical radiation therapist plan is to proceed with intubation this morning. Objective Data Objective Data Vital Signs: Vital Signs Temp Pulse Resp BP Pulse Ox 100.2 F H 134 H 26 H 147/75 H 94 06/23/21 07:00 06/23/21 07:56 06/23/21 07:56 06/23/21 07:00 06/23/21 07:56 Oxygen Flow Rate (L/min) 40 Oxygen Delivery Method Bi-pap Weight: 191 lb 2.252 oz Body Mass Index (BMI) 35.1 Intake & Output: Intake and Output for Last 24 Hours 06/22/21 06/23/21 06/24/21 03:59 03:59 03:59 Intake Total 2285 / 2285 1255.48 / 1255.48 120 / 120 Output Total 1910 / 1910 1700 / 1700 250 / 250 Balance 375 / 375 -444.52 / -444.52 -130 / -130 Medical Nutrition Assessment Dietitian: Malnutrition Criteria Met Start: 06/22/21 15:30 Freq: Status: Active Protocol: Document 06/22/21 15:30 AG (Rec: 06/22/21 15:30 AG [id number]) Nutrition Malnutrition Evidence of Malnutrition Exists Yes Malnutrition (severe): Acute Illness/Injury Evidenced By Suboptimal Energy Intake ( Severe),Weight Loss (Severe) Intake Problem Inadequate Oral Intake Etiology related to respiratory failure requiring bipap, decreased appetite w/ recent hospitalization for PNA Signs/Symptoms as evidenced by estimated PO intake meeting <75% of estimated nutritional needs >2 weeks Status Active Problem Clinical Problem Acute Disease or Injury Related Malnutrition Etiology severe, acute malnutrition r/t inadequate energy intake w/ increased nutrient needs d/t PNA, resp failure Signs/Symptoms as evidenced by estimated PO intake meeting < 75% of estimated nutritional needs > 2 weeks, unintentional wt loss of 14.6#/7.2% < 1 month Status Active Problem Recommendation Dietitian Recommendations/Changes Regular diet when medically appropriate given acute malnutrition; will continue ensure w/ meals and medpass until adequate PO intake is established. Lab / Micro Data Result Diagrams: 06/23/21 05:00 06/23/21 05:00 Labs: Laboratory Results - last 24 hr 06/22/21 18:25: Random Vancomycin 19.3 H 06/23/21 05:00: WBC 5.1, RBC 3.35 L, Hgb 9.6 L, Hct 29.2 L, MCV 87.2, MCH 28.7, MCHC 32.9 D, RDW Std Deviation 44.2 H, RDW Coeff of Heladio 13.9, Plt Count 26 L*, MPV 10.4, Neut % (Auto) Not Reportable, Absolute Neuts (auto) 3.2, Absolute Lymphs (auto) 1.43, Neutrophils % (Manual) 51, Band Neutrophils % 12 H, Lymphocytes % (Manual) 28, Monocytes % (Manual) 3, Eosinophils % (Manual) 1, Metamyelocytes % 1, Myelocytes % 2 H, Promyelocytes % 1 H, Blast Cells % 1 H*, Nucleated RBCs/100 WBC 1, Diff Path Review December, Platelet Estimate MKD DEC, RBC Morphology NORM C+C 06/23/21 05:00: Sodium 147 H, Potassium 3.0 L, Chloride 104, Carbon Dioxide 34.0 H, Anion Gap 9, BUN 51 H, Creatinine 0.98, Estim Creat Clear Calc 47.22, Est GFR (MDRD) Af Amer 74, Est GFR (MDRD) Non-Af 62, BUN/Creatinine Ratio 51.8 H, Glucose 175 H, Calcium 9.6 06/23/21 06:45: PT 15.6 H, INR 1.3, APTT 20.9 L, Fibrinogen 642 H, D-Dimer Quant (PE/DVT) 14.13 H* Micro: Microbiology 06/22/21 09:10 Urine Catheter - Vincent Urine Culture - Preliminary Gram positive aba 06/20/21 12:55 Urine Catheter - Vincent Urine Culture - Final Corynebacterium jeikeium 06/20/21 11:21 Blood Culture (Wb) - Other Blood Culture - Preliminary No growth in 48 hours. 06/20/21 11:12 Blood Culture (Wb) - Anticubital Left Blood Culture - Preliminary No growth in 48 hours. 06/20/21 11:15 Nasal Secretion SARS-CoV-2 Antigen (Rapid) - Final Radiography Diagnostic Testing: Radiology Impression Chest CT 06/22/21 08:15 IMPRESSION: No significant change from 06/05/2021. Electronically Signed: Og Connell MD at 9:41 EDT Tel , Service support , Chest X-Ray 06/23/21 08:10 IMPRESSION: 1. Interval placement of endotracheal tube with the tip at the lonnie. This should be retracted. 2. Interval placement of nasogastric tube with the tip below the diaphragm. 3. Interval placement of left upper extent a PICC with tip the catheter overlying the junction of the right atrium and spur vena cava. 4. No change in bilateral pneumonia. Electronically Signed: Og Connell MD at 8:54 EDT Tel , Service support , KUB X-Ray 06/23/21 08:10 IMPRESSION: Nasogastric tube with the tip likely in the antrum the stomach. No bowel obstruction. Electronically Signed: Og Connell MD at 8:56 EDT Tel , Service support , Physical Exam Const alert and oriented x3 General Appearance: cooperative HEENT normocephalic and moist oral mucous membranes Eyes PERRL, EOMs intact bilaterally and conjunctivae normal Neck supple and no JVD Resp Effort and Inspection: tachypneic and respiratory distress Auscultation: rhonchi and diminished lung sounds; Negative for crackles, rales or wheezes Cardio regular rate, regular rhythm, S1 normal heart sound, S2 normal heart sound and no murmurs GI soft to palpation, non-tender and non-distended; Negative for hepatosplenomegaly Extremity no clubbing, cyanosis or edema Skin Skin Narrative: Large bruise on her upper right arm Neuro no focal motor deficits and no sensory deficits noted Psych Mood & Affect: flat affect Assessment & Plan Assessment/Plan (1) Lytic bone lesions on xray: (2) Non-small cell lung cancer (NSCLC): QUALIFIERS: Laterality: right Qualified Code(s): C34.91 - Malignant neoplasm of unspecified part of right bronchus or lung (3) Radiation-induced pulmonary fibrosis: (4) History of lung cancer: (5) Pneumonia: QUALIFIERS: Pneumonia type: due to Pneumococcus Laterality: bilateral Lung location: lower lobe of lung Qualified Code(s): J13 - Pneumonia due to Streptococcus pneumoniae (6) Hypoxia: (7) Acute respiratory failure with hypoxia: PLAN: 1. Acute respiratory failure with hypoxia. Obstructive pneumonia with a history of non-small cell lung cancer/thrombocytopenia -Transition to meropenem and vancomycin per ICU, sputum and urine cultures are pending -Given her respiratory decline, will plan for intubation this morning and will monitor her platelets for possible bronchoscopy and biopsy tomorrow -BiPAP continued -Duonebs -Continue with steroids -pulm/cc on consult 2. Chronic diastolic CHF/HTN/HLD -Blood pressures are stable -Continue with her home Lasix -Recent echocardiogram with stage I diastolic dysfunction EF of 65%, PA pressures were around 30 mmHg 3. Hypothyroidism -Stable - Patient is on levothyroxine home dose continued 4. 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 Depression -Stable ?Patient is on Paxil DVT: SCDs Charges/Coding Visit Charges Inpatient E&M: 40467 Subs Hosp L2
[2021-06-23 09:21] LABS: Allen Test Positive; Base Excess 9 mmol/L (-2 to +2); Bicarbonate 31.2 mmol/L (22-26); Blood Gas Specimen Type ART; FI02 85; Mode AC; O2 Delivery Device Adult Vent; PEEP 8; PO2 82 mmHG (75-100); RR 14; SITE R Radial; SO2 98 % (95-99); Total Carbon Dioxide 32 mmol/L; Vt 450; pCO2 33.1 mmHg (35-45); pH 7.58 (7.35-7.45)
[2021-06-23] MEDS: Paroxetine 20 MG Tablet 40 MG GT (09:28)
[2021-06-23] MEDS: Chlorhexidine 15 ML PO ×2 (09:29→21:43)
[2021-06-23] MEDS: Vancomycin IV 500 MG/100 ML BAG 100 MG IV ×2 (09:53→20:05)
[2021-06-23] MEDS: Acetaminophen 650 MG/20 ML UDC GT ×2 (09:53→16:07)
[2021-06-23 10:27] LABS: CPK Total, Creatine Kinase 129 U/L (26-192); Triglycerides 211 mg/dL
[2021-06-23] MEDS: 0.9% Saline Lock 10 ML Syringe IV (11:23)
[2021-06-23] MEDS: Propofol 10MG/Ml 1,000 MG/100 ML Bottle 15.6 MG CONT INF (11:46)
[2021-06-23] MEDS: Propofol 10MG/Ml 1,000 MG/100 ML Bottle 7.8 MG CONT INF (21:24)
[2021-06-24] VITALS (41 sets, daily range): BP systolic 91–128; BP diastolic 56–81; PULSE 94–118; RESP 14–23; TEMP 36.9–37.7; O2SAT 87–96
--- NOTE | 2021-06-24 | IMM_PTH ---
PATIENT: UNA BROOKS LOC: ICU U#:[id number] AGE/SX: 56/F ROOM: ICU03 RE06/20/[address]: Dr. Tori Mena MD : 1965 BED: 1 DIS: 06/28/2021 SPEC #: [id number] RECD: 06/26/21 10:28 STATUS: RITIKA REQ #: [id number] ADAM: 06/24/21 00:[address]: Stephen Dennis DEPT: IMMUNOHISTOCHEMISTRY RECD BY: Rochelle Edmondson ENTERED: 06/26/21 10:30 SP TYPE: IMMUNO OTHR DR: MD Dr. Lawson Go MD Dr. Joseph Prah, MD Dr. Jonathan Vogt, DO Dr. Mansour Isckarus, MD Dr. Nana Yaa Koram, MD Dr. Robert D Cebul, MD Dr. Robert Field, MD Dr. Ryan Jin, MD Dr. Roger Macklis, MD Dr. Steve Walston, MD Emi Hurley Dr[address] Chi, ANSWERER-C Lucy Higgins, ANSWERER-C Tissues: Left upper lobe of lung, NOS Procedures: Synapto (add) CD45 (add) CD56 (add) CHROMO (add) CK20 (add) CK7 (add) CK8 (add) KI-67 (add) TTF1 (add) Pankeratin (initial) PHYSICIAN & INSTITUTION [facility] [address] [place] [id number] SPECIMEN INFORMATION: Tissue Source: Left upper lobe of lung, endobronchial biopsy Clinical Info: Abnormal chest CT Specimen Number: [id number] CPT code: 22277, 72732 x9 METHODOLOGY: Deparaffinized sections of prefer/formalin-fixed tissue or PAP/DQ stained slides are incubated with monoclonal/polyclonal antibodies/oligonucleotide probes. Localization is made via biotin free immunoperoxidase method. Appropriate controls are performed and reacted as expected. Results on target cell population are indicated in the following table: RESULTS: ANTIBODY / CLONE RESULT AE1-3 (AE1/AE3/PCK26) positive CK7 (OV-TL12/30) negative CK8 ([id number]) positive CK20 (KS20.8) negative CD45 (RP2/18) negative CD56 (123C3.D5) positive Chromo (LK2H10) positive Synapto (polyclonal) positive TTF-1 (8G7G3/1) positive Ki-67 (30-9) positive, high These tests were developed and their performance characteristics determined by [facility]. They may not have been cleared or approved by the U.S. Food and Drug Administration. The FDA has determined that such clearance or approval is not necessary. The above immunohistochemical/dualISH markers are ordered and reviewed by the Pathologist. INTERPRETATION: Left upper lobe of lung, endobronchial biopsy: Small cell carcinoma. ANTHONY:elle 06/27/2021
--- NOTE | 2021-06-24 | LUNB_PTH ---
PATIENT: UNA BROOKS LOC: ICU U#:[id number] AGE/SX: 56/F ROOM: ICU03 RE06/20/[address]: Dr. Tori Mena MD : 1965 BED: 1 DIS: 06/28/2021 SPEC #: [id number] RECD: 06/24/21 14:14 STATUS: RITIKA RESalvador #: [id number] ADAM: 06/24/21 00:[address]: Stephen Dennis DEPT: SURGICAL PATHOLOGY RECD BY: Allie Cabrera ENTERED: 06/25/21 08:12 SP TYPE: LUNG BX OTHR DR: MD Dr. Stephen Go, MD Dr. Jared Riggs Dr., MD Dr. Jonathan Vogt, DO Dr. Mansour Isckarus, MD Dr. Nana Yaa Koram, MD Dr. Robert D Cebul, MD Dr. Robert Field, MD Dr. Ryan Jin, MD Dr. Roger Macklis, MD Dr. Steve Walston, MD Emi Hurley Dr., [place] FLEXOGRAPHIC PRINTING MACHINIST-C Lucy Higgins NP-C Tissues: Lung, NOS Procedures: Surgery Specimen Level IV Comments: @ Ordering doctor for SUIV edited from to @ by VALENTINA at 06/25/21955 @ Submitting doctor edited from to @ by VALENTINA at 06/25/2156 HEADER OPERATION: Bronchoscopy with EBBX, brush PRE-OP DIAGNOSIS: Abnormal chest CT TISSUE SUBMITTED: Endobronchial biopsy left upper lobe MICROSCOPIC DIAGNOSIS Left upper lobe, endobronchial biopsy: Small cell carcinoma. See comment. SJ:elle 06/26/2021 COMMENT Immunohistochemistry ([id number]) supports the above diagnosis. Please also make reference to corresponding cytology specimen ([id number]). Please make reference to previous specimen ([id number]) right lung mass, CT-guided core biopsy with diagnosis of ?non-small cell carcinoma, favor adenocarcinoma.? Case has been reviewed in consultation with Dr. Rodriguez who concurs with the above diagnosis. IDC:AM MICROSCOPIC DESCRIPTION Slides are reviewed. GROSS DESCRIPTION Received in fixative is one container labeled with the patient's name and designated endobronchial biopsy FRANCA. The specimen consists of multiple irregular fragments of light marquis soft tissue that in aggregate measure 0.4 x 0.4 x 0.1 cm. The specimen is totally submitted in one cassette. / ANTHONY:elle 06/25/21 TC:0 CPT: 53759
--- NOTE | 2021-06-24 | IMM_PTH ---
PATIENT: UNA BROOKS LOC: ICU U#:[id number] AGE/SX: 56/F ROOM: ICU03 RE06/20/[address]: Dr. Tori Mena MD : 1965 BED: 1 DIS: 06/28/2021 SPEC #: [id number] RECD: 06/26/21 10:31 STATUS: RITIKA REQ #: [id number] ADAM: 06/24/21 00:[address]: Stephen Dennis DEPT: IMMUNOHISTOCHEMISTRY RECD BY: Rochelle Edmondson ENTERED: 06/26/21 10:34 SP TYPE: IMMUNO OTHR DR: MD Dr. Lawson Go MD Dr. Joseph Prah, MD Dr. Jonathan Vogt, DO Dr. Mansour Isckarus, MD Dr. Nana Yaa Koram, MD Dr. Robert D Cebul, MD Dr. Robert Field, MD Dr. Ryan Jin, MD Dr. Roger Macklis, MD Dr. Steve Walston, MD Emi Hurley Dr., [place], TIMBER MANAGEMENT TECHNICIAN-C Lucy Higgins, TIMBER MANAGEMENT TECHNICIAN-C Tissues: A - Left upper lobe of lung, NOS Procedures: Synapto (add) CD45 (add) CD56 (add) CHROMO (add) CK20 (add) CK7 (add) CK8 (add) KI-67 (add) TTF1 (add) Pankeratin (initial) PHYSICIAN & INSTITUTION [facility] [address] [place] [id number] SPECIMEN INFORMATION: Tissue Source: A ? Left upper lobe of lung brush Clinical Info: Abnormal chest CT Specimen Number: [id number] CPT code: 43483, 09649 x9 METHODOLOGY: Deparaffinized sections of prefer/formalin-fixed tissue or PAP/DQ stained slides are incubated with monoclonal/polyclonal antibodies/oligonucleotide probes. Localization is made via biotin free immunoperoxidase method. Appropriate controls are performed and reacted as expected. Results on target cell population are indicated in the following table: RESULTS: ANTIBODY / CLONE RESULT Block A AE1-3 (AE1/AE3/PCK26) positive, weak CK7 (OV-TL12/30) negative CK8 (97ibixA90) positive, weak CK20 (KS20.8) negative CD45 (RP2/18) negative CD56 (123C3.D5) positive, focal Chromo (LK2H10) negative Synapto (polyclonal) positive TTF-1 (8G7G3/1) positive, weak Ki-67 (30-9) positive, high, focal These tests were developed and their performance characteristics determined by [facility]. They may not have been cleared or approved by the U.S. Food and Drug Administration. The FDA has determined that such clearance or approval is not necessary. The above immunohistochemical/dualISH markers are ordered and reviewed by the Pathologist. INTERPRETATION: A. 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 SJ:elle 06/27/2021
--- NOTE | 2021-06-24 | FLU_PTH ---
PATIENT: UNA BROOKS LOC: ICU U#:[id number] AGE/SX: 56/F ROOM: ICU03 RE06/20/[address]: Dr. Tori Mena MD : 1965 BED: 1 DIS: 06/28/2021 SPEC #: [id number] RECD: 06/24/21 14:14 STATUS: SOUUbaldo REQ #: [id number] ADAM: 06/24/21 00:[address]: Stephen Dennis DEPT: CYTOLOGY RECD BY: Allie Cabrera ENTERED: 06/25/21 08:11 SP TYPE: Fluid OTHR DR: MD Dr. Stephen Go, DO MD Dr. Jared Willson MD Dr. Jonathan Vogt, DO Dr. Mansour Isckarus, MD Dr. Nana Yaa Koram, MD Dr. Robert D Cebul, MD Dr. Robert Field, MD Dr. Ryan Jin, MD Dr. Roger Macklis, MD Dr. Steve Walston, DO MD Emi Jacob [place], VAMP STITCHER-C Lucy Higgins NP-C Tissues: A - Bronchus of left upper lobe B - Bronchus of left upper lobe Procedures: Special Stain Group II Surgery Specimen Level IV Comments: @ Ordering doctor for SSII edited from to [email or web address] Ruiz by VALENTINA at 06/25/21955 @ Ordering doctor for SUIV edited from to [email or web address] Ruiz by VALENTINA at 06/25/21 0956 @ Submitting doctor edited from to [email or web address] Ruiz by VALENTINA at 06/25/2156 HEADER OPERATION: Bronchoscopy with EBBX, brush PRE-OP DIAGNOSIS: Abnormal chest CT TISSUE SUBMITTED: A ? Left upper lobe brush, B ? Left upper lobe brush smears x3 DIAGNOSIS CYTOLOGY A. 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 See comment. B. 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 SJ:elle 06/26/2021 COMMENT A. Immunohistochemistry ([id number]) supports the above diagnosis. Please make reference to corresponding surgical specimen ([id number]) left upper lobe, endobronchial biopsy with diagnosis of ?small cell carcinoma.? Please make reference to previous specimen ([id number]) right lung mass, CT-guided core biopsy with diagnosis of ?non-small cell carcinoma, favor adenocarcinoma.? Case has been reviewed in consultation with Dr. Rodriguez who concurs with the above diagnosis. IDC:AM CYTOLOGY STUDY Slides are reviewed. CYTOLOGY GROSS A - Received is a metallic endoscopic cytobrush with adherent minute fragments of marquis-red tissue brush in 2 ml of clear red fluid and labeled with the patient's name and and designated per the requisition as brush. The material is dislodged from the brush and submitted for cytology preparation including cell block. B - Received are three smears labeled with the patient's name and designated per the requisition as brush left upper lobe. Submitted for staining. / elle 06/25/2021 TC:0 CPT: 19009, 01850
[2021-06-24 06:00] LABS: Hematocrit 23.4 % (37-47); Hemoglobin 7.8 g/dL (12.0-15.0); Mean Corp Hgb Conc 33.3 g/dL (32-36); Mean Platelet Vol. 10.7 fl (6.2-12.0); POSITIVE COUNT YES; POSITIVE MORPHOLOGY YES; Platelet Count 49 K/mm3 (150-450); RBC Distribution Width CV 13.9 % (11.6-14.6); RBC Distribution Width SD 45.1 fl (35.1-43.9); White Blood Count 3.4 K/mm3 (4.4-11.0)
[2021-06-24 06:09] LABS: Anion Gap 7 (5-15); BUN 61 mg/dL (7-18); BUN/Creat Ratio 58.7 RATIO (10-20); Calcium,Total 8.9 mg/dL (8.5-10.1); Chloride 106 mmol/L (98-107); Creatinine, Serum 1.04 mg/dL (0.55-1.02); EST Glomerular Filtration Rate 58 mL/min (>60); Est Glom Filt Rate - Afr Amer 70 mL/min (>60); Estimated Creatinine Clearance 44.49 ml/min; Glucose 146 mg/dL (74-106); Sodium Level 146 mmol/L (136-145)
--- NOTE | 2021-06-24 06:33 | PN.CC_ITS ---
Assessment & Plan Assessment/Plan (1) Acute respiratory failure with hypoxia: (2) Radiation-induced pulmonary fibrosis: (3) Pneumonia: QUALIFIERS: Laterality: bilateral Lung location: lower lobe of lung Pneumonia type: due to Pneumococcus Qualified Code(s): J13 - Pneumonia due to Streptococcus pneumoniae (4) Non-small cell lung cancer (NSCLC): QUALIFIERS: Laterality: right Qualified Code(s): C34.91 - Malignant neoplasm of unspecified part of right bronchus or lung PLAN: RECOMMENDATIONS: 1. Continue patient on assist control mode of mechanical ventilation. Wean FiO2/PEEP for saturations greater than 90%. 2. Transfuse additional platelets today. 3. Continue antimicrobials as ordered. 4. Tentative plans for bronchoscopy this afternoon. 5. Additional potassium repletion as ordered. 6. Continue appropriate GI prophylaxis. 7. Tube feeds can be initiated after bronchoscopic airway evaluation. IMPRESSIONS: 1. Acute hypoxic respiratory failure secondary to suspected postobstructive pneumonia The patient was recently admitted to the hospital under similar circumstances and treated for postobstructive pneumonia. Although conservative measures in the form of noninvasive positive pressure ventilatory support were initially employed, the patient continued to decompensate from a respiratory perspective. Given her tenuous clinical status and findings noted on prior CT imaging, I would recommend a more aggressive approach to the patient's care given her need for repeat hospitalization. The patient ultimately required intubation on June 23. Accordingly, we will plan to proceed with bronchoscopy with BAL and potential endobronchial biopsies, depending on findings. We will give aaron tional platelets this morning. For now, the patient will be continued on scheduled bronchodilators as ordered. Continue empiric antimicrobials as well. The patient can be started on tube feeds once bronchoscopic airway evaluation is completed. 2. Anemia/thrombocytopenia The patient has already been transfused blood products. Platelet count this morning was noted to be 49,000. Accordingly, will give additional platelets today, given need for invasive procedure this afternoon. Continue to monitor CBC daily. Transfuse for hemoglobin less than 7 g/dL. 3. History of radiation pneumonitis/history of nephrotic syndrome/obesity/hypercholesterolemia/hypothyroidism Complicates care, management, recovery and prognosis. Okay to continue with baseline medications from my perspective. Continue to monitor renal function. TIME: 35 minutes of critical care time, independent of procedures, was spent addressing the patient's acute hypoxemic respiratory failure secondary to suspected postobstructive pneumonia, anemia, thrombocytopenia, review of all data and collaboration with the care team. Subjective Subjective The patient was seen and examined at the bedside this morning. Events from the last 24 hours have been reviewed. The patient currently has a low-grade fever but remains otherwise hemodynamically stable. She is currently documented to be overall net +2.2 L for the hospitalization. The patient remains on assist control mode of mechanical ventilation with an FiO2 requirement of 50% and PEEP of 8. No significant secretions were noted from the patient's endotracheal tube overnight. The patient remains on propofol and fentanyl. She remains on broad- spectrum antimicrobials as well. The patient did receive transfusion of 2 units of platelets yesterday. The patient is pancytopenic this morning. Hemoglobin is down to 7.8 g/dL with a platelet count of 49,000. Sodium was noted to be 146 this morning with a potassium of 3.0, bicarbonate of 33 and creatinine of 1.04. Objective Data Objective Data The patient's most recent lab work, culture data and imaging studies have all been personally reviewed. Surface echocardiogram dated June 11 demonstrated stage I diastolic dysfunction with an ejection fraction of 65%. Pulmonary artery systolic pressure was estimated to be 30 mmHg. Rapid coronavirus antigen testing was negative. Blood cultures are pending. Vital Signs: Vital Signs Temp Pulse Resp BP Pulse Ox 99.3 F H 108 H 15 91/56 L 94 06/24/21 04:00 06/24/21 06:00 06/24/21 06:00 06/24/21 06:00 06/24/21 06:00 Oxygen Flow Rate (L/min) 40 Oxygen Delivery Method Mechanical Ventilator Weight: 85.5 kg Body Mass Index (BMI) 35.1 Intake & Output: Intake and Output for Last 24 Hours 06/22/21 06/23/21 06/24/21 23:59 23:59 23:59 Intake Total 824.73 / 924.73 2385.75 / 2401.05 246.62 / 246.62 Output Total 1500 / 1700 825 / 1075 375 / 375 Balance -675.27 / -775.27 1560.75 / 1326.05 -128.38 / -128.38 Medical Nutrition Assessment Dietitian: Malnutrition Criteria Met Start: 06/22/21 15:30 Freq: Status: Active Protocol: Document 10/31/21 11:17 RMA (Rec: 06/23/21 11:17 RMA [id number]) Nutrition Malnutrition Evidence of Malnutrition Exists Yes Malnutrition (severe): Acute Illness/Injury Evidenced By Suboptimal Energy Intake ( Severe),Weight Loss (Severe) Intake Problem Inadequate Oral Intake Etiology related to respiratory failure requiring intubation, decreased appetite w/ recent hospitalization for PNA Signs/Symptoms as evidenced by estimated PO intake meeting <75% of estimated nutritional needs >2 weeks and currently NPO/ intubated Status Active Problem Clinical Problem Acute Disease or Injury Related Malnutrition Etiology severe, acute malnutrition r/t inadequate energy intake w/ increased nutrient needs d/t PNA, resp failure Signs/Symptoms as evidenced by estimated PO intake meeting < 75% of estimated nutritional needs > 2 weeks, unintentional wt loss of 14.6#/7.2% < 1 month Status Active Problem Recommendation Dietitian Recommendations/Changes Pt is NPO due to intubation-- suggest TF support for nutrition. As medically able, recommend start TF with Vital AF 1.2 Mario @ 20ml/hr and increase as tolerated by 10ml/hr Q 8 hours to goal rate of 50ml/hr with water flush of 80ml Q 4 hours to provide 1440 kcal, 90 gm pro and 1453 ml free water per day at goal rate with water flushes. Will monitor TF tolerance as initiated, wt, labs and follow -up. Lab / Micro Data Result Diagrams: 06/24/21 05:00 06/24/21 05:00 Labs: Laboratory Results - last 24 hr 06/20/21 15:45: Crossmatch See Detail 06/23/21 05:00: Total Creatine Kinase 129, Triglycerides 211 H 06/23/21 06:45: PT 15.6 H, INR 1.3, APTT 20.9 L, Fibrinogen 642 H, D-Dimer Quant (PE/DVT) 14.13 H* 06/24/21 05:00: Sodium 146 H, Potassium 3.0 L, Chloride 106, Carbon Dioxide 33.0 H, Anion Gap 7, BUN 61 H, Creatinine 1.04 H, Estim Creat Clear Calc 44.49, Est GFR (MDRD) Af Amer 70, Est GFR (MDRD) Non-Af 58 L, BUN/Creatinine Ratio 58.7 H, Glucose 146 H, Calcium 8.9 Micro: Microbiology 06/22/21 09:10 Urine Catheter - Vincent Urine Culture - Final Yeast, not Trudi albicans 06/23/21 08:00 Sputum, Induced/Lukens Gram Stain - Final 06/20/21 12:55 Urine Catheter - Vincent Urine Culture - Final Corynebacterium jeikeium 06/20/21 11:21 Blood Culture (Wb) - Other Blood Culture - Preliminary No growth in 48 hours. 06/20/21 11:12 Blood Culture (Wb) - Anticubital Left Blood Culture - P reliminary No growth in 48 hours. 06/20/21 11:15 Nasal Secretion SARS-CoV-2 Antigen (Rapid) - Final ABG Data ABG results: ABG 06/23/21 08:13 Specimen Type ART Sample Site R Radial pH 7.58 H Bicarbonate Actual 31.2 H Total CO2 32 Base Excess 9 H O2 Saturation 98 O2 % 85 ABG pCO2 33.1 L ABG pO2 82 Robert Test Positive Respiration Rate 14 O2 Delivery Device Adult Vent Vent Mode AC Tidal Volume 450 POC PEEP 8 Radiography Diagnostic Testing: Radiology Impression Chest X-Ray 06/23/21 08:10 IMPRESSION: 1. Interval placement of endotracheal tube with the tip at the lonnie. This should be retracted. 2. Interval placement of nasogastric tube with the tip below the diaphragm. 3. Interval placement of left upper extent a PICC with tip the catheter overlying the junction of the right atrium and spur vena cava. 4. No change in bilateral pneumonia. Electronically Signed: Og Connell MD at 8:54 EDT Tel , Service support , KUB X-Ray 06/23/21 08:10 IMPRESSION: Nasogastric tube with the tip likely in the antrum the stomach. No bowel obstruction. Electronically Signed: Og Connell MD at 8:56 EDT Tel , Service support , Physical Exam Const no apparent distress General Appearance: patient mechanically ventilated Nutritional Appearance: obese HEENT normocephalic and head/scalp atraumatic Mouth: endotracheal tube in place and OG tube in place Eyes PERRL and conjunctivae normal Neck supple General: trachea midline Chest inspection of chest normal Resp Auscultation: rhonchi and wheezes Cardio S1 normal heart sound and S2 normal heart sound Rate: tachycardic GI normal to inspection, nondistended, normoactive bowel sounds Extremity no clubbing, cyanosis or edema Skin no rashes or lesions noted Neuro Sensorium / Orientation: sedated on vent Charges/Coding Procedures Hospitalists Procedures: 29173 Critial Care 1st Hr
[2021-06-24] MEDS: Propofol 10MG/Ml 1,000 MG/100 ML Bottle 10.4 MG CONT INF ×3 (06:34→18:36)
[2021-06-24 06:35] LABS: Differential Indicated MANUAL DIFF
[2021-06-24] MEDS: Ipratropium/Albuterol Sulfate 3 ML AMPUL.NEB INHALATION ×4 (06:44→19:05)
[2021-06-24 07:29] LABS: Absolute Lymphocyte Count 0.78 X10^3/uL (0.83-4.51); Absolute Neutrophil Count 2.1 X10^3/uL (2.0-7.7); Metamyelocyte 1 % (0-1); Myelocyte 1 % (0-0); Neutrophil-Band 10 % (0-5); Neutrophil-Segmented 51 % (47-70); Promyelocyte 5 % (0-0)
[2021-06-24 07:30] LABS: Atypical Lymphocyte 2+ %; Eosinophil 1 % (0-5); Lymphocyte 23 % (19-41); Monocyte 8 % (0-10); Nucleated Red Bld Cells,Manual 1 % (0-5); Platelet Estimate MKD DEC (ADEQ); Red Cell Morphology NORM C+C NORMAL (NORM C&C)
[2021-06-24] MEDS: Potassium Chloride Oral Soln 20 MEQ/15 ML UDC 40 MEQ PO (08:01)
[2021-06-24] MEDS: Potassium Chloride 10mEq/100mL 10 MEQ/100 ML IV.SOLN. 100 MEQ IV BOLUS ×4 (08:34→11:17)
[2021-06-24 08:39] LABS: Vancomycin, Trough Level 19.1 ug/mL (5.0-15.0)
--- NOTE | 2021-06-24 09:37 | CASEMGMT ---
Pt is on a ventilator at this time. SW called Aurea in TCU to let her know, will continue to follow for discharge planning when appropriate. ANN Cuevas
--- NOTE | 2021-06-24 10:08 | PCM.RX.CS ---
Consult Pharmacy has been consulted to manage selected antiobiotic: Vancomycin Type of Consult: Follow-up Suspected Infection: Pneumonia Prior Doses of Antibiotics Received/Current Regimen: On 500mg iv q12h. Labs: Sodium 146 mmol/L (136-145) H 06/24/21 05:00 Potassium 3.0 mmol/L (3.5-5.1) L 06/24/21 05:00 Chloride 106 mmol/L (98-107) 06/24/21 05:00 Carbon Dioxide 33.0 mmol/L (21.0-32.0) H 06/24/21 05:00 Anion Gap 7 (5-15) 06/24/21 05:00 BUN 61 mg/dL (7-18) H 06/24/21 05:00 Creatinine 1.04 mg/dL (0.55-1.02) H 06/24/21 05:00 Est GFR (MDRD) Af Amer 70 mL/min (>60) 06/24/21 05:00 Est GFR (MDRD) Non-Af 58 mL/min (>60) L 06/24/21 05:00 BUN/Creatinine Ratio 58.7 RATIO (10-20) H 06/24/21 05:00 Glucose 146 mg/dL (74-106) H 06/24/21 05:00 Vancomycin Trough 19.1 ug/mL (5.0-15.0) H 06/24/21 08:15 Random Vancomycin 19.3 ug/mL (0.0-15.0) H 06/22/21 18:25 Microbiology: Microbiology 06/23/21 08:00 Sputum, Induced/Lukens Gram Stain - Final 06/23/21 08:00 Sputum, Induced/Lukens Respiratory Culture - Preliminary Gram positive aba 06/22/21 09:10 Urine Catheter - Vincent Urine Culture - Final Yeast, not Trudi albicans 06/20/21 12:55 Urine Catheter - Vincent Urine Culture - Final Corynebacterium jeikeium 06/20/21 11:21 Blood Culture (Wb) - Other Blood Culture - Preliminary No growth in 48 hours. 06/20/21 11:12 Blood Culture (Wb) - Anticubital Left Blood Culture - Preliminary No growth in 48 hours. 06/20/21 11:15 Nasal Secretion SARS-CoV-2 Antigen (Rapid) - Final Weight used for dosin.5 kg Estimated Creatinine Clearance: 45ml/min Goal Trough: 15-20 mcg/mL Pharmacy Plan for Drug Dosing: Trough today was 19.1. Will continue same dose. Trough level to be repeated tomorrow. Pharmacy Service will continue to monitor and adjust dosing as required. Follow-Up Labs: Trough Vancomycin - 11.2.21@0830 before 0900 dose
[2021-06-24] MEDS: Vancomycin IV 500 MG/100 ML BAG 100 MG IV ×2 (10:11→20:51)
[2021-06-24] MEDS: Chlorhexidine 15 ML PO ×2 (10:12→22:33)
[2021-06-24] MEDS: Paroxetine 20 MG Tablet 40 MG GT (10:14)
[2021-06-24] MEDS: guaiFENesin 1,200 MG Tablet 1200 MG PO ×2 (10:14→21:03)
[2021-06-24] MEDS: Metoprolol Tartrate 25 MG Tablet 12.5 MG GT ×2 (10:14→21:04)
--- NOTE | 2021-06-24 10:34 | PN.HOSP_ITS ---
Subjective Subjective Patient seen and examined. She is intubated and sedated. Unable to do review of systems as she is intubated and sedated. Objective Data Objective Data Vital Signs: Vital Signs Temp Pulse Resp BP Pulse Ox 99.3 F H 105 H 17 99/61 93 06/24/21 04:00 06/24/21 10:14 06/24/21 07:00 06/24/21 07:00 06/24/21 07:00 Oxygen Flow Rate (L/min) 40 Oxygen Delivery Method Mechanical Ventilator Weight: 188 lb 7.924 oz Body Mass Index (BMI) 35.1 Intake & Output: Intake and Output for Last 24 Hours 06/22/21 06/23/21 06/24/21 23:59 23:59 23:59 Intake Total 824.73 / 924.73 2385.75 / 2401.05 527.42 / 527.42 Output Total 1500 / 1700 825 / 1075 375 / 375 Balance -675.27 / -775.27 1560.75 / 1326.05 152.42 / 152.42 Medical Nutrition Assessment Dietitian: Malnutrition Criteria Met Start: 06/22/21 15:30 Freq: Status: Active Protocol: Document 06/24/21 10:24 RMA (Rec: 06/24/21 10:25 RMA [id number]) Nutrition Malnutrition Evidence of Malnutrition Exists Yes Malnutrition (severe): Acute Illness/Injury Evidenced By Suboptimal Energy Intake ( Severe),Weight Loss (Severe) Intake Problem Inadequate Oral Intake Etiology related to respiratory failure requiring intubation, decreased appetite w/ recent hospitalization for PNA Signs/Symptoms as evidenced by estimated PO intake meeting <75% of estimated nutritional needs >2 weeks and currently NPO/ intubated Status Active Problem Clinical Problem Acute Disease or Injury Related Malnutrition Etiology Severe protein/calorie malnutrition in the context of acute illness related to inadequate oral intake and increased nutrient needs Signs/Symptoms as evidenced by estimated PO intake meeting less than 50-75 % of estimated nutritional needs x greater than 2 weeks, unintentional weight loss of 14.6#/7.2% x less than 1 month Status Active Problem Recommendation Dietitian Recommendations/Changes TF support for nutrition while intubated and NPO. As medically able post bronchoscopy today, recommend start TF with Vital AF 1.2 Mario @ 20ml/hr and increase as tolerated by 10ml/hr Q 8 hours to goal rate of 50ml/hr with water flush of 80ml Q 4 hours to provide 1440 kcal, 90 gm pro and 1453 ml free water per day at goal rate with water flushes. Will monitor TF tolerance as initiated, wt, labs and follow -up. Lab / Micro Data Result Diagrams: 06/24/21 05:00 06/24/21 05:00 Labs: Laboratory Results - last 24 hr 06/20/21 15:45: Crossmatch See Detail 06/24/21 05:00: WBC 3.4 L, RBC 2.60 L, Hgb 7.8 L, Hct 23.4 L, MCV 90.0, MCH 30.0, MCHC 33.3, RDW Std Deviation 45.1 H, RDW Coeff of Heladio 13.9, Plt Count 49 L*, MPV 10.7, Neut % (Auto) Not Reportable, Absolute Neuts (auto) 2.1, Absolute Lymphs (auto) 0.78 L, Neutrophils % (Manual) 51, Band Neutrophils % 10 H, Lym phocytes % (Manual) 23, Monocytes % (Manual) 8, Eosinophils % (Manual) 1, Metamyelocytes % 1, Myelocytes % 1 H, Promyelocytes % 5 H, Nucleated RBCs/100 WB C 1, Diff Path Review May foll, Atypical Lymphocytes 2+, Platelet Estimate MKD DEC, RBC Morphology NORM C+C 06/24/21 05:00: Sodium 146 H, Potassium 3.0 L, Chloride 106, Carbon Dioxide 33.0 H, Anion Gap 7, BUN 61 H, Creatinine 1.04 H, Estim Creat Clear Calc 44.49, Est GFR (MDRD) Af Amer 70, Est GFR (MDRD) Non-Af 58 L, BUN/Creatinine Ratio 58.7 H, Glucose 146 H, Calcium 8.9 06/24/21 07:10: Blood Type A POSITIVE 06/24/21 08:15: Vancomycin Trough 19.1 H Micro: Microbiology 06/23/21 08:00 Sputum, Induced/Lukens Gram Stain - Final 06/23/21 08:00 Sputum, Induced/Lukens Respiratory Culture - Preliminary Gram positive aba 06/22/21 09:10 Urine Catheter - Vincent Urine Culture - Final Yeast, not Trudi albicans 06/20/21 12:55 Urine Catheter - Vincent Urine Culture - Final Corynebacterium jeikeium 06/20/21 11:21 Blood Culture (Wb) - Other Blood Culture - Preliminary No growth in 48 hours. 06/20/21 11:12 Blood Culture (Wb) - Anticubital Left Blood Culture - Preliminary No growth in 48 hours. 06/20/21 11:15 Nasal Secretion SARS-CoV-2 Antigen (Rapid) - Final Physical Exam Const Constitutional Narrative: intubated, sedated. RASS score is -4 Exam Limitations: altered mental status HEENT head/scalp atraumatic Head and Scalp: normocephalic Neck no lymphadenopathy Resp Resp Narrative: diminished breath sounds bibasally, few coarse crackles. Intubated and sedated. Cardio regular rate, regular rhythm, S1 normal heart sound, S2 normal heart sound and no murmurs GI normal to inspection, nondistended, normoactive bowel sounds, soft to palpation, non-tender and non-distended Extremity normal to inspection Peripheral Pulses: Yes pulses 2+ throughout Skin no rashes or lesions noted Neuro Neuro Narrative: intubated, sedated, RASS score is -4 Assessment & Plan Assessment/Plan (1) Acute respiratory failure with hypoxia: (2) Non-small cell lung cancer (NSCLC): QUALIFIERS: Laterality: right Qualified Code(s): C34.91 - Malignant neoplasm of unspecified part of right bronchus or lung (3) Thrombocytopenia: (4) Pancytopenia: (5) Lytic bone lesions on xray: (6) Radiation-induced pulmonary fibrosis: PLAN: #Acute hypoxic respiratory failure due to post obstructive pneumonia * currently intubated and sedated. RASS score is -4 * on IV vancomycin and meropenem * for bronchoscopy today * on breathing treatment with bronchodilators * titrate oxygen to maintain sats >90% * critical care on board * #Severe pancytopenia * platelets are still low * getting a unit of Platelets today * Hb is 7.8 today, and platelets are 49,000 * #History of nonsmall cell lung cancer with radiation pneumonitis * pulmonology on board * #Hypokalemia: K is 3 today. Will replace and trend. #HFpEF * on lasix. * not in exacerbation. Recent echo showed EF of 65% with stage 1 diastolic dysfunction. * #Hypothyroidism: on synthroid. #History of VTE : eliquis on hold in light of the thrombocytopenia and bronchoscopy today #Depression: on paxil #Severe protein calorie malnutrition * Due to technique creased intake with increased nutrient needs due to pneumonia respiratory failure. * On tube feeding. * DVT prophylaxis: SCDs Charges/Coding Visit Charges Inpatient E&M: 79448 Subs Hosp L3
[2021-06-24] MEDS: Vital AF 1.2 Cal Liquid 1,000 ML 20 ML GT (11:16)
[2021-06-24 12:46] LABS: Pathologist Review Reviewed
[2021-06-24 13:35] LABS: Pathologist Review Reviewed
[2021-06-24 13:38] LABS: Pathologist Review Reviewed
--- NOTE | 2021-06-24 14:04 | OP.BRONCH_ITS ---
Patient Name: Haydee Spaulding Procedure Date: 06/24/2021 1:10 PM Date of : 1965 Age: 56 Procedure: Bronchoscopy Indications: Abnormal CT scan of chest Providers: Stephen Dennis MD Complications: Bleeding requiring epinephrine at biopsy site Procedure: Pre-Anesthesia Assessment: - A History and Physical has been performed. Patient meds and allergies have been reviewed. The risks and benefits of the procedure and the sedation options and risks were discussed with the patient. All questions were answered and informed consent was obtained. Patient identification and proposed procedure were verified prior to the procedure by the physician and the nurse in the procedure room. Mental Status Examination: sedated. Airway Examination: orotracheal intubation. Respiratory Examination: poor air movement. CV Examination: normal. ASA Grade Assessment: III - A patient with severe systemic disease. After reviewing the risks and benefits, the patient was deemed in satisfactory condition to undergo the procedure. The anesthesia plan was to use deep sedation / analgesia. Immediately prior to administration of medications, the patient was re-assessed for adequacy to receive sedatives. The heart rate, respiratory rate, oxygen saturations, blood pressure, adequacy of pulmonary ventilation, and response to care were monitored throughout the procedure. The physical status of the patient was re-assessed after the procedure. After I obtained informed consent, the scope was passed under direct vision. Throughout the procedure, the patient's blood pressure, pulse, and oxygen saturations were monitored continuously. The bronchoscope was introduced through the mouth, via the endotracheal tube and advanced to the tracheobronchial tree. The procedure was accomplished without difficulty. The patient tolerated the procedure well. Findings: Left Lung Abnormalities: A partially obstructing (about 80% obstructed) mass was found proximally in the left upper lobe. The mass was endobronchial. The lesion was not traversed. Right Lung Abnormalities: Extrinsic compression was found in the right middle lobe. The airway is moderately narrowed. The lesion was not traversed. Endobronchial biopsies were performed in the left upper lobe using forceps and sent for routine cytology. Three samples were obtained. Guided brushings were obtained in the left upper lobe with a cytology brush and sent for routine cytology. One sample was obtained. Impression: - Abnormal CT scan of chest - An endobronchial mass was found in the left upper lobe. This lesion is suspicious for malignancy. - Extrinsic compression was found in the right middle lobe. - An endobronchial biopsy was performed. - Brushings were obtained. Recommendation: - Await biopsy results. Procedure Code(s): --- Professional --- 72652, Bronchoscopy, rigid or flexible, including fluoroscopic guidance, when performed; with bronchial or endobronchial biopsy(s), single or multiple sites 92412, Bronchoscopy, rigid or flexible, including fluoroscopic guidance, when performed; with brushing or protected brushings Diagnosis Code(s): --- Professional --- J98.9, Respiratory disorder, unspecified J98.4, Other disorders of lung R93.8, Abnormal findings on diagnostic imaging of other specified body structures CPT copyright 2017 [employer]. All rights reserved. The codes documented in this report are preliminary and upon finance assistant review may be revised to meet current compliance requirements. DO Stephen Morton MD 06/24/2021 2:03:26 PM This report has been signed electronically. Number of Addenda: 0 Note Initiated On: 06/24/2021 1:10 PM
[2021-06-24] MEDS: Lidocaine 2% (5ml sdv) 5 ML VIAL.MPF (15:10)
[2021-06-24] MEDS: Lidocaine 2% Jelly 1 APPLIC Tube (15:10)
[2021-06-24] MEDS: Atorvastatin Calcium 40 MG Tablet GT (21:15)
[2021-06-25] VITALS (43 sets, daily range): BP systolic 85–127; BP diastolic 51–79; PULSE 47–108; RESP 14–22; TEMP 36.7–37.7; O2SAT 89–99
[2021-06-25] MEDS: Propofol 10MG/Ml 1,000 MG/100 ML Bottle 10.4 MG CONT INF (03:01)
[2021-06-25 03:43] LABS: Hematocrit 23.9 % (37-47); Hemoglobin 7.6 g/dL (12.0-15.0); Mean Corp Hgb Conc 31.8 g/dL (32-36); Mean Corpuscular Hgb 29.2 pg (27.0-32.0); Mean Corpuscular Volume 91.9 fL (81-99); Mean Platelet Vol. 10.3 fl (6.2-12.0); POSITIVE COUNT YES; POSITIVE MORPHOLOGY YES; Platelet Count 55 K/mm3 (150-450); RBC Distribution Width CV 13.9 % (11.6-14.6); RBC Distribution Width SD 46.4 fl (35.1-43.9); White Blood Count 4.7 K/mm3 (4.4-11.0)
[2021-06-25 03:44] LABS: Differential Indicated MANUAL DIFF
[2021-06-25 03:52] LABS: Anion Gap 6 (5-15); BUN 79 mg/dL (7-18); BUN/Creat Ratio 60.3 RATIO (10-20); Calcium,Total 8.7 mg/dL (8.5-10.1); Chloride 106 mmol/L (98-107); Creatinine, Serum 1.31 mg/dL (0.55-1.02); EST Glomerular Filtration Rate 44 mL/min (>60); Est Glom Filt Rate - Afr Amer 54 mL/min (>60); Estimated Creatinine Clearance 35.32 ml/min; Glucose 162 mg/dL (74-106); Sodium Level 144 mmol/L (136-145)
[2021-06-25 04:12] LABS: Absolute Lymphocyte Count 0.98 X10^3/uL (0.83-4.51); Absolute Neutrophil Count 3.1 X10^3/uL (2.0-7.7); Eosinophil 1 % (0-5); Lymphocyte 21 % (19-41); Metamyelocyte 1 % (0-1); Monocyte 4 % (0-10); Myelocyte 4 % (0-0); Neutrophil-Band 7 % (0-5); Neutrophil-Segmented 60 % (47-70); Nucleated Red Bld Cells,Manual 4 % (0-5); Promyelocyte 3 % (0-0)
[2021-06-25 04:13] LABS: Platelet Estimate MOD DEC (ADEQ); Red Cell Morphology NORM C+C NORMAL (NORM C&C)
[2021-06-25] MEDS: Levothyroxine 25 MCG TABLET GT (05:24)
[2021-06-25] MEDS: TITRATION PARAMETER CHANGE 1 EACH IV (05:30)
--- NOTE | 2021-06-25 05:44 | PN.CC_ITS ---
Assessment & Plan Assessment/Plan (1) Acute respiratory failure with hypoxia: (2) Radiation-induced pulmonary fibrosis: (3) Pneumonia: QUALIFIERS: Laterality: bilateral Lung location: lower lobe of lung Pneumonia type: due to Pneumococcus Qualified Code(s): J13 - Pneumonia due to Streptococcus pneumoniae (4) Non-small cell lung cancer (NSCLC): QUALIFIERS: Laterality: right Qualified Code(s): C34.91 - Malignant neoplasm of unspecified part of right bronchus or lung PLAN: RECOMMENDATIONS: 1. Continue patient on assist control mode of mechanical ventilation. Wean FiO2/PEEP for saturations greater than 90%. 2. Continue antimicrobials as ordered. 3. Await results of endobronchial biopsies. 4. Continue tube feeds as tolerated. 5. Place IVC filter today. 6. Continue appropriate GI prophylaxis. 7. Continue to monitor blood counts daily and transfuse blood products as indicated. IMPRESSIONS: 1. Acute hypoxic respiratory failure secondary to suspected postobstructive pneumonia The patient was recently admitted to the hospital under similar circumstances and treated for postobstructive pneumonia. Although conservative measures in the form of noninvasive positive pressure ventilatory support were initially employed, the patient continued to decompensate from a respiratory perspective. Given her tenuous clinical status and findings noted on prior CT imaging, I would recommend a more aggressive approach to the patient's care given her need for repeat hospitalization. The patient ultimately required intubation on June 23. Bedside bronchoscopy was then completed on June 24 which revealed a left upper lobe endobronchial mass, which was biopsied. The results of those biopsies are pending. For now, the patient will be continued on scheduled bronchodilators as ordered. Continue empiric antimicrobials as well. The patient will be continued on tube feeds as tolerated. 2. Left lower extremity DVT In light of the patient's pancytopenia, and need for transfusion of blood products, I feel that the patient has a contraindication to systemic anticoag ulation. Therefore, I would plan to proceed with IVC filter placement. Vascular surgery has been contacted accordingly. 3. Anemia/thrombocytopenia Continue to monitor CBC daily. Transfuse for hemoglobin less than 7 g/dL. Platelet count is stable today. 4. History of radiation pneumonitis/history of nephrotic syndrome/obesity/hypercholesterolemia/hypothyroidism Complicates care, management, recovery and prognosis. Okay to continue with baseline medications from my perspective. Continue to monitor renal function. TIME: 35 minutes of critical care time, independent of procedures, was spent addressing the patient's acute hypoxemic respiratory failure secondary to suspected postobstructive pneumonia, anemia, thrombocytopenia, lower extremity DVT, review of all data and collaboration with the care team. Subjective Subjective The patient was seen and examined at the bedside this morning. Events from the last 24 hours have been reviewed. The patient currently has a low-grade fever, but remains hemodynamically stable. She remains on assist control mode of mechanical ventilation with an FiO2 requirement of 55% and PEEP of 8. Today is vent day #3. She is currently tolerating tube feeds. She remains sedated on propofol and fentanyl. The patient did undergo diagnostic bronchoscopy yesterday, which revealed a left upper lobe endobronchial mass, with near complete obstruction of the left upper lobe orifice. There was extrinsic compression of the right middle lobe also noted. Endobronchial biopsies were obtained along with Cytobrush samples. The patient was also noted to have an acute left lower extremity DVT on Doppler study yesterday. Accordingly, I did reach out to Dr. Boland this morning, as I feel the patient has a contraindication to systemic anticoagulation and should therefore have an IVC filter placed. Hemoglobin this morning was noted to be 7.6 g/dL. Platelet count is stable at 55,000. Creatinine is up a bit at 1.3. She is currently documented to be overall net +3.8 L for the hospitalization. Objective Data Objective Data The patient's most recent lab work, culture data and imaging studies have all been personally reviewed. Lower extremity Doppler study revealed a left lower extremity DVT. Echocardiogram from May 2021 demonstrated stage I diastolic dysfunction with an ejection fraction of 65% and a pulmonary artery systolic pressure estimated to be 30 mmHg. Blood cultures have shown no growth to date. Rapid coronavirus antigen testing was negative. Vital Signs: Vital Signs Temp Pulse Resp BP Pulse Ox 99.1 F 92 16 94/59 L 93 06/25/21 05:00 06/25/21 05:00 06/25/21 05:00 06/25/21 05:00 06/25/21 05:00 Oxygen Flow Rate (L/min) 50 Oxygen Delivery Method Mechanical Ventilator Weight: 87.7 kg Body Mass Index (BMI) 35.1 Intake & Output: Intake and Output for Last 24 Hours 06/23/21 06/24/21 06/25/21 23:59 23:59 23:59 Intake Total 2385.75 / 2401.05 1938.75 / 2104.15 610.70 / 610.70 Output Total 825 / 1075 1000 / 1000 90 / 90 Balance 1560.75 / 1326.05 938.75 / 1104.15 520.70 / 520.70 Medical Nutrition Assessment Dietitian: Malnutrition Criteria Met Start: 06/22/21 15:30 Freq: Status: Active Protocol: Document 06/24/21 10:24 RMA (Rec: 06/24/21 10:25 RMA [id number]) Nutrition Malnutrition Evidence of Malnutrition Exists Yes Malnutrition (severe): Acute Illness/Injury Evidenced By Suboptimal Energy Intake ( Severe),Weight Loss (Severe) Intake Problem Inadequate Oral Intake Etiology related to respiratory failure requiring intubation, decreased appetite w/ recent hospitalization for PNA Signs/Symptoms as evidenced by estimated PO intake meeting <75% of estimated nutritional needs >2 weeks and currently NPO/ intubated Status Active Problem Clinical Problem Acute Disease or Injury Related Malnutrition Etiology Severe protein/calorie malnutrition in the context of acute illness related to inadequate oral intake and increased nutrient needs Signs/Symptoms as evidenced by estimated PO intake meeting less than 50-75 % of estimated nutritional needs x greater than 2 weeks, unintentional weight loss of 14.6#/7.2% x less than 1 month Status Active Problem Recommendation Dietitian Recommendations/Changes TF support for nutrition while intubated and NPO. As medically able post bronchoscopy today, recommend start TF with Vital AF 1.2 Mario @ 20ml/hr and increase as tolerated by 10ml/hr Q 8 hours to goal rate of 50ml/hr with water flush of 80ml Q 4 hours to provide 1440 kcal, 90 gm pro and 1453 ml free water per day at goal rate with water flushes. Will monitor TF tolerance as initiated, wt, labs and follow -up. Lab / Micro Data Attestation: I reviewed the patient's lab results. Result Diagrams: 06/25/21 03:30 06/25/21 03:30 Labs: Laboratory Results - last 24 hr 06/22/21 04:40: Diff Path Review Reviewed 06/23/21 05:00: Diff Path Review Reviewed 06/24/21 05:00: WBC 3.4 L, RBC 2.60 L, Hgb 7.8 L, Hct 23.4 L, MCV 90.0, MCH 30.0, MCHC 33.3, RDW Std Deviation 45.1 H, RDW Coeff of Heladio 13.9, Plt Count 49 L*, MPV 10.7, Neut % (Auto) Not Reportable, Absolute Neuts (auto) 2.1, Absolute Lymphs (auto) 0.78 L, Neutrophils % (Manual) 51, Band Neutrophils % 10 H, Lymphocytes % (Manual) 23, Monocytes % (Manual) 8, Eosinophils % (Manual) 1, Metamyelocytes % 1, Myelocytes % 1 H, Promyelocytes % 5 H, Nucleated RBCs/100 WBC 1, Diff Path Review Reviewed, Atypical Lymphocytes 2+, Platelet Estimate MKD DEC, RBC Morphology NORM C+C 06/24/21 05:00: Sodium 146 H, Potassium 3.0 L, Chloride 106, Carbon Dioxide 33.0 H, Anion Gap 7, BUN 61 H, Creatinine 1.04 H, Estim Creat Clear Calc 44.49, Est GFR (MDRD) Af Amer 70, Est GFR (MDRD) Non-Af 58 L, BUN/Creatinine Ratio 58.7 H, Glucose 146 H, Calcium 8.9 06/24/21 07:10: Blood Type A POSITIVE 06/24/21 08:15: Vancomycin Trough 19.1 H 06/25/21 03:30: WBC 4.7, RBC 2.60 L, Hgb 7.6 L, Hct 23.9 L, MCV 91.9, MCH 29.2, MCHC 31.8 L, RDW Std Deviation 46.4 H, RDW Coeff of Heladio 13.9, Plt Count 55 L, MPV 10.3, Neut % (Auto) Not Reportable, Absolute Neuts (auto) 3.1, Absolute Lymphs (auto) 0.98, Neutrophils % (Manual) 60, Band Neutrophils % 7 H, Lymphocytes % (Manual) 21, Monocytes % (Manual) 4, Eosinophils % (Manual) 1, Metamyelocytes % 1, Myelocytes % 4 H, Promyelocytes % 3 H, Nucleated RBCs/100 WBC 4, Diff Path Review May foll, Platelet Estimate MOD DEC, RBC Morphology NORM C+C 06/25/21 03:30: Sodium 144, Potassium 4.0, Chloride 106, Carbon Dioxide 32.0, Anion Gap 6, BUN 79 H, Creatinine 1.31 H, Estim Creat Clear Calc 35.32, Est GFR (MDRD) Af Amer 54 L, Est GFR (MDRD) Non-Af 44 L, BUN/Creatinine Ratio 60.3 H, Glucose 162 H, Calcium 8.7 Micro: Microbiology 06/23/21 08:00 Sputum, Induced/Lukens Gram Stain - Final 06/23/21 08:00 Sputum, Induced/Lukens Respiratory Culture - Preliminary Gram positive aba 06/22/21 09:10 Urine Catheter - Vincent Urine Culture - Final Yeast, not Trudi albicans 06/20/21 12:55 Urine Catheter - Vincent Urine Culture - Final Corynebacterium jeikeium 06/20/21 11:21 Blood Culture (Wb) - Other Blood Culture - Preliminary No growth in 48 hours. 06/20/21 11:12 Blood Culture (Wb) - Anticubital Left Blood Culture - Preliminary No growth in 48 hours. 06/20/21 11:15 Nasal Secretion SARS-CoV-2 Antigen (Rapid) - Final Radiography Diagnostic Testing: Radiology Impression Venous Doppler Study 06/23/21 08:51 Interpretation Summary There is no evidence of right lower extremity deep vein thrombosis. Acute deep venous thrombosis left posterior tibial and soleus veins. Patent and compressible bilateral great saphenous vein. Ordering Physician: Stephen Dennis Referring Physician: Cesar Arevalo Chi Performed By: Joycelyn Klein RVT Physical Exam Const no apparent distress General Appearance: patient mechanically ventilated Nutritional Appearance: obese HEENT normocephalic and head/scalp atraumatic Mouth: endotracheal tube in place and OG tube in place Eyes PERRL and conjunctivae normal Neck supple General: trachea midline Chest inspection of chest normal Resp Auscultation: rhonchi and wheezes Cardio S1 normal heart sound and S2 normal heart sound Rate: tachycardic GI normal to inspection, nondistended, normoactive bowel sounds Extremity no clubbing, cyanosis or edema Skin no rashes or lesions noted Neuro Sensorium / Orientation: sedated on vent Charges/Coding Procedures Hospitalists Procedures: 09017 Critial Care 1st Hr
[2021-06-25] MEDS: Ipratropium/Albuterol Sulfate 3 ML AMPUL.NEB INHALATION ×4 (06:58→22:37)
--- NOTE | 2021-06-25 07:59 | PCM.CONS.GEN ---
Assessment & Plan Assessment/Plan (1) Acute deep vein thrombosis: QUALIFIERS: DVT location: lower extremity Affected thrombotic vein of extremity: tibial Laterality: left Qualified Code(s): I82.442 - Acute embolism and thrombosis of left tibial vein PLAN: I have discussed this patient with Dr. Boland. Dr. Boland will plan to perform an inferior vena cava filter placement. Procedure details, risks and benefits have been explained to the patient's daughter. Due to patient's current intubation status, I did speak personally to the patient's daughter and explained the procedure to her. She is in agreement with proceeding with the proposed procedure. I spoke to the ICU nurse who will obtain verbal consent over the phone from the daughter. All parties involved have been updated and are in agreement with the proposed plan. HPI Consult Data Date of Consult: 06/25/21 HPI Narrative HPI Narrative: UNA BROOKS, is a 56 F who presents with worsening shortness of breath from known diagnosis of pneumonia. Patient was recently discharged from the hospital on 06/11 with pneumonia. She was continuing outpatient antibiotics when she had worsening shortness of breath and presented to the ED. Patient with history of previous non-small cell lung CA involving the right bronchus for which she underwent treatment in July 2016 to October 2016 apparently remained in remission. Presented to the emergency department with increasing shortness of breath. Imaging studies demonstrated collapse of the left upper lobe possibly related to an obstruction. She was also found to have lytic lesions of both scapula begin (thought to be metastatic disease from her lung CA). Patient is currently on a vent and all of her history was obtained from previous charting. Patient was noted to have an abnormal chest CT with a mass found in the left upper lobe suspicious for malignancy. She underwent a bronchoscopy by Dr. Dennis on 06/24/21. Patient also has a history of blood clots. She was previously on Eliquis which was held for her future intubation and bronchoscopy procedure. A DVT study was obtained on 06/23/21 which demonstrated an Acute deep venous thrombosis left posterior tibial and soleus veins. 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 Thyroid disease VTE (venous thromboembolism) Home Medications paroxetine HCl 40 mg PO DAILY 04/23/17 [History Last Taken Unknown] atorvastatin 40 mg PO DAILY 05/03/20 [History Last Taken Unknown] levothyroxine 25 mcg PO DAILY 10/31/20 [History Last Taken Unknown] furosemide [Lasix] 40 mg PO DAILY #60 tab 06/11/21 [Rx Last Taken Unknown] metoprolol tartrate 12.5 mg PO BID #120 tab 06/11/21 [Rx Last Taken Unknown] cefdinir 300 mg PO BID 06/20/21 [History Last Taken Unknown] Allergy/AdvReac Type Severity Reaction Status Date / Time No Known Allergies Allergy Verified 06/20/21 10:58 Family History Mother Hypertension Surgical History History of lung biopsy Social History Smoking Status: Former smoker ROS Review of Systems ROS Unobtainable: due to endotracheal tube Physical Exam Const Constitutional Narrative: Intubated HEENT Head and Scalp: normal to inspection Neck General: normal visual inspection Lymph Lymphatic: no lymphadenopathy noted Resp Resp Narrative: Intubated Auscultation: rhonchi and wheezes Cardio regular rate and regular rhythm GI Auscultation: hypoactive bowel sounds Palpation: soft and other Other Details: slightly distended no CVA tenderness Back/Spine no CVA tenderness Extremity normal to inspection Skin no rashes or lesions noted Medical Records Data Medical Nutrition Assessment Dietitian: Malnutrition Criteria Met Start: 06/22/21 15:30 Freq: Status: Active Protocol: Document 06/24/21 10:24 RMA (Rec: 06/24/21 10:25 RMA [id number]) Nutrition Malnutrition Evidence of Malnutrition Exists Yes Malnutrition (severe): Acute Illness/Injury Evidenced By Suboptimal Energy Intake ( Severe),Weight Loss (Severe) Intake Problem Inadequate Oral Intake Etiology related to respiratory failure requiring intubation, decreased appetite w/ recent hospitalization for PNA Signs/Symptoms as evidenced by estimated PO intake meeting <75% of estimated nutritional needs >2 weeks and currently NPO/ intubated Status Active Problem Clinical Problem Acute Disease or Injury Related Malnutrition Etiology Severe protein/calorie malnutrition in the context of acute illness related to inadequate oral intake and increased nutrient needs Signs/Symptoms as evidenced by estimated PO intake meeting less than 50-75 % of estimated nutritional needs x greater than 2 weeks, unintentional weight loss of 14.6#/7.2% x less than 1 month Status Active Problem Recommendation Dietitian Recommendations/Changes TF support for nutrition while intubated and NPO. As medically able post bronchoscopy today, recommend start TF with Vital AF 1.2 Mario @ 20ml/hr and increase as tolerated by 10ml/hr Q 8 hours to goal rate of 50ml/hr with water flush of 80ml Q 4 hours to provide 1440 kcal, 90 gm pro and 1453 ml free water per day at goal rate with water flushes. Will monitor TF tolerance as initiated, wt, labs and follow -up. Lab / Micro Data Result Diagrams: 06/25/21 03:30 06/25/21 03:30 Labs: Laboratory Results - last 24 hr 06/22/21 04:40: Diff Path Review Reviewed 06/23/21 05:00: Diff Path Review Reviewed 06/24/21 05:00: Diff Path Review Reviewed 06/24/21 07:10: Blood Type A POSITIVE 06/24/21 08:15: Vancomycin Trough 19.1 H 06/25/21 03:30: WBC 4.7, RBC 2.60 L, Hgb 7.6 L, Hct 23.9 L, MCV 91.9, MCH 29.2, MCHC 31.8 L, RDW Std Deviation 46.4 H, RDW Coeff of Heladio 13.9, Plt Count 55 L, MPV 10.3, Neut % (Auto) Not Reportable, Absolute Neuts (auto) 3.1, Absolute Lymphs (auto) 0.98, Neutrophils % (Manual) 60, Band Neutrophils % 7 H, Lymphocytes % (Manual) 21, Monocytes % (Manual) 4, Eosinophils % (Manual) 1, Metamyelocytes % 1, Myelocytes % 4 H, Promyelocytes % 3 H, Nucleated RBCs/100 WBC 4, Diff Path Review May foll, Platelet Estimate MOD DEC, RBC Morphology NORM C+C 06/25/21 03:30: Sodium 144, Potassium 4.0, Chloride 106, Carbon Dioxide 32.0, Anion Gap 6, BUN 79 H, Creatinine 1.31 H, Estim Creat Clear Calc 35.32, Est GFR (MDRD) Af Amer 54 L, Est GFR (MDRD) Non-Af 44 L, BUN/Creatinine Ratio 60.3 H, Glucose 162 H, Calcium 8.7 Micro: Microbiology 06/23/21 08:00 Sputum, Induced/Lukens Gram Stain - Final 06/23/21 08:00 Sputum, Induced/Lukens Respiratory Culture - Preliminary Gram positive aba Radiology Impression Venous Doppler Study 06/23/21 08:51 Interpretation Summary There is no evidence of right lower extremity deep vein thrombosis. Acute deep venous thrombosis left posterior tibial and soleus veins. Patent and compressible bilateral great saphenous vein. Ordering Physician: Stephen Dennis Referring Physician: Cesar Arevalo Chi Performed By: Joycelyn Klein RVT Procedure Criteria Type of Procedure Procedure Type: Elective Elective Risks - COVID COVID Risk Discussion: The surgeon/proceduralist and patient have discussed in detail the risk of exposure to and/or potential harm posed by the COVID-19 virus with having a surgery/procedure at this time versus the risk of delaying the surgery/procedure. It is not possible to know either the risk of delaying the surgery or procedure or chance of getting an infection with perfect accuracy, but a joint decision was made between the patient and the surgeon/proceduralist to proceed at this time with the scheduled surgery/procedure as indicated on the consent form. Charges/Coding Visit Charges Office Visits / Consults: 94990 IP Consult L3
--- NOTE | 2021-06-25 08:29 | PCS.PANDOC ---
PANDEMIC DOCUMENTATION INITIATED: Date: 04/08/2021 Time: 190
[2021-06-25] MEDS: Vancomycin IV 500 MG/100 ML BAG 100 MG IV (08:56)
[2021-06-25] MEDS: 0.9% Saline Lock 10 ML Syringe IV ×2 (08:56→13:36)
[2021-06-25 09:14] LABS: Vancomycin, Trough Level 25.9 ug/mL (5.0-15.0)
[2021-06-25] MEDS: Chlorhexidine 15 ML PO ×2 (10:07→21:03)
--- NOTE | 2021-06-25 10:54 | NURSING ---
To manager cath lab via bed w/ manager cath lab RNs and RT
--- NOTE | 2021-06-25 10:58 | PN.HOSP_ITS ---
Subjective Subjective Patient seen and examined. She remains intubated and sedated. RASS score is -4. She is on FiO2 of 55% and PEEP of 8. She had diagnostic bronchoscopy yesterday, which showed a left upper lobe endobronchial mass, with near complete obstruction of the left upper lobe orifice, with extrinsic compression of the right middle lobe. Duplex done of the LLE done today showed a left lower extremity DVT. Dr Boland consulted for IVC filter placement. Objective Data Objective Data Vital Signs: Vital Signs Temp Pulse Resp BP Pulse Ox 99.1 F 93 15 114/79 94 06/25/21 08:00 06/25/21 09:37 06/25/21 09:37 06/25/21 08:00 06/25/21 09:37 Oxygen Flow Rate (L/min) 50 Oxygen Delivery Method Mechanical Ventilator Weight: 193 lb 5.526 oz Body Mass Index (BMI) 35.1 Intake & Output: Intake and Output for Last 24 Hours 06/23/21 06/24/21 06/25/21 23:59 23:59 23:59 Intake Total 2385.75 / 2401.05 1938.75 / 2104.15 996.49 / 996.49 Output Total 825 / 1075 1000 / 1000 140 / 140 Balance 1560.75 / 1326.05 938.75 / 1104.15 856.49 / 856.49 Medical Nutrition Assessment Dietitian: Malnutrition Criteria Met Start: 06/22/21 15:30 Freq: Status: Active Protocol: Document 06/24/21 10:24 RMA (Rec: 06/24/21 10:25 RMA [id number]) Nutrition Malnutrition Evidence of Malnutrition Exists Yes Malnutrition (severe): Acute Illness/Injury Evidenced By Suboptimal Energy Intake ( Severe),Weight Loss (Severe) Intake Problem Inadequate Oral Intake Etiology related to respiratory failure requiring intubation, decreased appetite w/ recent hospitalization for PNA Signs/Symptoms as evidenced by estimated PO intake meeting <75% of estimated nutritional needs >2 weeks and currently NPO/ intubated Status Active Problem Clinical Problem Acute Disease or Injury Related Malnutrition Etiology Severe protein/calorie malnutrition in the context of acute illness related to inadequate oral intake and increased nutrient needs Signs/Symptoms as evidenced by estimated PO intake meeting less than 50-75 % of estimated nutritional needs x greater than 2 weeks, unintentional weight loss of 14.6#/7.2% x less than 1 month Status Active Problem Recommendation Dietitian Recommendations/Changes TF support for nutrition while intubated and NPO. As medically able post bronchoscopy today, recommend start TF with Vital AF 1.2 Mario @ 20ml/hr and increase as tolerated by 10ml/hr Q 8 hours to goal rate of 50ml/hr with water flush of 80ml Q 4 hours to provide 1440 kcal, 90 gm pro and 1453 ml free water per day at goal rate with water flushes. Will monitor TF tolerance as initiated, wt, labs and follow -up. Lab / Micro Data Result Diagrams: 06/25/21 03:30 06/25/21 03:30 Labs: Laboratory Results - last 24 hr 06/22/21 04:40: Diff Path Review Reviewed 06/23/21 05:00: Diff Path Review Reviewed 06/24/21 05:00: Diff Path Review Reviewed 06/24/21 07:10: Blood Type A POSITIVE 06/25/21 03:30: WBC 4.7, RBC 2.60 L, Hgb 7.6 L, Hct 23.9 L, MCV 91.9, MCH 29.2, MCHC 31.8 L, RDW Std Deviation 46.4 H, RDW Coeff of Heladio 13.9, Plt Count 55 L, MPV 10.3, Neut % (Auto) Not Reportable, Absolute Neuts (auto) 3.1, Absolute Lymphs (auto) 0.98, Neutrophils % (Manual) 60, Band Neutrophils % 7 H, Lymphocytes % (Manual) 21, Monocytes % (Manual) 4, Eosinophils % (Manual) 1, Metamyelocytes % 1, Myelocytes % 4 H, Promyelocytes % 3 H, Nucleated RBCs/100 WBC 4, Diff Path Review May foll, Platelet Estimate MOD DEC, RBC Morphology NORM C+C 06/25/21 03:30: Sodium 144, Potassium 4.0, Chloride 106, Carbon Dioxide 32.0, Anion Gap 6, BUN 79 H, Creatinine 1.31 H, Estim Creat Clear Calc 35.32, Est GFR (MDRD) Af Amer 54 L, Est GFR (MDRD) Non-Af 44 L, BUN/Creatinine Ratio 60.3 H, Glucose 162 H, Calcium 8.7 06/25/21 08:35: Vancomycin Trough 25.9 H Micro: Microbiology 06/23/21 08:00 Sputum, Induced/Lukens Gram Stain - Final 06/23/21 08:00 Sputum, Induced/Lukens Respiratory Culture - Preliminary Gram positive aba 06/22/21 09:10 Urine Catheter - Vincent Urine Culture - Final Yeast, not Trudi albicans 06/20/21 12:55 Urine Catheter - Vincent Urine Culture - Final Corynebacterium jeikeium 06/20/21 11:21 Blood Culture (Wb) - Other Blood Culture - Preliminary No growth in 48 hours. 06/20/21 11:12 Blood Culture (Wb) - Anticubital Left Blood Culture - Preliminary No growth in 48 hours. 06/20/21 11:15 Nasal Secretion SARS-CoV-2 Antigen (Rapid) - Final Radiography Diagnostic Testing: Radiology Impression Venous Doppler Study 06/23/21 08:51 Interpretation Summary There is no evidence of right lower extremity deep vein thrombosis. Acute deep venous thrombosis left posterior tibial and soleus veins. Patent and compressible bilateral great saphenous vein. Ordering Physician: Stephen Dennis Referring Physician: Cesar Arevalo Chi Performed By: Joycelyn Klein RVT Physical Exam Const Constitutional Narrative: intubated, sedated. RASS score is -4 General Appearance: cooperative, comfortable, well kempt and well developed Orientation / Consciousness: awake, oriented to person, oriented to place and oriented to time Exam Limitations: altered mental status Nutritional Appearance: obese HEENT normocephalic, head/scalp atraumatic, hearing grossly normal bilaterally, moist oral mucous membranes and oropharynx normal Eyes PERRL, EOMs intact bilaterally and conjunctivae normal Neck no lymphadenopathy, supple and no JVD General: normal visual inspection and trachea midline Lymph Lymphatic: no lymphadenopathy noted Chest inspection of chest normal and palpation of chest normal Resp normal air movement Resp Narrative: diminished breath sounds bibasally, few coarse crackles. Intubated and sedated. Effort and Inspection: tachypneic and respiratory distress Auscultation: clear to auscultation bilaterally and diminished lung sounds Cardio regular rate, regular rhythm, S1 normal heart sound, S2 normal heart sound, no murmurs and no gallops GI normal to inspection, nondistended, normoactive bowel sounds, soft to palpation, non-tender and non-distended Extremity normal to inspection, normal capillary refill, no clubbing, cyanosis or edema and no pedal edema Peripheral Pulses: Yes pulses 2+ throughout Skin Skin Narrative: Large ecchymotic bruise on her upper right arm General Skin Exam: no breakdown Neuro oriented x3, CN's II-XII intact bilaterally, moves all extremities, no focal motor deficits and no sensory deficits noted Neuro Narrative: intubated, sedated, RASS score is -4 Psych mental status grossly normal and affect normal Appearance: appropriate Mood & Affect: flat affect Assessment & Plan Assessment/Plan (1) Acute respiratory failure with hypoxia: (2) Non-small cell lung cancer (NSCLC): QUALIFIERS: Laterality: right Qualified Code(s): C34.91 - Malign ant neoplasm of unspecified part of right bronchus or lung (3) Thrombocytopenia: (4) Pancytopenia: (5) Lytic bone lesions on xray: (6) Radiation-induced pulmonary fibrosis: PLAN: #Acute hypoxic respiratory failure due to post obstructive pneumonia * currently intubated and sedated. RASS score is -4 * on IV vancomycin and meropenem * for bronchoscopy today * on breathing treatment with bronchodilators * titrate oxygen to maintain sats >90% * critical care on board * #Severe pancytopenia * platelets are still low * was transfused with platelets yesterday * Hb is 7.6 today, and platelets are up to 55,000. * #LLE DVT: cannot be anticoagulated in light of her pancytopenia. Dr Boland consulted for IVC filter placement today. #History of nonsmall cell lung cancer with radiation pneumonitis * pulmonology on board * #Hypokalemia: resolved. K is 4 today. #HFpEF * on lasix. * not in exacerbation. Recent echo showed EF of 65% with stage 1 diastolic dysfunction. * #Hypothyroidism: on synthroid. #History of VTE : eliquis on hold in light of thrombocytopenia. has acute LLE DVT. For IVC filter placement tday. #Depression: on paxil #Severe protein calorie malnutrition * Due to technique creased intake with increased nutrient needs due to pneumonia respiratory failure. * On tube feeding. * DVT prophylaxis: SCDs Charges/Coding Visit Charges Inpatient E&M: 27242 Subs Hosp L3
--- NOTE | 2021-06-25 11:55 | PCM.OPRPT ---
Problems Associated Problem List Diagnoses (1) Acute deep vein thrombosis: (2) Pancytopenia: (3) Thrombocytopenia: Report of Operation Date of Procedure: 06/25/21 Pre-Operative Diagnosis: Left lower extremity DVT with anticoagulation contraindication Post-Operative Diagnosis: Same plus nonvisualized right internal jugular vein Surgery/Procedure Performed:: Inferior venacavogram with inferior vena cava [place] filter placement Description of Surgical Findings:: Patient was on a ventilator brought from the intensive care unit to the special procedures lab. The right neck was sterilely prepped and draped. I inspected the right neck and could not identify a right internal jugular vein of substance. I again contacted Dr. Stephen Dennis instructed him we would be going from a femoral approach. I do not have knowledge as to whether the left internal jugular vein is patent but it remains clear that the patient is in need of thromboembolism protection. The right groin is sterilely prepped and draped. Ultrasound was performed identifying the right common femoral vein. Under ultrasound guidance 2% lidocaine was instilled. A total of 8 cc was used. Using ultrasound guidance micropuncture needles inserted in the right common femoral vein followed by micropuncture wire micropuncture sheath then an 035 J-wire and a 5 [place] short sheath dilator was inserted. This allowed me to place a 035 J-wire and a 5 [place] universal flush catheter into the proximal right common iliac. Using 15 cc/s for 15 cc an inferior venacavogram was obtained. This demonstrated patent renal veins widely patent inferior vena cava without any evidence of thrombus. The diameter was appropriate size to allow for filter placement. The 5 [place] sheath was removed 9 [place] sheath was used to predilate and the delivery Macken was inserted over the J-wire. The filter was deployed so that the apex was just above the entrance of the left jugular vein. Good upright positioning was achieved. No apparent complication. The delivery device was removed and gentle pressure was held upon the right common femoral vein. Sterile dressings were applied. No apparent complication. The patient was taken to the recovery area in satisfactory addition without apparent complication. Fer Boland M.D., F.A.C.S. Surgeon: Fer Boland Type of Anesthesia: Local
[2021-06-25] MEDS: Propofol 10MG/Ml 1,000 MG/100 ML Bottle 10.5 MG CONT INF (12:00)
--- NOTE | 2021-06-25 12:29 | CASEMGMT ---
Addendum entered by Gaby Felipe 06/25/21 13:54: SW called both daughter and mother to offer support. Messages left. ANN Cuevas Original Note: SW participated in ICU rounds, pt remains intubated. SW called Aurea in TCU to let her know pt is still intubated. SW will continue to follow for discharge planning needs. ANN Cuevas
[2021-06-25] MEDS: Paroxetine 20 MG Tablet 40 MG GT (12:41)
[2021-06-25] MEDS: CHLORHEXIDINE GLUC 2% CLOTH 1 EACH TOWELETTE TOPICAL (12:41)
--- NOTE | 2021-06-25 13:03 | PCM.RX.CS ---
Consult Pharmacy has been consulted to manage selected antiobiotic: Vancomycin Type of Consult: Follow-up Suspected Infection: Pneumonia Prior Doses of Antibiotics Received/Current Regimen: current dose is 500mg IV q12h Labs: Sodium 144 mmol/L (136-145) 06/25/21 03:30 Potassium 4.0 mmol/L (3.5-5.1) 06/25/21 03:30 Chloride 106 mmol/L (98-107) 06/25/21 03:30 Carbon Dioxide 32.0 mmol/L (21.0-32.0) 06/25/21 03:30 Anion Gap 6 (5-15) 06/25/21 03:30 BUN 79 mg/dL (7-18) H 06/25/21 03:30 Creatinine 1.31 mg/dL (0.55-1.02) H 06/25/21 03:30 Est GFR (MDRD) Af Amer 54 mL/min (>60) L 06/25/21 03:30 Est GFR (MDRD) Non-Af 44 mL/min (>60) L 06/25/21 03:30 BUN/Creatinine Ratio 60.3 RATIO (10-20) H 06/25/21 03:30 Glucose 162 mg/dL (74-106) H 06/25/21 03:30 Vancomycin Trough 25.9 ug/mL (5.0-15.0) H 06/25/21 08:35 Random Vancomycin 19.3 ug/mL (0.0-15.0) H 06/22/21 18:25 Microbiology: Microbiology 06/23/21 08:00 Sputum, Induced/Lukens Gram Stain - Final 06/23/21 08:00 Sputum, Induced/Lukens Respiratory Culture - Final Yeast, not Trudi albicans 06/22/21 09:10 Urine Catheter - Vincent Urine Culture - Final Yeast, not Trudi albicans 06/20/21 12:55 Urine Catheter - Vincent Urine Culture - Final Corynebacterium jeikeium 06/20/21 11:21 Blood Culture (Wb) - Other Blood Culture - Preliminary No growth in 48 hours. 06/20/21 11:12 Blood Culture (Wb) - Anticubital Left Blood Culture - Preliminary No growth in 48 hours. 06/20/21 11:15 Nasal Secretion SARS-CoV-2 Antigen (Rapid) - Final Weight used for dosin.7 kg Estimated Creatinine Clearance: 35 ml/min Goal Trough: 15-20 mcg/mL Pharmacy Plan for Drug Dosing: The vanc trough level drawn today (drawn approx 12 hours after the previous dose) was 25.9. This is above goal range so will hold further dosing. The morning dose was already given after the trough was drawn so will order a vanc random level to be drawn tomorrow morning with AM labs. If that level is <20, dosing can be resumed, albeit for tomorrow only as a stop date has been ordered for the vanc for tomorrow night to finish out 7 days of therapy. Pharmacy Service will continue to monitor and adjust dosing as required. Follow-Up Labs: Trough Vancomycin - random Labs to be done on [date and time ordered]: 06/26/21 0600 with AM labs
[2021-06-25 13:49] LABS: Pathologist Review Reviewed
[2021-06-25] MEDS: Propofol 10MG/Ml 1,000 MG/100 ML Bottle 15.8 MG CONT INF (18:52)
[2021-06-25] MEDS: Atorvastatin Calcium 40 MG Tablet GT (21:02)
[2021-06-26] VITALS (35 sets, daily range): BP systolic 83–105; BP diastolic 54–65; PULSE 85–123; RESP 13–30; TEMP 37–38.8; O2SAT 89–95
[2021-06-26] MEDS: Propofol 10MG/Ml 1,000 MG/100 ML Bottle 15.8 MG CONT INF (01:20)
[2021-06-26] MEDS: CHLORHEXIDINE GLUC 2% CLOTH 1 EACH TOWELETTE TOPICAL (03:42)
[2021-06-26 03:50] LABS: Hematocrit 23.2 % (37-47); Hemoglobin 7.6 g/dL (12.0-15.0); Mean Corp Hgb Conc 32.8 g/dL (32-36); Mean Corpuscular Volume 91.7 fL (81-99); Mean Platelet Vol. 10.7 fl (6.2-12.0); POSITIVE COUNT YES; POSITIVE MORPHOLOGY YES; Platelet Count 33 K/mm3 (150-450); RBC Distribution Width CV 13.6 % (11.6-14.6); RBC Distribution Width SD 45.6 fl (35.1-43.9); Red Blood Count 2.53 M/mm3 (4.2-5.4); White Blood Count 4.5 K/mm3 (4.4-11.0)
[2021-06-26] MEDS: TITRATION PARAMETER CHANGE 1 EACH IV (04:11)
[2021-06-26 04:24] LABS: Differential Indicated MANUAL DIFF
[2021-06-26 04:34] LABS: Anion Gap 8 (5-15); BUN 94 mg/dL (7-18); BUN/Creat Ratio 81.7 RATIO (10-20); Calcium,Total 8.4 mg/dL (8.5-10.1); Chloride 104 mmol/L (98-107); Creatinine, Serum 1.15 mg/dL (0.55-1.02); EST Glomerular Filtration Rate 52 mL/min (>60); Est Glom Filt Rate - Afr Amer 62 mL/min (>60); Estimated Creatinine Clearance 40.24 ml/min; Glucose 189 mg/dL (74-106); Potassium 3.8 mmol/L (3.5-5.1); Sodium Level 141 mmol/L (136-145)
[2021-06-26] MEDS: Levothyroxine 25 MCG TABLET GT (05:11)
[2021-06-26 05:19] LABS: Absolute Lymphocyte Count 0.99 X10^3/uL (0.83-4.51); Absolute Neutrophil Count 3.5 X10^3/uL (2.0-7.7); Metamyelocyte 3 % (0-1); Myelocyte 3 % (0-0); Neutrophil-Band 9 % (0-5); Neutrophil-Segmented 61 % (47-70)
[2021-06-26 05:20] LABS: Lymphocyte 20 % (19-41); Monocyte 4 % (0-10); Nucleated Red Bld Cells,Manual 1 % (0-5); Platelet Estimate MKD DEC (ADEQ); Red Cell Morphology NORM C+C NORMAL (NORM C&C)
[2021-06-26] MEDS: Vital AF 1.2 Cal Liquid 1,000 ML 60 ML GT (05:50)
[2021-06-26] MEDS: Propofol 10MG/Ml 1,000 MG/100 ML Bottle 16.1 MG CONT INF (05:51)
--- NOTE | 2021-06-26 06:36 | PN.CC_ITS ---
Assessment & Plan Assessment/Plan (1) Acute respiratory failure with hypoxia: (2) Radiation-induced pulmonary fibrosis: (3) Pneumonia: QUALIFIERS: Laterality: bilateral Lung location: lower lobe of lung Pneumonia type: due to Pneumococcus Qualified Code(s): J13 - Pneumonia due to Streptococcus pneumoniae (4) Non-small cell lung cancer (NSCLC): QUALIFIERS: Laterality: right Qualified Code(s): C34.91 - Malignant neoplasm of unspecified part of right bronchus or lung PLAN: RECOMMENDATIONS: 1. Continue patient on assist control mode of mechanical ventilation. Wean FiO2/PEEP for saturations greater than 90%. 2. Continue antimicrobials as ordered. 3. Await results of endobronchial biopsies. 4. Continue tube feeds as tolerated. 5. Continue appropriate GI prophylaxis. 6. Continue to monitor blood counts daily and transfuse blood products as indicated. IMPRESSIONS: 1. Acute hypoxic respiratory failure secondary to suspected postobstructive pneumonia The patient was recently admitted to the hospital under similar circumstances and treated for postobstructive pneumonia. Although conservative measures in the form of noninvasive positive pressure ventilatory support were initially employed, the patient continued to decompensate from a respiratory perspective. Given her tenuous clinical status and findings noted on prior CT imaging, I would recommend a more aggressive approach to the patient's care given her need for repeat hospitalization. The patient ultimately required intubation on June 23. Bedside bronchoscopy was then completed on June 24 which revealed a left upper lobe endobronchial mass, which was biopsied. The results of those biopsies are pending. For now, the patient will be continued on scheduled bronchodilators as ordered. Continue empiric antimicrobials as well. The patient will be continued on tube feeds as tolerated. 2. Left lower extremity DVT In light of the patient's pancytopenia, and need for transfusion of blood produ cts, the patient underwent IVC filter placement on June 25. 3. Anemia/thrombocytopenia Continue to monitor CBC daily. Transfuse for hemoglobin less than 7 g/dL. No indication for transfusion of blood products today. 4. History of radiation pneumonitis/history of nephrotic syndrome/obesity/hypercholesterolemia/hypothyroidism Complicates care, management, recovery and prognosis. Okay to continue with baseline medications from my perspective. Continue to monitor renal function. TIME: 32 minutes of critical care time, independent of procedures, was spent addressing the patient's acute hypoxemic respiratory failure secondary to suspected postobstructive pneumonia, anemia, thrombocytopenia, lower extremity D VT, review of all data and collaboration with the care team. Subjective Subjective The patient was seen and examined at the bedside this morning. Events from the last 24 hours have been reviewed. Today is vent day #4. The patient remains hemodynamically stable on assist control mode of mechanical ventilation with an FiO2 requirement of 50% and PEEP of 5. She is currently tolerating tube feeds. She remains sedated on propofol and fentanyl. The patient did undergo successful IVC filter placement yesterday. She is currently documented to be overall net +5.8 L for the hospitalization. Hemoglobin is stable this morning at 7.6 g/dL. Platelet count has dropped to 33,000. Creatinine has improved to 1.15. Objective Data Objective Data The patient's most recent lab work, culture data and imaging studies have all been personally reviewed. Lower extremity Doppler study revealed a left lower extremity DVT. Echocardiogram from May 2021 demonstrated stage I diastolic dysfunction with an ejection fraction of 65% and a pulmonary artery systolic pressure estimated to be 30 mmHg. Blood cultures have shown no growth to date. Rapid coronavirus antigen testing was negative. Vital Signs: Vital Signs Temp Pulse Resp BP Pulse Ox 100 F H 111 H 18 93/60 94 06/26/21 06:00 06/26/21 06:00 06/26/21 06:00 06/26/21 06:00 06/26/21 06:00 Oxygen Flow Rate (L/min) 50 Oxygen Delivery Method Mechanical Ventilator Weight: 89.2 kg Body Mass Index (BMI) 35.1 Intake & Output: Intake and Output for Last 24 Hours 06/24/21 06/25/21 06/26/21 23:59 23:59 23:59 Intake Total 1938.75 / 2104.15 2369.96 / 2653.26 1040.48 / 1040.48 Output Total 1000 / 1000 560 / 735 325 / 325 Balance 938.75 / 1104.15 1809.96 / 1918.26 715.48 / 715.48 Medical Nutrition Assessment Dietitian: Malnutrition Criteria Met Start: 06/22/21 15:30 Freq: Status: Active Protocol: Document 06/24/21 10:24 RMA (Rec: 06/24/21 10:25 RMA [id number]) Nutrition Malnutrition Evidence of Malnutrition Exists Yes Malnutrition (severe): Acute Illness/Injury Evidenced By Suboptimal Energy Intake ( Severe),Weight Loss (Severe) Intake Problem Inadequate Oral Intake Etiology related to respiratory failure requiring intubation, decreased appetite w/ recent hospitalization for PNA Signs/Symptoms as evidenced by estimated PO intake meeting <75% of estimated nutritional needs >2 weeks and currently NPO/ intubated Status Active Problem Clinical Problem Acute Disease or Injury Related Malnutrition Etiology Severe protein/calorie malnutrition in the context of acute illness related to inadequate oral intake and increased nutrient needs Signs/Symptoms as evidenced by estimated PO intake meeting less than 50-75 % of estimated nutritional needs x greater than 2 weeks, unintentional weight loss of 14.6#/7.2% x less than 1 month Status Active Problem Recommendation Dietitian Recommendations/Changes TF support for nutrition while intubated and NPO. As medically able post bronchoscopy today, recommend start TF with Vital AF 1.2 Mario @ 20ml/hr and increase as tolerated by 10ml/hr Q 8 hours to goal rate of 50ml/hr with water flush of 80ml Q 4 hours to provide 1440 kcal, 90 gm pro and 1453 ml free water per day at goal rate with water flushes. Will monitor TF tolerance as initiated, wt, labs and follow -up. Lab / Micro Data Attestation: I reviewed the patient's lab results. Result Diagrams: 06/26/21 03:30 06/26/21 03:30 Labs: Laboratory Results - last 24 hr 06/25/21 03:30: Diff Path Review Reviewed 06/25/21 08:35: Vancomycin Trough 25.9 H 06/26/21 03:30: WBC 4.5, RBC 2.53 L, Hgb 7.6 L, Hct 23.2 L, MCV 91.7, MCH 30.0, MCHC 32.8, RDW Std Deviation 45.6 H, RDW Coeff of Heladio 13.6, Plt Count 33 L*, MPV 10.7, Neut % (Auto) Not Reportable, Absolute Neuts (auto) 3.5, Absolute Lymphs (auto) 0.99, Neutrophils % (Manual) 61, Band Neutrophils % 9 H, Lymphocytes % (Manual) 20, Monocytes % (Manual) 4, Metamyelocytes % 3 H, Myelocytes % 3 H, Nucleated RBCs/100 WBC 1, Diff Path Review May foll, Platelet Estimate MKD DEC, RBC Morphology NORM C+C 06/26/21 03:30: Sodium 141, Potassium 3.8, Chloride 104, Carbon Dioxide 29.0, Anion Gap 8, BUN 94 H, Creatinine 1.15 H, Estim Creat Clear Calc 40.24, Est GFR (MDRD) Af Amer 62, Est GFR (MDRD) Non-Af 52 L, BUN/Creatinine Ratio 81.7 H, Glucose 189 H, Calcium 8.4 L 06/26/21 03:30: Random Vancomycin 23.0 H Micro: Microbiology 06/23/21 08:00 Sputum, Induced/Lukens Gram Stain - Final 06/23/21 08:00 Sputum, Induced/Lukens Respiratory Culture - Final Yeast, not Trudi albicans 06/22/21 09:10 Urine Catheter - Vincent Urine Culture - Final Yeast, not Trudi albicans 06/20/21 12:55 Urine Catheter - Vincent Urine Culture - Final Corynebacterium jeikeium 06/20/21 11:21 Blood Culture (Wb) - Other Blood Culture - Preliminary No growth in 48 hours. 06/20/21 11:12 Blood Culture (Wb) - Anticubital Left Blood Culture - Preliminary No growth in 48 hours. 06/20/21 11:15 Nasal Secretion SARS-CoV-2 Antigen (Rapid) - Final Physical Exam Const no apparent distress General Appearance: patient mechanically ventilated Nutritional Appearance: obese HEENT normocephalic and head/scalp atraumatic Mouth: endotracheal tube in place and OG tube in place Eyes PERRL and conjunctivae normal Neck supple General: trachea midline Chest inspection of chest normal Resp Auscultation: rhonchi and wheezes Cardio S1 normal heart sound and S2 normal heart sound Rate: tachycardic GI normal to inspection, nondistended, normoactive bowel sounds Extremity no clubbing, cyanosis or edema Skin no rashes or lesions noted Neuro Sensorium / Orientation: sedated on vent Charges/Coding Procedures Hospitalists Procedures: [id number] Critial Care 1st Hr
[2021-06-26] MEDS: Ipratropium/Albuterol Sulfate 3 ML AMPUL.NEB INHALATION ×5 (06:45→22:29)
--- NOTE | 2021-06-26 08:27 | PCM.RX.CS ---
Consult Pharmacy has been consulted to manage selected antiobiotic: Vancomycin Type of Consult: Follow-up Suspected Infection: Pneumonia Prior Doses of Antibiotics Received/Current Regimen: Had been on 500mg iv q12h. Labs: Sodium 141 mmol/L (136-145) 06/26/21 03:30 Potassium 3.8 mmol/L (3.5-5.1) 06/26/21 03:30 Chloride 104 mmol/L (98-107) 06/26/21 03:30 Carbon Dioxide 29.0 mmol/L (21.0-32.0) 06/26/21 03:30 Anion Gap 8 (5-15) 06/26/21 03:30 BUN 94 mg/dL (7-18) H 06/26/21 03:30 Creatinine 1.15 mg/dL (0.55-1.02) H 06/26/21 03:30 Est GFR (MDRD) Af Amer 62 mL/min (>60) 06/26/21 03:30 Est GFR (MDRD) Non-Af 52 mL/min (>60) L 06/26/21 03:30 BUN/Creatinine Ratio 81.7 RATIO (10-20) H 06/26/21 03:30 Glucose 189 mg/dL (74-106) H 06/26/21 03:30 Vancomycin Trough 25.9 ug/mL (5.0-15.0) H 06/25/21 08:35 Random Vancomycin 23.0 ug/mL (0.0-15.0) H 06/26/21 03:30 Microbiology: Microbiology 06/20/21 11:21 Blood Culture (Wb) - Other Blood Culture - Final No growth in 5 days. 06/20/21 11:12 Blood Culture (Wb) - Anticubital Left Blood Culture - Final No growth in 5 days. 06/23/21 08:00 Sputum, Induced/Lukens Gram Stain - Final 06/23/21 08:00 Sputum, Induced/Lukens Respiratory Culture - Final Yeast, not Trudi albicans 06/22/21 09:10 Urine Catheter - Vincent Urine Culture - Final Yeast, not Trudi albicans 06/20/21 12:55 Urine Catheter - Vincent Urine Culture - Final Corynebacterium jeikeium 06/20/21 11:15 Nasal Secretion SARS-CoV-2 Antigen (Rapid) - Final Weight used for dosin kg Estimated Creatinine Clearance: ~40ml/min Goal Trough: 15-20 mcg/mL Pharmacy Plan for Drug Dosing: Today's random level was 23.0. This was a ~30.5hrs post last dose level. No further dosing will be given. Previous orders are for vancomycin to be DC'd this PM 11.3.21. Pharmacy Service will continue to monitor and adjust dosing as required.
[2021-06-26] MEDS: Paroxetine 20 MG Tablet 40 MG GT (09:39)
[2021-06-26] MEDS: Chlorhexidine 15 ML PO ×2 (09:39→20:54)
[2021-06-26] MEDS: 0.9% Saline Lock 10 ML Syringe IV ×2 (09:45→13:57)
[2021-06-26] MEDS: Acetaminophen 650 MG/20 ML UDC GT ×2 (09:45→15:49)
--- NOTE | 2021-06-26 10:51 | PN.HOSP_ITS ---
Subjective Subjective Patient seen and examined. She remains intubated and sedated. RASS score remains -4. Objective Data Objective Data Vital Signs: Vital Signs Temp Pulse Resp BP Pulse Ox 100.5 F H 122 H 17 102/62 92 06/26/21 10:00 06/26/21 10:33 06/26/21 10:33 06/26/21 10:00 06/26/21 10:33 Oxygen Flow Rate (L/min) 50 Oxygen Delivery Method Mechanical Ventilator Weight: 196 lb 10.437 oz Body Mass Index (BMI) 35.1 Intake & Output: Intake and Output for Last 24 Hours 06/24/21 06/25/21 06/26/21 23:59 23:59 23:59 Intake Total 1938.75 / 2104.15 2369.96 / 2653.26 1482.76 / 1482.76 Output Total 1000 / 1000 560 / 735 500 / 500 Balance 938.75 / 1104.15 1809.96 / 1918.26 982.76 / 982.76 Medical Nutrition Assessment Dietitian: Malnutrition Criteria Met Start: 06/22/21 15:30 Freq: Status: Active Protocol: Document 06/24/21 10:24 RMA (Rec: 06/24/21 10:25 RMA [id number]) Nutrition Malnutrition Evidence of Malnutrition Exists Yes Malnutrition (severe): Acute Illness/Injury Evidenced By Suboptimal Energy Intake ( Severe),Weight Loss (Severe) Intake Problem Inadequate Oral Intake Etiology related to respiratory failure requiring intubation, decreased appetite w/ recent hospitalization for PNA Signs/Symptoms as evidenced by estimated PO intake meeting <75% of estimated nutritional needs >2 weeks and currently NPO/ intubated Status Active Problem Clinical Problem Acute Disease or Injury Related Malnutrition Etiology Severe protein/calorie malnutrition in the context of acute illness related to inadequate oral intake and increased nutrient needs Signs/Symptoms as evidenced by estimated PO intake meeting less than 50-75 % of estimated nutritional needs x greater than 2 weeks, unintentional weight loss of 14.6#/7.2% x less than 1 month Status Active Problem Recommendation Dietitian Recommendations/Changes TF support for nutrition while intubated and NPO. As medically able post bronchoscopy today, recommend start TF with Vital AF 1.2 Mario @ 20ml/hr and increase as tolerated by 10ml/hr Q 8 hours to goal rate of 50ml/hr with water flush of 80ml Q 4 hours to provide 1440 kcal, 90 gm pro and 1453 ml free water per day at goal rate with water flushes. Will monitor TF tolerance as initiated, wt, labs and follow -up. Lab / Micro Data Result Diagrams: 06/26/21 03:30 06/26/21 03:30 Labs: Laboratory Results - last 24 hr 06/25/21 03:30: Diff Path Review Reviewed 06/26/21 03:30: WBC 4.5, RBC 2.53 L, Hgb 7.6 L, Hct 23.2 L, MCV 91.7, MCH 30.0, MCHC 32.8, RDW Std Deviation 45.6 H, RDW Coeff of Heladio 13.6, Plt Count 33 L*, MPV 10.7, Neut % (Auto) Not Reportable, Absolute Neuts (auto) 3.5, Absolute Lymphs (auto) 0.99, Neutrophils % (Manual) 61, Band Neutrophils % 9 H, Lymphocytes % (Manual) 20, Monocytes % (Manual) 4, Metamyelocytes % 3 H, Myelocytes % 3 H, Nucleated RBCs/100 WBC 1, Diff Path Review May foll, Platelet Estimate MKD DEC, RBC Morphology NORM C+C 06/26/21 03:30: Sodium 141, Potassium 3.8, Chloride 104, Carbon Dioxide 29.0, Anion Gap 8, BUN 94 H, Creatinine 1.15 H, Estim Creat Clear Calc 40.24, Est GFR (MDRD) Af Amer 62, Est GFR (MDRD) Non-Af 52 L, BUN/Creatinine Ratio 81.7 H, Glucose 189 H, Calcium 8.4 L 06/26/21 03:30: Random Vancomycin 23.0 H Micro: Microbiology 06/20/21 11:21 Blood Culture (Wb) - Other Blood Culture - Final No growth in 5 days. 06/20/21 11:12 Blood Culture (Wb) - Anticubital Left Blood Culture - Final No growth in 5 days. 06/23/21 08:00 Sputum, Induced/Lukens Gram Stain - Final 06/23/21 08:00 Sputum, Induced/Lukens Respiratory Culture - Final Yeast, not Trudi albicans 06/22/21 09:10 Urine Catheter - Vincent Urine Culture - Final Yeast, not Trudi albicans 06/20/21 12:55 Urine Catheter - Vincent Urine Culture - Final Corynebacterium rosioium 06/20/21 11:15 Nasal Secretion SARS-CoV-2 Antigen (Rapid) - Final Physical Exam Const Constitutional Narrative: intubated, sedated. RASS score is -4 General Appearance: cooperative, comfortable, well kempt and well developed Orientation / Consciousness: awake, oriented to person, oriented to place and oriented to time Exam Limitations: altered mental status Nutritional Appearance: obese HEENT normocephalic, head/scalp atraumatic, hearing grossly normal bilaterally, moist oral mucous membranes and oropharynx normal Head and Scalp: normocephalic Eyes PERRL, EOMs intact bilaterally and conjunctivae normal Neck no lymphadenopathy, supple and no JVD General: normal visual inspection and trachea midline Lymph Lymphatic: no lymphadenopathy noted Chest inspection of chest normal and palpation of chest normal Resp normal air movement Resp Narrative: diminished breath sounds bibasally, few coarse crackles. Intubated and sedated. Effort and Inspection: tachypneic and respiratory distress Auscultation: clear to auscultation bilaterally and diminished lung sounds Cardio regular rate, regular rhythm, S1 normal heart sound, S2 normal heart sound, no murmurs and no gallops Cardio Narrative: sinus tachycardia GI normal to inspection, nondistended, normoactive bowel sounds, soft to palpation, non-tender and non-distended Extremity normal to inspection, normal capillary refill, no clubbing, cyanosis or edema and no pedal edema Peripheral Pulses: Yes pulses 2+ throughout Skin no rashes or lesions noted General Skin Exam: no breakdown Neuro Neuro Narrative: intubated, sedated, RASS score is -4 Psych mental status grossly normal Psych Narrative: intubated, sedated Appearance: appropriate Mood & Affect: flat affect Assessment & Plan Assessment/Plan (1) Acute respiratory failure with hypoxia: (2) Non-small cell lung cancer (NSCLC): QUALIFIERS: Laterality: right Qualified Code(s): C34.91 - Malignant neoplasm of unspecified part of right bronchus or lung (3) Thrombocytopenia: (4) Pancytopenia: (5) Lytic bone lesions on xray: (6) Radiation-induced pulmonary fibrosis: PLAN: #Acute hypoxic respiratory failure due to post obstructive pneumonia * currently intubated and sedated. RASS score is -4 * on IV vancomycin and meropenem * had bronchoscopy 2 dys aago which revealed a left upper lobe endobronchial mass, biopsy results of which are pending. * on breathing treatment with bronchodilators * titrate oxygen to maintain sats >90% * critical care on board * #Severe pancytopenia * s/p platelet transfusion. * platelets are 33,000 today. * Hb is 7.6 today. Transfuse if Hb <7 * #LLE DVT: * cannot be anticoagulated in light of her pancytopenia. * had IVC filter placement yesterday #History of nonsmall cell lung cancer with radiation pneumonitis * pulmonology on board * #Hypokalemia: resolved. #HFpEF * on lasix. * not in exacerbation. Recent echo showed EF of 65% with stage 1 diastolic dysfunction. * #Hypothyroidism: on synthroid. #History of VTE : eliquis on hold in light of thrombocytopenia. has acute LLE DVT. For IVC filter placement tday. #Depression: on paxil #Severe protein calorie malnutrition * Due to technique creased intake with increased nutrient needs due to pneumonia respiratory failure. * On tube feeding. * DVT prophylaxis: SCDs Charges/Coding Visit Charges Inpatient E&M: 22668 Subs Hosp L3
[2021-06-26] MEDS: Atorvastatin Calcium 40 MG Tablet GT (20:54)
[2021-06-27] VITALS (37 sets, daily range): BP systolic 78–161; BP diastolic 51–102; PULSE 84–125; RESP 14–28; TEMP 30.9–37.5; O2SAT 91–98
--- NOTE | 2021-06-27 00:24 | PCM.HOSP.N ---
Hospitalist Note 9-second pause noted when nursing was rolling pt in bed. Precedex being weaned off. Continue to monitor.
--- NOTE | 2021-06-27 00:29 | NURSING ---
While turning patient, patient has a 9 second pause on telemetry. Dr Bueno notified, will wean precedex down.
[2021-06-27] MEDS: Vital AF 1.2 Cal Liquid 1,000 ML 60 ML GT ×2 (00:30→21:48)
[2021-06-27] MEDS: Propofol 10MG/Ml 1,000 MG/100 ML Bottle 5.4 MG CONT INF (02:06)
[2021-06-27 03:53] LABS: Anion Gap 9 (5-15); BUN 116 mg/dL (7-18); BUN/Creat Ratio 100.9 RATIO (10-20); Calcium,Total 8.5 mg/dL (8.5-10.1); Chloride 106 mmol/L (98-107); Creatinine, Serum 1.15 mg/dL (0.55-1.02); EST Glomerular Filtration Rate 52 mL/min (>60); Est Glom Filt Rate - Afr Amer 62 mL/min (>60); Estimated Creatinine Clearance 40.24 ml/min; Glucose 229 mg/dL (74-106); Potassium 3.2 mmol/L (3.5-5.1); Sodium Level 143 mmol/L (136-145)
[2021-06-27 03:58] LABS: Hematocrit 24.5 % (37-47); Hemoglobin 7.9 g/dL (12.0-15.0); Mean Corp Hgb Conc 32.2 g/dL (32-36); Mean Corpuscular Hgb 29.3 pg (27.0-32.0); Mean Corpuscular Volume 90.7 fL (81-99); Mean Platelet Vol. 11.2 fl (6.2-12.0); POSITIVE COUNT YES; POSITIVE MORPHOLOGY YES; Platelet Count 18 K/mm3 (150-450); RBC Distribution Width CV 13.7 % (11.6-14.6); RBC Distribution Width SD 45.3 fl (35.1-43.9)
[2021-06-27 04:06] LABS: Differential Indicated MANUAL DIFF
[2021-06-27 04:14] LABS: Absolute Lymphocyte Count 1.11 X10^3/uL (0.83-4.51); Absolute Neutrophil Count 2.7 X10^3/uL (2.0-7.7)
[2021-06-27 04:15] LABS: Corrected WBC 3.6 K/mm3 (4.4-11.0); Lymphocyte 26 % (19-41); Metamyelocyte 1 % (0-1); Monocyte 5 % (0-10); Myelocyte 2 % (0-0); Nucleated Red Bld Cells,Manual 7 % (0-5); Promyelocyte 2 % (0-0)
[2021-06-27 04:16] LABS: Atypical Lymphocyte 1+ %; Platelet Estimate MOD DEC (ADEQ); Red Cell Morphology NORM C+C NORMAL (NORM C&C)
[2021-06-27] MEDS: Levothyroxine 25 MCG TABLET GT (05:13)
--- NOTE | 2021-06-27 06:25 | PN.CC_ITS ---
Assessment & Plan Assessment/Plan (1) Acute respiratory failure with hypoxia: (2) Radiation-induced pulmonary fibrosis: (3) Pneumonia: QUALIFIERS: Laterality: bilateral Lung location: lower lobe of lung Pneumonia type: due to Pneumococcus Qualified Code(s): J13 - Pneumonia due to Streptococcus pneumoniae (4) Non-small cell lung cancer (NSCLC): QUALIFIERS: Laterality: right Qualified Code(s): C34.91 - Malignant neoplasm of unspecified part of right bronchus or lung PLAN: RECOMMENDATIONS: 1. Continue patient on assist control mode mechanical ventilation. Wean FiO2 for saturations greater than 90%. 2. Continue antimicrobials to complete treatment course. 3. Continue to monitor platelet count and transfuse once below 10,000. 4. Continue to feeds as tolerated. 5. Potassium repletion as ordered. 6. Continue appropriate GI prophylaxis. 7. Family meeting today to discuss cancer diagnosis and goals of care. IMPRESSIONS: 1. Acute hypoxic respiratory failure secondary to suspected postobstructive pneumonia The patient was recently admitted to the hospital under similar circumstances and treated for postobstructive pneumonia. Although conservative measures in the form of noninvasive positive pressure ventilatory support were initially employed, the patient continued to decompensate from a respiratory perspective. Given her tenuous clinical status and findings noted on prior CT imaging, I would recommend a more aggressive approach to the patient's care given her need for repeat hospitalization. The patient ultimately required intubation on June 23. Bedside bronchoscopy was then completed on June 24 which revealed a left upper lobe endobronchial mass, which was biopsied. 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 For now, the patient will be continued on scheduled bronchodilators. Antimicrobials will be continued to complete treatment course. The patient will be continued on tube feeds as tolerated. 2. Newly diagnosed small cell lung cancer The patient underwent a recent endobronchial biopsy of a left upper lobe endobr onchial mass, which was consistent with small cell carcinoma. This will certainly complicate the patient's current clinical state. It is unclear whether the patient will be able to be successfully liberated from mechanical ventilation in light of an obstructed left upper lobe orifice. There are t entative plans to meet with the patient's daughter today with the oncology team to discuss this diagnosis and formulate a plan of care for moving forward. 3. Left lower extremity DVT In light of the patient's pancytopenia, and need for transfusion of blood products, the patient underwent IVC filter placement on June 25. 4. Anemia/thrombocytopenia Continue to monitor CBC daily. Transfuse for hemoglobin less than 7 g/dL. Transfuse platelets if count drops below 10,000. 5. Progressive uremia Obtain nephrology consultation today. 6. History of radiation pneumonitis/history of nephrotic syndro me/obesity/hypercholesterolemia/hypothyroidism Complicates care, management, recovery and prognosis. Okay to continue with baseline medications from my perspective. Continue to monitor renal function. TIME: 41 minutes of critical care time, independent of procedures, was spent addressing the patient's acute hypoxemic respiratory failure secondary to suspected postobstructive pneumonia, anemia, thrombocytopenia, lower extremity DVT, review of all data and collaboration with the care team. Subjective Subjective The patient was seen and examined at the bedside this morning. Events from the last 24 hours have been reviewed. The patient is currently afebrile, hemodynamically stable and maintaining appropriate oxygen saturations on assist control mode of mechanical ventilation with an FiO2 requirement of 50% and PEEP of 5. The patient failed her spontaneous awakening and breathing trials this morning due to the development of agitation and hypoxemia. The patient's propofol was transitioned to Precedex yesterday. However, overnight, the patient became bradycardic, necessitating the discontinuation of Precedex. The patient was subsequently restarted on propofol. She remains on fentanyl as well. She is currently tolerating tube feeds. The patient is currently docu mented to be overall net +8.3 L for the hospitalization. She remains on antimicrobials and bronchodilators. Hemoglobin is stable this morning at 7.9 g/dL. However, platelet count is down to 18,000. Potassium is low at 3.2. BUN is significantly elevated at 116 with a creatinine of 1.15. The patient's left upper lobe endobronchial biopsy pathology report came back this morning positive for small cell carcinoma. I spoke with her primary oncology/radiation oncology team regarding these findings. I also set up a meeting with the patient's daughter today at noon to discuss the diagnosis and overall goals of care. Objective Data Objective Data The patient's most recent lab work, culture data and imaging studies have all been personally reviewed. Lower extremity Doppler study revealed a left lower extremity DVT. Echocardiogram from May 2021 demonstrated stage I diastolic dysfunction with an ejection fraction of 65% and a pulmonary artery systolic pressure estimated to be 30 mmHg. Blood cultures have shown no growth to date. Rapid coronavirus antigen testing was negative. Vital Signs: Vital Signs Temp Pulse Resp BP Pulse Ox 97.4 F L 123 H 19 H 161/102 H 91 06/27/21 03:00 06/27/21 05:53 06/27/21 05:53 06/27/21 03:00 06/27/21 05:53 Oxygen Flow Rate (L/min) 50 Oxygen Delivery Method Mechanical Ventilator Weight: 89.2 kg Body Mass Index (BMI) 35.1 Intake & Output: Intake and Output for Last 24 Hours 06/25/21 06/26/21 06/27/21 23:59 23:59 23:59 Intake Total 2369.96 / 2653.26 3219.17 / 3234.47 1117.66 / 1117.66 Output Total 560 / 735 720 / 920 340 / 340 Balance 1809.96 / 1918.26 2499.17 / 2314.47 777.66 / 777.66 Medical Nutrition Assessment Dietitian: Malnutrition Criteria Met Start: 06/22/21 15:30 Freq: Status: Active Protocol: Document 06/24/21 10:24 RMA (Rec: 06/24/21 10:25 RMA [id number]) Nutrition Malnutrition Evidence of Malnutrition Exists Yes Malnutrition (severe): Acute Illness/Injury Evidenced By Suboptimal Energy Intake ( Severe),Weight Loss (Severe) Intake Problem Inadequate Oral Intake Etiology related to respiratory failure requiring intubation, decreased appetite w/ recent hospitalization for PNA Signs/Symptoms as evidenced by estimated PO intake meeting <75% of estimated nutritional needs >2 weeks and currently NPO/ intubated Status Active Problem Clinical Problem Acute Disease or Injury Related Malnutrition Etiology Severe protein/calorie malnutrition in the context of acute illness related to inadequate oral intake and increased nutrient needs Signs/Symptoms as evidenced by estimated PO intake meeting less than 50-75 % of estimated nutritional needs x greater than 2 weeks, unintentional weight loss of 14.6#/7.2% x less than 1 month Status Active Problem Recommendation Dietitian Recommendations/Changes TF support for nutrition while intubated and NPO. As medically able post bronchoscopy today, recommend start TF with Vital AF 1.2 Mario @ 20ml/hr and increase as tolerated by 10ml/hr Q 8 hours to goal rate of 50ml/hr with water flush of 80ml Q 4 hours to provide 1440 kcal, 90 gm pro and 1453 ml free water per day at goal rate with water flushes. Will monitor TF tolerance as initiated, wt, labs and follow -up. Lab / Micro Data Attestation: I reviewed the patient's lab results. Result Diagrams: 06/27/21 03:28 06/27/21 03:28 Labs: Laboratory Results - last 24 hr 06/27/21 03:28: WBC [employer], Corrected WBC 3.6 L, RBC 2.70 L, Hgb 7.9 L, Hct 24.5 L, MCV 90.7, MCH 29.3, MCHC 32.2, RDW Std Deviation 45.3 H, RDW Coeff of Heladio 13.7, Plt Count 18 L*, MPV 11.2, Neut % (Auto) Not Reportable, Absolute Neuts (auto) 2.7, Absolute Lymphs (auto) 1.11, Lymphocytes % (Manual) 26, Monocytes % (Manual) 5, Metamyelocytes % 1, Myelocytes % 2 H, Promyelocytes % 2 H, Nucleated RBCs/100 WBC 7 H, Diff Path Review May foll, Atypical Lymphocytes 1+, Platelet Estimate MOD DEC, RBC Morphology NORM C+C 06/27/21 03:28: Sodium 143, Potassium 3.2 L, Chloride 106, Carbon Dioxide 28.0, Anion Gap 9, BUN 116 H*, Creatinine 1.15 H, Estim Creat Clear Calc 40.24, Est GFR (MDRD) Af Amer 62, Est GFR (MDRD) Non-Af 52 L, BUN/Creatinine Ratio 100.9 H, Glucose 229 H, Calcium 8.5 Micro: Microbiology 06/20/21 11:21 Blood Culture (Wb) - Other Blood Culture - Final No growth in 5 days. 06/20/21 11:12 Blood Culture (Wb) - Anticubital Left Blood Culture - Final No growth in 5 days. 06/23/21 08:00 Sputum, Induced/Lukens Gram Stain - Final 06/23/21 08:00 Sputum, Induced/Lukens Respiratory Culture - Final Yeast, not Trudi albicans 06/22/21 09:10 Urine Catheter - Vincent Urine Culture - Final Yeast, not Trudi albicans 06/20/21 12:55 Urine Catheter - Vincent Urine Culture - Final Corynebacterium jeikeium 06/20/21 11:15 Nasal Secretion SARS-CoV-2 Antigen (Rapid) - Final Physical Exam Const no apparent distress General Appearance: patient mechanically ventilated Nutritional Appearance: obese HEENT normocephalic and head/scalp atraumatic Mouth: endotracheal tube in place and OG tube in place Eyes PERRL and conjunctivae normal Neck supple General: trachea midline Chest inspection of chest normal Resp Auscultation: rhonchi and wheezes Cardio S1 normal heart sound and S2 normal heart sound Rate: tachycardic GI normal to inspection, nondistended, normoactive bowel sounds Extremity no clubbing, cyanosis or edema Skin no rashes or lesions noted Neuro Sensorium / Orientation: sedated on vent Charges/Coding Procedures Hospitalists Procedures: 61814 Critial Care 1st Hr
[2021-06-27] MEDS: Ipratropium/Albuterol Sulfate 3 ML AMPUL.NEB INHALATION ×4 (06:49→19:15)
[2021-06-27] MEDS: CHLORHEXIDINE GLUC 2% CLOTH 1 EACH TOWELETTE TOPICAL (07:53)
[2021-06-27] MEDS: Potassium Chloride Oral Soln 20 MEQ/15 ML UDC 40 MEQ PO (07:53)
[2021-06-27] MEDS: Paroxetine 20 MG Tablet 40 MG GT (08:01)
[2021-06-27] MEDS: 0.9% Saline Lock 10 ML Syringe IV (08:17)
[2021-06-27] MEDS: Potassium Chloride 10mEq/100mL 10 MEQ/100 ML IV.SOLN. 100 MEQ IV BOLUS ×4 (08:17→11:24)
[2021-06-27] MEDS: Chlorhexidine 15 ML PO ×2 (09:24→21:38)
[2021-06-27] MEDS: Propofol 10MG/Ml 1,000 MG/100 ML Bottle 10.7 MG CONT INF ×2 (09:52→17:40)
--- NOTE | 2021-06-27 10:35 | PN.HOSP_ITS ---
Subjective Subjective Patient seen and examined. She remains intubated and sedated today. She is on FiO2 of 50% and PEEP of 5. She failed spontaneous breathing trial today, and became agitated and hypoxic. She was also started on Precedex yesterday but she became bradycardic so this was discontinued as she is now back on propofol and f entanyl. She is in cumulative positive balance by 8.3 L. Nephrology consulted today as BUN is significantly elevated at 116 do creatinine is only 1.15. 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 Objective Data Objective Data Vital Signs: Vital Signs Temp Pulse Resp BP Pulse Ox 98.1 F 110 H 16 105/69 96 06/27/21 07:59 06/27/21 09:00 06/27/21 09:00 06/27/21 09:00 06/27/21 09:00 Oxygen Flow Rate (L/min) 50 Oxygen Delivery Method Mechanical Ventilator Weight: 196 lb 10.437 oz Body Mass Index (BMI) 35.1 Intake & Output: Intake and Output for Last 24 Hours 06/25/21 06/26/21 06/27/21 23:59 23:59 23:59 Intake Total 2369.96 / 2653.26 3219.17 / 3234.47 1816.23 / 1816.23 Output Total 560 / 735 720 / 920 340 / 340 Balance 1809.96 / 1918.26 2499.17 / 2314.47 1476.23 / 1476.23 Medical Nutrition Assessment Dietitian: Malnutrition Criteria Met Start: 06/22/21 15:30 Freq: Status: Active Protocol: Document 06/24/21 10:24 RMA (Rec: 06/24/21 10:25 RMA [id number]) Nutrition Malnutrition Evidence of Malnutrition Exists Yes Malnutrition (severe): Acute Illness/Injury Evidenced By Suboptimal Energy Intake ( Severe),Weight Loss (Severe) Intake Problem Inadequate Oral Intake Etiology related to respiratory failure requiring intubation, decreased appetite w/ recent hospitalization for PNA Signs/Symptoms as evidenced by estimated PO intake meeting <75% of estimated nutritional needs >2 weeks and currently NPO/ intubated Status Active Problem Clinical Problem Acute Disease or Injury Related Malnutrition Etiology Severe protein/calorie malnutrition in the context of acute illness related to inadequate oral intake and increased nutrient needs Signs/Symptoms as evidenced by estimated PO intake meeting less than 50-75 % of estimated nutritional needs x greater than 2 weeks, unintentional weight loss of 14.6#/7.2% x less than 1 month Status Active Problem Recommendation Dietitian Recommendations/Changes TF support for nutrition while intubated and NPO. As medically able post bronchoscopy today, recommend start TF with Vital AF 1.2 Mario @ 20ml/hr and increase as tolerated by 10ml/hr Q 8 hours to goal rate of 50ml/hr with water flush of 80ml Q 4 hours to provide 1440 kcal, 90 gm pro and 1453 ml free water per day at goal rate with water flushes. Will monitor TF tolerance as initiated, wt, labs and follow -up. Lab / Micro Data Result Diagrams: 06/27/21 03:28 06/27/21 03:28 Labs: Laboratory Results - last 24 hr 06/27/21 03:28: WBC CARD CUTTER HELPER, Corrected WBC 3.6 L, RBC 2.70 L, Hgb 7.9 L, Hct 24.5 L, MCV 90.7, MCH 29.3, MCHC 32.2, RDW Std Deviation 45.3 H, RDW Coeff of Heladio 13.7, Plt Count 18 L*, MPV 11.2, Neut % (Auto) Not Reportable, Absolute Neuts (auto) 2.7, Absolute Lymphs (auto) 1.11, Lymphocytes % (Manual) 26, Monocytes % (Manual) 5, Metamyelocytes % 1, Myelocytes % 2 H, Promyelocytes % 2 H, Nucleated RBCs/100 WBC 7 H, Diff Path Review May foll, Atypical Lymphocytes 1+, Platelet Estimate MOD DEC, RBC Morphology NORM C+C 06/27/21 03:28: Sodium 143, Potassium 3.2 L, Chloride 106, Carbon Dioxide 28.0, Anion Gap 9, BUN 116 H*, Creatinine 1.15 H, Estim Creat Clear Calc 40.24, Est GFR (MDRD) Af Amer 62, Est GFR (MDRD) Non-Af 52 L, BUN/Creatinine Ratio 100.9 H, Glucose 229 H, Calcium 8.5 Micro: Microbiology 06/20/21 11:21 Blood Culture (Wb) - Other Blood Culture - Final No growth in 5 days. 06/20/21 11:12 Blood Culture (Wb) - Anticubital Left Blood Culture - Final No growth in 5 days. 06/23/21 08:00 Sputum, Induced/Lukens Gram Stain - Final 06/23/21 08:00 Sputum, Induced/Lukens Respiratory Culture - Final Yeast, not Trudi albicans 06/22/21 09:10 Urine Catheter - Vincent Urine Culture - Final Yeast, not Trudi albicans 06/20/21 12:55 Urine Catheter - Vincent Urine Culture - Final Corynebacterium jeikeium 06/20/21 11:15 Nasal Secretion SARS-CoV-2 Antigen (Rapid) - Final Physical Exam Const Constitutional Narrative: intubated, sedated. RASS score is -4 General Appearance: cooperative, comfortable, well kempt and well developed Orientation / Consciousness: awake, oriented to person, oriented to place and oriented to time Exam Limitations: altered mental status Nutritional Appearance: obese HEENT normocephalic, head/scalp atraumatic, hearing grossly normal bilaterally, moist oral mucous membranes and oropharynx normal Head and Scalp: normocephalic Eyes EOMs intact bilaterally Neck no lymphadenopathy and no JVD General: normal visual inspection and trachea midline Lymph Lymphatic: no lymphadenopathy noted Chest inspection of chest normal and palpation of chest normal Resp normal air movement Resp Narrative: diminished breath sounds bibasally, bilateral coarse crackles in all lung terrell. Intubated and sedated. Effort and Inspection: tachypneic and respiratory distress Auscultation: clear to auscultation bilaterally and diminished lung sounds Cardio regular rate, regular rhythm, S1 normal heart sound, S2 normal heart sound, no murmurs and no gallops GI normal to inspection, nondistended, normoactive bowel sounds, soft to palpation, non-tender and non-distended Extremity normal to inspection, normal capillary refill, no clubbing, cyanosis or edema and no pedal edema Peripheral Pulses: Yes pulses 2+ throughout Skin no rashes or lesions noted Skin Narrative: Large ecchymotic bruise on her upper right arm General Skin Exam: no breakdown Neuro Neuro Narrative: intubated, sedated, RASS score is -4 Psych mental status grossly normal Psych Narrative: intubated, sedated Appearance: appropriate Mood & Affect: flat affect Assessment & Plan Assessment/Plan (1) Acute respiratory failure with hypoxia: (2) Non-small cell lung cancer (NSCLC): QUALIFIERS: Laterality: right Qualified Code(s): C34.91 - Malignant neoplasm of unspecified part of right bronchus or lung (3) Thrombocytopenia: (4) Pancytopenia: (5) Lytic bone lesions on xray: (6) Radiation-induced pulmonary fibrosis: PLAN: #Acute hypoxic respiratory failure due to post obstructive pneumonia * currently intubated and sedated. RASS score remains -4 * on IV vancomycin and meropenem * had bronchoscopy 3 days ago which revealed a left upper lobe endobronchial mass, biopsy results of which are positive for small cell lung cancer. * on breathing treatment with bronchodilators * titrate oxygen to maintain sats >90% * critical care on board * oncology consulted. * #Severe pancytopenia * s/p platelet transfusion. * platelets are down to 18,000 today. * Hb is 7.9 today. Transfuse if Hb <7 * transfuse platelets if <10,000 #LLE DVT: * cannot be anticoagulated in light of her pancytopenia. * has had IVC filter placed #Elevated BUN * CR is 1.15, but BUN is markedly elevated at 115. * nephrology consulted * #History of nonsmall cell lung cancer with radiation pneumonitis * pulmonology on board * endobronchial biopsy of left upper lobe mass positive for small cell lung cancer * oncology and radiation oncology consulted. * #Hypokalemia: resolved. #HFpEF * on lasix. * not in exacerbation. Recent echo showed EF of 65% with stage 1 diastolic d ysfunction. * #Hypothyroidism: on synthroid. #History of VTE : eliquis on hold in light of thrombocytopenia. has acute LLE DVT. For IVC filter placement tday. #Depression: on paxil #Severe protein calorie malnutrition * Due to decreased intake with increased nutrient needs due to pneumonia respira tory failure. * On tube feeding. * DVT prophylaxis: SCDs Charges/Coding Visit Charges Inpatient E&M: 36427 [facility] Hosp L3
[2021-06-27] MEDS: Insulin Lispro 100 UNIT/ML INSULN.PEN SC ×3 (11:26→23:40)
[2021-06-27 11:35] LABS: Bedside Glucose 162 mg/dL (70-110)
--- NOTE | 2021-06-27 13:15 | CHAPLAIN ---
Type of Pastoral Visit _x__ Initial Visit ___ Follow-up Visit ___ On-call Visit ___ General Patient Visit ___ Spiritual Assessment ___ Family Conference ___ Bereavement ___ Rapid Response ___ Code Blue ___ Other (describe below) Pastoral Care Referral From ___ Patient ___ Family _x__ Nurse ___ Physician ___ Windmill Mechanic ___ Post Acute Care Nurse ___ Other (describe below) Sacrament/Intervention ___ Active listening ___ Anointing ___ Spiritism ___ Bereavement ___ Communion ___ Mita exploration ___ ___ Life review _x__ Prayer ___ Reconciliation ___ Sacrament of Sick _x__ Supportive presence ___ Wedding ___ Other (describe below) Pastoral Comments patient is intubated and unable to communicate; RN requests support for daughter who is in the room as new diagnosis of cancer was given to family; sat at bedside to offer of support, presence given; other friend and family member came at this time; family welcomes prayer support; time is given to support family;
[2021-06-27 13:44] LABS: Neutrophil-Band 11 % (0-5); Neutrophil-Segmented 53 % (47-70)
--- NOTE | 2021-06-27 14:09 | PCM.CONS.R ---
Assessment & Plan Assessment/Plan (1) Azotemia: PLAN: BUN has been worsening over the last few days. Patient has severe thrombocytopenia but does not have any signs of GI bleed. Hemoglobin is relatively stable. No steroids. Some catabolism due to tumor. On tube feeds. Somewhat high BUN for any of the above factors. Patient is currently intubated. Mental status cannot be evaluated due to intubated status. Discussed with Dr. Dennis. Family discussions about goals of care today. Will follow HPI Consult Data Date of Consult: 06/27/21 HPI Narrative HPI Narrative: UNA BROOKS, is a 56 F who presents to the hospital with respiratory failure. currently intubated. diagnosed with lung mass, s/p biopsy which showed small cell carcinoma. renal consulted for azotemia. Patient has no known history of kidney disease. Even this admission, creatinine is around 1.1. However has severe azotemia with BUN more than 100. Urine output is present. 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 Thyroid disease VTE (venous thromboembolism) Home Medications paroxetine HCl 40 mg PO DAILY 04/23/17 [History Last Taken Unknown] atorvastatin 40 mg PO DAILY 05/03/20 [History Last Taken Unknown] levothyroxine 25 mcg PO DAILY 10/31/20 [History Last Taken Unknown] furosemide [Lasix] 40 mg PO DAILY #60 tab 06/11/21 [Rx Last Taken Unknown] metoprolol tartrate 12.5 mg PO BID #120 tab 06/11/21 [Rx Last Taken Unknown] cefdinir 300 mg PO BID 06/20/21 [History Last Taken Unknown] Allergy/AdvReac Type Severity Reaction Status Date / Time No Known Allergies Allergy Verified 06/20/21 10:58 Family History Mother Hypertension Surgical History History of lung biopsy Social History Smoking Status: Former smoker ROS Review of Systems ROS Unobtainable: due to endotracheal tube Physical Exam Narrative intubated no pallor no icterus no JVD s1s2 no murmurs lungs clear abdomen soft no organomegaly no edema no cyanosis guadalupe + Medical Records Data Medical Nutrition Assessment Dietitian: Malnutrition Criteria Met Start: 06/22/21 15:30 Freq: Status: Active Protocol: Document 06/24/21 10:24 RMA (Rec: 06/24/21 10:25 RMA [id number]) Nutrition Malnutrition Evidence of Malnutrition Exists Yes Malnutrition (severe): Acute Illness/Injury Evidenced By Suboptimal Energy Intake ( Severe),Weight Loss (Severe) Intake Problem Inadequate Oral Intake Etiology related to respiratory failure requiring intubation, decreased appetite w/ recent hospitalization for PNA Signs/Symptoms as evidenced by estimated PO intake meeting <75% of estimated nutritional needs >2 weeks and currently NPO/ intubated Status Active Problem Clinical Problem Acute Disease or Injury Related Malnutrition Etiology Severe protein/calorie malnutrition in the context of acute illness related to inadequate oral intake and increased nutrient needs Signs/Symptoms as evidenced by estimated PO intake meeting less than 50-75 % of estimated nutritional needs x greater than 2 weeks, unintentional weight loss of 14.6#/7.2% x less than 1 month Status Active Problem Recommendation Dietitian Recommendations/Changes TF support for nutrition while intubated and NPO. As medically able post bronchoscopy today, recommend start TF with Vital AF 1.2 Mario @ 20ml/hr and increase as tolerated by 10ml/hr Q 8 hours to goal rate of 50ml/hr with water flush of 80ml Q 4 hours to provide 1440 kcal, 90 gm pro and 1453 ml free water per day at goal rate with water flushes. Will monitor TF tolerance as initiated, wt, labs and follow -up. Lab / Micro Data Result Diagrams: 06/27/21 03:28 06/27/21 03:28 Labs: Laboratory Results - last 24 hr 06/27/21 03:28: WBC ADMINISTRATIVE SUPPORT MANAGER, Corrected WBC 3.6 L, RBC 2.70 L, Hgb 7.9 L, Hct 24.5 L, MCV 90.7, MCH 29.3, MCHC 32.2, RDW Std Deviation 45.3 H, RDW Coeff of Heladio 13.7, Plt Count 18 L*, MPV 11.2, Neut % (Auto) Not Reportable, Absolute Neuts (auto) 2.7, Absolute Lymphs (auto) 1.11, Neutrophils % (Manual) 53, Band Neutrophils % 11 H, Lymphocytes % (Manual) 26, Monocytes % (Manual) 5, Metamyelocytes % 1, Myelocytes % 2 H, Promyelocytes % 2 H, Nucleated RBCs/100 WBC 7 H, Diff Path Review May foll, Atypical Lymphocytes 1+, Platelet Estimate MOD DEC, RBC Morphology NORM C+C 06/27/21 03:28: Sodium 143, Potassium 3.2 L, Chloride 106, Carbon Dioxide 28.0, Anion Gap 9, BUN 116 H*, Creatinine 1.15 H, Estim Creat Clear Calc 40.24, Est GFR (MDRD) Af Amer 62, Est GFR (MDRD) Non-Af 52 L, BUN/Creatinine Ratio 100.9 H, Glucose 229 H, Calcium 8.5 06/27/21 11:23: POC Glucose 162 H
[2021-06-27 14:16] LABS: CPK Total, Creatine Kinase 528 U/L (26-192); Triglycerides 496 mg/dL
--- NOTE | 2021-06-27 14:32 | CASEMGMT ---
Social Work Family meeting with pt dgt Patricia to discuss pt condition and goals of care. ANDRA met with Patricia after meeting in pt room and offered support. ANDRA encouraged Patricia to call other family to update and offer to come in to see pt. Pt son and best friend arrived shortly after. Support provided. ANDRA will remain available for additional needs. DONOVAN Phillips
--- NOTE | 2021-06-27 17:16 | ONC.PN.INPT ---
Subjective Subjective 56yo woman with H/O NSCLC admitted with New Lung and mediastinal adenopathy, respiratory failure with pancytopenia. FOB shows obstruction of FRANCA, Pathology shows Small cell lung cancer. Physical Exam Const Constitutional Narrative: Sedated on ventilator. Vital Signs Temperature 98.9 F 06/27/21 16:00 Temperature Source Core 06/27/21 16:00 Pulse Rate 121 H 06/27/21 16:00 Pulse Strength Normal (2+) 06/24/21 08:00 Respiratory Rate 20 H 06/27/21 16:00 Respiratory Effort 06/27/21 16:00 Respiratory Depth Normal 06/27/21 16:00 Respiratory Pattern Normal 06/27/21 16:00 Blood Pressure 107/72 06/27/21 16:00 Blood Pressure Mean 83 06/27/21 16:00 Blood Pressure Source Monitor 06/27/21 16:00 Blood Pressure Position Semi-Fowlers 06/27/21 16:00 Blood Pressure Location Right Forearm 06/27/21 16:00 Pulse Ox 96 06/27/21 16:00 Oxygen Delivery Method Mechanical Ventilator 06/27/21 16:00 Oxygen Flow Rate (L/min) 50 06/24/21 14:38 Fraction of Inspired Oxygen (FIO2) 45 06/27/21 16:00 Laboratory Results - last 24 hr 06/27/21 03:22: Total Creatine Kinase 528 H, Triglycerides 496 H 06/27/21 03:28: WBC DIGITAL MARKETING SPECIALIST, Corrected WBC 3.6 L, RBC 2.70 L, Hgb 7.9 L, Hct 24.5 L, MCV 90.7, MCH 29.3, MCHC 32.2, RDW Std Deviation 45.3 H, RDW Coeff of Heladio 13.7, Plt Count 18 L*, MPV 11.2, Neut % (Auto) Not Reportable, Absolute Neuts (auto) 2.7, Absolute Lymphs (auto) 1.11, Neutrophils % (Manual) 53, Band Neutrophils % 11 H, Lymphocytes % (Manual) 26, Monocytes % (Manual) 5, Metamyelocytes % 1, Myelocytes % 2 H, Promyelocytes % 2 H, Nucleated RBCs/100 WBC 7 H, Diff Path Review May foll, Atypical Lymphocytes 1+, Platelet Estimate MOD DEC, RBC Morphology NORM C+C 06/27/21 03:28: Sodium 143, Potassium 3.2 L, Chloride 106, Carbon Dioxide 28.0, Anion Gap 9, BUN 116 H*, Creatinine 1.15 H, Estim Creat Clear Calc 40.24, Est GFR (MDRD) Af Amer 62, Est GFR (MDRD) Non-Af 52 L, BUN/Creatinine Ratio 100.9 H, Glucose 229 H, Calcium 8.5 06/27/21 11:23: POC Glucose 162 H Diagnostic Data Chest CT 06/22/21 08:15 IMPRESSION: No significant change from 06/05/2021. Electronically Signed: Og Connell MD at 9:41 EDT Tel , Service support , Chest X-Ray 06/23/21 08:10 IMPRESSION: 1. Interval placement of endotracheal tube with the tip at the lonnie. This should be retracted. 2. Interval placement of nasogastric tube with the tip below the diaphragm. 3. Interval placement of left upper extent a PICC with tip the catheter overlying the junction of the right atrium and spur vena cava. 4. No change in bilateral pneumonia. Electronically Signed: Og Connell MD at 8:54 EDT Tel , Service support , KUB X-Ray 06/23/21 08:10 IMPRESSION: Nasogastric tube with the tip likely in the antrum the stomach. No bowel obstruction. Electronically Signed: Og Connell MD at 8:56 EDT Tel , Service support , Venous Doppler Study 06/23/21 08:51 Interpretation Summary There is no evidence of right lower extremity deep vein thrombosis. Acute deep venous thrombosis left posterior tibial and soleus veins. Patent and compressible bilateral great saphenous vein. Ordering Physician: Stephen Dennis Referring Physician: Cesar Arevalo Chi Performed By: Joycelyn Klein RVT Assessment & Plan Assessment/Plan (1) Small cell lung cancer in adult: PLAN: Extensive disease, most likely involving the bone marrow because of Pancytopenia, Respiratory failure on Ventilatory support. Her clinically makes her prognosis poor, it is medically futile to consider treatment of her cancer. Met with her daughter Patricia, Dr. Dennis and Dr. Kirkpatrick, discussed medical futility. She wanted her mother to be made comfortable but will like to discuss with her family before signing her up for hospice care. Charges/Coding Visit Charges Inpatient E&M: 62950 Subs Hosp L1
[2021-06-27 18:11] LABS: Bedside Glucose 155 mg/dL (70-110)
[2021-06-27] MEDS: Atorvastatin Calcium 40 MG Tablet GT (21:37)
[2021-06-28] VITALS (15 sets, daily range): BP systolic 78–109; BP diastolic 56–72; PULSE 103–119; RESP 14–28; TEMP 36.5–37; O2SAT 90–98
[2021-06-28] MEDS: CHLORHEXIDINE GLUC 2% CLOTH 1 EACH TOWELETTE TOPICAL (00:12)
[2021-06-28] MEDS: Propofol 10MG/Ml 1,000 MG/100 ML Bottle 13.4 MG CONT INF ×2 (00:12→06:14)
[2021-06-28] MEDS: Menthol/Lanolin/Calamine/Znox 113 GM Tube 1 APPLIC TOPICAL (00:30)
[2021-06-28 02:46] LABS: Bedside Glucose 167 mg/dL (70-110)
[2021-06-28 04:18] LABS: Hematocrit 22.3 % (37-47); Hemoglobin 7.1 g/dL (12.0-15.0); Mean Corp Hgb Conc 31.8 g/dL (32-36); Mean Corpuscular Hgb 29.3 pg (27.0-32.0); Mean Corpuscular Volume 92.1 fL (81-99); Mean Platelet Vol. 12.4 fl (6.2-12.0); POSITIVE COUNT YES; POSITIVE MORPHOLOGY YES; RBC Distribution Width CV 13.9 % (11.6-14.6); RBC Distribution Width SD 46.1 fl (35.1-43.9); Red Blood Count 2.42 M/mm3 (4.2-5.4); White Blood Count 3.5 K/mm3 (4.4-11.0)
[2021-06-28 04:32] LABS: Differential Indicated MANUAL DIFF
[2021-06-28 04:33] LABS: Platelet Count 11 K/mm3 (150-450)
[2021-06-28 05:02] LABS: Eosinophil 2 % (0-5); Lymphocyte 20 % (19-41); Metamyelocyte 9 % (0-1); Monocyte 6 % (0-10); Myelocyte 2 % (0-0); Neutrophil-Band 5 % (0-5); Neutrophil-Segmented 56 % (47-70); Total Cells Counted 100 (MANUAL DIFF)
[2021-06-28 05:03] LABS: Anion Gap 5 (5-15); BUN 114 mg/dL (7-18); BUN/Creat Ratio 142.1 RATIO (10-20); Calcium,Total 8.6 mg/dL (8.5-10.1); Chloride 110 mmol/L (98-107); EST Glomerular Filtration Rate 78 mL/min (>60); Est Glom Filt Rate - Afr Amer 94 mL/min (>60); Estimated Creatinine Clearance 57.84 ml/min; Glucose 204 mg/dL (74-106); Nucleated Red Bld Cells,Manual 4 % (0-5); Potassium 4.8 mmol/L (3.5-5.1); Sodium Level 144 mmol/L (136-145)
[2021-06-28 05:04] LABS: Absolute Neutrophil Count 2.5 X10^3/uL (2.0-7.7)
[2021-06-28 05:07] LABS: Platelet Estimate MKD DEC (ADEQ); Polychromasia 1+; Red Cell Morphology N CYTIC NORMAL (NORM C&C)
[2021-06-28] MEDS: Levothyroxine 25 MCG TABLET GT (06:10)
[2021-06-28] MEDS: Insulin Lispro 100 UNIT/ML INSULN.PEN SC (06:21)
[2021-06-28] MEDS: TITRATION PARAMETER CHANGE 1 EACH IV (06:41)
--- NOTE | 2021-06-28 07:10 | PN.CC_ITS ---
Assessment & Plan Assessment/Plan (1) Acute respiratory failure with hypoxia: (2) Radiation-induced pulmonary fibrosis: (3) Pneumonia: QUALIFIERS: Laterality: bilateral Lung location: lower lobe of lung Pneumonia type: due to Pneumococcus Qualified Code(s): J13 - Pneumonia due to Streptococcus pneumoniae (4) Non-small cell lung cancer (NSCLC): QUALIFIERS: Laterality: right Qualified Code(s): C34.91 - Malignant neoplasm of unspecified part of right bronchus or lung PLAN: RECOMMENDATIONS: 1. Continue patient on assist control mode mechanical ventilation. Wean FiO2 for saturations greater than 90%. 2. Continue antimicrobials to complete treatment course. 3. Continue to monitor platelet count and transfuse once below 10,000. 4. Continue tube feeds as tolerated. 5. Continue appropriate GI prophylaxis. 6. Ongoing goals of care discussion with the patient's family. IMPRESSIONS: 1. Acute hypoxic respiratory failure secondary to suspected postobstructive pneumonia The patient was recently admitted to the hospital under similar circumstances and treated for postobstructive pneumonia. Although conservative measures in the form of noninvasive positive pressure ventilatory support were initially employed, the patient continued to decompensate from a respiratory perspective. Given her tenuous clinical status and findings noted on prior CT imaging, I would recommend a more aggressive approach to the patient's care given her need for repeat hospitalization. The patient ultimately required intubation on June 23. Bedside bronchoscopy was then completed on June 24 which revealed a left upper lobe endobronchial mass, which was biopsied. 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 For now, the patient will be continued on scheduled bronchodilators. Antimicrobials will be continued to complete treatment course. The patient will be continued on tube feeds as to lerated. 2. Newly diagnosed small cell lung cancer The patient underwent a recent endobronchial biopsy of a left upper lobe endobronchial mass, which was consistent with small cell carcinoma. This will certainly complicate the patient's current clinical state. It is unclear whether the patient will be able to be successfully liberated from mechanical ventilation in light of an obstructed left upper lobe orifice. 3. Left lower extremity DVT In light of the patient's pancytopenia, and need for transfusion of blood products, the patient underwent IVC filter placement on June 25. 4. Anemia/thrombocytopenia Continue to monitor CBC daily. Transfuse for hemoglobin less than 7 g/dL. Transfuse platelets if count drops below 10,000. 5. Progressive uremia Unclear etiology. Nephrology is currently following. Continue supportive measures as noted above. 6. History of radiation pneumonitis/history of nephrotic syndrome/obesity/hypercholesterolemia/hypothyroidism Complicates care, management, recovery and prognosis. Okay to continue with baseline medications from my perspective. Continue to monitor renal function. UPDATE: Following visitation by the patient's family, the decision was made to transition her to DNR comfort care and pursue initiation of comfort care measures. CODE STATUS has been updated accordingly. Palliative medication orders have been placed. Hospice care referral can be considered, depending on the patient's clinical course following extubation. TIME: 34 minutes of critical care time, independent of procedures, was spent addressing the patient's acute hypoxemic respiratory failure secondary to suspected postobstructive pneumonia, anemia, thrombocytopenia, lower extremity DVT, review of all data and collaboration with the care team. Subjective Subjective The patient was seen and examined at the bedside this morning. Events from the last 24 hours have been reviewed. The patient is currently afebrile, hemodynamically stable and maintaining appropriate oxygen saturations on assist control mode of mechanical ventilation with an FiO2 requirement of 45% and PEEP of 5. The patient once again failed her spontaneous awakening and breathing trials this morning. I did personally meet yesterday with the patient's daughter and spoke to the patient's mother via telephone with regard to her new small cell lung cancer diagnosis and overall poor prognosis. The family is currently contemplating palliative withdrawal of life support, potentially today. The patient is currently documented to be overall net +10 L for the hospitalization. She remains sedated on propofol and fentanyl. The patient has worsening pancytopenia with a hemoglobin of 7.1 g/dL and platelet count of 11,00 0. BUN remains elevated at 114. I did speak again to the patient's daughter this morning at the bedside, who indicated to me that she is awaiting the arrival of her brother, after which time it is their intention to proceed with terminal extubation. Objective Data Objective Data The patient's most recent lab work, culture data and imaging studies have all been personally reviewed. Lower extremity Doppler study revealed a left lower extremity DVT. Echocardiogram from May 2021 demonstrated stage I diastolic dysfunction with an ejection fraction of 65% and a pulmonary artery systolic pressure estimated to be 30 mmHg. Blood cultures have shown no growth to date. Rapid coronavirus antigen testing was negative. Vital Signs: Vital Signs Temp Pulse Resp BP Pulse Ox 98.6 F 117 H 20 H 80/57 L 91 06/28/21 06:00 06/28/21 06:00 06/28/21 06:00 06/28/21 06:00 06/28/21 06:00 Oxygen Flow Rate (L/min) 50 Oxygen Delivery Method Mechanical Ventilator Weight: 94 kg Body Mass Index (BMI) 35.1 Intake & Output: Intake and Output for Last 24 Hours 06/26/21 06/27/21 06/28/21 23:59 23:59 23:59 Intake Total 3219.17 / 3234.47 3493.30 / 4149.70 1409.58 / 1409.58 Output Total 720 / 920 1240 / 1540 500 / 500 Balance 2499.17 / 2314.47 2253.30 / 2609.70 909.58 / 909.58 Medical Nutrition Assessment Dietitian: Malnutrition Criteria Met Start: 06/22/21 15:30 Freq: Status: Active Protocol: Document 06/24/21 10:24 RMA (Rec: 06/24/21 10:25 RMA [id number]) Nutrition Malnutrition Evidence of Malnutrition Exists Yes Malnutrition (severe): Acute Illness/Injury Evidenced By Suboptimal Energy Intake ( Severe),Weight Loss (Severe) Intake Problem Inadequate Oral Intake Etiology related to respiratory failure requiring intubation, decreased appetite w/ recent hospitalization for PNA Signs/Symptoms as evidenced by estimated PO intake meeting <75% of estimated nutritional needs >2 weeks and currently NPO/ intubated Status Active Problem Clinical Problem Acute Disease or Injury Related Malnutrition Etiology Severe protein/calorie malnutrition in the context of acute illness related to inadequate oral intake and increased nutrient needs Signs/Symptoms as evidenced by estimated PO intake meeting less than 50-75 % of estimated nutritional needs x greater than 2 weeks, unintentional weight loss of 14.6#/7.2% x less than 1 month Status Active Problem Recommendation Dietitian Recommendations/Changes TF support for nutrition while intubated and NPO. As medically able post bronchoscopy today, recommend start TF with Vital AF 1.2 Mario @ 20ml/hr and increase as tolerated by 10ml/hr Q 8 hours to goal rate of 50ml/hr with water flush of 80ml Q 4 hours to provide 1440 kcal, 90 gm pro and 1453 ml free water per day at goal rate with water flushes. Will monitor TF tolerance as initiated, wt, labs and follow -up. Lab / Micro Data Attestation: I reviewed the patient's lab results. Result Diagrams: 06/28/21 04:07 06/28/21 04:07 Labs: Laboratory Results - last 24 hr 06/27/21 03:22: Total Creatine Kinase 528 H, Triglycerides 496 H 06/27/21 03:28: Neutrophils % (Manual) 53, Band Neutrophils % 11 H 06/27/21 11:23: POC Glucose 162 H 06/27/21 17:42: POC Glucose 155 H 06/27/21 23:36: POC Glucose 167 H 06/28/21 04:07: WBC 3.5 L, RBC 2.42 L, Hgb 7.1 L, Hct 22.3 L, MCV 92.1, MCH 29.3, MCHC 31.8 L, RDW Std Deviation 46.1 H, RDW Coeff of Heladio 13.9, Plt Count 11 L*, MPV 12.4 H, Neut % (Auto) Not Reportable, Absolute Neuts (auto) 2.5, Absolute Lymphs (auto) 0.70 L, Total Counted 100, Neutrophils % (Manual) 56, Band Neutrophils % 5, Lymphocytes % (Manual) 20, Monocytes % (Manual) 6, Eosinophils % (Manual) 2, Metamyelocytes % 9 H, Myelocytes % 2 H, Nucleated RBCs/100 WBC 4, Diff Path Review May , Platelet Estimate MKD DEC, RBC Morphology N CYTIC, Polychromasia 1+ 06/28/21 04:07: Sodium 144, Potassium 4.8, Chloride 110 H, Carbon Dioxide 29.0, Anion Gap 5, BUN 114 H*, Creatinine 0.80, Estim Creat Clear Calc 57.84, Est GFR (MDRD) Af Amer 94, Est GFR (MDRD) Non-Af 78, BUN/Creatinine Ratio 142.1 H, Glucose 204 H, Calcium 8.6 Micro: Microbiology 06/20/21 11:21 Blood Culture (Wb) - Other Blood Culture - Final No growth in 5 days. 06/20/21 11:12 Blood Culture (Wb) - Anticubital Left Blood Culture - Final No growth in 5 days. 06/23/21 08:00 Sputum, Induced/Lukens Gram Stain - Final 06/23/21 08:00 Sputum, Induced/Lukens Respiratory Culture - Final Yeast, not Trudi albicans 06/22/21 09:10 Urine Catheter - Vincent Urine Culture - Final Yeast, not Trudi albicans 06/20/21 12:55 Urine Catheter - Vincent Urine Culture - Final Corynebacterium jeikeium 06/20/21 11:15 Nasal Secretion SARS-CoV-2 Antigen (Rapid) - Final Physical Exam Const no apparent distress General Appearance: patient mechanically ventilated Nutritional Appearance: obese HEENT normocephalic and head/scalp atraumatic Mouth: endotracheal tube in place and OG tube in place Eyes PERRL and conjunctivae normal Neck supple General: trachea midline Chest inspection of chest normal Resp Auscultation: rhonchi and wheezes Cardio S1 normal heart sound and S2 normal heart sound Rate: tachycardic GI normal to inspection, nondistended, normoactive bowel sounds Extremity no clubbing, cyanosis or edema Skin no rashes or lesions noted Neuro Sensorium / Orientation: sedated on vent Charges/Coding Procedures Hospitalists Procedures: 04397 Critial Care 1st Hr
[2021-06-28] MEDS: Ipratropium/Albuterol Sulfate 3 ML AMPUL.NEB INHALATION (07:37)
[2021-06-28 09:14] LABS: Pathologist Review Reviewed
[2021-06-28 09:36] LABS: Pathologist Review Reviewed
[2021-06-28] MEDS: Morphine 2 MG/ML Syringe IV (10:25)
[2021-06-28] MEDS: LORazepam 2 MG/ML Syringe IV (10:25)
--- NOTE | 2021-06-28 12:49 | EXP.PCM_ITS ---
Preliminary Cause of Preliminary Cause of Preliminary Cause of : asystole due to acute cardiopulmonary arrest due to acute respiratory failure as a result of post obstructive pneumonia from newly diagnosed small cell lung cancer Date of Admission: 06/20/21 Principle Diagnosis Problem List: Active and Suspected Problems (Updated 06/27/21 @ 17:[address] Jared Mata MD) Small cell lung cancer in adult (Acute) Azotemia (Acute) Acute deep vein thrombosis (Acute) Pancytopenia (Acute) Thrombocytopenia (Acute) Lytic bone lesions on xray (Acute) Pneumonia (Acute) Hypoxia (Acute) Acute respiratory failure with hypoxia (Acute) Hospital Course Patient is a 56 y/o female with an extensive PMH as outlined including a previou s diagnoses of nonsmall cell lung cancer with noted recurrence earlier this month noted on CT scan of the chest. Patient was being treated on outpatient basis for postobstructive pneumonia with oral antibiotics and plan was for her to have a bronchoscopy on outpatient basis when she was more stable. However patient subsequently became more short of breath for the 2 weeks prior to admission and was requiring up to 5 L in the ED. Admission, labs were significant for platelets of 17 and potassium of 3.2 with mildly elevated BNP of 165. Chest x-ray showed worsening bilateral pneumonia. She was initially admitted and managed for acute hypoxic respiratory failure due to postobstructive pneumonia. She was started on IV Zosyn and Levaquin and started on BiPAP. Critical care was consulted. He was also initially started on IV vancomycin. Hematology oncology was consulted on account of profound thrombocytopenia in the setting of known lung cancer with recurrence. Patient was subsequently intubated due to worsening respiratory status and she had a bronchoscopy which showed a partially obstructing mass found proximally in the left upper lobe which was endobronchial and could not be traversed. There was also extrinsic compression from the right middle lobe with the airway moderately narrowed. Endobronchial biopsies were obtained which subsequently showed that patient had small cell lung cancer. Hospital course was also complicated by lower extremity DVT which required an IVC filter placement as she could not be anticoagulated due to severe thrombocytopenia. Patient's respiratory course was protracted and she did not improve. She remained intubated and sedated and failed spontaneous breathing trials. Family was counseled about poor prognosis in light of recurrence of her lung cancer with the finding this time being small cell lung cancer. Family decided to withdraw care and CODE STATUS was switched to DNRCC on 06/28/2021. Patient was terminally extubated and at 10:28 on 06/28/2021. Cause of is asystole due to cardiopulmonary arrest due to acute hypoxic respiratory failure from post obstructive pneumonia and newly diagnosed small cell lung cancer. Visit Charges Inpatient E&M: [id number] Disch Hosp
[2021-06-28 13:39] LABS: Pathologist Review Reviewed
[2021-06-28 23:30] LABS: Bedside Glucose 176 mg/dL (70-110)
== END 2021-06-28 10:28 | DRG 207 ==
LOC: ED 11:59 → ICU 16:51
PROVIDERS: Family Medicine; Hospitalist; Internal Medicine Critical Care Medicine; Internal Medicine Hematology & Oncology; Admitting Provider Internal Medicine; Emergency Provider Emergency Medicine; PCP Family Medicine Geriatric Medicine; Visit Provider Student in an Organized Health Care Education/Training Program
PROC: 0BJ08ZZ Inspection of Tracheobronchial Tree, Via Natural or Artificial Opening Endoscopic (ICD-10-PCS; CPT 31622; principal; 2021-06-24 13:45)
DX: J13 Pneumonia due to Streptococcus pneumoniae (principal); J96.01 Acute respiratory failure with hypoxia; E43 Unspecified severe protein-calorie malnutrition; C34.91 Malignant neoplasm of unspecified part of right bronchus or lung; I50.32 Chronic diastolic (congestive) heart failure; D61.818 Other pancytopenia; I82.442 Acute embolism and thrombosis of left tibial vein; J95.61 Intraoperative hemorrhage and hematoma of a respiratory system organ or structure complicating a respiratory system procedure; E87.6 Hypokalemia; N19 Unspecified kidney failure; I46.9 Cardiac arrest, cause unspecified; E78.00 Pure hypercholesterolemia, unspecified; E03.9 Hypothyroidism, unspecified; Z66 Do not resuscitate; E78.5 Hyperlipidemia, unspecified; F32.A Depression, unspecified; J70.1 Chronic and other pulmonary manifestations due to radiation; Y84.2 Radiological procedure and radiotherapy as the cause of abnormal reaction of the patient, or of later complication, without mention of misadventure at the time of the procedure; I11.0 Hypertensive heart disease with heart failure; Z68.35 Body mass index [BMI] 35.0-35.9, adult; Z87.441 Personal history of nephrotic syndrome; E66.9 Obesity, unspecified; D69.59 Other secondary thrombocytopenia
CPT/HCPCS: 31500; 31720; 36569; 36600; 37191; 51702; 71045; 71260; 74018; 76937; 80048; 80053; 80202; 81001; 82550; 82607; 82728; 82803; 82962; 83010; 83540; 83550; 83615; 83735; 83880; 84478; 84484; 85025; 85045; 85379; 85384; 85610; 85730; 86644; 86850; 86880; 86900; 86901; 86920; 86965; 87040; 87070; 87077; 87086; 87088; 87205; 87426; 88305; 88313; 88341; 88342; 93005; 93970; 94002; 94003; 94640; 94660; 94667; 94668; 97110; 97163; 97166; 97530; 97802; 97803; 99251; 99285; 99406; J2185; J7050; P9016; P9035; P9037; Q9967; A4216; C1769; C1880; C1894; G0463; J1940; J3010